=== PATIENT | female | born 1940 | race Caucasian/White ===

== ENCOUNTER 2018-03-08 19:49 | Inpatient (IN) | payer MEDICARE, OTHER ==
[~2018-03-08] VITALS: Ht 152.4 cm; Wt 45.5 kg
[~2018-03-08 19:49] MED LIST: ACET325T21 PO; ATOR40TA59 PO; CARV3.122 PO; CEPH500C PO; CHOL10003 PO; DILT120C80 PO; DIVA250T6 PO; DOCU100C28 PO; HALO5TAB PO; HYDR25SU3 RC; HYOS0.1264 PO; IPRA3AMP IH; LISI10TA2 PO; LORA0.5T PO; LORA0.5T TP; MAGN2400 PO; MAGN64TA6 PO; METH29OI TP; METH5TAB2 PO; MIRT15TA3 PO; MULT1TAB57 PO; NAPR250T6 PO; NEOM1PAC TP; OLAN2.5T11 PO; OMEP20TA8 PO; PHEN100C4 PO; POLY255P PO; PRAM0.5T5 PO; QUET25TA5 PO; SENN-79 PO; SERT50TA8 PO; TIOT18CA IH; TRAZ50TA15 PO
[2018-03-08] MEDS ORDERED: GUAI12003 PO (21:43)
[2018-03-08] MEDS ORDERED: MIRT30TA3 PO (21:43)
[2018-03-08] MEDS ORDERED: FURO-68 PO (21:43)
[2018-03-08] MEDS ORDERED: NICO1PAT27 TD (21:43)
[2018-03-08] MEDS ORDERED: FERR325T14 PO (21:43)
[2018-03-08] MEDS ORDERED: PHEN100C PO (21:43)
[2018-03-08] MEDS ORDERED: ROPI1TAB PO (21:43)
[2018-03-08] MEDS ORDERED: LATA2.5D2 EACHEYE (21:45)
[2018-03-08] MEDS ORDERED: PANT40TA5 PO (21:45)
[2018-03-09] MEDS ORDERED: METHYL SALICYLATE/MENTHOL TOPICAL OINTMENT 29GM TUBE. TP PRN
[2018-03-09] MEDS ORDERED: MAGNESIUM HYDROXIDE 2,400 MG/30 ML ORAL.SUSP. PO PRN
[2018-03-09] MEDS ORDERED: ACETAMINOPHEN 325 MG TABLET PO PRN
[2018-03-09 00:08] VITALS: BP 147/72
[2018-03-09] MEDS ORDERED: traZODone 50 MG TABLET. PO PRN (00:15)
[2018-03-09] MEDS ORDERED: TOLT2CAP PO (00:19)
[2018-03-09] MEDS ORDERED: ALPRAZolam 0.25 MG TABLET PO PRN ×2 (00:30)
[2018-03-09] MEDS ORDERED: ALPR0.254 PO ×2 (00:54)
[2018-03-09 06:00] VITALS: BP 159/75
[2018-03-09] MEDS ORDERED: ALBUTEROL SULFATE 2.5 MG/3 ML NEBU. ONE (06:08)
[2018-03-09] MEDS: ALBUTEROL SULFATE 2.5 MG/3 ML NEBU. NEB SCH ×4 (06:10→20:30)
[2018-03-09 08:06] LABS: BASO % 1 % (0-3); EOS # 0.4 x10^3/uL (0.0-0.7); EOS % 6 % (0-3); HEMATOCRIT 33.6 % (36.0-47.0); HEMOGLOBIN 11.9 g/dL (12.0-15.5); LYMPH # 1.5 x10^3/uL (1.0-4.8); LYMPH % 23 % (24-48); MEAN CORPUSCULAR HEMOGLOBIN 33 pg (25-35); MEAN CORPUSCULAR HGB CONC 35 g/dL (31-37); MEAN CORPUSCULAR VOLUME 93 fL (79-100); MONO # 0.7 x10^3/uL (0.0-1.1); MONO % 10 % (0-9); NEUT % 61 % (31-73); PLATELET COUNT 361 x10^3/uL (140-400); RED CELL DISTRIBUTION WIDTH 13.1 % (11.5-14.5); WHITE BLOOD COUNT 6.7 x10^3/uL (4.0-11.0)
[2018-03-09 08:27] LABS: PHENY 1.1 mcg/mL (10.0-20.0)
[2018-03-09 08:32] LABS: ALBUMIN 3.4 g/dL (3.4-5.0); ALBUMIN/GLOBULIN RATIO 1.1 (1.0-1.7); CALCIUM 9.3 mg/dL (8.5-10.1); CREATININE 0.7 mg/dL (0.6-1.0); GFR 81.4; POTASSIUM 3.7 mmol/L (3.5-5.1); TOTAL BILIRUBIN 0.5 mg/dL (0.2-1.0); TOTAL PROTEIN 6.6 g/dL (6.4-8.2)
[2018-03-09] MEDS ORDERED: NON FORMULARY ITEM (Tiotropium Bromide (Spiriva) 1 PUFF) IH SCH (09:00)
[2018-03-09 10:24] LABS: THYROID STIM HORMONE (TSH) 0.87 uIU/mL (0.358-3.740)
[2018-03-09] MEDS: CARVEDILOL 3.125 MG TABLET PO SCH ×2 (10:24→16:28)
[2018-03-09] MEDS: SERTRALINE 50 MG TABLET. PO SCH (10:24)
[2018-03-09] MEDS: FUROSEMIDE 40 MG TABLET PO SCH (10:24)
[2018-03-09] MEDS: SENNOSIDES 8.6 MG TABLET PO SCH ×2 (10:24→21:13)
[2018-03-09] MEDS: FERROUS SULFATE 325 MG TABLET. PO SCH ×2 (10:25→16:28)
[2018-03-09] MEDS: LISINOPRIL 10 MG TABLET PO SCH (10:25)
[2018-03-09] MEDS: PANTOPRAZOLE 40 MG TABLET. PO SCH (10:25)
[2018-03-09] MEDS: METHADONE 5 MG TABLET. PO SCH ×3 (10:25→21:16)
[2018-03-09] MEDS: rOPINIRole 1 MG TABLET. PO SCH ×2 (10:25→21:13)
[2018-03-09] MEDS: PHENYTOIN SODIUM EXTENDED 100 MG CAPSULE PO SCH ×2 (10:26→21:13)
[2018-03-09] MEDS: NICOTINE 7MG PATCH. TD SCH (10:26)
--- NOTE | 2018-03-09 10:34 | EKG ---
[address] [address] Test Date: 2018-03-09 Test Time: 10:30:26 Pat Name: RASHEEDA [place]SON Department: Room: [address] [place] [address] Gender: F Cyber Security Analyst: : 1940 Requested By: JESIKA HAYES Order Number: [id number] Reading MD: Thomas Zhao MD Measurements Intervals [place] Rate: 94 P: -28 KS: 110 QRS: -15 QRSD: 132 T: 152 QT: 362 QTc: 453 Interpretive Statements SINUS RHYTHM LBBB Electronically Signed On 04-06-2018 22:37:01 CDT by Thomas Zhao MD
[2018-03-09] MEDS: BUDESONIDE 0.5 MG/2 ML NEBU NEB SCH ×2 (10:55→20:30)
[2018-03-09 13:11] LABS: T3 TOTAL 92 ng/dL (71-180); THYROXINE 5.9 ug/dL (4.5-12.0)
[2018-03-09 15:11] LABS: HEMOGLOBIN A1C 4.9 % (4.8-5.6)
[2018-03-09 15:39] VITALS: BP 119/50
--- NOTE | 2018-03-09 20:03 | PDOC ---
Exam Note: Brian Note: Please also refer to the separate dictated note~for this date of service dictated separately.~Patient seen individually. Discussed the patient with Nursing staff reviewed the chart.~Reviewed interim history and current functioning. Reviewed vital signs,~Labs/ Radiology~and current medications noted below. Continue current treatment with the changes noted in the dictated addendum note Assessment: Vital Signs: Vital Signs Date Time Temp Pulse Resp B/P (MAP) Pulse Ox O2 Delivery O2 Flow Rate FiO2 03/09/18 17:42 98 03/09/18 16:28 82 119/50 03/09/18 15:49 Room Air 03/09/18 15:39 99.3 18 I&O Intake and Output 03/09/18 07:00 Intake Total 240 ml Balance 240 ml Intake Oral 240 ml Labs: Laboratory Tests Test 03/09/18 07:35 White Blood Count 6.7 x10^3/uL (4.0-11.0) Red Blood Count 3.60 x10^6/uL (3.50-5.40) Hemoglobin 11.9 g/dL (12.0-15.5) L Hematocrit 33.6 % (36.0-47.0) L Mean Corpuscular Volume 93 fL (79-100) Mean Corpuscular Hemoglobin 33 pg (25-35) Mean Corpuscular Hemoglobin Concent 35 g/dL (31-37) Red Cell Distribution Width 13.1 % (11.5-14.5) Platelet Count 361 x10^3/uL (140-400) Neutrophils (%) (Auto) 61 % (31-73) Lymphocytes (%) (Auto) 23 % (24-48) L Monocytes (%) (Auto) 10 % (0-9) H Eosinophils (%) (Auto) 6 % (0-3) H Basophils (%) (Auto) 1 % (0-3) Neutrophils # (Auto) 4.0 x10^3uL (1.8-7.7) Lymphocytes # (Auto) 1.5 x10^3/uL (1.0-4.8) Monocytes # (Auto) 0.7 x10^3/uL (0.0-1.1) Eosinophils # (Auto) 0.4 x10^3/uL (0.0-0.7) Basophils # (Auto) 0.0 x10^3/uL (0.0-0.2) Sodium Level 136 mmol/L (136-145) Potassium Level 3.7 mmol/L (3.5-5.1) Chloride Level 99 mmol/L (98-107) Carbon Dioxide Level 27 mmol/L (21-32) Anion Gap 10 (6-14) Blood Urea Nitrogen 18 mg/dL (7-20) Creatinine 0.7 mg/dL (0.6-1.0) Estimated GFR (Cockcroft-Gault) 81.4 BUN/Creatinine Ratio 26 (6-20) H Glucose Level 102 mg/dL (70-99) H Hemoglobin A1c 4.9 % (4.8-5.6) Calcium Level 9.3 mg/dL (8.5-10.1) Iron Level 123 ug/dL (50-170) Total Iron Binding Capacity 237 ug/dL (250-450) L Iron Saturation 52 % (15-34) H Total Bilirubin 0.5 mg/dL (0.2-1.0) Aspartate Amino Transferase (AST) 17 U/L (15-37) Alanine Aminotransferase (ALT) 24 U/L (14-59) Alkaline Phosphatase 110 U/L (46-116) Total Protein 6.6 g/dL (6.4-8.2) Albumin 3.4 g/dL (3.4-5.0) Albumin/Globulin Ratio 1.1 (1.0-1.7) Triglycerides Level 78 mg/dL (0-150) Cholesterol Level 247 mg/dL (0-200) H LDL Cholesterol, Calculated 171 mg/dL (0-100) H VLDL Cholesterol, Calculated 15 mg/dL (0-40) Non-HDL Cholesterol Calculated 186 mg/dL (0-129) H HDL Cholesterol 61 mg/dL (40-60) H Cholesterol/HDL Ratio 4.0 Thyroid Stimulating Hormone (TSH) 0.870 uIU/mL (0.358-3.740) Thyroxine (T4) 5.9 ug/dL (4.5-12.0) Total Triiodothyronine (TT3) 92 ng/dL (71-180) Phenytoin (Dilantin) Level 1.1 mcg/mL (10.0-20.0) L Phenytoin Last Dose Date 03/08/18 Phenytoin Last Dose Time 0800 Rapid Plasma Reagin Pending Current Medications: Meds: Current Medications Acetaminophen (Tylenol) 650 mg PRN Q6HRS PRN PO PAIN / TEMP; Start 03/09/18 at 00:00 Multi-Ingredient Ointment (Analgesic [place]) 1 cayla PRN QID PRN TP MUSCLE PAIN; Start 03/09/18 at 00:00 Al Hydroxide/Mg Hydroxide (Mylanta Plus Xs) 15 ml PRN AFTMEALHC PRN PO DYSPEPSIA; Start 03/09/18 at 00:00 Magnesium Hydroxide (Milk Of Magnesia) 2,400 mg PRN QHS PRN PO CONSTIPATION; Start 03/09/18 at 00:00 Ferrous Sulfate (Feosol) 325 mg BIDAFTMEAL PO Last administered on 03/09/18at 16 :28; Start 03/09/18 at 09:00 Albuterol/ Ipratropium (Duoneb) 3 ml PRN Q4HRS PRN IH WHILE AWAKE F/SOA; Start 03/09/18 at 00:15 Lisinopril (Prinivil) 10 mg DAILY PO Last administered on 03/09/18at 10:25; Start 03/09/18 at 09:00 Methadone HCl (Dolophine) 10 mg TID PO Last administered on 03/09/18 16:28; Start 03/09/18 at 09:00 Mirtazapine (Remeron) 30 mg QHS PO ; Start 03/09/18 at 21:00 Sertraline HCl (Zoloft) 150 mg DAILY PO Last administered on 03/09/18at 10:24; Start 03/09/18 at 09:00 Carvedilol (Coreg) 3.125 mg BIDWMEALS PO Last administered on 03/09/18 16:28; Start 03/09/18 at 08:00 Furosemide (Lasix) 40 mg DAILY PO Last administered on 03/09/18 10:24; Start 03/09/18 at 09:00 Guaifenesin (Mucinex Er) 1,200 mg Q12HR PO Last administered on 03/09/18at 10:24 ; Start 03/09/18 at 09:00 Latanoprost (Xalatan) 1 drop QHS OU ; Start 03/09/18 at 21:00 Nicotine (Nicoderm Cq 7mg) 1 patch DAILY TD Last administered on 03/09/18 10: 26; Start 03/09/18 at 09:00 Pantoprazole Sodium (Protonix) 40 mg DAILYAC PO Last administered on 03/09/18at 10:25; Start 03/09/18 at 07:30 Phenytoin Sodium (Dilantin) 200 mg BID PO Last administered on 03/09/18 10:26 ; Start 03/09/18 at 09:00 Ropinirole HCl (Requip) 1 mg BID PO Last administered on 03/09/18at 10:25; Start 03/09/18 at 09:00 Sennosides (Senna) 8.6 mg BID PO Last administered on 03/09/18at 10:24; Start at 09:00 Non-Formulary Medication (Tiotropium [place] (Spiriva)) 1 puff DAILY IH ; Start 03/09/18 at 09:00; Status UNV Oxybutynin Chloride (Ditropan) 5 mg BID PO ; Start 03/09/18 at 21:00 Trazodone HCl (Desyrel) 50 mg PRN QHS PRN PO INSOMNIA; Start 03/09/18 at 00:15 ; Stop 03/09/18 at 19:54; Status DC Alprazolam (Xanax) 0.25 mg PRN Q12HR PRN PO ANXIETY / AGITATION; Start at 00:30; Stop 03/09/18 at 19:54; Status DC Alprazolam (Xanax) 0.25 mg PRN Q6HRS PRN PO ANXIETY / AGITATION; Start at 00:30; Stop 03/09/18 at 19:54; Status DC Albuterol Sulfate (Ventolin) 2.5 mg RTQID NEB Last administered on 03/09/18at 15 :49; Start 03/09/18 at 08:00 Budesonide (Pulmicort) 0.5 mg RTBID NEB Last administered on 03/09/18at 10:55; Start 03/09/18 at 08:00 Albuterol Sulfate (Ventolin) 2.5 mg STK-MED ONCE .ROUTE ; Start 03/09/18 at 06: 08; Stop 03/09/18 at 06:09; Status DC Alprazolam (Xanax) 0.25 mg PRN Q4HRS PRN PO ANXIETY / AGITATION; Start at 20:00; Status UNV Trazodone HCl (Desyrel) 100 mg PRN QHS PRN PO INSOMNIA; Start 03/09/18 at 20:00 ; Status UNV Active Scripts Active Reported Alprazolam 0.25 Mg Tablet 0.25 Mg PO PRN Q12HR PRN Alprazolam 0.25 Mg Tablet 0.25 Mg PO PRN Q6HRS PRN Detrol La (Tolterodine Tartrate) 2 Mg Cap.er.24h 2 Mg PO QHS Xalatan (Latanoprost) 2.5 Ml Drops 1 Drop EACHEYE QHS Pantoprazole Sodium 40 Mg Tablet.dr 40 Mg PO DAILY Requip (Ropinirole Hcl) 1 Mg Tablet 1 Mg PO BID NICODERM CQ 7mg (Nicotine) 1 Each Patch.td24 1 Patch TD DAILY Mucinex (Guaifenesin) 1,200 Mg Tbmp.12hr 1,200 Mg PO Q12HR Lasix (Furosemide) 40 Mg Tablet 40 Mg PO DAILY Ferrous Sulfate 325 Mg Tablet 325 Mg PO BID Mirtazapine 30 Mg Tablet 30 Mg PO QHS Trazodone Hcl 50 Mg Tablet 50 Mg PO PRN QHS PRN Sertraline Hcl 50 Mg Tablet 150 Mg PO DAILY Spiriva (Tiotropium [place]) 18 Mcg Cap.w.dev 1 Puff IH DAILY Senna (Sennosides) 8.6 Mg Tablet 8.6 Mg PO BID Phenytoin Sodium Extended 100 Mg Capsule 200 Mg PO BID Methadone Hcl 5 Mg Tablet 10 Mg PO TID Lisinopril 10 Mg Tablet 10 Mg PO DAILY Carvedilol 3.125 Mg Tablet 1 Tab PO BIDWMEALS Duoneb 0.5-3(2.5) Mg/3 Ml (Albuterol/Ipratropium) 3 Ml Ampul.neb 3 Ml IH Q4HRS W /A PRN I have reviewed the current psychotropics carefully including drug interactions. Risk benefit ratio favors no change other than as noted in my dictated progress note. Diagnosis: Problems: (1) Parkinson disease (2) Major depressive disorder (3) Impulse control disorder (4) Alzheimer's dementia (5) Vascular dementia with delusions JESIKA HAYES MD March 09, 2018 20:03
--- NOTE | 2018-03-09 20:46 | PDOC ---
Exam Note: Brian Note: Please also refer to the separate dictated note~for this date of service dictated separately.~Patient seen individually. Discussed the patient with Nursing staff reviewed the chart.~Reviewed interim history and current functioning. Reviewed vital signs,~Labs/ Radiology~and current medications noted below. Continue current treatment with the changes noted in the dictated addendum note Assessment: Vital Signs: Vital Signs Date Time Temp Pulse Resp B/P (MAP) Pulse Ox O2 Delivery O2 Flow Rate FiO2 03/09/18 20:35 Room Air 03/09/18 20:30 96 03/09/18 16:28 82 119/50 03/09/18 15:39 99.3 18 I&O Intake and Output 03/09/18 07:00 Intake Total 240 ml Balance 240 ml Intake Oral 240 ml Labs: Laboratory Tests Test 03/09/18 07:35 White Blood Count 6.7 x10^3/uL (4.0-11.0) Red Blood Count 3.60 x10^6/uL (3.50-5.40) Hemoglobin 11.9 g/dL (12.0-15.5) L Hematocrit 33.6 % (36.0-47.0) L Mean Corpuscular Volume 93 fL (79-100) Mean Corpuscular Hemoglobin 33 pg (25-35) Mean Corpuscular Hemoglobin Concent 35 g/dL (31-37) Red Cell Distribution Width 13.1 % (11.5-14.5) Platelet Count 361 x10^3/uL (140-400) Neutrophils (%) (Auto) 61 % (31-73) Lymphocytes (%) (Auto) 23 % (24-48) L Monocytes (%) (Auto) 10 % (0-9) H Eosinophils (%) (Auto) 6 % (0-3) H Basophils (%) (Auto) 1 % (0-3) Neutrophils # (Auto) 4.0 x10^3uL (1.8-7.7) Lymphocytes # (Auto) 1.5 x10^3/uL (1.0-4.8) Monocytes # (Auto) 0.7 x10^3/uL (0.0-1.1) Eosinophils # (Auto) 0.4 x10^3/uL (0.0-0.7) Basophils # (Auto) 0.0 x10^3/uL (0.0-0.2) Sodium Level 136 mmol/L (136-145) Potassium Level 3.7 mmol/L (3.5-5.1) Chloride Level 99 mmol/L (98-107) Carbon Dioxide Level 27 mmol/L (21-32) Anion Gap 10 (6-14) Blood Urea Nitrogen 18 mg/dL (7-20) Creatinine 0.7 mg/dL (0.6-1.0) Estimated GFR (Cockcroft-Gault) 81.4 BUN/Creatinine Ratio 26 (6-20) H Glucose Level 102 mg/dL (70-99) H Hemoglobin A1c 4.9 % (4.8-5.6) Calcium Level 9.3 mg/dL (8.5-10.1) Iron Level 123 ug/dL (50-170) Total Iron Binding Capacity 237 ug/dL (250-450) L Iron Saturation 52 % (15-34) H Total Bilirubin 0.5 mg/dL (0.2-1.0) Aspartate Amino Transferase (AST) 17 U/L (15-37) Alanine Aminotransferase (ALT) 24 U/L (14-59) Alkaline Phosphatase 110 U/L (46-116) Total Protein 6.6 g/dL (6.4-8.2) Albumin 3.4 g/dL (3.4-5.0) Albumin/Globulin Ratio 1.1 (1.0-1.7) Triglycerides Level 78 mg/dL (0-150) Cholesterol Level 247 mg/dL (0-200) H LDL Cholesterol, Calculated 171 mg/dL (0-100) H VLDL Cholesterol, Calculated 15 mg/dL (0-40) Non-HDL Cholesterol Calculated 186 mg/dL (0-129) H HDL Cholesterol 61 mg/dL (40-60) H Cholesterol/HDL Ratio 4.0 Thyroid Stimulating Hormone (TSH) 0.870 uIU/mL (0.358-3.740) Thyroxine (T4) 5.9 ug/dL (4.5-12.0) Total Triiodothyronine (TT3) 92 ng/dL (71-180) Phenytoin (Dilantin) Level 1.1 mcg/mL (10.0-20.0) L Phenytoin Last Dose Date 03/08/18 Phenytoin Last Dose Time 0800 Rapid Plasma Reagin Pending Current Medications: Meds: Current Medications Acetaminophen (Tylenol) 650 mg PRN Q6HRS PRN PO PAIN / TEMP; Start 03/09/18 at 00:00 Multi-Ingredient Ointment (Analgesic [place]) 1 cayla PRN QID PRN TP MUSCLE PAIN; Start 03/09/18 at 00:00 Al Hydroxide/Mg Hydroxide (Mylanta Plus Xs) 15 ml PRN AFTMEALHC PRN PO DYSPEPSIA; Start 03/09/18 at 00:00 Magnesium Hydroxide (Milk Of Magnesia) 2,400 mg PRN QHS PRN PO CONSTIPATION; Start 03/09/18 at 00:00 Ferrous Sulfate (Feosol) 325 mg BIDAFTMEAL PO Last administered on 03/09/18at 16 :28; Start 03/09/18 at 09:00 Albuterol/ Ipratropium (Duoneb) 3 ml PRN Q4HRS PRN IH WHILE AWAKE F/SOA; Start 03/09/18 at 00:15 Lisinopril (Prinivil) 10 mg DAILY PO Last administered on 03/09/18at 10:25; Start 03/09/18 at 09:00 Methadone HCl (Dolophine) 10 mg TID PO Last administered on 03/09/18 16:28; Start 03/09/18 at 09:00 Mirtazapine (Remeron) 30 mg QHS PO ; Start 03/09/18 at 21:00 Sertraline HCl (Zoloft) 150 mg DAILY PO Last administered on 03/09/18at 10:24; Start 03/09/18 at 09:00 Carvedilol (Coreg) 3.125 mg BIDWMEALS PO Last administered on 03/09/18 16:28; Start 03/09/18 at 08:00 Furosemide (Lasix) 40 mg DAILY PO Last administered on 03/09/18 10:24; Start 03/09/18 at 09:00 Guaifenesin (Mucinex Er) 1,200 mg Q12HR PO Last administered on 03/09/18at 10:24 ; Start 03/09/18 at 09:00 Latanoprost (Xalatan) 1 drop QHS OU ; Start 03/09/18 at 21:00 Nicotine (Nicoderm Cq 7mg) 1 patch DAILY TD Last administered on 03/09/18 10: 26; Start 03/09/18 at 09:00 Pantoprazole Sodium (Protonix) 40 mg DAILYAC PO Last administered on 03/09/18 10:25; Start 03/09/18 at 07:30 Phenytoin Sodium (Dilantin) 200 mg BID PO Last administered on 03/09/18 10:26 ; Start 03/09/18 at 09:00 Ropinirole HCl (Requip) 1 mg BID PO Last administered on 03/09/18 10:25; Start 03/09/18 at 09:00 Sennosides (Senna) 8.6 mg BID PO Last administered on 03/09/18 10:24; Start at 09:00 Non-Formulary Medication (Tiotropium [place] (Spiriva)) 1 puff DAILY IH ; Start 03/09/18 at 09:00; Status UNV Oxybutynin Chloride (Ditropan) 5 mg BID PO ; Start 03/09/18 at 21:00 Trazodone HCl (Desyrel) 50 mg PRN QHS PRN PO INSOMNIA; Start 03/09/18 at 00:15 ; Stop 03/09/18 at 19:54; Status DC Alprazolam (Xanax) 0.25 mg PRN Q12HR PRN PO ANXIETY / AGITATION; Start at 00:30; Stop 03/09/18 at 19:54; Status DC Alprazolam (Xanax) 0.25 mg PRN Q6HRS PRN PO ANXIETY / AGITATION; Start at 00:30; Stop 03/09/18 at 19:54; Status DC Albuterol Sulfate (Ventolin) 2.5 mg RTQID NEB Last administered on 03/09/18at 20 :30; Start 03/09/18 at 08:00 Budesonide (Pulmicort) 0.5 mg RTBID NEB Last administered on 03/09/18at 20:30; Start 03/09/18 at 08:00 Albuterol Sulfate (Ventolin) 2.5 mg STK-MED ONCE .ROUTE ; Start 03/09/18 at 06: 08; Stop 03/09/18 at 06:09; Status DC Alprazolam (Xanax) 0.25 mg PRN Q4HRS PRN PO ANXIETY / AGITATION; Start at 20:00 Trazodone HCl (Desyrel) 100 mg PRN QHS PRN PO INSOMNIA; Start 03/09/18 at 20:00 Active Scripts Active Reported Alprazolam 0.25 Mg Tablet 0.25 Mg PO PRN Q12HR PRN Alprazolam 0.25 Mg Tablet 0.25 Mg PO PRN Q6HRS PRN Detrol La (Tolterodine Tartrate) 2 Mg Cap.er.24h 2 Mg PO QHS Xalatan (Latanoprost) 2.5 Ml Drops 1 Drop EACHEYE QHS Pantoprazole Sodium 40 Mg Tablet.dr 40 Mg PO DAILY Requip (Ropinirole Hcl) 1 Mg Tablet 1 Mg PO BID NICODERM CQ 7mg (Nicotine) 1 Each Patch.td24 1 Patch TD DAILY Mucinex (Guaifenesin) 1,200 Mg Tbmp.12hr 1,200 Mg PO Q12HR Lasix (Furosemide) 40 Mg Tablet 40 Mg PO DAILY Ferrous Sulfate 325 Mg Tablet 325 Mg PO BID Mirtazapine 30 Mg Tablet 30 Mg PO QHS Trazodone Hcl 50 Mg Tablet 50 Mg PO PRN QHS PRN Sertraline Hcl 50 Mg Tablet 150 Mg PO DAILY Spiriva (Tiotropium [place]) 18 Mcg Cap.w.dev 1 Puff IH DAILY Senna (Sennosides) 8.6 Mg Tablet 8.6 Mg PO BID Phenytoin Sodium Extended 100 Mg Capsule 200 Mg PO BID Methadone Hcl 5 Mg Tablet 10 Mg PO TID Lisinopril 10 Mg Tablet 10 Mg PO DAILY Carvedilol 3.125 Mg Tablet 1 Tab PO BIDWMEALS Duoneb 0.5-3(2.5) Mg/3 Ml (Albuterol/Ipratropium) 3 Ml Ampul.neb 3 Ml IH Q4HRS W /A PRN I have reviewed the current psychotropics carefully including drug interactions. Risk benefit ratio favors no change other than as noted in my dictated progress note. Diagnosis: Problems: (1) Vascular dementia with delusions (2) Alzheimer's dementia (3) Impulse control disorder (4) Major depressive disorder (5) Parkinson disease JESIKA HAYES MD March 09, 2018 20:46
[2018-03-09] MEDS: OXYBUTYNIN CHLORIDE 5 MG TABLET PO SCH (21:15)
[2018-03-09] MEDS: LATANOPROST 0.005% OPHTH SOLUTION 2.5ML BOTTLE. OU SCH (21:15)
[2018-03-09] MEDS: MIRTAZAPINE 30 MG TABLET PO SCH (21:16)
[2018-03-09] MEDS: ALPRAZolam 0.25 MG TABLET PO PRN (21:27)
--- NOTE | 2018-03-09 22:06 | HP ---
ADMIT DATE: 03/09/2018 IDENTIFYING DATA: The patient is a 77-year-old female who returns back to us from [facility], referred by Dr. Tevin Nunn, her primary care physician on account of worsening anxiety, feeling she could not breathe, and making a suicide gesture. She reportedly attempted to cut her wrist with the envelope garage door opener installer. She has been increasingly confused, forgetful. She was last here with us about 3 years ago and since then, she has been at [facility], doing reasonably well until her relapse recently. CHIEF COMPLAINT: "I have been here 3 weeks. No, I do not know where I came from. It is too hot in here. I need the cooling turned down, but my roommate, she would not agree to it. 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 I am not entirely clear about her alcohol intake history and we will have social service staff inquire into it further, in which case, it might be related to some of her memory deficits as well. Additionally, she has been increasingly anxious, having sleep and appetite changes, being overwhelmed with the anxiety and consequently feeling somewhat hopeless, helpless, and worthless. She made the above suicide gesture, but denies any active suicidal ideation at this time. She does have a history of mood swings, but no clear past history of bipolar disorder and we will reassess and gather further background history to clarify this as well. PAST PSYCHIATRIC HISTORY: As above. MEDICAL HISTORY: Positive for COPD, iron deficiency, hypertension, and she is additionally on methadone for chronic pain, history of possible seizure disorder for which she is on Dilantin and Parkinson's disease for which she is on Requip, chronic constipation. DRUG ALLERGIES: Negative. CURRENT PSYCHOTROPICS: Remeron 30 mg at bedtime, Zoloft 100 mg a day, trazodone 50 mg at bedtime p.r.n. FAMILY HISTORY: Noncontributory. SOCIAL HISTORY: The patient denies any past alcohol usage, but as noted above, we will clarify this further during this hospitalization. She states she has 4 children, 2 of whom live in the area and the other 2 in the [place] area reportedly. No physical, sexual or elder abuse history is noted. Not known to be a perpetrator. MENTAL STATUS EXAMINATION: The patient was seen individually evening of 03/09/2018, in her room. She is oriented to herself and said she has been here for several weeks. She is anxious, constantly moving, quite apprehensive, fixated on feeling too hot, wanting the AC turned down. Speech coherent, rapid at times. Abstraction fair, computation impaired, language function intact. Attention span short. No active suicidal ideation. Reaction to hospitalization, the patient accepting of it. ASSETS: Supportive living at the above assisted. IMPRESSION: Major neurocognitive disorder, possibly Alzheimer, vascular with depression, delusion; anxiety disorder, unspecified; impulse control disorder, unspecified; major depressive disorder. Rule out bipolar 1 disorder, mixed episode. Rest as noted above. PLAN: Admit to Ger[facility]iatry Unit at [facility]. I will see the patient daily individually from a psychiatric standpoint, medical followup with Dr. Kelly/Dr. Salguero. Continue the patient on her current psychotropics. We will increase trazodone to 200 mg at bedtime as needed, may repeat x 1, for insomnia since she slept just 3 hours the previous evening. We will make further adjustments as post-baseline assessment. MAN Gabino HAYES MD DR: BROOKE/fabio JOB#: [id number] / [id number]
[2018-03-10] MEDS: ALPRAZolam 0.25 MG TABLET PO PRN ×3 (03:47→18:13)
[2018-03-10] MEDS: ALBUTEROL SULFATE 2.5 MG/3 ML NEBU. NEB SCH ×4 (05:56→21:48)
[2018-03-10 06:07] VITALS: BP 117/63
[2018-03-10] MEDS: BUDESONIDE 0.5 MG/2 ML NEBU NEB SCH ×2 (08:00→21:48)
[2018-03-10] MEDS: PHENYTOIN SODIUM EXTENDED 100 MG CAPSULE PO SCH ×2 (08:01→20:19)
[2018-03-10] MEDS: METHADONE 5 MG TABLET. PO SCH ×3 (08:01→20:22)
[2018-03-10] MEDS: FERROUS SULFATE 325 MG TABLET. PO SCH ×2 (08:01→16:51)
[2018-03-10] MEDS: PANTOPRAZOLE 40 MG TABLET. PO SCH (08:01)
[2018-03-10] MEDS: OXYBUTYNIN CHLORIDE 5 MG TABLET PO SCH ×2 (08:01→20:19)
[2018-03-10] MEDS: SENNOSIDES 8.6 MG TABLET PO SCH ×2 (08:01→20:20)
[2018-03-10] MEDS: FUROSEMIDE 40 MG TABLET PO SCH (08:01)
[2018-03-10] MEDS: rOPINIRole 1 MG TABLET. PO SCH ×2 (08:02→20:20)
[2018-03-10] MEDS: NICOTINE 7MG PATCH. TD SCH (08:02)
[2018-03-10] MEDS: SERTRALINE 50 MG TABLET. PO SCH (08:02)
[2018-03-10] MEDS: CARVEDILOL 3.125 MG TABLET PO SCH ×2 (08:03→16:52)
[2018-03-10] MEDS: LISINOPRIL 10 MG TABLET PO SCH (08:03)
--- NOTE | 2018-03-10 09:02 | CONS ---
DATE OF CONSULTATION: 03/09/2018 REASON FOR CONSULTATION: Medical management. HISTORY OF PRESENT ILLNESS: The patient is a 77-year-old female patient who is a resident at [facility] and who was evaluated at the Emergency Room of [facility]. She presented with a suicidal ideation and anxiety. Apparently, the patient attempted to self-injury by incising her wrist, complaining that she is sick and tired of being short of breath and she apparently cut her left wrist with the finger nail file and arrived there with superficial laceration noted in her left wrist. The patient did not receive her morning medication and when she arrived there, reported feeling anxious and short of breath. Denies any chest pain. She was basically extensively investigated there and was transferred [facility] for inpatient psychiatric stabilization. PAST MEDICAL HISTORY: Significant for anxiety, chronic obstructive pulmonary disease, depression, hypercholesterolemia, hypertension, insomnia, seizure disorder, and dementia. PAST SURGICAL HISTORY: Significant for tonsillectomy. FAMILY HISTORY: Unremarkable. SOCIAL HISTORY: She is a resident at [facility]. She apparently had been a smoker since she the age of 16. She does not drink alcohol or use any recreational drugs. ALLERGIES: She has no known drug allergies. MEDICATIONS: She is currently on following medications: She is on ipratropium bromide, albuterol sulfate, DuoNeb 0.5-2.5 mg in 3 mL by nebulizer every 4 hours, Spiriva HandiHaler 1 inhalation once a day, nicotine transdermal patch 7 mg topically daily, ferrous sulfate 325 mg twice a day, carvedilol 3.125 mg twice a day with meals, lisinopril 10 mg once a day, methadone 10 mg 3 times a day, phenytoin sodium extended release 200 mg twice a day, mirtazapine 30 mg at bedtime, sertraline 150 mg daily and trazodone 50 mg at bedtime, alprazolam 0.25 mg every 6 hours and alprazolam 0.25 mg q.12 hours. She is on Requip 1 mg twice a day, furosemide 40 mg daily and she is on Mucinex 1200 mg twice a day, latanoprost 1 drop to both eyes at bedtime, senna 1 tablet twice a day, Protonix 40 mg once a day, Detrol-LA 2 mg at bedtime. REVIEW OF SYSTEMS: As per history of present illness. PHYSICAL EXAMINATION GENERAL: When I examined her, she was sitting on the edge of the bed, comfortably in no apparent distress, pale, cachectic, but no jaundice or cyanosis. No lymphadenopathy, no thyromegaly. No jugular venous distension. No lower limb edema. VITAL SIGNS: Her heart rate was 82, blood pressure 119/50, temperature was 99.3, respiratory rate was 18 and oxygen saturation was 97% on room air. HEENT: Showed normocephalic, atraumatic. NECK: Supple. HEART: Showed normal first and second sounds. No gallop, rub or murmur. CHEST: Shows central trachea, equal bilateral chest expansion, air entry, vesicular sounds. I could not really appreciate any crepitation or rhonchi. ABDOMEN: Scaphoid, soft, nontender. NEUROLOGIC: She is awake, alert, responding appropriately. Cranial nerves intact. EXTREMITIES: She moves extremities without difficulty. She ambulates without assistance or assistive devices, although she has somewhat wide-based gait. LABORATORY DATA: Her lab work this morning showed a white cell count of 6700, hemoglobin 12, hematocrit 34, MCV 93, and platelet count 361,000 with normal manual differential. Her chemistry showed a serum sodium 136, potassium 3.7, chloride 99, bicarbonate 27, anion gap of 10, BUN 18, creatinine 0.7, estimated GFR was 81 mL per minute. Her glucose was 102, calcium was 9.3. Her hemoglobin A1c was 4.9%. Her serum iron was 123. TIBC was 237, percent saturation was 52. His total bilirubin, AST, ALT, alkaline phosphatase were normal. Total protein was 6.6, albumin was 3.4. His triglycerides were 78. Total cholesterol was 247, LDL cholesterol was 171, VLDL was 15, HDL cholesterol was 61 and the ratio was 4. Her TSH was 0.870, total T4 was 5.9 and total T3 was 92. Her phenytoin level was extremely low and is only 1.1 and her RPR was pending. ASSESSMENT AND PLAN: In summary, this is a 77-year-old female patient who basically attempted suicide by incising her wrist with using her finger nail file sustaining superficial laceration in the left wrist, complaining that she is unable to continue with the complaint of shortness of breath. She obviously known to have COPD and has been a lifelong smoker; however, surprisingly both clinically and by measurement of her oxygen saturation, her oxygen saturation was 99% on room air. The chest expansion, air entry is equal and almost normal in both lung jonas. There is no evidence of any wheezing or crepitation. No dull percussion noted. No evidence of any pneumothorax or pleural effusion. Her lab works are fairly within acceptable range. From the medical point of view, the patient is really stable, I would obviously continue with all her current medication. I think most of her symptoms are anxiety driven and she is already on multiple antianxiety medication. Her phenytoin trough level is a very low; however, I do not know whether that reflects the fact that she is not taking her medication. I would make sure that she receives her phenytoin regularly and to check it perhaps in 3-4 days. Thank you, Dr. Miramontes, for allowing me to participate in the care of this patient. CHARITY CONTRERAS MD DR: ISHMAEL/fabio JOB#: [id number] / [id number]
[2018-03-10 16:17] VITALS: BP 128/69
[2018-03-10] MEDS: LATANOPROST 0.005% OPHTH SOLUTION 2.5ML BOTTLE. OU SCH (20:18)
[2018-03-10] MEDS: MIRTAZAPINE 30 MG TABLET PO SCH (20:19)
--- NOTE | 2018-03-10 20:43 | PDOC ---
Exam Note: Brian Note: Please also refer to the separate dictated note~for this date of service dictated separately.~Patient seen individually. Discussed the patient with Nursing staff reviewed the chart.~Reviewed interim history and current functioning. Reviewed vital signs,~Labs/ Radiology~and current medications noted below. Continue current treatment with the changes noted in the dictated addendum note Assessment: Vital Signs: Vital Signs Date Time Temp Pulse Resp B/P (MAP) Pulse Ox O2 Delivery O2 Flow Rate FiO2 03/10/18 20:22 96 Room Air 03/10/18 16:52 90 128/69 03/10/18 16:17 97.8 20 I&O Intake and Output 03/10/18 07:00 Intake Total 1320 ml Balance 1320 ml Intake Oral 1320 ml # Bowel Movements 1 Current Medications: Meds: Current Medications Acetaminophen (Tylenol) 650 mg PRN Q6HRS PRN PO PAIN / TEMP; Start 03/09/18 at 00:00 Multi-Ingredient Ointment (Analgesic [place]) 1 cayla PRN QID PRN TP MUSCLE PAIN; Start 03/09/18 at 00:00 Al Hydroxide/Mg Hydroxide (Mylanta Plus Xs) 15 ml PRN AFTMEALHC PRN PO DYSPEPSIA; Start 03/09/18 at 00:00 Magnesium Hydroxide (Milk Of Magnesia) 2,400 mg PRN QHS PRN PO CONSTIPATION; Start 03/09/18 at 00:00 Ferrous Sulfate (Feosol) 325 mg BIDAFTMEAL PO Last administered on 03/10/18at 16 :51; Start 03/09/18 at 09:00 Albuterol/ Ipratropium (Duoneb) 3 ml PRN Q4HRS PRN IH WHILE AWAKE F/SOA; Start 03/09/18 at 00:15 Lisinopril (Prinivil) 10 mg DAILY PO Last administered on 03/10/18at 08:03; Start 03/09/18 at 09:00 Methadone HCl (Dolophine) 10 mg TID PO Last administered on 03/10/18at 20:22; Start 03/09/18 at 09:00 Mirtazapine (Remeron) 30 mg QHS PO Last administered on 03/10/18at 20:19; Start 03/09/18 at 21:00 Sertraline HCl (Zoloft) 150 mg DAILY PO Last administered on 03/10/18 08:02; Start 03/09/18 at 09:00 Carvedilol (Coreg) 3.125 mg BIDWMEALS PO Last administered on 03/10/18 16:52; Start 03/09/18 at 08:00 Furosemide (Lasix) 40 mg DAILY PO Last administered on 03/10/18 08:01; Start 03/09/18 at 09:00 Guaifenesin (Mucinex Er) 1,200 mg Q12HR PO Last administered on 03/10/18 20:20 ; Start 03/09/18 at 09:00 Latanoprost (Xalatan) 1 drop QHS OU Last administered on 03/10/18 20:18; Start 03/09/18 at 21:00 Nicotine (Nicoderm Cq 7mg) 1 patch DAILY TD Last administered on 03/10/18 08: 02; Start 03/09/18 at 09:00 Pantoprazole Sodium (Protonix) 40 mg DAILYAC PO Last administered on 03/10/18at 08:01; Start 03/09/18 at 07:30 Phenytoin Sodium (Dilantin) 200 mg BID PO Last administered on 03/10/18 20:19 ; Start 03/09/18 at 09:00 Ropinirole HCl (Requip) 1 mg BID PO Last administered on 03/10/18 20:20; Start 03/09/18 at 09:00 Sennosides (Senna) 8.6 mg BID PO Last administered on 03/10/18 20:20; Start at 09:00 Non-Formulary Medication (Tiotropium [place] (Spiriva)) 1 puff DAILY IH ; Start 03/09/18 at 09:00; Status UNV Oxybutynin Chloride (Ditropan) 5 mg BID PO Last administered on 03/10/18at 20:19 ; Start 03/09/18 at 21:00 Trazodone HCl (Desyrel) 50 mg PRN QHS PRN PO INSOMNIA; Start 03/09/18 at 00:15 ; Stop 03/09/18 at 19:54; Status DC Alprazolam (Xanax) 0.25 mg PRN Q12HR PRN PO ANXIETY / AGITATION; Start at 00:30; Stop 03/09/18 at 19:54; Status DC Alprazolam (Xanax) 0.25 mg PRN Q6HRS PRN PO ANXIETY / AGITATION; Start at 00:30; Stop 03/09/18 at 19:54; Status DC Albuterol Sulfate (Ventolin) 2.5 mg RTQID NEB Last administered on 03/10/18at 05 :56; Start 03/09/18 at 08:00 Budesonide (Pulmicort) 0.5 mg RTBID NEB Last administered on 03/09/18at 20:30; Start 03/09/18 at 08:00 Albuterol Sulfate (Ventolin) 2.5 mg STK-MED ONCE .ROUTE ; Start 03/09/18 at 06: 08; Stop 03/09/18 at 06:09; Status DC Alprazolam (Xanax) 0.25 mg PRN Q4HRS PRN PO ANXIETY / AGITATION Last administered on 03/10/18at 18:13; Start 03/09/18 at 20:00 Trazodone HCl (Desyrel) 100 mg PRN QHS PRN PO INSOMNIA; Start 03/09/18 at 20:00 Active Scripts Active Reported Alprazolam 0.25 Mg Tablet 0.25 Mg PO PRN Q12HR PRN Alprazolam 0.25 Mg Tablet 0.25 Mg PO PRN Q6HRS PRN Detrol La (Tolterodine Tartrate) 2 Mg Cap.er.24h 2 Mg PO QHS Xalatan (Latanoprost) 2.5 Ml Drops 1 Drop EACHEYE QHS Pantoprazole Sodium 40 Mg Tablet.dr 40 Mg PO DAILY Requip (Ropinirole Hcl) 1 Mg Tablet 1 Mg PO BID NICODERM CQ 7mg (Nicotine) 1 Each Patch.td24 1 Patch TD DAILY Mucinex (Guaifenesin) 1,200 Mg Tbmp.12hr 1,200 Mg PO Q12HR Lasix (Furosemide) 40 Mg Tablet 40 Mg PO DAILY Ferrous Sulfate 325 Mg Tablet 325 Mg PO BID Mirtazapine 30 Mg Tablet 30 Mg PO QHS Trazodone Hcl 50 Mg Tablet 50 Mg PO PRN QHS PRN Sertraline Hcl 50 Mg Tablet 150 Mg PO DAILY Spiriva (Tiotropium [place]) 18 Mcg Cap.w.dev 1 Puff IH DAILY Senna (Sennosides) 8.6 Mg Tablet 8.6 Mg PO BID Phenytoin Sodium Extended 100 Mg Capsule 200 Mg PO BID Methadone Hcl 5 Mg Tablet 10 Mg PO TID Lisinopril 10 Mg Tablet 10 Mg PO DAILY Carvedilol 3.125 Mg Tablet 1 Tab PO BIDWMEALS Duoneb 0.5-3(2.5) Mg/3 Ml (Albuterol/Ipratropium) 3 Ml Ampul.neb 3 Ml IH Q4HRS W /A PRN I have reviewed the current psychotropics carefully including drug interactions. Risk benefit ratio favors no change other than as noted in my dictated progress note. Diagnosis: Problems: (1) Vascular dementia with delusions (2) Alzheimer's dementia (3) Impulse control disorder (4) Major depressive disorder (5) Parkinson disease JESIKA HAYES MD March 10, 2018 20:43
[2018-03-11] MEDS: traZODone 50 MG TABLET. PO PRN (00:45)
[2018-03-11] MEDS: ALPRAZolam 0.25 MG TABLET PO PRN ×4 (00:45→17:11)
--- NOTE | 2018-03-11 02:35 | PN ---
DATE: 03/10/2018 SUBJECTIVE: The patient was seen today, met with the staff, chart reviewed. The patient continues to have problems with severe anxiety, periods of agitation, and also having almost panic attacks. The patient complains of shortness of breath. Apparently, she does have some breathing difficulties. The patient walks with a walker. Staff denies of any falls recently. OBSERVATION: VITAL SIGNS: Temperature 99.0, blood pressure 117/63, pulse 66, respirations 16, O2 sat 94%. Slept about 6-1/2 hours last night. The patient's appetite is fair. MEDICATIONS: Reviewed. Currently on mirtazapine 30 mg at night, trazodone 100 mg at night p.r.n., Xanax 0.25 mg q.4 hours p.r.n., Requip 1 mg b.i.d., Dilantin 200 mg b.i.d., nicotine patch, Lasix 40 mg daily, Zoloft 150 mg daily, methadone 10 mg t.i.d., lisinopril 10 mg daily, ferrous sulfate 325 mg daily. She is also on Ventolin inhaler. She is also on carvedilol 3.125 mg twice a day, Protonix 40 mg daily. She is also on albuterol inhaler. LABORATORY DATA: The patient's lab reviewed. Her hemoglobin level was 11.9. The patient's TIBC was 237, iron saturation 52, cholesterol 247, LDL 171. ASSESSMENT: Major neurocognitive disorder, most likely Alzheimer and vascular with depression and major depression, single episode, moderate, also rule out bipolar disorder, mixed. PLAN: Continue with the current treatment. Continue to monitor her medications closely. TERESITA HULL MD DR: JUAQUIN/fabio JOB#: [id number] / [id number]
[2018-03-11] MEDS: ALBUTEROL SULFATE 2.5 MG/3 ML NEBU. NEB SCH ×4 (06:22→22:06)
[2018-03-11 06:27] VITALS: BP 102/47
[2018-03-11 08:01] VITALS: BP 115/55
[2018-03-11] MEDS: FERROUS SULFATE 325 MG TABLET. PO SCH ×2 (08:03→17:04)
[2018-03-11] MEDS: CARVEDILOL 3.125 MG TABLET PO SCH ×2 (08:03→17:00)
[2018-03-11] MEDS: LISINOPRIL 10 MG TABLET PO SCH (08:03)
[2018-03-11] MEDS: PHENYTOIN SODIUM EXTENDED 100 MG CAPSULE PO SCH ×2 (08:03→19:40)
[2018-03-11] MEDS: SERTRALINE 50 MG TABLET. PO SCH (08:03)
[2018-03-11] MEDS: FUROSEMIDE 40 MG TABLET PO SCH (08:04)
[2018-03-11] MEDS: OXYBUTYNIN CHLORIDE 5 MG TABLET PO SCH ×2 (08:04→19:40)
[2018-03-11] MEDS: rOPINIRole 1 MG TABLET. PO SCH ×2 (08:04→19:41)
[2018-03-11] MEDS: NICOTINE 7MG PATCH. TD SCH (08:04)
[2018-03-11] MEDS: SENNOSIDES 8.6 MG TABLET PO SCH ×2 (08:04→19:41)
[2018-03-11] MEDS: PANTOPRAZOLE 40 MG TABLET. PO SCH (08:04)
[2018-03-11] MEDS: METHADONE 5 MG TABLET. PO SCH ×3 (08:05→19:42)
[2018-03-11] MEDS: BUDESONIDE 0.5 MG/2 ML NEBU NEB SCH ×2 (10:30→22:06)
[2018-03-11 16:41] VITALS: BP 102/52
[2018-03-11] MEDS: LATANOPROST 0.005% OPHTH SOLUTION 2.5ML BOTTLE. OU SCH (19:39)
[2018-03-11] MEDS: MIRTAZAPINE 30 MG TABLET PO SCH (19:41)
[2018-03-12] MEDS: ALPRAZolam 0.25 MG TABLET PO PRN ×3 (04:24→23:42)
[2018-03-12] MEDS: ALBUTEROL SULFATE 2.5 MG/3 ML NEBU. NEB SCH ×4 (05:51→23:29)
[2018-03-12 06:32] VITALS: BP 115/49
[2018-03-12] MEDS: NICOTINE 7MG PATCH. TD SCH (07:53)
[2018-03-12] MEDS: SERTRALINE 50 MG TABLET. PO SCH (07:54)
[2018-03-12] MEDS: rOPINIRole 1 MG TABLET. PO SCH ×2 (07:54→19:19)
[2018-03-12] MEDS: CARVEDILOL 3.125 MG TABLET PO SCH ×2 (07:54→17:26)
[2018-03-12] MEDS: PHENYTOIN SODIUM EXTENDED 100 MG CAPSULE PO SCH ×2 (07:54→19:20)
[2018-03-12] MEDS: FERROUS SULFATE 325 MG TABLET. PO SCH ×2 (07:54→17:25)
[2018-03-12] MEDS: PANTOPRAZOLE 40 MG TABLET. PO SCH (07:55)
[2018-03-12] MEDS: OXYBUTYNIN CHLORIDE 5 MG TABLET PO SCH ×2 (07:55→19:20)
[2018-03-12] MEDS: LISINOPRIL 10 MG TABLET PO SCH (07:55)
[2018-03-12] MEDS: SENNOSIDES 8.6 MG TABLET PO SCH ×2 (07:55→19:19)
[2018-03-12] MEDS: FUROSEMIDE 40 MG TABLET PO SCH (07:55)
[2018-03-12] MEDS: METHADONE 5 MG TABLET. PO SCH ×3 (07:58→19:21)
[2018-03-12] MEDS: QUEtiapine 25 MG TABLET. PO SCH ×2 (07:58→13:43)
[2018-03-12] MEDS: BUDESONIDE 0.5 MG/2 ML NEBU NEB SCH ×2 (10:41→23:29)
[2018-03-12 16:28] VITALS: BP 132/78
[2018-03-12] MEDS ORDERED: QUEtiapine 25 MG TABLET. PO ONE (19:00)
[2018-03-12] MEDS: MIRTAZAPINE 30 MG TABLET PO SCH (19:20)
--- NOTE | 2018-03-12 19:54 | PDOC ---
Exam Note: Brian Note: Late entry for date of service March 11, 2018. Please also refer to the separate dictated note~for this date of service dictated separately.~Patient seen individually. Discussed the patient with Nursing staff reviewed the chart.~ Reviewed interim history and current functioning. Reviewed vital signs,~Labs/ Radiology~and current medications noted below. Continue current treatment with the changes noted in the dictated addendum note Assessment: Vital Signs: VS - Last 72 Hours, by Label Date Time Temp Pulse Resp B/P (MAP) Pulse Ox O2 Delivery O2 Flow Rate FiO2 03/12/18 19:21 95 Room Air 03/12/18 17:26 73 132/78 03/12/18 16:28 98.0 73 16 132/78 (96) 95 03/12/18 15:55 95 Room Air 03/12/18 14:45 99 03/12/18 13:44 99 03/12/18 10:43 99 Room Air 03/12/18 10:42 99 Room Air 03/12/18 07:58 18 94 Room Air 03/12/18 07:55 67 115/49 03/12/18 07:54 67 115/49 03/12/18 06:32 97.2 67 22 115/49 (71) 94 03/12/18 05:30 97 Room Air 03/11/18 22:00 95 Room Air 03/11/18 21:55 95 Room Air 03/11/18 19:42 97 Room Air 03/11/18 17:04 97 03/11/18 17:00 67 102/52 03/11/18 16:41 98.2 67 18 102/52 (69) 97 Room Air 03/11/18 16:05 98 Room Air 03/11/18 10:30 96 Room Air 03/11/18 10:30 96 Room Air 03/11/18 08:05 99 03/11/18 08:03 74 115/55 03/11/18 08:03 74 115/55 03/11/18 08:01 74 115/55 (75) 99 03/11/18 06:27 97.1 71 24 102/47 (65) 94 03/11/18 06:24 95 Room Air 03/10/18 21:48 96 Room Air 03/10/18 21:22 18 Room Air 03/10/18 20:22 96 Room Air 03/10/18 16:52 90 128/69 03/10/18 16:17 97.8 90 20 128/69 (88) 96 03/10/18 13:50 94 03/10/18 08:03 66 117/63 03/10/18 08:03 66 117/63 03/10/18 08:01 94 03/10/18 06:07 99.0 66 16 117/63 (81) 94 Room Air 03/10/18 05:55 95 Room Air 03/09/18 21:16 18 Room Air 03/09/18 20:35 Room Air 03/09/18 20:30 96 Room Air Vital Signs Date Time Temp Pulse Resp B/P (MAP) Pulse Ox O2 Delivery O2 Flow Rate FiO2 03/12/18 19:21 95 Room Air 03/12/18 17:26 73 132/78 03/12/18 16:28 98.0 16 I&O Intake and Output 03/12/18 07:00 Intake Total 240 ml Balance 240 ml Intake Oral 240 ml # Bowel Movements 1 Current Medications: Meds: Current Medications Acetaminophen (Tylenol) 650 mg PRN Q6HRS PRN PO PAIN / TEMP; Start 03/09/18 at 00:00 Multi-Ingredient Ointment (Analgesic [place]) 1 cayla PRN QID PRN TP MUSCLE PAIN; Start 03/09/18 at 00:00 Al Hydroxide/Mg Hydroxide (Mylanta Plus Xs) 15 ml PRN AFTMEALHC PRN PO DYSPEPSIA; Start 03/09/18 at 00:00 Magnesium Hydroxide (Milk Of Magnesia) 2,400 mg PRN QHS PRN PO CONSTIPATION; Start 03/09/18 at 00:00 Ferrous Sulfate (Feosol) 325 mg BIDAFTMEAL PO Last administered on 03/12/18at 17 :25; Start 03/09/18 at 09:00 Albuterol/ Ipratropium (Duoneb) 3 ml PRN Q4HRS PRN IH WHILE AWAKE F/SOA; Start 03/09/18 at 00:15 Lisinopril (Prinivil) 10 mg DAILY PO Last administered on 03/12/18at 07:55; Start 03/09/18 at 09:00 Methadone HCl (Dolophine) 10 mg TID PO Last administered on 03/12/18at 19:21; Start 03/09/18 at 09:00 Mirtazapine (Remeron) 30 mg QHS PO Last administered on 03/12/18 19:20; Start 03/09/18 at 21:00 Sertraline HCl (Zoloft) 150 mg DAILY PO Last administered on 03/12/18 07:54; Start 03/09/18 at 09:00 Carvedilol (Coreg) 3.125 mg BIDWMEALS PO Last administered on 03/12/18 17:26; Start 03/09/18 at 08:00 Furosemide (Lasix) 40 mg DAILY PO Last administered on 03/12/18 07:55; Start 03/09/18 at 09:00 Guaifenesin (Mucinex Er) 1,200 mg Q12HR PO Last administered on 03/12/18 19:20 ; Start 03/09/18 at 09:00 Latanoprost (Xalatan) 1 drop QHS OU Last administered on 03/11/18 19:39; Start 03/09/18 at 21:00 Nicotine (Nicoderm Cq 7mg) 1 patch DAILY TD Last administered on 03/12/18 07: 53; Start 03/09/18 at 09:00 Pantoprazole Sodium (Protonix) 40 mg DAILYAC PO Last administered on 03/12/18 07:55; Start 03/09/18 at 07:30 Phenytoin Sodium (Dilantin) 200 mg BID PO Last administered on 03/12/18 19:20 ; Start 03/09/18 at 09:00 Ropinirole HCl (Requip) 1 mg BID PO Last administered on 03/12/18 19:19; Start 03/09/18 at 09:00 Sennosides (Senna) 8.6 mg BID PO Last administered on 03/12/18 19:19; Start at 09:00 Non-Formulary Medication (Tiotropium [place] (Spiriva)) 1 puff DAILY IH ; Start 03/09/18 at 09:00; Status UNV Oxybutynin Chloride (Ditropan) 5 mg BID PO Last administered on 03/12/18 19:20 ; Start 03/09/18 at 21:00 Trazodone HCl (Desyrel) 50 mg PRN QHS PRN PO INSOMNIA; Start 03/09/18 at 00:15 ; Stop 03/09/18 at 19:54; Status DC Alprazolam (Xanax) 0.25 mg PRN Q12HR PRN PO ANXIETY / AGITATION; Start at 00:30; Stop 03/09/18 at 19:54; Status DC Alprazolam (Xanax) 0.25 mg PRN Q6HRS PRN PO ANXIETY / AGITATION; Start at 00:30; Stop 03/09/18 at 19:54; Status DC Albuterol Sulfate (Ventolin) 2.5 mg RTQID NEB Last administered on 03/12/18at 15 :55; Start 03/09/18 at 08:00 Budesonide (Pulmicort) 0.5 mg RTBID NEB Last administered on 03/12/18at 10:41; Start 03/09/18 at 08:00 Albuterol Sulfate (Ventolin) 2.5 mg STK-MED ONCE .ROUTE ; Start 03/09/18 at 06: 08; Stop 03/09/18 at 06:09; Status DC Alprazolam (Xanax) 0.25 mg PRN Q4HRS PRN PO ANXIETY / AGITATION Last administered on 03/12/18at 12:33; Start 03/09/18 at 20:00 Trazodone HCl (Desyrel) 100 mg PRN QHS PRN PO INSOMNIA Last administered on at 00:45; Start 03/09/18 at 20:00 Quetiapine Fumarate (SEROquel) 12.5 mg BID@0900,1300 PO Last administered on at 13:43; Start 03/12/18 at 09:00; Stop 03/12/18 at 18:38; Status DC Quetiapine Fumarate (SEROquel) 25 mg TID@0900,1300,1700 PO ; Start 03/13/18 at 09:00 Quetiapine Fumarate (SEROquel) 12.5 mg 1X ONCE PO Last administered on at 19:19; Start 03/12/18 at 19:00; Stop 03/12/18 at 19:01; Status DC Active Scripts Active Reported Alprazolam 0.25 Mg Tablet 0.25 Mg PO PRN Q12HR PRN Alprazolam 0.25 Mg Tablet 0.25 Mg PO PRN Q6HRS PRN Detrol La (Tolterodine Tartrate) 2 Mg Cap.er.24h 2 Mg PO QHS Xalatan (Latanoprost) 2.5 Ml Drops 1 Drop EACHEYE QHS Pantoprazole Sodium 40 Mg Tablet.dr 40 Mg PO DAILY Requip (Ropinirole Hcl) 1 Mg Tablet 1 Mg PO BID NICODERM CQ 7mg (Nicotine) 1 Each Patch.td24 1 Patch TD DAILY Mucinex (Guaifenesin) 1,200 Mg Tbmp.12hr 1,200 Mg PO Q12HR Lasix (Furosemide) 40 Mg Tablet 40 Mg PO DAILY Ferrous Sulfate 325 Mg Tablet 325 Mg PO BID Mirtazapine 30 Mg Tablet 30 Mg PO QHS Trazodone Hcl 50 Mg Tablet 50 Mg PO PRN QHS PRN Sertraline Hcl 50 Mg Tablet 150 Mg PO DAILY Spiriva (Tiotropium [place]) 18 Mcg Cap.w.dev 1 Puff IH DAILY Senna (Sennosides) 8.6 Mg Tablet 8.6 Mg PO BID Phenytoin Sodium Extended 100 Mg Capsule 200 Mg PO BID Methadone Hcl 5 Mg Tablet 10 Mg PO TID Lisinopril 10 Mg Tablet 10 Mg PO DAILY Carvedilol 3.125 Mg Tablet 1 Tab PO BIDWMEALS Duoneb 0.5-3(2.5) Mg/3 Ml (Albuterol/Ipratropium) 3 Ml Ampul.neb 3 Ml IH Q4HRS W /A PRN I have reviewed the current psychotropics carefully including drug interactions. Risk benefit ratio favors no change other than as noted in my dictated progress note. Diagnosis: Problems: (1) Vascular dementia with delusions (2) Alzheimer's dementia (3) Impulse control disorder (4) Major depressive disorder (5) Parkinson disease JESIKA HAYES MD March 12, 2018 19:54
--- NOTE | 2018-03-12 20:30 | PDOC ---
Exam Note: Brian Note: Please also refer to the separate dictated note~for this date of service dictated separately.~Patient seen individually. Discussed the patient with Nursing staff reviewed the chart.~Reviewed interim history and current functioning. Reviewed vital signs,~Labs/ Radiology~and current medications noted below. Continue current treatment with the changes noted in the dictated addendum note Assessment: Vital Signs: Vital Signs Date Time Temp Pulse Resp B/P (MAP) Pulse Ox O2 Delivery O2 Flow Rate FiO2 03/12/18 19:21 95 Room Air 03/12/18 17:26 73 132/78 03/12/18 16:28 98.0 16 I&O Intake and Output 03/12/18 07:00 Intake Total 240 ml Balance 240 ml Intake Oral 240 ml # Bowel Movements 1 Current Medications: Meds: Current Medications Acetaminophen (Tylenol) 650 mg PRN Q6HRS PRN PO PAIN / TEMP; Start 03/09/18 at 00:00 Multi-Ingredient Ointment (Analgesic [place]) 1 cayla PRN QID PRN TP MUSCLE PAIN; Start 03/09/18 at 00:00 Al Hydroxide/Mg Hydroxide (Mylanta Plus Xs) 15 ml PRN AFTMEALHC PRN PO DYSPEPSIA; Start 03/09/18 at 00:00 Magnesium Hydroxide (Milk Of Magnesia) 2,400 mg PRN QHS PRN PO CONSTIPATION; Start 03/09/18 at 00:00 Ferrous Sulfate (Feosol) 325 mg BIDAFTMEAL PO Last administered on 03/12/18at 17 :25; Start 03/09/18 at 09:00 Albuterol/ Ipratropium (Duoneb) 3 ml PRN Q4HRS PRN IH WHILE AWAKE F/SOA; Start 03/09/18 at 00:15 Lisinopril (Prinivil) 10 mg DAILY PO Last administered on 03/12/18at 07:55; Start 03/09/18 at 09:00 Methadone HCl (Dolophine) 10 mg TID PO Last administered on 03/12/18at 19:21; Start 03/09/18 at 09:00 Mirtazapine (Remeron) 30 mg QHS PO Last administered on 03/12/18at 19:20; Start 03/09/18 at 21:00 Sertraline HCl (Zoloft) 150 mg DAILY PO Last administered on 03/12/18 07:54; Start 03/09/18 at 09:00 Carvedilol (Coreg) 3.125 mg BIDWMEALS PO Last administered on 03/12/18 17:26; Start 03/09/18 at 08:00 Furosemide (Lasix) 40 mg DAILY PO Last administered on 03/12/18 07:55; Start 03/09/18 at 09:00 Guaifenesin (Mucinex Er) 1,200 mg Q12HR PO Last administered on 03/12/18 19:20 ; Start 03/09/18 at 09:00 Latanoprost (Xalatan) 1 drop QHS OU Last administered on 03/11/18 19:39; Start 03/09/18 at 21:00 Nicotine (Nicoderm Cq 7mg) 1 patch DAILY TD Last administered on 03/12/18 07: 53; Start 03/09/18 at 09:00 Pantoprazole Sodium (Protonix) 40 mg DAILYAC PO Last administered on 03/12/18 07:55; Start 03/09/18 at 07:30 Phenytoin Sodium (Dilantin) 200 mg BID PO Last administered on 03/12/18 19:20 ; Start 03/09/18 at 09:00 Ropinirole HCl (Requip) 1 mg BID PO Last administered on 03/12/18 19:19; Start 03/09/18 at 09:00 Sennosides (Senna) 8.6 mg BID PO Last administered on 03/12/18 19:19; Start at 09:00 Non-Formulary Medication (Tiotropium [place] (Spiriva)) 1 puff DAILY IH ; Start 03/09/18 at 09:00; Status UNV Oxybutynin Chloride (Ditropan) 5 mg BID PO Last administered on 03/12/18 19:20 ; Start 03/09/18 at 21:00 Trazodone HCl (Desyrel) 50 mg PRN QHS PRN PO INSOMNIA; Start 03/09/18 at 00:15 ; Stop 03/09/18 at 19:54; Status DC Alprazolam (Xanax) 0.25 mg PRN Q12HR PRN PO ANXIETY / AGITATION; Start at 00:30; Stop 03/09/18 at 19:54; Status DC Alprazolam (Xanax) 0.25 mg PRN Q6HRS PRN PO ANXIETY / AGITATION; Start at 00:30; Stop 03/09/18 at 19:54; Status DC Albuterol Sulfate (Ventolin) 2.5 mg RTQID NEB Last administered on 03/12/18at 15 :55; Start 03/09/18 at 08:00 Budesonide (Pulmicort) 0.5 mg RTBID NEB Last administered on 03/12/18at 10:41; Start 03/09/18 at 08:00 Albuterol Sulfate (Ventolin) 2.5 mg STK-MED ONCE .ROUTE ; Start 03/09/18 at 06: 08; Stop 03/09/18 at 06:09; Status DC Alprazolam (Xanax) 0.25 mg PRN Q4HRS PRN PO ANXIETY / AGITATION Last administered on 03/12/18at 12:33; Start 03/09/18 at 20:00 Trazodone HCl (Desyrel) 100 mg PRN QHS PRN PO INSOMNIA Last administered on at 00:45; Start 03/09/18 at 20:00 Quetiapine Fumarate (SEROquel) 12.5 mg BID@0900,1300 PO Last administered on at 13:43; Start 03/12/18 at 09:00; Stop 03/12/18 at 18:38; Status DC Quetiapine Fumarate (SEROquel) 25 mg TID@0900,1300,1700 PO ; Start 03/13/18 at 09:00 Quetiapine Fumarate (SEROquel) 12.5 mg 1X ONCE PO Last administered on at 19:19; Start 03/12/18 at 19:00; Stop 03/12/18 at 19:01; Status DC Active Scripts Active Reported Alprazolam 0.25 Mg Tablet 0.25 Mg PO PRN Q12HR PRN Alprazolam 0.25 Mg Tablet 0.25 Mg PO PRN Q6HRS PRN Detrol La (Tolterodine Tartrate) 2 Mg Cap.er.24h 2 Mg PO QHS Xalatan (Latanoprost) 2.5 Ml Drops 1 Drop EACHEYE QHS Pantoprazole Sodium 40 Mg Tablet.dr 40 Mg PO DAILY Requip (Ropinirole Hcl) 1 Mg Tablet 1 Mg PO BID NICODERM CQ 7mg (Nicotine) 1 Each Patch.td24 1 Patch TD DAILY Mucinex (Guaifenesin) 1,200 Mg Tbmp.12hr 1,200 Mg PO Q12HR Lasix (Furosemide) 40 Mg Tablet 40 Mg PO DAILY Ferrous Sulfate 325 Mg Tablet 325 Mg PO BID Mirtazapine 30 Mg Tablet 30 Mg PO QHS Trazodone Hcl 50 Mg Tablet 50 Mg PO PRN QHS PRN Sertraline Hcl 50 Mg Tablet 150 Mg PO DAILY Spiriva (Tiotropium [place]) 18 Mcg Cap.w.dev 1 Puff IH DAILY Senna (Sennosides) 8.6 Mg Tablet 8.6 Mg PO BID Phenytoin Sodium Extended 100 Mg Capsule 200 Mg PO BID Methadone Hcl 5 Mg Tablet 10 Mg PO TID Lisinopril 10 Mg Tablet 10 Mg PO DAILY Carvedilol 3.125 Mg Tablet 1 Tab PO BIDWMEALS Duoneb 0.5-3(2.5) Mg/3 Ml (Albuterol/Ipratropium) 3 Ml Ampul.neb 3 Ml IH Q4HRS W /A PRN I have reviewed the current psychotropics carefully including drug interactions. Risk benefit ratio favors no change other than as noted in my dictated progress note. Diagnosis: Problems: (1) Vascular dementia with delusions (2) Alzheimer's dementia (3) Impulse control disorder (4) Major depressive disorder (5) Parkinson disease JESIKA HAYES MD March 12, 2018 20:30
[2018-03-12] MEDS: LATANOPROST 0.005% OPHTH SOLUTION 2.5ML BOTTLE. OU SCH (21:00)
--- NOTE | 2018-03-13 00:14 | PN ---
DATE: 03/11/2018 This is a late entry 03/11/2018 covers elements not covered in my initial note 03/11/2018. I met with the patient in the evening. The patient slept 9-1/4 hours previous evening. She remains extremely anxious, restless, constantly moving, forgetful. She is complaining about not being able to get enough air. O2 sats are unremarkable. Has received 3 PRNs, often withdrawn to her room with anxiety. REVIEW OF SYSTEMS: She has vague somatic symptoms. No CV, , pulmonary, eye system symptoms on review other than as above. MENTAL STATUS EXAM: Oriented to herself, situation at times. Speech coherent, rapid at times. Abstraction fair, computation impaired, quite anxious. Mood and affect remains labile. No suicidal or homicidal ideation. LABORATORY DATA: Reviewed. IMPRESSION: Major neurocognitive disorder, Alzheimer, vascular with depression, delusions; anxiety disorder, unspecified; panic disorder. Rest unchanged. PLAN: Start Seroquel 12.5 mg 9 a.m., 1:00 p.m. Continue rest of the psychotropics mentioned in my initial note. MAN Gabino HAYES MD DR: BROOKE/fabio JOB#: [id number] / [id number]
[2018-03-13] MEDS: ALPRAZolam 0.25 MG TABLET PO PRN ×3 (04:35→22:22)
[2018-03-13 05:51] VITALS: BP 132/83
[2018-03-13] MEDS: ALBUTEROL SULFATE 2.5 MG/3 ML NEBU. NEB SCH ×4 (05:56→22:14)
[2018-03-13 07:38] LABS: PHENY 13.1 mcg/mL (10.0-20.0)
[2018-03-13] MEDS: PHENYTOIN SODIUM EXTENDED 100 MG CAPSULE PO SCH ×2 (07:53→19:51)
[2018-03-13] MEDS: NICOTINE 7MG PATCH. TD SCH (07:54)
[2018-03-13] MEDS: SENNOSIDES 8.6 MG TABLET PO SCH ×2 (07:54→19:51)
[2018-03-13] MEDS: PANTOPRAZOLE 40 MG TABLET. PO SCH (07:54)
[2018-03-13] MEDS: rOPINIRole 1 MG TABLET. PO SCH ×2 (07:54→19:52)
[2018-03-13] MEDS: LISINOPRIL 10 MG TABLET PO SCH (07:56)
[2018-03-13] MEDS: OXYBUTYNIN CHLORIDE 5 MG TABLET PO SCH ×2 (07:56→19:52)
[2018-03-13] MEDS: FERROUS SULFATE 325 MG TABLET. PO SCH ×2 (07:57→17:04)
[2018-03-13] MEDS: SERTRALINE 50 MG TABLET. PO SCH (07:57)
[2018-03-13] MEDS: FUROSEMIDE 40 MG TABLET PO SCH (07:57)
[2018-03-13] MEDS: CARVEDILOL 3.125 MG TABLET PO SCH ×2 (08:13→17:06)
[2018-03-13] MEDS: BUDESONIDE 0.5 MG/2 ML NEBU NEB SCH ×2 (09:50→22:14)
[2018-03-13] MEDS: QUEtiapine 25 MG TABLET. PO SCH ×3 (09:55→17:05)
[2018-03-13] MEDS: METHADONE 5 MG TABLET. PO SCH ×3 (09:56→19:55)
[2018-03-13 16:05] VITALS: BP 135/56
[2018-03-13] MEDS: MIRTAZAPINE 30 MG TABLET PO SCH (19:52)
[2018-03-13] MEDS: LATANOPROST 0.005% OPHTH SOLUTION 2.5ML BOTTLE. OU SCH (19:54)
--- NOTE | 2018-03-13 20:47 | PDOC ---
Exam Note: Brian Note: Please also refer to the separate dictated note~for this date of service dictated separately.~Patient seen individually. Discussed the patient with Nursing staff reviewed the chart.~Reviewed interim history and current functioning. Reviewed vital signs,~Labs/ Radiology~and current medications noted below. Continue current treatment with the changes noted in the dictated addendum note Assessment: Vital Signs: Vital Signs Date Time Temp Pulse Resp B/P (MAP) Pulse Ox O2 Delivery O2 Flow Rate FiO2 03/13/18 19:55 18 99 Room Air 03/13/18 17:06 71 135/56 03/13/18 16:05 97.0 I&O Intake and Output 03/13/18 07:00 Intake Total 1200 ml Balance 1200 ml Intake Oral 1200 ml Labs: Laboratory Tests Test 03/13/18 07:03 Phenytoin (Dilantin) Level 13.1 mcg/mL (10.0-20.0) Phenytoin Last Dose Date 03/12/18 Phenytoin Last Dose Time 2100 Current Medications: Meds: Current Medications Acetaminophen (Tylenol) 650 mg PRN Q6HRS PRN PO PAIN / TEMP; Start 03/09/18 at 00:00 Multi-Ingredient Ointment (Analgesic [place]) 1 cayla PRN QID PRN TP MUSCLE PAIN; Start 03/09/18 at 00:00 Al Hydroxide/Mg Hydroxide (Mylanta Plus Xs) 15 ml PRN AFTMEALHC PRN PO DYSPEPSIA; Start 03/09/18 at 00:00 Magnesium Hydroxide (Milk Of Magnesia) 2,400 mg PRN QHS PRN PO CONSTIPATION; Start 03/09/18 at 00:00 Ferrous Sulfate (Feosol) 325 mg BIDAFTMEAL PO Last administered on 03/13/18at 17 :04; Start 03/09/18 at 09:00 Albuterol/ Ipratropium (Duoneb) 3 ml PRN Q4HRS PRN IH WHILE AWAKE F/SOA; Start 03/09/18 at 00:15 Lisinopril (Prinivil) 10 mg DAILY PO Last administered on 03/13/18at 07:56; Start 03/09/18 at 09:00 Methadone HCl (Dolophine) 10 mg TID PO Last administered on 03/13/18at 19:55; Start 03/09/18 at 09:00 Mirtazapine (Remeron) 30 mg QHS PO Last administered on 03/13/18 19:52; Start 03/09/18 at 21:00 Sertraline HCl (Zoloft) 150 mg DAILY PO Last administered on 03/13/18 07:57; Start 03/09/18 at 09:00; Stop 03/13/18 at 12:14; Status DC Carvedilol (Coreg) 3.125 mg BIDWMEALS PO Last administered on 03/13/18 17:06; Start 03/09/18 at 08:00 Furosemide (Lasix) 40 mg DAILY PO Last administered on 03/13/18 07:57; Start 03/09/18 at 09:00 Guaifenesin (Mucinex Er) 1,200 mg Q12HR PO Last administered on 03/13/18 19:51 ; Start 03/09/18 at 09:00 Latanoprost (Xalatan) 1 drop QHS OU Last administered on 03/13/18 19:54; Start 03/09/18 at 21:00 Nicotine (Nicoderm Cq 7mg) 1 patch DAILY TD Last administered on 03/13/18 07: 54; Start 03/09/18 at 09:00 Pantoprazole Sodium (Protonix) 40 mg DAILYAC PO Last administered on 03/13/18 07:54; Start 03/09/18 at 07:30 Phenytoin Sodium (Dilantin) 200 mg BID PO Last administered on 03/13/18 19:51 ; Start 03/09/18 at 09:00 Ropinirole HCl (Requip) 1 mg BID PO Last administered on 03/13/18 19:52; Start 03/09/18 at 09:00 Sennosides (Senna) 8.6 mg BID PO Last administered on 03/13/18 19:51; Start at 09:00 Non-Formulary Medication (Tiotropium [place] (Spiriva)) 1 puff DAILY IH ; Start 03/09/18 at 09:00; Status UNV Oxybutynin Chloride (Ditropan) 5 mg BID PO Last administered on 03/13/18 19:52 ; Start 03/09/18 at 21:00 Trazodone HCl (Desyrel) 50 mg PRN QHS PRN PO INSOMNIA; Start 03/09/18 at 00:15 ; Stop 03/09/18 at 19:54; Status DC Alprazolam (Xanax) 0.25 mg PRN Q12HR PRN PO ANXIETY / AGITATION; Start at 00:30; Stop 03/09/18 at 19:54; Status DC Alprazolam (Xanax) 0.25 mg PRN Q6HRS PRN PO ANXIETY / AGITATION; Start at 00:30; Stop 03/09/18 at 19:54; Status DC Albuterol Sulfate (Ventolin) 2.5 mg RTQID NEB Last administered on 03/13/18at 09 :51; Start 03/09/18 at 08:00 Budesonide (Pulmicort) 0.5 mg RTBID NEB Last administered on 03/13/18at 09:50; Start 03/09/18 at 08:00 Albuterol Sulfate (Ventolin) 2.5 mg STK-MED ONCE .ROUTE ; Start 03/09/18 at 06: 08; Stop 03/09/18 at 06:09; Status DC Alprazolam (Xanax) 0.25 mg PRN Q4HRS PRN PO ANXIETY / AGITATION Last administered on 03/13/18at 16:05; Start 03/09/18 at 20:00 Trazodone HCl (Desyrel) 100 mg PRN QHS PRN PO INSOMNIA Last administered on at 00:45; Start 03/09/18 at 20:00 Quetiapine Fumarate (SEROquel) 12.5 mg BID@0900,1300 PO Last administered on at 13:43; Start 03/12/18 at 09:00; Stop 03/12/18 at 18:38; Status DC Quetiapine Fumarate (SEROquel) 25 mg TID@0900,1300,1700 PO Last administered on 03/13/18at 17:05; Start 03/13/18 at 09:00 Quetiapine Fumarate (SEROquel) 12.5 mg 1X ONCE PO Last administered on at 19:19; Start 03/12/18 at 19:00; Stop 03/12/18 at 19:01; Status DC Sertraline HCl (Zoloft) 75 mg DAILY PO ; Start 03/14/18 at 09:00 Active Scripts Active Reported Alprazolam 0.25 Mg Tablet 0.25 Mg PO PRN Q12HR PRN Alprazolam 0.25 Mg Tablet 0.25 Mg PO PRN Q6HRS PRN Detrol La (Tolterodine Tartrate) 2 Mg Cap.er.24h 2 Mg PO QHS Xalatan (Latanoprost) 2.5 Ml Drops 1 Drop EACHEYE QHS Pantoprazole Sodium 40 Mg Tablet.dr 40 Mg PO DAILY Requip (Ropinirole Hcl) 1 Mg Tablet 1 Mg PO BID NICODERM CQ 7mg (Nicotine) 1 Each Patch.td24 1 Patch TD DAILY Mucinex (Guaifenesin) 1,200 Mg Tbmp.12hr 1,200 Mg PO Q12HR Lasix (Furosemide) 40 Mg Tablet 40 Mg PO DAILY Ferrous Sulfate 325 Mg Tablet 325 Mg PO BID Mirtazapine 30 Mg Tablet 30 Mg PO QHS Trazodone Hcl 50 Mg Tablet 50 Mg PO PRN QHS PRN Sertraline Hcl 50 Mg Tablet 150 Mg PO DAILY Spiriva (Tiotropium [place]) 18 Mcg Cap.w.dev 1 Puff IH DAILY Senna (Sennosides) 8.6 Mg Tablet 8.6 Mg PO BID Phenytoin Sodium Extended 100 Mg Capsule 200 Mg PO BID Methadone Hcl 5 Mg Tablet 10 Mg PO TID Lisinopril 10 Mg Tablet 10 Mg PO DAILY Carvedilol 3.125 Mg Tablet 1 Tab PO BIDWMEALS Duoneb 0.5-3(2.5) Mg/3 Ml (Albuterol/Ipratropium) 3 Ml Ampul.neb 3 Ml IH Q4HRS W /A PRN I have reviewed the current psychotropics carefully including drug interactions. Risk benefit ratio favors no change other than as noted in my dictated progress note. Diagnosis: Problems: (1) Vascular dementia with delusions (2) Alzheimer's dementia (3) Impulse control disorder (4) Major depressive disorder (5) Parkinson disease JESIKA HAYES MD March 13, 2018 20:47
[2018-03-13] MEDS: traZODone 50 MG TABLET. PO PRN (22:22)
[2018-03-14] MEDS: ALPRAZolam 0.25 MG TABLET PO PRN ×5 (02:48→21:12)
[2018-03-14] MEDS: ALBUTEROL SULFATE 2.5 MG/3 ML NEBU. NEB SCH ×4 (04:10→20:08)
[2018-03-14 05:15] VITALS: BP 118/56
[2018-03-14] MEDS: FERROUS SULFATE 325 MG TABLET. PO SCH ×2 (07:37→18:00)
[2018-03-14] MEDS: FUROSEMIDE 40 MG TABLET PO SCH (07:37)
[2018-03-14] MEDS: OXYBUTYNIN CHLORIDE 5 MG TABLET PO SCH ×2 (07:37→20:15)
[2018-03-14] MEDS: LISINOPRIL 10 MG TABLET PO SCH (07:37)
[2018-03-14] MEDS: CARVEDILOL 3.125 MG TABLET PO SCH ×2 (07:37→17:35)
[2018-03-14] MEDS: PANTOPRAZOLE 40 MG TABLET. PO SCH (07:37)
[2018-03-14] MEDS: QUEtiapine 25 MG TABLET. PO SCH ×3 (07:37→17:36)
[2018-03-14] MEDS: SENNOSIDES 8.6 MG TABLET PO SCH ×2 (07:38→20:15)
[2018-03-14] MEDS: rOPINIRole 1 MG TABLET. PO SCH ×2 (07:38→20:15)
[2018-03-14] MEDS: PHENYTOIN SODIUM EXTENDED 100 MG CAPSULE PO SCH ×2 (07:38→20:15)
[2018-03-14] MEDS: NICOTINE 7MG PATCH. TD SCH (07:38)
[2018-03-14] MEDS: METHADONE 5 MG TABLET. PO SCH ×3 (07:41→20:15)
[2018-03-14] MEDS: SERTRALINE 50 MG TABLET. PO SCH (07:41)
[2018-03-14] MEDS: BUDESONIDE 0.5 MG/2 ML NEBU NEB SCH ×2 (10:24→20:08)
[2018-03-14 16:19] VITALS: BP 123/64
--- NOTE | 2018-03-14 19:52 | PDOC ---
Exam Note: Brian Note: Please also refer to the separate dictated note~for this date of service dictated separately.~Patient seen individually. Discussed the patient with Nursing staff reviewed the chart.~Reviewed interim history and current functioning. Reviewed vital signs,~Labs/ Radiology~and current medications noted below. Continue current treatment with the changes noted in the dictated addendum note Assessment: Vital Signs: Vital Signs Date Time Temp Pulse Resp B/P (MAP) Pulse Ox O2 Delivery O2 Flow Rate FiO2 03/14/18 17:35 79 123/64 03/14/18 16:19 98.7 18 96 Room Air I&O Intake and Output 03/14/18 07:00 Intake Total 1280 ml Balance 1280 ml Intake Oral 1280 ml Current Medications: Meds: Current Medications Acetaminophen (Tylenol) 650 mg PRN Q6HRS PRN PO PAIN / TEMP; Start 03/09/18 at 00:00 Multi-Ingredient Ointment (Analgesic [place]) 1 cayla PRN QID PRN TP MUSCLE PAIN; Start 03/09/18 at 00:00 Al Hydroxide/Mg Hydroxide (Mylanta Plus Xs) 15 ml PRN AFTMEALHC PRN PO DYSPEPSIA; Start 03/09/18 at 00:00 Magnesium Hydroxide (Milk Of Magnesia) 2,400 mg PRN QHS PRN PO CONSTIPATION; Start 03/09/18 at 00:00 Ferrous Sulfate (Feosol) 325 mg BIDAFTMEAL PO Last administered on 03/14/18at 07 :37; Start 03/09/18 at 09:00 Albuterol/ Ipratropium (Duoneb) 3 ml PRN Q4HRS PRN IH WHILE AWAKE F/SOA; Start 03/09/18 at 00:15 Lisinopril (Prinivil) 10 mg DAILY PO Last administered on 03/14/18at 07:37; Start 03/09/18 at 09:00 Methadone HCl (Dolophine) 10 mg TID PO Last administered on 03/14/18at 14:13; Start 03/09/18 at 09:00 Mirtazapine (Remeron) 30 mg QHS PO Last administered on 03/13/18 19:52; Start 03/09/18 at 21:00 Sertraline HCl (Zoloft) 150 mg DAILY PO Last administered on 03/13/18 07:57; Start 03/09/18 at 09:00; Stop 03/13/18 at 12:14; Status DC Carvedilol (Coreg) 3.125 mg BIDWMEALS PO Last administered on 03/14/18 17:35; Start 03/09/18 at 08:00 Furosemide (Lasix) 40 mg DAILY PO Last administered on 03/14/18 07:37; Start 03/09/18 at 09:00 Guaifenesin (Mucinex Er) 1,200 mg Q12HR PO Last administered on 03/14/18 07:41 ; Start 03/09/18 at 09:00 Latanoprost (Xalatan) 1 drop QHS OU Last administered on 03/13/18 19:54; Start 03/09/18 at 21:00 Nicotine (Nicoderm Cq 7mg) 1 patch DAILY TD Last administered on 03/14/18 07: 38; Start 03/09/18 at 09:00 Pantoprazole Sodium (Protonix) 40 mg DAILYAC PO Last administered on 03/14/18 07:37; Start 03/09/18 at 07:30 Phenytoin Sodium (Dilantin) 200 mg BID PO Last administered on 03/14/18 07:38 ; Start 03/09/18 at 09:00 Ropinirole HCl (Requip) 1 mg BID PO Last administered on 03/14/18 07:38; Start 03/09/18 at 09:00 Sennosides (Senna) 8.6 mg BID PO Last administered on 03/14/18 07:38; Start at 09:00 Non-Formulary Medication (Tiotropium [place] (Spiriva)) 1 puff DAILY IH ; Start 03/09/18 at 09:00; Status UNV Oxybutynin Chloride (Ditropan) 5 mg BID PO Last administered on 03/14/18 07:37 ; Start 03/09/18 at 21:00 Trazodone HCl (Desyrel) 50 mg PRN QHS PRN PO INSOMNIA; Start 03/09/18 at 00:15 ; Stop 03/09/18 at 19:54; Status DC Alprazolam (Xanax) 0.25 mg PRN Q12HR PRN PO ANXIETY / AGITATION; Start at 00:30; Stop 03/09/18 at 19:54; Status DC Alprazolam (Xanax) 0.25 mg PRN Q6HRS PRN PO ANXIETY / AGITATION; Start at 00:30; Stop 03/09/18 at 19:54; Status DC Albuterol Sulfate (Ventolin) 2.5 mg RTQID NEB Last administered on 03/14/18at 16 :14; Start 03/09/18 at 08:00 Budesonide (Pulmicort) 0.5 mg RTBID NEB Last administered on 03/14/18at 10:24; Start 03/09/18 at 08:00 Albuterol Sulfate (Ventolin) 2.5 mg STK-MED ONCE .ROUTE ; Start 03/09/18 at 06: 08; Stop 03/09/18 at 06:09; Status DC Alprazolam (Xanax) 0.25 mg PRN Q4HRS PRN PO ANXIETY / AGITATION Last administered on 03/14/18at 17:35; Start 03/09/18 at 20:00 Trazodone HCl (Desyrel) 100 mg PRN QHS PRN PO INSOMNIA Last administered on at 22:22; Start 03/09/18 at 20:00 Quetiapine Fumarate (SEROquel) 12.5 mg BID@0900,1300 PO Last administered on at 13:43; Start 03/12/18 at 09:00; Stop 03/12/18 at 18:38; Status DC Quetiapine Fumarate (SEROquel) 25 mg TID@0900,1300,1700 PO Last administered on 03/14/18at 17:36; Start 03/13/18 at 09:00 Quetiapine Fumarate (SEROquel) 12.5 mg 1X ONCE PO Last administered on at 19:19; Start 03/12/18 at 19:00; Stop 03/12/18 at 19:01; Status DC Sertraline HCl (Zoloft) 75 mg DAILY PO Last administered on 03/14/18at 07:41; Start 03/14/18 at 09:00 Active Scripts Active Reported Alprazolam 0.25 Mg Tablet 0.25 Mg PO PRN Q12HR PRN Alprazolam 0.25 Mg Tablet 0.25 Mg PO PRN Q6HRS PRN Detrol La (Tolterodine Tartrate) 2 Mg Cap.er.24h 2 Mg PO QHS Xalatan (Latanoprost) 2.5 Ml Drops 1 Drop EACHEYE QHS Pantoprazole Sodium 40 Mg Tablet.dr 40 Mg PO DAILY Requip (Ropinirole Hcl) 1 Mg Tablet 1 Mg PO BID NICODERM CQ 7mg (Nicotine) 1 Each Patch.td24 1 Patch TD DAILY Mucinex (Guaifenesin) 1,200 Mg Tbmp.12hr 1,200 Mg PO Q12HR Lasix (Furosemide) 40 Mg Tablet 40 Mg PO DAILY Ferrous Sulfate 325 Mg Tablet 325 Mg PO BID Mirtazapine 30 Mg Tablet 30 Mg PO QHS Trazodone Hcl 50 Mg Tablet 50 Mg PO PRN QHS PRN Sertraline Hcl 50 Mg Tablet 150 Mg PO DAILY Spiriva (Tiotropium [place]) 18 Mcg Cap.w.dev 1 Puff IH DAILY Senna (Sennosides) 8.6 Mg Tablet 8.6 Mg PO BID Phenytoin Sodium Extended 100 Mg Capsule 200 Mg PO BID Methadone Hcl 5 Mg Tablet 10 Mg PO TID Lisinopril 10 Mg Tablet 10 Mg PO DAILY Carvedilol 3.125 Mg Tablet 1 Tab PO BIDWMEALS Duoneb 0.5-3(2.5) Mg/3 Ml (Albuterol/Ipratropium) 3 Ml Ampul.neb 3 Ml IH Q4HRS W /A PRN I have reviewed the current psychotropics carefully including drug interactions. Risk benefit ratio favors no change other than as noted in my dictated progress note. Diagnosis: Problems: (1) Vascular dementia with delusions (2) Alzheimer's dementia (3) Impulse control disorder (4) Major depressive disorder (5) Parkinson disease JESIKA HAYES MD March 14, 2018 19:52
[2018-03-14] MEDS: LATANOPROST 0.005% OPHTH SOLUTION 2.5ML BOTTLE. OU SCH (20:14)
[2018-03-14] MEDS: MIRTAZAPINE 30 MG TABLET PO SCH (20:15)
[2018-03-14] MEDS: traZODone 50 MG TABLET. PO PRN (20:15)
--- NOTE | 2018-03-14 21:46 | PN ---
DATE: 03/12/2018 PSYCHIATRIC PROGRESS NOTE This late entry 03/12/2018 covers elements not covered in my initial note of 03/12/2018. SUBJECTIVE: Met with the patient in the evening. The patient slept 6-3/4 hours. She was quite anxious in the morning, pacing, breathing deeply, repeatedly wanting Xanax and oxygen. She has been given headphones, which seems to help the anxiety somewhat. REVIEW OF SYSTEMS: Positive for the breathing problems, anxiety. No CV, , GI system symptoms on review. MENTAL STATUS EXAM: Oriented to herself and situation. Insight, judgment, recent memory is impaired. Language function is intact. Attention span is short. Mood and affect remains labile. LABORATORY DATA: Reviewed. IMPRESSION: Unchanged from initial note. PLAN: Increase Seroquel to 25 mg 3 times a day, hold if sedated. Continue rest unchanged from initial note. MAN Gabino HAYES MD DR: BROOKE/fabio JOB#: [id number] / [id number]
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
[2018-03-15] MEDS: ALPRAZolam 0.25 MG TABLET PO PRN ×4 (01:51→21:32)
[2018-03-15] MEDS: ALBUTEROL SULFATE 2.5 MG/3 ML NEBU. NEB SCH ×4 (05:26→22:12)
[2018-03-15] MEDS: BUDESONIDE 0.5 MG/2 ML NEBU NEB SCH ×2 (08:00→22:12)
[2018-03-15] MEDS: NICOTINE 7MG PATCH. TD SCH (08:10)
[2018-03-15] MEDS: LISINOPRIL 10 MG TABLET PO SCH (08:10)
[2018-03-15] MEDS: OXYBUTYNIN CHLORIDE 5 MG TABLET PO SCH ×2 (08:10→21:31)
[2018-03-15] MEDS: FERROUS SULFATE 325 MG TABLET. PO SCH ×2 (08:11→17:07)
[2018-03-15] MEDS: rOPINIRole 1 MG TABLET. PO SCH ×2 (08:11→21:32)
[2018-03-15] MEDS: CARVEDILOL 3.125 MG TABLET PO SCH ×2 (08:12→17:08)
[2018-03-15] MEDS: PHENYTOIN SODIUM EXTENDED 100 MG CAPSULE PO SCH ×2 (08:12→21:32)
[2018-03-15] MEDS: FUROSEMIDE 40 MG TABLET PO SCH (08:13)
[2018-03-15] MEDS: QUEtiapine 25 MG TABLET. PO SCH ×3 (08:13→17:07)
[2018-03-15] MEDS: SENNOSIDES 8.6 MG TABLET PO SCH ×2 (08:13→21:31)
[2018-03-15] MEDS: PANTOPRAZOLE 40 MG TABLET. PO SCH (08:13)
[2018-03-15] MEDS: SERTRALINE 50 MG TABLET. PO SCH (08:14)
[2018-03-15] MEDS: METHADONE 5 MG TABLET. PO SCH ×3 (08:16→21:32)
[2018-03-15 11:15] VITALS: BP 120/70
[2018-03-15 16:27] VITALS: BP 117/70
[2018-03-15] MEDS: traZODone 50 MG TABLET. PO PRN (21:31)
[2018-03-15] MEDS: MIRTAZAPINE 30 MG TABLET PO SCH (21:32)
[2018-03-15] MEDS: LATANOPROST 0.005% OPHTH SOLUTION 2.5ML BOTTLE. OU SCH (21:33)
[2018-03-15] MEDS ORDERED: DIVALPROEX 125 MG CAP.SPRINK PO SCH (22:00)
--- NOTE | 2018-03-15 23:23 | PDOC ---
Exam Note: Brian Note: Please also refer to the separate dictated note~for this date of service dictated separately.~Patient seen individually. Discussed the patient with Nursing staff reviewed the chart.~Reviewed interim history and current functioning. Reviewed vital signs,~Labs/ Radiology~and current medications noted below. Continue current treatment with the changes noted in the dictated addendum note Assessment: Vital Signs: Vital Signs Date Time Temp Pulse Resp B/P (MAP) Pulse Ox O2 Delivery O2 Flow Rate FiO2 03/15/18 22:32 18 97 Room Air 03/15/18 17:08 61 117/70 03/15/18 16:27 98.7 I&O Intake and Output 03/15/18 07:00 Intake Total 1560 ml Balance 1560 ml Intake Oral 1560 ml Current Medications: Meds: Current Medications Acetaminophen (Tylenol) 650 mg PRN Q6HRS PRN PO PAIN / TEMP; Start 03/09/18 at 00:00 Multi-Ingredient Ointment (Analgesic [place]) 1 cayla PRN QID PRN TP MUSCLE PAIN; Start 03/09/18 at 00:00 Al Hydroxide/Mg Hydroxide (Mylanta Plus Xs) 15 ml PRN AFTMEALHC PRN PO DYSPEPSIA; Start 03/09/18 at 00:00 Magnesium Hydroxide (Milk Of Magnesia) 2,400 mg PRN QHS PRN PO CONSTIPATION; Start 03/09/18 at 00:00 Ferrous Sulfate (Feosol) 325 mg BIDAFTMEAL PO Last administered on 03/15/18at 17 :07; Start 03/09/18 at 09:00 Albuterol/ Ipratropium (Duoneb) 3 ml PRN Q4HRS PRN IH WHILE AWAKE F/SOA; Start 03/09/18 at 00:15 Lisinopril (Prinivil) 10 mg DAILY PO Last administered on 03/15/18at 08:10; Start 03/09/18 at 09:00 Methadone HCl (Dolophine) 10 mg TID PO Last administered on 03/15/18at 21:32; Start 03/09/18 at 09:00 Mirtazapine (Remeron) 30 mg QHS PO Last administered on 03/15/18at 21:32; Start 03/09/18 at 21:00 Sertraline HCl (Zoloft) 150 mg DAILY PO Last administered on 03/13/18 07:57; Start 03/09/18 at 09:00; Stop 03/13/18 at 12:14; Status DC Carvedilol (Coreg) 3.125 mg BIDWMEALS PO Last administered on 03/15/18 17:08; Start 03/09/18 at 08:00 Furosemide (Lasix) 40 mg DAILY PO Last administered on 03/15/18 08:13; Start 03/09/18 at 09:00 Guaifenesin (Mucinex Er) 1,200 mg Q12HR PO Last administered on 03/15/18 21:31 ; Start 03/09/18 at 09:00 Latanoprost (Xalatan) 1 drop QHS OU Last administered on 03/15/18 21:33; Start 03/09/18 at 21:00 Nicotine (Nicoderm Cq 7mg) 1 patch DAILY TD Last administered on 03/15/18 08: 10; Start 03/09/18 at 09:00 Pantoprazole Sodium (Protonix) 40 mg DAILYAC PO Last administered on 03/15/18 08:13; Start 03/09/18 at 07:30 Phenytoin Sodium (Dilantin) 200 mg BID PO Last administered on 03/15/18 21:32 ; Start 03/09/18 at 09:00 Ropinirole HCl (Requip) 1 mg BID PO Last administered on 03/15/18 21:32; Start 03/09/18 at 09:00 Sennosides (Senna) 8.6 mg BID PO Last administered on 03/15/18 21:31; Start at 09:00 Non-Formulary Medication (Tiotropium [place] (Spiriva)) 1 puff DAILY IH ; Start 03/09/18 at 09:00; Status UNV Oxybutynin Chloride (Ditropan) 5 mg BID PO Last administered on 03/15/18 21:31 ; Start 03/09/18 at 21:00 Trazodone HCl (Desyrel) 50 mg PRN QHS PRN PO INSOMNIA; Start 03/09/18 at 00:15 ; Stop 03/09/18 at 19:54; Status DC Alprazolam (Xanax) 0.25 mg PRN Q12HR PRN PO ANXIETY / AGITATION; Start at 00:30; Stop 03/09/18 at 19:54; Status DC Alprazolam (Xanax) 0.25 mg PRN Q6HRS PRN PO ANXIETY / AGITATION; Start at 00:30; Stop 03/09/18 at 19:54; Status DC Albuterol Sulfate (Ventolin) 2.5 mg RTQID NEB Last administered on 03/15/18at 22 :12; Start 03/09/18 at 08:00 Budesonide (Pulmicort) 0.5 mg RTBID NEB Last administered on 03/15/18at 22:12; Start 03/09/18 at 08:00 Albuterol Sulfate (Ventolin) 2.5 mg STK-MED ONCE .ROUTE ; Start 03/09/18 at 06: 08; Stop 03/09/18 at 06:09; Status DC Alprazolam (Xanax) 0.25 mg PRN Q4HRS PRN PO ANXIETY / AGITATION Last administered on 03/15/18at 21:32; Start 03/09/18 at 20:00 Trazodone HCl (Desyrel) 100 mg PRN QHS PRN PO INSOMNIA Last administered on at 21:31; Start 03/09/18 at 20:00 Quetiapine Fumarate (SEROquel) 12.5 mg BID@0900,1300 PO Last administered on at 13:43; Start 03/12/18 at 09:00; Stop 03/12/18 at 18:38; Status DC Quetiapine Fumarate (SEROquel) 25 mg TID@0900,1300,1700 PO Last administered on 03/15/18at 17:07; Start 03/13/18 at 09:00 Quetiapine Fumarate (SEROquel) 12.5 mg 1X ONCE PO Last administered on at 19:19; Start 03/12/18 at 19:00; Stop 03/12/18 at 19:01; Status DC Sertraline HCl (Zoloft) 75 mg DAILY PO Last administered on 03/15/18at 08:14; Start 03/14/18 at 09:00 Divalproex Sodium (Depakote Sprinkles) 125 mg [id number] PO ; Start 03/15/18 at 22: 00; Stop 03/15/18 at 22:30; Status DC Divalproex Sodium (Depakote Sprinkles) 125 mg TIDAFTMEAL PO ; Start 03/16/18 at 09:00 Active Scripts Active Reported Alprazolam 0.25 Mg Tablet 0.25 Mg PO PRN Q12HR PRN Alprazolam 0.25 Mg Tablet 0.25 Mg PO PRN Q6HRS PRN Detrol La (Tolterodine Tartrate) 2 Mg Cap.er.24h 2 Mg PO QHS Xalatan (Latanoprost) 2.5 Ml Drops 1 Drop EACHEYE QHS Pantoprazole Sodium 40 Mg Tablet.dr 40 Mg PO DAILY Requip (Ropinirole Hcl) 1 Mg Tablet 1 Mg PO BID NICODERM CQ 7mg (Nicotine) 1 Each Patch.td24 1 Patch TD DAILY Mucinex (Guaifenesin) 1,200 Mg Tbmp.12hr 1,200 Mg PO Q12HR Lasix (Furosemide) 40 Mg Tablet 40 Mg PO DAILY Ferrous Sulfate 325 Mg Tablet 325 Mg PO BID Mirtazapine 30 Mg Tablet 30 Mg PO QHS Trazodone Hcl 50 Mg Tablet 50 Mg PO PRN QHS PRN Sertraline Hcl 50 Mg Tablet 150 Mg PO DAILY Spiriva (Tiotropium [place]) 18 Mcg Cap.w.dev 1 Puff IH DAILY Senna (Sennosides) 8.6 Mg Tablet 8.6 Mg PO BID Phenytoin Sodium Extended 100 Mg Capsule 200 Mg PO BID Methadone Hcl 5 Mg Tablet 10 Mg PO TID Lisinopril 10 Mg Tablet 10 Mg PO DAILY Carvedilol 3.125 Mg Tablet 1 Tab PO BIDWMEALS Duoneb 0.5-3(2.5) Mg/3 Ml (Albuterol/Ipratropium) 3 Ml Ampul.neb 3 Ml IH Q4HRS W /A PRN I have reviewed the current psychotropics carefully including drug interactions. Risk benefit ratio favors no change other than as noted in my dictated progress note. Diagnosis: Problems: (1) Vascular dementia with delusions (2) Alzheimer's dementia (3) Impulse control disorder (4) Major depressive disorder (5) Parkinson disease JESIKA HAYES MD March 15, 2018 23:23
[2018-03-16] MEDS: ALPRAZolam 0.25 MG TABLET PO PRN ×4 (02:51→21:28)
[2018-03-16] MEDS: ALBUTEROL SULFATE 2.5 MG/3 ML NEBU. NEB SCH ×4 (05:36→20:47)
[2018-03-16 06:20] VITALS: BP 127/59
[2018-03-16] MEDS: BUDESONIDE 0.5 MG/2 ML NEBU NEB SCH ×2 (08:00→20:47)
[2018-03-16] MEDS: NICOTINE 7MG PATCH. TD SCH (08:35)
[2018-03-16] MEDS: SERTRALINE 50 MG TABLET. PO SCH (08:35)
[2018-03-16] MEDS: PHENYTOIN SODIUM EXTENDED 100 MG CAPSULE PO SCH ×2 (08:36→19:40)
[2018-03-16] MEDS: PANTOPRAZOLE 40 MG TABLET. PO SCH (08:36)
[2018-03-16] MEDS: rOPINIRole 1 MG TABLET. PO SCH ×2 (08:36→19:41)
[2018-03-16] MEDS: FUROSEMIDE 40 MG TABLET PO SCH (08:37)
[2018-03-16] MEDS: OXYBUTYNIN CHLORIDE 5 MG TABLET PO SCH ×2 (08:37→19:41)
[2018-03-16] MEDS: CARVEDILOL 3.125 MG TABLET PO SCH ×2 (08:37→16:51)
[2018-03-16] MEDS: SENNOSIDES 8.6 MG TABLET PO SCH ×2 (08:38→19:41)
[2018-03-16] MEDS: QUEtiapine 25 MG TABLET. PO SCH ×3 (08:38→16:51)
[2018-03-16] MEDS: LISINOPRIL 10 MG TABLET PO SCH (08:38)
[2018-03-16] MEDS: DIVALPROEX 125 MG CAP.SPRINK PO SCH ×3 (08:42→16:50)
[2018-03-16] MEDS: FERROUS SULFATE 325 MG TABLET. PO SCH ×2 (13:03→16:51)
[2018-03-16] MEDS: METHADONE 5 MG TABLET. PO SCH ×3 (13:03→19:41)
[2018-03-16] MEDS: IPRATRPIUM/ALBUTEROL 0.5/2.5MG 3 ML NEBU. IH PRN (15:28)
[2018-03-16 16:47] VITALS: BP 134/68
[2018-03-16] MEDS: traZODone 50 MG TABLET. PO PRN (19:40)
[2018-03-16] MEDS: MIRTAZAPINE 30 MG TABLET PO SCH (19:41)
[2018-03-16] MEDS: LATANOPROST 0.005% OPHTH SOLUTION 2.5ML BOTTLE. OU SCH (19:44)
--- NOTE | 2018-03-16 20:57 | PDOC ---
Exam Note: Brian Note: Please also refer to the separate dictated note~for this date of service dictated separately.~Patient seen individually. Discussed the patient with Nursing staff reviewed the chart.~Reviewed interim history and current functioning. Reviewed vital signs,~Labs/ Radiology~and current medications noted below. Continue current treatment with the changes noted in the dictated addendum note Assessment: Vital Signs: Vital Signs Date Time Temp Pulse Resp B/P (MAP) Pulse Ox O2 Delivery O2 Flow Rate FiO2 03/16/18 20:50 Room Air 03/16/18 20:45 96 03/16/18 19:41 20 03/16/18 16:51 82 134/68 03/16/18 16:47 98.0 I&O Intake and Output 03/16/18 07:00 Intake Total 1620 ml Balance 1620 ml Intake Oral 1620 ml Current Medications: Meds: Current Medications Acetaminophen (Tylenol) 650 mg PRN Q6HRS PRN PO PAIN / TEMP; Start 03/09/18 at 00:00 Multi-Ingredient Ointment (Analgesic [place]) 1 cayla PRN QID PRN TP MUSCLE PAIN; Start 03/09/18 at 00:00 Al Hydroxide/Mg Hydroxide (Mylanta Plus Xs) 15 ml PRN AFTMEALHC PRN PO DYSPEPSIA; Start 03/09/18 at 00:00 Magnesium Hydroxide (Milk Of Magnesia) 2,400 mg PRN QHS PRN PO CONSTIPATION; Start 03/09/18 at 00:00 Ferrous Sulfate (Feosol) 325 mg BIDAFTMEAL PO Last administered on 03/16/18at 16 :51; Start 03/09/18 at 09:00 Albuterol/ Ipratropium (Duoneb) 3 ml PRN Q4HRS PRN IH WHILE AWAKE F/SOA Last administered on 03/16/18at 15:28; Start 03/09/18 at 00:15 Lisinopril (Prinivil) 10 mg DAILY PO Last administered on 03/16/18at 08:38; Start 03/09/18 at 09:00 Methadone HCl (Dolophine) 10 mg TID PO Last administered on 03/16/18 19:41; Start 03/09/18 at 09:00 Mirtazapine (Remeron) 30 mg QHS PO Last administered on 03/16/18 19:41; Start 03/09/18 at 21:00 Sertraline HCl (Zoloft) 150 mg DAILY PO Last administered on 03/13/18 07:57; Start 03/09/18 at 09:00; Stop 03/13/18 at 12:14; Status DC Carvedilol (Coreg) 3.125 mg BIDWMEALS PO Last administered on 03/16/18 16:51; Start 03/09/18 at 08:00 Furosemide (Lasix) 40 mg DAILY PO Last administered on 03/16/18 08:37; Start 03/09/18 at 09:00 Guaifenesin (Mucinex Er) 1,200 mg Q12HR PO Last administered on 03/16/18 19:41 ; Start 03/09/18 at 09:00 Latanoprost (Xalatan) 1 drop QHS OU Last administered on 03/16/18 19:44; Start 03/09/18 at 21:00 Nicotine (Nicoderm Cq 7mg) 1 patch DAILY TD Last administered on 03/16/18 08: 35; Start 03/09/18 at 09:00 Pantoprazole Sodium (Protonix) 40 mg DAILYAC PO Last administered on 03/16/18 08:36; Start 03/09/18 at 07:30 Phenytoin Sodium (Dilantin) 200 mg BID PO Last administered on 03/16/18 19:40 ; Start 03/09/18 at 09:00 Ropinirole HCl (Requip) 1 mg BID PO Last administered on 03/16/18 19:41; Start 03/09/18 at 09:00 Sennosides (Senna) 8.6 mg BID PO Last administered on 03/16/18 19:41; Start at 09:00 Non-Formulary Medication (Tiotropium [place] (Spiriva)) 1 puff DAILY IH ; Start 03/09/18 at 09:00; Status UNV Oxybutynin Chloride (Ditropan) 5 mg BID PO Last administered on 03/16/18 19:41 ; Start 03/09/18 at 21:00 Trazodone HCl (Desyrel) 50 mg PRN QHS PRN PO INSOMNIA; Start 03/09/18 at 00:15 ; Stop 03/09/18 at 19:54; Status DC Alprazolam (Xanax) 0.25 mg PRN Q12HR PRN PO ANXIETY / AGITATION; Start at 00:30; Stop 03/09/18 at 19:54; Status DC Alprazolam (Xanax) 0.25 mg PRN Q6HRS PRN PO ANXIETY / AGITATION; Start at 00:30; Stop 03/09/18 at 19:54; Status DC Albuterol Sulfate (Ventolin) 2.5 mg RTQID NEB Last administered on 03/16/18at 20 :47; Start 03/09/18 at 08:00 Budesonide (Pulmicort) 0.5 mg RTBID NEB Last administered on 03/16/18at 20:47; Start 03/09/18 at 08:00 Albuterol Sulfate (Ventolin) 2.5 mg STK-MED ONCE .ROUTE ; Start 03/09/18 at 06: 08; Stop 03/09/18 at 06:09; Status DC Alprazolam (Xanax) 0.25 mg PRN Q4HRS PRN PO ANXIETY / AGITATION Last administered on 03/16/18at 16:54; Start 03/09/18 at 20:00 Trazodone HCl (Desyrel) 100 mg PRN QHS PRN PO INSOMNIA Last administered on at 19:40; Start 03/09/18 at 20:00 Quetiapine Fumarate (SEROquel) 12.5 mg BID@0900,1300 PO Last administered on at 13:43; Start 03/12/18 at 09:00; Stop 03/12/18 at 18:38; Status DC Quetiapine Fumarate (SEROquel) 25 mg TID@0900,1300,1700 PO Last administered on 03/16/18at 16:51; Start 03/13/18 at 09:00 Quetiapine Fumarate (SEROquel) 12.5 mg 1X ONCE PO Last administered on 19:19; Start 03/12/18 at 19:00; Stop 03/12/18 at 19:01; Status DC Sertraline HCl (Zoloft) 75 mg DAILY PO Last administered on 5/27/18at 08:35; Start 03/14/18 at 09:00 Divalproex Sodium (Depakote Sprinkles) 125 mg [id number] PO ; Start 03/15/18 at 22: 00; Stop 03/15/18 at 22:30; Status DC Divalproex Sodium (Depakote Sprinkles) 125 mg TIDAFTMEAL PO Last administered on 03/16/18at 16:50; Start 03/16/18 at 09:00 Active Scripts Active Reported Alprazolam 0.25 Mg Tablet 0.25 Mg PO PRN Q12HR PRN Alprazolam 0.25 Mg Tablet 0.25 Mg PO PRN Q6HRS PRN Detrol La (Tolterodine Tartrate) 2 Mg Cap.er.24h 2 Mg PO QHS Xalatan (Latanoprost) 2.5 Ml Drops 1 Drop EACHEYE QHS Pantoprazole Sodium 40 Mg Tablet.dr 40 Mg PO DAILY Requip (Ropinirole Hcl) 1 Mg Tablet 1 Mg PO BID NICODERM CQ 7mg (Nicotine) 1 Each Patch.td24 1 Patch TD DAILY Mucinex (Guaifenesin) 1,200 Mg Tbmp.12hr 1,200 Mg PO Q12HR Lasix (Furosemide) 40 Mg Tablet 40 Mg PO DAILY Ferrous Sulfate 325 Mg Tablet 325 Mg PO BID Mirtazapine 30 Mg Tablet 30 Mg PO QHS Trazodone Hcl 50 Mg Tablet 50 Mg PO PRN QHS PRN Sertraline Hcl 50 Mg Tablet 150 Mg PO DAILY Spiriva (Tiotropium [place]) 18 Mcg Cap.w.dev 1 Puff IH DAILY Senna (Sennosides) 8.6 Mg Tablet 8.6 Mg PO BID Phenytoin Sodium Extended 100 Mg Capsule 200 Mg PO BID Methadone Hcl 5 Mg Tablet 10 Mg PO TID Lisinopril 10 Mg Tablet 10 Mg PO DAILY Carvedilol 3.125 Mg Tablet 1 Tab PO BIDWMEALS Duoneb 0.5-3(2.5) Mg/3 Ml (Albuterol/Ipratropium) 3 Ml Ampul.neb 3 Ml IH Q4HRS W /A PRN I have reviewed the current psychotropics carefully including drug interactions. Risk benefit ratio favors no change other than as noted in my dictated progress note. Diagnosis: Problems: (1) Vascular dementia with delusions (2) Alzheimer's dementia (3) Impulse control disorder (4) Major depressive disorder (5) Parkinson disease JESIKA HAYES MD March 16, 2018 20:57
[2018-03-17] MEDS: ALPRAZolam 0.25 MG TABLET PO PRN ×3 (02:51→19:45)
[2018-03-17] MEDS: ALBUTEROL SULFATE 2.5 MG/3 ML NEBU. NEB SCH ×4 (05:27→20:23)
[2018-03-17 06:32] VITALS: BP 118/65
[2018-03-17 08:47] VITALS: BP 132/65
[2018-03-17] MEDS: OXYBUTYNIN CHLORIDE 5 MG TABLET PO SCH ×2 (08:48→19:43)
[2018-03-17] MEDS: FERROUS SULFATE 325 MG TABLET. PO SCH ×2 (08:48→18:01)
[2018-03-17] MEDS: rOPINIRole 1 MG TABLET. PO SCH ×2 (08:48→19:42)
[2018-03-17] MEDS: LISINOPRIL 10 MG TABLET PO SCH (08:48)
[2018-03-17] MEDS: FUROSEMIDE 40 MG TABLET PO SCH (08:48)
[2018-03-17] MEDS: NICOTINE 7MG PATCH. TD SCH (08:48)
[2018-03-17] MEDS: QUEtiapine 25 MG TABLET. PO SCH ×3 (08:48→18:01)
[2018-03-17] MEDS: SERTRALINE 50 MG TABLET. PO SCH (08:49)
[2018-03-17] MEDS: SENNOSIDES 8.6 MG TABLET PO SCH ×2 (08:49→19:41)
[2018-03-17] MEDS: DIVALPROEX 125 MG CAP.SPRINK PO SCH ×3 (08:49→18:01)
[2018-03-17] MEDS: PANTOPRAZOLE 40 MG TABLET. PO SCH (08:49)
[2018-03-17] MEDS: CARVEDILOL 3.125 MG TABLET PO SCH ×2 (08:50→18:01)
[2018-03-17] MEDS: PHENYTOIN SODIUM EXTENDED 100 MG CAPSULE PO SCH ×2 (08:50→19:42)
[2018-03-17] MEDS: METHADONE 5 MG TABLET. PO SCH ×3 (08:51→19:42)
[2018-03-17] MEDS: BUDESONIDE 0.5 MG/2 ML NEBU NEB SCH ×2 (11:12→20:23)
[2018-03-17 15:43] VITALS: BP 110/65
[2018-03-17] MEDS: MIRTAZAPINE 30 MG TABLET PO SCH (19:43)
--- NOTE | 2018-03-17 20:39 | PDOC ---
Exam Note: Brian Note: Please also refer to the separate dictated note~for this date of service dictated separately.~Patient seen individually. Discussed the patient with Nursing staff reviewed the chart.~Reviewed interim history and current functioning. Reviewed vital signs,~Labs/ Radiology~and current medications noted below. Continue current treatment with the changes noted in the dictated addendum note Assessment: Vital Signs: Vital Signs Date Time Temp Pulse Resp B/P (MAP) Pulse Ox O2 Delivery O2 Flow Rate FiO2 03/17/18 20:28 96 Room Air 03/17/18 19:42 20 03/17/18 18:01 88 110/65 03/17/18 15:43 98.6 I&O Intake and Output 03/17/18 07:00 Intake Total 960 ml Balance 960 ml Intake Oral 960 ml # Voids 1 Current Medications: Meds: Current Medications Acetaminophen (Tylenol) 650 mg PRN Q6HRS PRN PO PAIN / TEMP; Start 03/09/18 at 00:00 Multi-Ingredient Ointment (Analgesic [place]) 1 cayla PRN QID PRN TP MUSCLE PAIN; Start 03/09/18 at 00:00 Al Hydroxide/Mg Hydroxide (Mylanta Plus Xs) 15 ml PRN AFTMEALHC PRN PO DYSPEPSIA; Start 03/09/18 at 00:00 Magnesium Hydroxide (Milk Of Magnesia) 2,400 mg PRN QHS PRN PO CONSTIPATION; Start 03/09/18 at 00:00 Ferrous Sulfate (Feosol) 325 mg BIDAFTMEAL PO Last administered on 03/17/18at 18 :01; Start 03/09/18 at 09:00 Albuterol/ Ipratropium (Duoneb) 3 ml PRN Q4HRS PRN IH WHILE AWAKE F/SOA Last administered on 03/16/18at 15:28; Start 03/09/18 at 00:15 Lisinopril (Prinivil) 10 mg DAILY PO Last administered on 03/17/18at 08:48; Start 03/09/18 at 09:00 Methadone HCl (Dolophine) 10 mg TID PO Last administered on 03/17/18 19:42; Start 03/09/18 at 09:00 Mirtazapine (Remeron) 30 mg QHS PO Last administered on 03/17/18 19:43; Start 03/09/18 at 21:00 Sertraline HCl (Zoloft) 150 mg DAILY PO Last administered on 03/13/18 07:57; Start 03/09/18 at 09:00; Stop 03/13/18 at 12:14; Status DC Carvedilol (Coreg) 3.125 mg BIDWMEALS PO Last administered on 03/17/18 18:01; Start 03/09/18 at 08:00 Furosemide (Lasix) 40 mg DAILY PO Last administered on 03/17/18 08:48; Start 03/09/18 at 09:00 Guaifenesin (Mucinex Er) 1,200 mg Q12HR PO Last administered on 03/17/18 19:43 ; Start 03/09/18 at 09:00 Latanoprost (Xalatan) 1 drop QHS OU Last administered on 03/16/18 19:44; Start 03/09/18 at 21:00 Nicotine (Nicoderm Cq 7mg) 1 patch DAILY TD Last administered on 03/17/18 08: 48; Start 03/09/18 at 09:00 Pantoprazole Sodium (Protonix) 40 mg DAILYAC PO Last administered on 03/17/18 08:49; Start 03/09/18 at 07:30 Phenytoin Sodium (Dilantin) 200 mg BID PO Last administered on 03/17/18 19:42 ; Start 03/09/18 at 09:00 Ropinirole HCl (Requip) 1 mg BID PO Last administered on 03/17/18 19:42; Start 03/09/18 at 09:00 Sennosides (Senna) 8.6 mg BID PO Last administered on 03/17/18 19:41; Start at 09:00 Non-Formulary Medication (Tiotropium [place] (Spiriva)) 1 puff DAILY IH ; Start 03/09/18 at 09:00; Status UNV Oxybutynin Chloride (Ditropan) 5 mg BID PO Last administered on 03/17/18 19:43 ; Start 03/09/18 at 21:00 Trazodone HCl (Desyrel) 50 mg PRN QHS PRN PO INSOMNIA; Start 03/09/18 at 00:15 ; Stop 03/09/18 at 19:54; Status DC Alprazolam (Xanax) 0.25 mg PRN Q12HR PRN PO ANXIETY / AGITATION; Start at 00:30; Stop 03/09/18 at 19:54; Status DC Alprazolam (Xanax) 0.25 mg PRN Q6HRS PRN PO ANXIETY / AGITATION; Start at 00:30; Stop 03/09/18 at 19:54; Status DC Albuterol Sulfate (Ventolin) 2.5 mg RTQID NEB Last administered on 03/17/18 20 :23; Start 03/09/18 at 08:00 Budesonide (Pulmicort) 0.5 mg RTBID NEB Last administered on 03/17/18 20:23; Start 03/09/18 at 08:00 Albuterol Sulfate (Ventolin) 2.5 mg STK-MED ONCE .ROUTE ; Start 03/09/18 at 06: 08; Stop 03/09/18 at 06:09; Status DC Alprazolam (Xanax) 0.25 mg PRN Q4HRS PRN PO ANXIETY / AGITATION Last administered on 03/17/18 19:45; Start 03/09/18 at 20:00 Trazodone HCl (Desyrel) 100 mg PRN QHS PRN PO INSOMNIA Last administered on at 19:40; Start 03/09/18 at 20:00 Quetiapine Fumarate (SEROquel) 12.5 mg BID@0900,1300 PO Last administered on at 13:43; Start 03/12/18 at 09:00; Stop 03/12/18 at 18:38; Status DC Quetiapine Fumarate (SEROquel) 25 mg TID@0900,1300,1700 PO Last administered on 03/17/18 18:01; Start 03/13/18 at 09:00 Quetiapine Fumarate (SEROquel) 12.5 mg 1X ONCE PO Last administered on 19:19; Start 03/12/18 at 19:00; Stop 03/12/18 at 19:01; Status DC Sertraline HCl (Zoloft) 75 mg DAILY PO Last administered on 03/17/18at 08:49; Start 03/14/18 at 09:00 Divalproex Sodium (Depakote Sprinkles) 125 mg [id number] PO ; Start 03/15/18 at 22: 00; Stop 03/15/18 at 22:30; Status DC Divalproex Sodium (Depakote Sprinkles) 125 mg TIDAFTMEAL PO Last administered on 03/17/18at 18:01; Start 03/16/18 at 09:00 Active Scripts Active Reported Alprazolam 0.25 Mg Tablet 0.25 Mg PO PRN Q12HR PRN Alprazolam 0.25 Mg Tablet 0.25 Mg PO PRN Q6HRS PRN Detrol La (Tolterodine Tartrate) 2 Mg Cap.er.24h 2 Mg PO QHS Xalatan (Latanoprost) 2.5 Ml Drops 1 Drop EACHEYE QHS Pantoprazole Sodium 40 Mg Tablet.dr 40 Mg PO DAILY Requip (Ropinirole Hcl) 1 Mg Tablet 1 Mg PO BID NICODERM CQ 7mg (Nicotine) 1 Each Patch.td24 1 Patch TD DAILY Mucinex (Guaifenesin) 1,200 Mg Tbmp.12hr 1,200 Mg PO Q12HR Lasix (Furosemide) 40 Mg Tablet 40 Mg PO DAILY Ferrous Sulfate 325 Mg Tablet 325 Mg PO BID Mirtazapine 30 Mg Tablet 30 Mg PO QHS Trazodone Hcl 50 Mg Tablet 50 Mg PO PRN QHS PRN Sertraline Hcl 50 Mg Tablet 150 Mg PO DAILY Spiriva (Tiotropium [place]) 18 Mcg Cap.w.dev 1 Puff IH DAILY Senna (Sennosides) 8.6 Mg Tablet 8.6 Mg PO BID Phenytoin Sodium Extended 100 Mg Capsule 200 Mg PO BID Methadone Hcl 5 Mg Tablet 10 Mg PO TID Lisinopril 10 Mg Tablet 10 Mg PO DAILY Carvedilol 3.125 Mg Tablet 1 Tab PO BIDWMEALS Duoneb 0.5-3(2.5) Mg/3 Ml (Albuterol/Ipratropium) 3 Ml Ampul.neb 3 Ml IH Q4HRS W /A PRN I have reviewed the current psychotropics carefully including drug interactions. Risk benefit ratio favors no change other than as noted in my dictated progress note. Diagnosis: Problems: (1) Vascular dementia with delusions (2) Alzheimer's dementia (3) Impulse control disorder (4) Major depressive disorder (5) Parkinson disease JESIKA HAYES MD March 17, 2018 20:39
[2018-03-17] MEDS: LATANOPROST 0.005% OPHTH SOLUTION 2.5ML BOTTLE. OU SCH (21:00)
--- NOTE | 2018-03-17 22:09 | PN ---
DATE: 03/14/2018 PSYCHIATRIC PROGRESS NOTE This is a late entry 03/14/2018, covers elements not covered in my initial note 03/14/2018. SUBJECTIVE: I met with the patient in the evening. The patient remains highly anxious, irritable, withdrawn, spends much time in her room, compliant with medications. REVIEW OF SYSTEMS: Positive for anxiety, restlessness, constantly moving. Complains of shortness of breath, consequent to anxiety. No CV, , GI, eye system symptoms on review. MENTAL STATUS EXAM: The patient is oriented to herself and situation. Speech coherent, rapid at times. Abstraction fair, computation impaired, language function intact, attention span short. Mood and affect extremely anxious, labile. LABORATORY DATA: Reviewed. No suicidal ideation. IMPRESSION: Unchanged from initial note. PLAN: Continue current psychotropics, Zoloft has been reduced and Seroquel was adjusted upward. We will consider Depakote as a mood stabilizer. JESIKA HAYES MD DR: BROOKE/fabio JOB#: [id number] / [id number]
--- NOTE | 2018-03-17 22:12 | PN ---
DATE: 03/15/2018 PSYCHIATRIC PROGRESS NOTE This is a late entry 03/15/2018, covers elements not covered in my initial note. SUBJECTIVE: The patient slept 5-3/4 hours, remains extremely anxious, restless, constantly moving, hyperverbal, complains of shortness of breath. REVIEW OF SYSTEMS: Ambulation impaired with walker. No CV, , GI system symptoms on review. Reliability poor. MENTAL STATUS EXAM: Oriented to herself and situation. Speech coherent, rapid at times. Abstraction fair, computation impaired, language function intact, attention span short. Mood and affect remains labile. Short term memory deficits. LABORATORY DATA: Reviewed. IMPRESSION: Unchanged from initial note and probable bipolar 1 disorder, mixed with psychotic features. PLAN: Start Depakote Sprinkles 125 mg 3 times a day for the bipolar disorder. Continue rest unchanged including the lowered Zoloft together with Seroquel, Remeron, trazodone for insomnia, Xanax p.r.n. Start Depakote Sprinkles 125 mg 3 times a day. Check CBC, CMP, valproic acid level, ammonia level in 3 days. MAN Gabino HAYES MD DR: BROOKE/fabio JOB#: [id number] / [id number]
[2018-03-18] MEDS: ALPRAZolam 0.25 MG TABLET PO PRN (03:52)
[2018-03-18] MEDS: BUDESONIDE 0.5 MG/2 ML NEBU NEB SCH ×3 (04:19→21:47)
[2018-03-18] MEDS: ALBUTEROL SULFATE 2.5 MG/3 ML NEBU. NEB SCH ×4 (04:19→21:47)
[2018-03-18 06:12] VITALS: BP 136/70
[2018-03-18] MEDS: rOPINIRole 1 MG TABLET. PO SCH ×2 (08:09→19:48)
[2018-03-18] MEDS: DIVALPROEX 125 MG CAP.SPRINK PO SCH ×3 (08:09→16:29)
[2018-03-18] MEDS: FERROUS SULFATE 325 MG TABLET. PO SCH ×2 (08:09→16:29)
[2018-03-18] MEDS: LISINOPRIL 10 MG TABLET PO SCH (08:09)
[2018-03-18] MEDS: NICOTINE 7MG PATCH. TD SCH (08:09)
[2018-03-18] MEDS: QUEtiapine 25 MG TABLET. PO SCH ×3 (08:10→16:29)
[2018-03-18] MEDS: PANTOPRAZOLE 40 MG TABLET. PO SCH (08:10)
[2018-03-18] MEDS: PHENYTOIN SODIUM EXTENDED 100 MG CAPSULE PO SCH ×2 (08:10→19:48)
[2018-03-18] MEDS: FUROSEMIDE 40 MG TABLET PO SCH (08:10)
[2018-03-18] MEDS: OXYBUTYNIN CHLORIDE 5 MG TABLET PO SCH ×2 (08:10→19:48)
[2018-03-18] MEDS: SENNOSIDES 8.6 MG TABLET PO SCH ×2 (08:10→19:48)
[2018-03-18] MEDS: CARVEDILOL 3.125 MG TABLET PO SCH ×2 (08:10→16:30)
[2018-03-18] MEDS: SERTRALINE 50 MG TABLET. PO SCH (08:11)
[2018-03-18] MEDS: METHADONE 5 MG TABLET. PO SCH ×3 (08:13→19:53)
[2018-03-18 16:15] VITALS: BP 127/82
[2018-03-18] MEDS: MIRTAZAPINE 30 MG TABLET PO SCH (19:48)
[2018-03-18] MEDS: LATANOPROST 0.005% OPHTH SOLUTION 2.5ML BOTTLE. OU SCH (19:50)
--- NOTE | 2018-03-18 20:43 | PDOC ---
Exam Note: Brian Note: Please also refer to the separate dictated note~for this date of service dictated separately.~Patient seen individually. Discussed the patient with Nursing staff reviewed the chart.~Reviewed interim history and current functioning. Reviewed vital signs,~Labs/ Radiology~and current medications noted below. Continue current treatment with the changes noted in the dictated addendum note Assessment: Vital Signs: Vital Signs Date Time Temp Pulse Resp B/P (MAP) Pulse Ox O2 Delivery O2 Flow Rate FiO2 03/18/18 19:53 18 Room Air 03/18/18 16:30 73 127/82 03/18/18 16:15 98.0 98 I&O Intake and Output 03/18/18 07:00 Intake Total 840 ml Balance 840 ml Intake Oral 840 ml Current Medications: Meds: Current Medications Acetaminophen (Tylenol) 650 mg PRN Q6HRS PRN PO PAIN / TEMP; Start 03/09/18 at 00:00 Multi-Ingredient Ointment (Analgesic [place]) 1 cayla PRN QID PRN TP MUSCLE PAIN; Start 03/09/18 at 00:00 Al Hydroxide/Mg Hydroxide (Mylanta Plus Xs) 15 ml PRN AFTMEALHC PRN PO DYSPEPSIA; Start 03/09/18 at 00:00 Magnesium Hydroxide (Milk Of Magnesia) 2,400 mg PRN QHS PRN PO CONSTIPATION; Start 03/09/18 at 00:00 Ferrous Sulfate (Feosol) 325 mg BIDAFTMEAL PO Last administered on 03/18/18at 16 :29; Start 03/09/18 at 09:00 Albuterol/ Ipratropium (Duoneb) 3 ml PRN Q4HRS PRN IH WHILE AWAKE F/SOA Last administered on 03/16/18at 15:28; Start 03/09/18 at 00:15 Lisinopril (Prinivil) 10 mg DAILY PO Last administered on 03/18/18at 08:09; Start 03/09/18 at 09:00 Methadone HCl (Dolophine) 10 mg TID PO Last administered on 03/18/18at 19:53; Start 03/09/18 at 09:00 Mirtazapine (Remeron) 30 mg QHS PO Last administered on 03/18/18at 19:48; Start 03/09/18 at 21:00 Sertraline HCl (Zoloft) 150 mg DAILY PO Last administered on 03/13/18 07:57; Start 03/09/18 at 09:00; Stop 03/13/18 at 12:14; Status DC Carvedilol (Coreg) 3.125 mg BIDWMEALS PO Last administered on 03/18/18 16:30; Start 03/09/18 at 08:00 Furosemide (Lasix) 40 mg DAILY PO Last administered on 03/18/18 08:10; Start 03/09/18 at 09:00 Guaifenesin (Mucinex Er) 1,200 mg Q12HR PO Last administered on 03/18/18 19:49 ; Start 03/09/18 at 09:00 Latanoprost (Xalatan) 1 drop QHS OU Last administered on 03/18/18 19:50; Start 03/09/18 at 21:00 Nicotine (Nicoderm Cq 7mg) 1 patch DAILY TD Last administered on 03/18/18 08: 09; Start 03/09/18 at 09:00 Pantoprazole Sodium (Protonix) 40 mg DAILYAC PO Last administered on 03/18/18 08:10; Start 03/09/18 at 07:30 Phenytoin Sodium (Dilantin) 200 mg BID PO Last administered on 03/18/18 19:48 ; Start 03/09/18 at 09:00 Ropinirole HCl (Requip) 1 mg BID PO Last administered on 03/18/18 19:48; Start 03/09/18 at 09:00 Sennosides (Senna) 8.6 mg BID PO Last administered on 03/18/18 19:48; Start at 09:00 Non-Formulary Medication (Tiotropium [place] (Spiriva)) 1 puff DAILY IH ; Start 03/09/18 at 09:00; Status UNV Oxybutynin Chloride (Ditropan) 5 mg BID PO Last administered on 03/18/18 19:48 ; Start 03/09/18 at 21:00 Trazodone HCl (Desyrel) 50 mg PRN QHS PRN PO INSOMNIA; Start 03/09/18 at 00:15 ; Stop 03/09/18 at 19:54; Status DC Alprazolam (Xanax) 0.25 mg PRN Q12HR PRN PO ANXIETY / AGITATION; Start at 00:30; Stop 03/09/18 at 19:54; Status DC Alprazolam (Xanax) 0.25 mg PRN Q6HRS PRN PO ANXIETY / AGITATION; Start at 00:30; Stop 03/09/18 at 19:54; Status DC Albuterol Sulfate (Ventolin) 2.5 mg RTQID NEB Last administered on 03/18/18at 15 :34; Start 03/09/18 at 08:00 Budesonide (Pulmicort) 0.5 mg RTBID NEB Last administered on 03/18/18at 10:28; Start 03/09/18 at 08:00 Albuterol Sulfate (Ventolin) 2.5 mg STK-MED ONCE .ROUTE ; Start 03/09/18 at 06: 08; Stop 03/09/18 at 06:09; Status DC Alprazolam (Xanax) 0.25 mg PRN Q4HRS PRN PO ANXIETY / AGITATION Last administered on 03/18/18at 03:52; Start 03/09/18 at 20:00 Trazodone HCl (Desyrel) 100 mg PRN QHS PRN PO INSOMNIA Last administered on at 19:40; Start 03/09/18 at 20:00 Quetiapine Fumarate (SEROquel) 12.5 mg BID@0900,1300 PO Last administered on at 13:43; Start 03/12/18 at 09:00; Stop 03/12/18 at 18:38; Status DC Quetiapine Fumarate (SEROquel) 25 mg TID@0900,1300,1700 PO Last administered on 03/18/18at 16:29; Start 03/13/18 at 09:00; Stop 03/18/18 at 18:21; Status DC Quetiapine Fumarate (SEROquel) 12.5 mg 1X ONCE PO Last administered on at 19:19; Start 03/12/18 at 19:00; Stop 03/12/18 at 19:01; Status DC Sertraline HCl (Zoloft) 75 mg DAILY PO Last administered on 03/18/18at 08:11; Start 03/14/18 at 09:00 Divalproex Sodium (Depakote Sprinkles) 125 mg [id number] PO ; Start 03/15/18 at 22: 00; Stop 03/15/18 at 22:30; Status DC Divalproex Sodium (Depakote Sprinkles) 125 mg TIDAFTMEAL PO Last administered on 03/18/18at 16:29; Start 03/16/18 at 09:00 Quetiapine Fumarate (SEROquel) 37.5 mg TID@0900,1300,1700 PO ; Start 03/19/18 at 09:00 Active Scripts Active Reported Alprazolam 0.25 Mg Tablet 0.25 Mg PO PRN Q12HR PRN Alprazolam 0.25 Mg Tablet 0.25 Mg PO PRN Q6HRS PRN Detrol La (Tolterodine Tartrate) 2 Mg Cap.er.24h 2 Mg PO QHS Xalatan (Latanoprost) 2.5 Ml Drops 1 Drop EACHEYE QHS Pantoprazole Sodium 40 Mg Tablet.dr 40 Mg PO DAILY Requip (Ropinirole Hcl) 1 Mg Tablet 1 Mg PO BID NICODERM CQ 7mg (Nicotine) 1 Each Patch.td24 1 Patch TD DAILY Mucinex (Guaifenesin) 1,200 Mg Tbmp.12hr 1,200 Mg PO Q12HR Lasix (Furosemide) 40 Mg Tablet 40 Mg PO DAILY Ferrous Sulfate 325 Mg Tablet 325 Mg PO BID Mirtazapine 30 Mg Tablet 30 Mg PO QHS Trazodone Hcl 50 Mg Tablet 50 Mg PO PRN QHS PRN Sertraline Hcl 50 Mg Tablet 150 Mg PO DAILY Spiriva (Tiotropium [place]) 18 Mcg Cap.w.dev 1 Puff IH DAILY Senna (Sennosides) 8.6 Mg Tablet 8.6 Mg PO BID Phenytoin Sodium Extended 100 Mg Capsule 200 Mg PO BID Methadone Hcl 5 Mg Tablet 10 Mg PO TID Lisinopril 10 Mg Tablet 10 Mg PO DAILY Carvedilol 3.125 Mg Tablet 1 Tab PO BIDWMEALS Duoneb 0.5-3(2.5) Mg/3 Ml (Albuterol/Ipratropium) 3 Ml Ampul.neb 3 Ml IH Q4HRS W /A PRN I have reviewed the current psychotropics carefully including drug interactions. Risk benefit ratio favors no change other than as noted in my dictated progress note. Diagnosis: Problems: (1) Vascular dementia with delusions (2) Alzheimer's dementia (3) Impulse control disorder (4) Major depressive disorder (5) Parkinson disease JESIKA HAYES MD March 18, 2018 20:43
[2018-03-19] MEDS: ALPRAZolam 0.25 MG TABLET PO PRN ×4 (00:30→14:10)
[2018-03-19 05:58] VITALS: BP 132/60
[2018-03-19] MEDS: ALBUTEROL SULFATE 2.5 MG/3 ML NEBU. NEB SCH ×4 (06:16→21:34)
[2018-03-19] MEDS: NICOTINE 7MG PATCH. TD SCH (07:37)
[2018-03-19] MEDS: PHENYTOIN SODIUM EXTENDED 100 MG CAPSULE PO SCH ×2 (07:37→20:44)
[2018-03-19] MEDS: SENNOSIDES 8.6 MG TABLET PO SCH ×2 (07:38→20:44)
[2018-03-19] MEDS: SERTRALINE 50 MG TABLET. PO SCH (07:38)
[2018-03-19] MEDS: CARVEDILOL 3.125 MG TABLET PO SCH ×2 (07:38→16:45)
[2018-03-19] MEDS: rOPINIRole 1 MG TABLET. PO SCH ×2 (07:38→20:44)
[2018-03-19] MEDS: OXYBUTYNIN CHLORIDE 5 MG TABLET PO SCH ×2 (07:38→20:44)
[2018-03-19] MEDS: DIVALPROEX 125 MG CAP.SPRINK PO SCH ×3 (07:38→16:45)
[2018-03-19] MEDS: LISINOPRIL 10 MG TABLET PO SCH (07:38)
[2018-03-19] MEDS: FERROUS SULFATE 325 MG TABLET. PO SCH ×2 (07:39→16:45)
[2018-03-19] MEDS: PANTOPRAZOLE 40 MG TABLET. PO SCH (07:39)
[2018-03-19] MEDS: FUROSEMIDE 40 MG TABLET PO SCH (07:39)
[2018-03-19] MEDS: METHADONE 5 MG TABLET. PO SCH ×3 (07:41→20:45)
[2018-03-19] MEDS: QUEtiapine 25 MG TABLET. PO SCH ×3 (07:41→16:45)
[2018-03-19 07:56] LABS: HEMATOCRIT 32.3 % (36.0-47.0); HEMOGLOBIN 11.4 g/dL (12.0-15.5); RED BLOOD COUNT 3.39 x10^6/uL (3.50-5.40); RED CELL DISTRIBUTION WIDTH 13.9 % (11.5-14.5); WHITE BLOOD COUNT 6.1 x10^3/uL (4.0-11.0)
[2018-03-19 08:06] LABS: ALBUMIN 3.3 g/dL (3.4-5.0); ALBUMIN/GLOBULIN RATIO 0.9 (1.0-1.7); ALK PHOS 101 U/L (46-116); ALT (SGPT) 22 U/L (14-59); ANION GAP 7 (6-14); AST (SGOT) 15 U/L (15-37); BLOOD UREA NITROGEN 27 mg/dL (7-20); BUN/CREATININE RATIO 34 (6-20); CARBON DIOXIDE 33 mmol/L (21-32); CHLORIDE 97 mmol/L (98-107); CREATININE 0.8 mg/dL (0.6-1.0); GFR 69.7; GLUCOSE 106 mg/dL (70-99); POTASSIUM 4.2 mmol/L (3.5-5.1); SODIUM 137 mmol/L (136-145); TOTAL BILIRUBIN 0.3 mg/dL (0.2-1.0); TOTAL PROTEIN 6.9 g/dL (6.4-8.2)
[2018-03-19 08:31] LABS: VAL ACID 13 mcg/mL (50-100)
[2018-03-19] MEDS: BUDESONIDE 0.5 MG/2 ML NEBU NEB SCH ×2 (09:48→21:34)
--- NOTE | 2018-03-19 11:14 | PN ---
DATE: 03/16/2018 PSYCHIATRIC PROGRESS NOTE This is a late entry , covers elements not covered in my initial note 03/16/2018. SUBJECTIVE: I met with the patient in the evening. The patient has had a better day per nursing report. She has been less anxious, coming out of the day room, still remains tremulous at times, anxious, but the mood lability slightly improved. She has vague somatic symptoms including deep breathing and symptoms of panic attacks. REVIEW OF SYSTEMS: No CV, , pulmonary, eye system symptoms on review. MENTAL STATUS EXAM: Oriented to herself and situation. Speech coherent, rapid at times. Abstraction fair, computation impaired, language function intact, attention span short. Mood and affect, lability and anxiety improved. LABORATORY DATA: Reviewed. IMPRESSION: Unchanged from initial note. PLAN: Continue current psychotropics including the Depakote. Follow CBC, CMP, valproic acid level, adjust Depakote to reach therapeutic level. JESIKA HAYES MD DR: BROOKE/fabio JOB#: [id number] / [id number]
--- NOTE | 2018-03-19 11:15 | PN ---
DATE: 03/17/2018 PSYCHIATRIC PROGRESS NOTE This is a late entry 03/17/2018, covers elements not covered in my initial note 03/17/2018. SUBJECTIVE: I met with the patient in the evening. The patient has been more anxious today as compared to 03/16/2018. Complains of shortness of breath, quite hyperverbal, anxious, labile. She slept 6-1/2 hours previous evening. She has vague somatic symptoms as above including pulmonary, shortness of breath, restlessness. REVIEW OF SYSTEMS: No CV, , GI system symptoms on review. MENTAL STATUS EXAM: Oriented to herself and situation. Speech is coherent, rapid at times. Abstraction fair, computation impaired, language function intact, attention span short. Mood and affect remain somewhat anxious, labile. LABORATORY DATA: Reviewed. IMPRESSION: Unchanged from initial note. PLAN: Follow labs on the Depakote. Adjust to reach therapeutic level. Continue rest unchanged. JESIKA HAYES MD DR: BROOKE/fabio JOB#: [id number] / [id number]
[2018-03-19 16:11] VITALS: BP 117/71
[2018-03-19] MEDS: MIRTAZAPINE 30 MG TABLET PO SCH (20:44)
--- NOTE | 2018-03-19 20:57 | PDOC ---
Exam Note: Brian Note: Please also refer to the separate dictated note~for this date of service dictated separately.~Patient seen individually. Discussed the patient with Nursing staff reviewed the chart.~Reviewed interim history and current functioning. Reviewed vital signs,~Labs/ Radiology~and current medications noted below. Continue current treatment with the changes noted in the dictated addendum note Assessment: Vital Signs: Vital Signs Date Time Temp Pulse Resp B/P (MAP) Pulse Ox O2 Delivery O2 Flow Rate FiO2 03/19/18 20:55 96 Room Air 03/19/18 20:45 18 03/19/18 16:45 76 117/71 03/19/18 16:11 97.5 I&O Intake and Output 03/19/18 07:00 Intake Total 1440 ml Balance 1440 ml Intake Oral 1440 ml Labs: Laboratory Tests Test 03/19/18 07:25 White Blood Count 6.1 x10^3/uL (4.0-11.0) Red Blood Count 3.39 x10^6/uL (3.50-5.40) L Hemoglobin 11.4 g/dL (12.0-15.5) L Hematocrit 32.3 % (36.0-47.0) L Mean Corpuscular Volume 95 fL (79-100) Mean Corpuscular Hemoglobin 34 pg (25-35) Mean Corpuscular Hemoglobin Concent 35 g/dL (31-37) Red Cell Distribution Width 13.9 % (11.5-14.5) Platelet Count 412 x10^3/uL (140-400) H Sodium Level 137 mmol/L (136-145) Potassium Level 4.2 mmol/L (3.5-5.1) Chloride Level 97 mmol/L (98-107) L Carbon Dioxide Level 33 mmol/L (21-32) H Anion Gap 7 (6-14) Blood Urea Nitrogen 27 mg/dL (7-20) H Creatinine 0.8 mg/dL (0.6-1.0) Estimated GFR (Cockcroft-Gault) 69.7 BUN/Creatinine Ratio 34 (6-20) H Glucose Level 106 mg/dL (70-99) H Calcium Level 9.0 mg/dL (8.5-10.1) Total Bilirubin 0.3 mg/dL (0.2-1.0) Aspartate Amino Transferase (AST) 15 U/L (15-37) Alanine Aminotransferase (ALT) 22 U/L (14-59) Alkaline Phosphatase 101 U/L (46-116) Ammonia < 10 mcmol/L (11-34) L Total Protein 6.9 g/dL (6.4-8.2) Albumin 3.3 g/dL (3.4-5.0) L Albumin/Globulin Ratio 0.9 (1.0-1.7) L Valproic Acid Level 13 mcg/mL (50-100) L Valproic Acid Last Dose Date 03/18/2018 Valproic Acid Last Dose Time 1700 Current Medications: Meds: Current Medications Acetaminophen (Tylenol) 650 mg PRN Q6HRS PRN PO PAIN / TEMP; Start 03/09/18 at 00:00 Multi-Ingredient Ointment (Analgesic [place]) 1 cayla PRN QID PRN TP MUSCLE PAIN; Start 03/09/18 at 00:00 Al Hydroxide/Mg Hydroxide (Mylanta Plus Xs) 15 ml PRN AFTMEALHC PRN PO DYSPEPSIA; Start 03/09/18 at 00:00 Magnesium Hydroxide (Milk Of Magnesia) 2,400 mg PRN QHS PRN PO CONSTIPATION; Start 03/09/18 at 00:00 Ferrous Sulfate (Feosol) 325 mg BIDAFTMEAL PO Last administered on 03/19/18 16 :45; Start 03/09/18 at 09:00 Albuterol/ Ipratropium (Duoneb) 3 ml PRN Q4HRS PRN IH WHILE AWAKE F/SOA Last administered on 03/16/18 15:28; Start 03/09/18 at 00:15 Lisinopril (Prinivil) 10 mg DAILY PO Last administered on 03/19/18 07:38; Start 03/09/18 at 09:00 Methadone HCl (Dolophine) 10 mg TID PO Last administered on 03/19/18 20:45; Start 03/09/18 at 09:00 Mirtazapine (Remeron) 30 mg QHS PO Last administered on 03/19/18 20:44; Start 03/09/18 at 21:00 Sertraline HCl (Zoloft) 150 mg DAILY PO Last administered on 03/13/18at 07:57; Start 03/09/18 at 09:00; Stop 03/13/18 at 12:14; Status DC Carvedilol (Coreg) 3.125 mg BIDWMEALS PO Last administered on 03/19/18 16:45; Start 03/09/18 at 08:00 Furosemide (Lasix) 40 mg DAILY PO Last administered on 03/19/18 07:39; Start 03/09/18 at 09:00 Guaifenesin (Mucinex Er) 1,200 mg Q12HR PO Last administered on 03/19/18 20:44 ; Start 03/09/18 at 09:00 Latanoprost (Xalatan) 1 drop QHS OU Last administered on 03/18/18 19:50; Start 03/09/18 at 21:00 Nicotine (Nicoderm Cq 7mg) 1 patch DAILY TD Last administered on 03/19/18 07: 37; Start 03/09/18 at 09:00 Pantoprazole Sodium (Protonix) 40 mg DAILYAC PO Last administered on 03/19/18 07:39; Start 03/09/18 at 07:30 Phenytoin Sodium (Dilantin) 200 mg BID PO Last administered on 03/19/18 20:44 ; Start 03/09/18 at 09:00 Ropinirole HCl (Requip) 1 mg BID PO Last administered on 03/19/18 20:44; Start 03/09/18 at 09:00 Sennosides (Senna) 8.6 mg BID PO Last administered on 03/19/18 20:44; Start at 09:00 Non-Formulary Medication (Tiotropium [place] (Spiriva)) 1 puff DAILY IH ; Start 03/09/18 at 09:00; Status UNV Oxybutynin Chloride (Ditropan) 5 mg BID PO Last administered on 03/19/18 20:44 ; Start 03/09/18 at 21:00 Trazodone HCl (Desyrel) 50 mg PRN QHS PRN PO INSOMNIA; Start 03/09/18 at 00:15 ; Stop 03/09/18 at 19:54; Status DC Alprazolam (Xanax) 0.25 mg PRN Q12HR PRN PO ANXIETY / AGITATION; Start at 00:30; Stop 03/09/18 at 19:54; Status DC Alprazolam (Xanax) 0.25 mg PRN Q6HRS PRN PO ANXIETY / AGITATION; Start at 00:30; Stop 03/09/18 at 19:54; Status DC Albuterol Sulfate (Ventolin) 2.5 mg RTQID NEB Last administered on 03/19/18at 15 :31; Start 03/09/18 at 08:00 Budesonide (Pulmicort) 0.5 mg RTBID NEB Last administered on 03/19/18at 09:48; Start 03/09/18 at 08:00 Albuterol Sulfate (Ventolin) 2.5 mg STK-MED ONCE .ROUTE ; Start 03/09/18 at 06: 08; Stop 03/09/18 at 06:09; Status DC Alprazolam (Xanax) 0.25 mg PRN Q4HRS PRN PO ANXIETY / AGITATION Last administered on 03/19/18at 14:10; Start 03/09/18 at 20:00 Trazodone HCl (Desyrel) 100 mg PRN QHS PRN PO INSOMNIA Last administered on at 19:40; Start 03/09/18 at 20:00 Quetiapine Fumarate (SEROquel) 12.5 mg BID@0900,1300 PO Last administered on at 13:43; Start 03/12/18 at 09:00; Stop 03/12/18 at 18:38; Status DC Quetiapine Fumarate (SEROquel) 25 mg TID@0900,1300,1700 PO Last administered on 03/18/18at 16:29; Start 03/13/18 at 09:00; Stop 03/18/18 at 18:21; Status DC Quetiapine Fumarate (SEROquel) 12.5 mg 1X ONCE PO Last administered on at 19:19; Start 03/12/18 at 19:00; Stop 03/12/18 at 19:01; Status DC Sertraline HCl (Zoloft) 75 mg DAILY PO Last administered on 03/19/18at 07:38; Start 03/14/18 at 09:00 Divalproex Sodium (Depakote Sprinkles) 125 mg [id number] PO ; Start 03/15/18 at 22: 00; Stop 03/15/18 at 22:30; Status DC Divalproex Sodium (Depakote Sprinkles) 125 mg TIDAFTMEAL PO Last administered on 03/19/18at 16:45; Start 03/16/18 at 09:00; Stop 03/19/18 at 18:50; Status DC Quetiapine Fumarate (SEROquel) 37.5 mg TID@0900,1300,1700 PO Last administered on 03/19/18at 16:45; Start 03/19/18 at 09:00 Divalproex Sodium (Depakote Sprinkles) 250 mg TIDAFTMEAL PO ; Start 03/20/18 at 09:00 Active Scripts Active Reported Alprazolam 0.25 Mg Tablet 0.25 Mg PO PRN Q12HR PRN Alprazolam 0.25 Mg Tablet 0.25 Mg PO PRN Q6HRS PRN Detrol La (Tolterodine Tartrate) 2 Mg Cap.er.24h 2 Mg PO QHS Xalatan (Latanoprost) 2.5 Ml Drops 1 Drop EACHEYE QHS Pantoprazole Sodium 40 Mg Tablet.dr 40 Mg PO DAILY Requip (Ropinirole Hcl) 1 Mg Tablet 1 Mg PO BID NICODERM CQ 7mg (Nicotine) 1 Each Patch.td24 1 Patch TD DAILY Mucinex (Guaifenesin) 1,200 Mg Tbmp.12hr 1,200 Mg PO Q12HR Lasix (Furosemide) 40 Mg Tablet 40 Mg PO DAILY Ferrous Sulfate 325 Mg Tablet 325 Mg PO BID Mirtazapine 30 Mg Tablet 30 Mg PO QHS Trazodone Hcl 50 Mg Tablet 50 Mg PO PRN QHS PRN Sertraline Hcl 50 Mg Tablet 150 Mg PO DAILY Spiriva (Tiotropium [place]) 18 Mcg Cap.w.dev 1 Puff IH DAILY Senna (Sennosides) 8.6 Mg Tablet 8.6 Mg PO BID Phenytoin Sodium Extended 100 Mg Capsule 200 Mg PO BID Methadone Hcl 5 Mg Tablet 10 Mg PO TID Lisinopril 10 Mg Tablet 10 Mg PO DAILY Carvedilol 3.125 Mg Tablet 1 Tab PO BIDWMEALS Duoneb 0.5-3(2.5) Mg/3 Ml (Albuterol/Ipratropium) 3 Ml Ampul.neb 3 Ml IH Q4HRS W /A PRN I have reviewed the current psychotropics carefully including drug interactions. Risk benefit ratio favors no change other than as noted in my dictated progress note. Diagnosis: Problems: (1) Vascular dementia with delusions (2) Alzheimer's dementia (3) Impulse control disorder (4) Major depressive disorder (5) Parkinson disease JESIKA HAYES MD March 19, 2018 20:57
--- NOTE | 2018-03-20 03:05 | PN ---
DATE: 03/18/2018 This is a late entry, 03/18/2018, covers the elements not covered in my initial note, 03/18/2018. SUBJECTIVE: I met with the patient in the evening. The patient slept 8-1/2 hours the previous evening, remains extremely anxious, restless, hyperverbal with marked varying somatic complaints. She did better for a day after we initiated Depakote, then seemed to reverse course somewhat. She has vague somatic symptoms. REVIEW OF SYSTEMS: No CV, , pulmonary, eye system symptoms on review. She does complain of difficulty with breathing with her anxiety. MENTAL STATUS EXAM: Oriented to herself and situation. Speech coherent, rapid at times. Abstraction fair, computation impaired, language function intact, attention span short. Mood and affect remains labile. LABORATORY DATA: Reviewed. IMPRESSION: Probable bipolar 1 disorder, mixed with psychotic features; anxiety disorder, unspecified; major neurocognitive disorder, early Alzheimer, secondary to alcohol with depression and anxiety. PLAN: Increase Seroquel from 25 mg 3 times a day to 37.5 mg 3 times a day. Check a valproic acid level. Continue Depakote. Rest of the psychotropics unchanged. MAN Gabino HAYES MD DR: BROOKE/fabio JOB#: [id number] / [id number]
[2018-03-20] MEDS: ALPRAZolam 0.25 MG TABLET PO PRN ×4 (03:56→17:25)
[2018-03-20 06:14] VITALS: BP 140/68
[2018-03-20] MEDS: ALBUTEROL SULFATE 2.5 MG/3 ML NEBU. NEB SCH ×4 (06:16→21:52)
[2018-03-20] MEDS: LATANOPROST 0.005% OPHTH SOLUTION 2.5ML BOTTLE. OU SCH ×2 (07:06→19:57)
[2018-03-20] MEDS: PANTOPRAZOLE 40 MG TABLET. PO SCH (08:02)
[2018-03-20] MEDS: OXYBUTYNIN CHLORIDE 5 MG TABLET PO SCH ×2 (08:03→19:56)
[2018-03-20] MEDS: CARVEDILOL 3.125 MG TABLET PO SCH ×2 (08:03→17:21)
[2018-03-20] MEDS: SERTRALINE 50 MG TABLET. PO SCH (08:04)
[2018-03-20] MEDS: NICOTINE 7MG PATCH. TD SCH (08:05)
[2018-03-20] MEDS: DIVALPROEX 125 MG CAP.SPRINK PO SCH ×3 (08:06→17:21)
[2018-03-20] MEDS: QUEtiapine 25 MG TABLET. PO SCH ×3 (08:06→17:22)
[2018-03-20] MEDS: PHENYTOIN SODIUM EXTENDED 100 MG CAPSULE PO SCH ×2 (08:06→19:56)
[2018-03-20] MEDS: FERROUS SULFATE 325 MG TABLET. PO SCH ×2 (08:07→17:22)
[2018-03-20] MEDS: SENNOSIDES 8.6 MG TABLET PO SCH ×2 (08:07→19:55)
[2018-03-20] MEDS: LISINOPRIL 10 MG TABLET PO SCH (08:07)
[2018-03-20] MEDS: rOPINIRole 1 MG TABLET. PO SCH ×2 (08:07→19:56)
[2018-03-20] MEDS: FUROSEMIDE 40 MG TABLET PO SCH (08:07)
[2018-03-20] MEDS: METHADONE 5 MG TABLET. PO SCH ×3 (08:07→19:58)
[2018-03-20 16:08] VITALS: BP 164/64
[2018-03-20] MEDS: MIRTAZAPINE 30 MG TABLET PO SCH (19:56)
--- NOTE | 2018-03-20 20:37 | PDOC ---
Exam Note: Brian Note: Please also refer to the separate dictated note~for this date of service dictated separately.~Patient seen individually. Discussed the patient with Nursing staff reviewed the chart.~Reviewed interim history and current functioning. Reviewed vital signs,~Labs/ Radiology~and current medications noted below. Continue current treatment with the changes noted in the dictated addendum note Assessment: Vital Signs: Vital Signs Date Time Temp Pulse Resp B/P (MAP) Pulse Ox O2 Delivery O2 Flow Rate FiO2 03/20/18 19:58 18 Room Air 03/20/18 17:21 75 164/64 03/20/18 16:23 96 03/20/18 16:08 97.9 I&O Intake and Output 03/20/18 07:00 Intake Total 960 ml Balance 960 ml Intake Oral 960 ml Current Medications: Meds: Current Medications Acetaminophen (Tylenol) 650 mg PRN Q6HRS PRN PO PAIN / TEMP; Start 03/09/18 at 00:00 Multi-Ingredient Ointment (Analgesic [place]) 1 cayla PRN QID PRN TP MUSCLE PAIN; Start 03/09/18 at 00:00 Al Hydroxide/Mg Hydroxide (Mylanta Plus Xs) 15 ml PRN AFTMEALHC PRN PO DYSPEPSIA; Start 03/09/18 at 00:00 Magnesium Hydroxide (Milk Of Magnesia) 2,400 mg PRN QHS PRN PO CONSTIPATION; Start 03/09/18 at 00:00 Ferrous Sulfate (Feosol) 325 mg BIDAFTMEAL PO Last administered on 03/20/18at 17 :22; Start 03/09/18 at 09:00 Albuterol/ Ipratropium (Duoneb) 3 ml PRN Q4HRS PRN IH WHILE AWAKE F/SOA Last administered on 03/16/18at 15:28; Start 03/09/18 at 00:15 Lisinopril (Prinivil) 10 mg DAILY PO Last administered on 03/20/18at 08:07; Start 03/09/18 at 09:00 Methadone HCl (Dolophine) 10 mg TID PO Last administered on 03/20/18at 19:58; Start 03/09/18 at 09:00 Mirtazapine (Remeron) 30 mg QHS PO Last administered on 03/20/18at 19:56; Start 03/09/18 at 21:00 Sertraline HCl (Zoloft) 150 mg DAILY PO Last administered on 03/13/18 07:57; Start 03/09/18 at 09:00; Stop 03/13/18 at 12:14; Status DC Carvedilol (Coreg) 3.125 mg BIDWMEALS PO Last administered on 03/20/18 17:21; Start 03/09/18 at 08:00 Furosemide (Lasix) 40 mg DAILY PO Last administered on 03/20/18 08:07; Start 03/09/18 at 09:00 Guaifenesin (Mucinex Er) 1,200 mg Q12HR PO Last administered on 03/20/18 19:56 ; Start 03/09/18 at 09:00 Latanoprost (Xalatan) 1 drop QHS OU Last administered on 03/20/18 19:57; Start 03/09/18 at 21:00 Nicotine (Nicoderm Cq 7mg) 1 patch DAILY TD Last administered on 03/20/18 08: 05; Start 03/09/18 at 09:00 Pantoprazole Sodium (Protonix) 40 mg DAILYAC PO Last administered on 03/20/18 08:02; Start 03/09/18 at 07:30 Phenytoin Sodium (Dilantin) 200 mg BID PO Last administered on 03/20/18 19:56 ; Start 03/09/18 at 09:00 Ropinirole HCl (Requip) 1 mg BID PO Last administered on 03/20/18 19:56; Start 03/09/18 at 09:00 Sennosides (Senna) 8.6 mg BID PO Last administered on 03/20/18 19:55; Start at 09:00 Non-Formulary Medication (Tiotropium [place] (Spiriva)) 1 puff DAILY IH ; Start 03/09/18 at 09:00; Status UNV Oxybutynin Chloride (Ditropan) 5 mg BID PO Last administered on 03/20/18 19:56 ; Start 03/09/18 at 21:00 Trazodone HCl (Desyrel) 50 mg PRN QHS PRN PO INSOMNIA; Start 03/09/18 at 00:15 ; Stop 03/09/18 at 19:54; Status DC Alprazolam (Xanax) 0.25 mg PRN Q12HR PRN PO ANXIETY / AGITATION; Start at 00:30; Stop 03/09/18 at 19:54; Status DC Alprazolam (Xanax) 0.25 mg PRN Q6HRS PRN PO ANXIETY / AGITATION; Start at 00:30; Stop 03/09/18 at 19:54; Status DC Albuterol Sulfate (Ventolin) 2.5 mg RTQID NEB Last administered on 03/20/18at 16 :23; Start 03/09/18 at 08:00 Budesonide (Pulmicort) 0.5 mg RTBID NEB Last administered on 03/19/18at 21:34; Start 03/09/18 at 08:00 Albuterol Sulfate (Ventolin) 2.5 mg STK-MED ONCE .ROUTE ; Start 03/09/18 at 06: 08; Stop 03/09/18 at 06:09; Status DC Alprazolam (Xanax) 0.25 mg PRN Q4HRS PRN PO ANXIETY / AGITATION Last administered on 03/20/18at 17:25; Start 03/09/18 at 20:00 Trazodone HCl (Desyrel) 100 mg PRN QHS PRN PO INSOMNIA Last administered on at 19:40; Start 03/09/18 at 20:00 Quetiapine Fumarate (SEROquel) 12.5 mg BID@0900,1300 PO Last administered on at 13:43; Start 03/12/18 at 09:00; Stop 03/12/18 at 18:38; Status DC Quetiapine Fumarate (SEROquel) 25 mg TID@0900,1300,1700 PO Last administered on 03/18/18at 16:29; Start 03/13/18 at 09:00; Stop 03/18/18 at 18:21; Status DC Quetiapine Fumarate (SEROquel) 12.5 mg 1X ONCE PO Last administered on at 19:19; Start 03/12/18 at 19:00; Stop 03/12/18 at 19:01; Status DC Sertraline HCl (Zoloft) 75 mg DAILY PO Last administered on 03/20/18at 08:04; Start 03/14/18 at 09:00 Divalproex Sodium (Depakote Sprinkles) 125 mg [id number] PO ; Start 03/15/18 at 22: 00; Stop 03/15/18 at 22:30; Status DC Divalproex Sodium (Depakote Sprinkles) 125 mg TIDAFTMEAL PO Last administered on 03/19/18at 16:45; Start 03/16/18 at 09:00; Stop 03/19/18 at 18:50; Status DC Quetiapine Fumarate (SEROquel) 37.5 mg TID@0900,1300,1700 PO Last administered on 03/20/18at 17:22; Start 03/19/18 at 09:00 Divalproex Sodium (Depakote Sprinkles) 250 mg TIDAFTMEAL PO Last administered on 03/20/18at 17:21; Start 03/20/18 at 09:00 Active Scripts Active Reported Alprazolam 0.25 Mg Tablet 0.25 Mg PO PRN Q12HR PRN Alprazolam 0.25 Mg Tablet 0.25 Mg PO PRN Q6HRS PRN Detrol La (Tolterodine Tartrate) 2 Mg Cap.er.24h 2 Mg PO QHS Xalatan (Latanoprost) 2.5 Ml Drops 1 Drop EACHEYE QHS Pantoprazole Sodium 40 Mg Tablet.dr 40 Mg PO DAILY Requip (Ropinirole Hcl) 1 Mg Tablet 1 Mg PO BID NICODERM CQ 7mg (Nicotine) 1 Each Patch.td24 1 Patch TD DAILY Mucinex (Guaifenesin) 1,200 Mg Tbmp.12hr 1,200 Mg PO Q12HR Lasix (Furosemide) 40 Mg Tablet 40 Mg PO DAILY Ferrous Sulfate 325 Mg Tablet 325 Mg PO BID Mirtazapine 30 Mg Tablet 30 Mg PO QHS Trazodone Hcl 50 Mg Tablet 50 Mg PO PRN QHS PRN Sertraline Hcl 50 Mg Tablet 150 Mg PO DAILY Spiriva (Tiotropium Everest) 18 Mcg Cap.w.dev 1 Puff IH DAILY Senna (Sennosides) 8.6 Mg Tablet 8.6 Mg PO BID Phenytoin Sodium Extended 100 Mg Capsule 200 Mg PO BID Methadone Hcl 5 Mg Tablet 10 Mg PO TID Lisinopril 10 Mg Tablet 10 Mg PO DAILY Carvedilol 3.125 Mg Tablet 1 Tab PO BIDWMEALS Duoneb 0.5-3(2.5) Mg/3 Ml (Albuterol/Ipratropium) 3 Ml Ampul.neb 3 Ml IH Q4HRS W /A PRN I have reviewed the current psychotropics carefully including drug interactions. Risk benefit ratio favors no change other than as noted in my dictated progress note. Diagnosis: Problems: (1) Vascular dementia with delusions (2) Alzheimer's dementia (3) Impulse control disorder (4) Major depressive disorder (5) Parkinson disease JESIKA HAYES MD March 20, 2018 20:37
[2018-03-20] MEDS: BUDESONIDE 0.5 MG/2 ML NEBU NEB SCH (21:52)
[2018-03-21] MEDS: ALPRAZolam 0.25 MG TABLET PO PRN ×2 (02:52→23:46)
[2018-03-21] MEDS: ALBUTEROL SULFATE 2.5 MG/3 ML NEBU. NEB SCH ×4 (05:52→19:56)
[2018-03-21 06:03] VITALS: BP 132/59
[2018-03-21] MEDS: PHENYTOIN SODIUM EXTENDED 100 MG CAPSULE PO SCH ×2 (08:36→19:43)
[2018-03-21] MEDS: SERTRALINE 50 MG TABLET. PO SCH (08:37)
[2018-03-21] MEDS: DIVALPROEX 125 MG CAP.SPRINK PO SCH ×3 (08:37→16:58)
[2018-03-21] MEDS: SENNOSIDES 8.6 MG TABLET PO SCH ×2 (08:38→19:44)
[2018-03-21] MEDS: OXYBUTYNIN CHLORIDE 5 MG TABLET PO SCH ×2 (08:38→19:43)
[2018-03-21] MEDS: FERROUS SULFATE 325 MG TABLET. PO SCH ×2 (08:38→16:58)
[2018-03-21] MEDS: rOPINIRole 1 MG TABLET. PO SCH ×2 (08:38→19:43)
[2018-03-21] MEDS: FUROSEMIDE 40 MG TABLET PO SCH (08:38)
[2018-03-21] MEDS: LISINOPRIL 10 MG TABLET PO SCH (08:38)
[2018-03-21] MEDS: CARVEDILOL 3.125 MG TABLET PO SCH ×2 (08:39→16:58)
[2018-03-21] MEDS: QUEtiapine 25 MG TABLET. PO SCH ×3 (08:39→16:58)
[2018-03-21] MEDS: PANTOPRAZOLE 40 MG TABLET. PO SCH (08:39)
[2018-03-21] MEDS: NICOTINE 7MG PATCH. TD SCH (08:39)
[2018-03-21] MEDS: METHADONE 5 MG TABLET. PO SCH ×3 (08:45→19:45)
[2018-03-21] MEDS: BUDESONIDE 0.5 MG/2 ML NEBU NEB SCH ×2 (10:53→19:56)
[2018-03-21 16:03] VITALS: BP 142/66
[2018-03-21] MEDS: MIRTAZAPINE 30 MG TABLET PO SCH (19:43)
[2018-03-21] MEDS: LATANOPROST 0.005% OPHTH SOLUTION 2.5ML BOTTLE. OU SCH (19:45)
--- NOTE | 2018-03-21 20:39 | PDOC ---
Exam Note: Brian Note: Please also refer to the separate dictated note~for this date of service dictated separately.~Patient seen individually. Discussed the patient with Nursing staff reviewed the chart.~Reviewed interim history and current functioning. Reviewed vital signs,~Labs/ Radiology~and current medications noted below. Continue current treatment with the changes noted in the dictated addendum note Assessment: Vital Signs: Vital Signs Date Time Temp Pulse Resp B/P (MAP) Pulse Ox O2 Delivery O2 Flow Rate FiO2 03/21/18 19:59 Room Air 03/21/18 19:55 98 03/21/18 19:45 20 03/21/18 16:58 69 142/66 03/21/18 16:03 97.7 I&O Intake and Output 03/21/18 07:00 Intake Total 840 ml Balance 840 ml Intake Oral 840 ml Current Medications: Meds: Current Medications Acetaminophen (Tylenol) 650 mg PRN Q6HRS PRN PO PAIN / TEMP; Start 03/09/18 at 00:00 Multi-Ingredient Ointment (Analgesic [place]) 1 cayla PRN QID PRN TP MUSCLE PAIN; Start 03/09/18 at 00:00 Al Hydroxide/Mg Hydroxide (Mylanta Plus Xs) 15 ml PRN AFTMEALHC PRN PO DYSPEPSIA; Start 03/09/18 at 00:00 Magnesium Hydroxide (Milk Of Magnesia) 2,400 mg PRN QHS PRN PO CONSTIPATION; Start 03/09/18 at 00:00 Ferrous Sulfate (Feosol) 325 mg BIDAFTMEAL PO Last administered on 03/21/18at 16: 58; Start 03/09/18 at 09:00 Albuterol/ Ipratropium (Duoneb) 3 ml PRN Q4HRS PRN IH WHILE AWAKE F/SOA Last administered on 03/16/18at 15:28; Start 03/09/18 at 00:15 Lisinopril (Prinivil) 10 mg DAILY PO Last administered on 03/21/18at 08:38; Start 03/09/18 at 09:00 Methadone HCl (Dolophine) 10 mg TID PO Last administered on 03/21/18 19:45; Start 03/09/18 at 09:00 Mirtazapine (Remeron) 30 mg QHS PO Last administered on 03/21/18 19:43; Start 03/09/18 at 21:00 Sertraline HCl (Zoloft) 150 mg DAILY PO Last administered on 03/13/18 07:57; Start 03/09/18 at 09:00; Stop 03/13/18 at 12:14; Status DC Carvedilol (Coreg) 3.125 mg BIDWMEALS PO Last administered on 03/21/18 16:58; Start 03/09/18 at 08:00 Furosemide (Lasix) 40 mg DAILY PO Last administered on 03/21/18 08:38; Start at 09:00 Guaifenesin (Mucinex Er) 1,200 mg Q12HR PO Last administered on 03/21/18 19:45 ; Start 03/09/18 at 09:00 Latanoprost (Xalatan) 1 drop QHS OU Last administered on 03/21/18 19:45; Start 03/09/18 at 21:00 Nicotine (Nicoderm Cq 7mg) 1 patch DAILY TD Last administered on 03/21/18 08:39 ; Start 03/09/18 at 09:00 Pantoprazole Sodium (Protonix) 40 mg DAILYAC PO Last administered on 03/21/18 08:39; Start 03/09/18 at 07:30 Phenytoin Sodium (Dilantin) 200 mg BID PO Last administered on 03/21/18 19:43; Start 03/09/18 at 09:00 Ropinirole HCl (Requip) 1 mg BID PO Last administered on 03/21/18 19:43; Start 03/09/18 at 09:00 Sennosides (Senna) 8.6 mg BID PO Last administered on 03/21/18 19:44; Start at 09:00 Non-Formulary Medication (Tiotropium [place] (Spiriva)) 1 puff DAILY IH ; Start 03/09/18 at 09:00; Status UNV Oxybutynin Chloride (Ditropan) 5 mg BID PO Last administered on 03/21/18 19:43 ; Start 03/09/18 at 21:00 Trazodone HCl (Desyrel) 50 mg PRN QHS PRN PO INSOMNIA; Start 03/09/18 at 00:15 ; Stop 03/09/18 at 19:54; Status DC Alprazolam (Xanax) 0.25 mg PRN Q12HR PRN PO ANXIETY / AGITATION; Start at 00:30; Stop 03/09/18 at 19:54; Status DC Alprazolam (Xanax) 0.25 mg PRN Q6HRS PRN PO ANXIETY / AGITATION; Start at 00:30; Stop 03/09/18 at 19:54; Status DC Albuterol Sulfate (Ventolin) 2.5 mg RTQID NEB Last administered on 03/21/18at 19: 56; Start 03/09/18 at 08:00 Budesonide (Pulmicort) 0.5 mg RTBID NEB Last administered on 03/21/18at 19:56; Start 03/09/18 at 08:00 Albuterol Sulfate (Ventolin) 2.5 mg STK-MED ONCE .ROUTE ; Start 03/09/18 at 06: 08; Stop 03/09/18 at 06:09; Status DC Alprazolam (Xanax) 0.25 mg PRN Q4HRS PRN PO ANXIETY / AGITATION Last administered on 03/21/18at 02:52; Start 03/09/18 at 20:00 Trazodone HCl (Desyrel) 100 mg PRN QHS PRN PO INSOMNIA Last administered on at 19:40; Start 03/09/18 at 20:00 Quetiapine Fumarate (SEROquel) 12.5 mg BID@0900,1300 PO Last administered on at 13:43; Start 03/12/18 at 09:00; Stop 03/12/18 at 18:38; Status DC Quetiapine Fumarate (SEROquel) 25 mg TID@0900,1300,1700 PO Last administered on 03/18/18at 16:29; Start 03/13/18 at 09:00; Stop 03/18/18 at 18:21; Status DC Quetiapine Fumarate (SEROquel) 12.5 mg 1X ONCE PO Last administered on at 19:19; Start 03/12/18 at 19:00; Stop 03/12/18 at 19:01; Status DC Sertraline HCl (Zoloft) 75 mg DAILY PO Last administered on 03/21/18at 08:37; Start 03/14/18 at 09:00 Divalproex Sodium (Depakote Sprinkles) 125 mg [id number] PO ; Start 03/15/18 at 22: 00; Stop 03/15/18 at 22:30; Status DC Divalproex Sodium (Depakote Sprinkles) 125 mg TIDAFTMEAL PO Last administered on 03/19/18at 16:45; Start 03/16/18 at 09:00; Stop 03/19/18 at 18:50; Status DC Quetiapine Fumarate (SEROquel) 37.5 mg TID@0900,1300,1700 PO Last administered on 03/21/18at 16:58; Start 03/19/18 at 09:00; Stop 03/21/18 at 19:24; Status DC Divalproex Sodium (Depakote Sprinkles) 250 mg TIDAFTMEAL PO Last administered on 03/21/18at 16:58; Start 03/20/18 at 09:00 Quetiapine Fumarate (SEROquel) 50 mg TID@0900,1300,1700 PO ; Start 03/22/18 at 09 :00 Active Scripts Active Reported Alprazolam 0.25 Mg Tablet 0.25 Mg PO PRN Q12HR PRN Alprazolam 0.25 Mg Tablet 0.25 Mg PO PRN Q6HRS PRN Detrol La (Tolterodine Tartrate) 2 Mg Cap.er.24h 2 Mg PO QHS Xalatan (Latanoprost) 2.5 Ml Drops 1 Drop EACHEYE QHS Pantoprazole Sodium 40 Mg Tablet.dr 40 Mg PO DAILY Requip (Ropinirole Hcl) 1 Mg Tablet 1 Mg PO BID NICODERM CQ 7mg (Nicotine) 1 Each Patch.td24 1 Patch TD DAILY Mucinex (Guaifenesin) 1,200 Mg Tbmp.12hr 1,200 Mg PO Q12HR Lasix (Furosemide) 40 Mg Tablet 40 Mg PO DAILY Ferrous Sulfate 325 Mg Tablet 325 Mg PO BID Mirtazapine 30 Mg Tablet 30 Mg PO QHS Trazodone Hcl 50 Mg Tablet 50 Mg PO PRN QHS PRN Sertraline Hcl 50 Mg Tablet 150 Mg PO DAILY Spiriva (Tiotropium [place]) 18 Mcg Cap.w.dev 1 Puff IH DAILY Senna (Sennosides) 8.6 Mg Tablet 8.6 Mg PO BID Phenytoin Sodium Extended 100 Mg Capsule 200 Mg PO BID Methadone Hcl 5 Mg Tablet 10 Mg PO TID Lisinopril 10 Mg Tablet 10 Mg PO DAILY Carvedilol 3.125 Mg Tablet 1 Tab PO BIDWMEALS Duoneb 0.5-3(2.5) Mg/3 Ml (Albuterol/Ipratropium) 3 Ml Ampul.neb 3 Ml IH Q4HRS W /A PRN I have reviewed the current psychotropics carefully including drug interactions. Risk benefit ratio favors no change other than as noted in my dictated progress note. Diagnosis: Problems: (1) Vascular dementia with delusions (2) Alzheimer's dementia (3) Impulse control disorder (4) Major depressive disorder (5) Parkinson disease JESIKA HAYES MD Mar 21, 2018 20:39
--- NOTE | 2018-03-22 01:09 | PN ---
DATE: 03/20/2018 PSYCHIATRIC PROGRESS NOTE This late entry 03/20/2018 covers elements not covered in my initial note of 03/20/2018. SUBJECTIVE: The patient was staffed at a treatment team meeting with the entire team in the morning and I met with her in her room at length in the evening. The patient slept 6-1/2 hours. Reviewed her history at length information from family about her alcohol abuse. She has headphones on her, playing music, was reading a book, slightly less anxious, but subjectively still complains of marked anxiety, not being able to breathe. Not attending groups. REVIEW OF SYSTEMS: No CV, , GI system symptoms on review. Pulmonary symptoms as noted. MENTAL STATUS EXAM: Oriented to herself, situation. Speech is coherent, rapid at times. Abstraction fair, computation is impaired, language function intact, attention span short. Mood and affect remains anxious, labile. LABORATORY DATA: Reviewed. IMPRESSION: Bipolar 1 disorder, mixed; major depressive disorder with psychotic features; anxiety disorder, unspecified; cognitive disorder, unspecified. PLAN: Depakote was increased and we will maintain rest of the psychotropics, follow labs level, ammonia level, adjust to reach therapeutic level. MAN Gabino HAYES MD DR: BROOKE/fabio JOB#: [id number] / [id number]
--- NOTE | 2018-03-22 01:11 | PN ---
DATE: 03/19/2018 This late entry of 03/19/2018 covers the elements not covered in my initial note 03/19/2018. SUBJECTIVE: I met with the patient in the evening. The patient has spent much time in her room, still complains of marked anxiety, difficulty breathing, frequently asking for medications continued mood lability. She has vague somatic symptoms. No CV, , GI system symptoms on review. Anxious, restless, constantly on edge as I sat with her in her room and she sat on the edge of her bed, constantly moving, touching her chest and saying she cannot breathe. Oxygen sats are unremarkable. This is part of her anxiety. MENTAL STATUS EXAM: Oriented to herself and situation. Speech coherent, rapid at times. Abstraction fair, computation impaired, language function intact, attention span short. Mood and affect remains anxious, labile. LABORATORY DATA: Valproic acid level is 13 on Depakote sprinkles 125 mg 3 times a day. IMPRESSION: Bipolar 1 disorder, mixed; major depressive disorder with psychotic features; anxiety disorder, unspecified; cognitive disorder, unspecified. PLAN: Increase Depakote sprinkles to 250 mg 3 times a day. Check CBC, CMP, valproic acid, ammonia level in 3 days. Continue rest unchanged including Remeron, Zoloft, trazodone, Seroquel. MAN Gabino HAYES MD DR: BROOKE/fabio JOB#: [id number] / [id number]
[2018-03-22] MEDS: ALPRAZolam 0.25 MG TABLET PO PRN ×3 (03:47→23:42)
[2018-03-22] MEDS: ALBUTEROL SULFATE 2.5 MG/3 ML NEBU. NEB SCH ×4 (05:51→20:29)
[2018-03-22 06:14] VITALS: BP 111/54
[2018-03-22 07:32] LABS: BASO # 0.1 x10^3/uL (0.0-0.2); BASO % 1 % (0-3); EOS # 0.5 x10^3/uL (0.0-0.7); EOS % 7 % (0-3); HEMATOCRIT 35.2 % (36.0-47.0); HEMOGLOBIN 12.3 g/dL (12.0-15.5); LYMPH # 1.2 x10^3/uL (1.0-4.8); LYMPH % 17 % (24-48); MEAN CORPUSCULAR HEMOGLOBIN 34 pg (25-35); MEAN CORPUSCULAR HGB CONC 35 g/dL (31-37); MEAN CORPUSCULAR VOLUME 97 fL (79-100); MONO # 0.8 x10^3/uL (0.0-1.1); MONO % 11 % (0-9); NEUT # 4.5 x10^3uL (1.8-7.7); NEUT % 64 % (31-73); PLATELET COUNT 423 x10^3/uL (140-400); RED BLOOD COUNT 3.64 x10^6/uL (3.50-5.40); RED CELL DISTRIBUTION WIDTH 14.3 % (11.5-14.5); WHITE BLOOD COUNT 7.2 x10^3/uL (4.0-11.0)
[2018-03-22 07:49] LABS: ALBUMIN 3.4 g/dL (3.4-5.0); ALBUMIN/GLOBULIN RATIO 0.9 (1.0-1.7); ALK PHOS 105 U/L (46-116); ALT (SGPT) 22 U/L (14-59); ANION GAP 6 (6-14); AST (SGOT) 14 U/L (15-37); BLOOD UREA NITROGEN 29 mg/dL (7-20); BUN/CREATININE RATIO 36 (6-20); CALCIUM 9.2 mg/dL (8.5-10.1); CARBON DIOXIDE 34 mmol/L (21-32); CHLORIDE 99 mmol/L (98-107); CREATININE 0.8 mg/dL (0.6-1.0); GFR 69.7; GLUCOSE 96 mg/dL (70-99); POTASSIUM 3.9 mmol/L (3.5-5.1); SODIUM 139 mmol/L (136-145); TOTAL BILIRUBIN 0.4 mg/dL (0.2-1.0); TOTAL PROTEIN 7.1 g/dL (6.4-8.2)
[2018-03-22 07:57] LABS: VAL ACID 24 mcg/mL (50-100)
[2018-03-22] MEDS: CARVEDILOL 3.125 MG TABLET PO SCH ×2 (08:00→17:00)
[2018-03-22] MEDS: LISINOPRIL 10 MG TABLET PO SCH (09:00)
[2018-03-22] MEDS: PANTOPRAZOLE 40 MG TABLET. PO SCH (09:08)
[2018-03-22] MEDS: DIVALPROEX 125 MG CAP.SPRINK PO SCH ×3 (09:08→17:26)
[2018-03-22] MEDS: FUROSEMIDE 40 MG TABLET PO SCH (09:09)
[2018-03-22] MEDS: PHENYTOIN SODIUM EXTENDED 100 MG CAPSULE PO SCH ×2 (09:09→19:46)
[2018-03-22] MEDS: OXYBUTYNIN CHLORIDE 5 MG TABLET PO SCH ×2 (09:09→19:46)
[2018-03-22] MEDS: FERROUS SULFATE 325 MG TABLET. PO SCH ×2 (09:09→17:26)
[2018-03-22] MEDS: rOPINIRole 1 MG TABLET. PO SCH ×2 (09:09→19:47)
[2018-03-22] MEDS: SENNOSIDES 8.6 MG TABLET PO SCH ×2 (09:09→19:47)
[2018-03-22] MEDS: NICOTINE 7MG PATCH. TD SCH (09:10)
[2018-03-22] MEDS: SERTRALINE 50 MG TABLET. PO SCH (09:10)
[2018-03-22] MEDS: METHADONE 5 MG TABLET. PO SCH ×3 (09:11→19:47)
[2018-03-22] MEDS: QUEtiapine 50 MG TABLET. PO SCH ×3 (09:11→17:26)
[2018-03-22] MEDS: BUDESONIDE 0.5 MG/2 ML NEBU NEB SCH ×2 (10:32→20:29)
[2018-03-22 16:34] VITALS: BP 109/64
[2018-03-22] MEDS: LATANOPROST 0.005% OPHTH SOLUTION 2.5ML BOTTLE. OU SCH (19:46)
[2018-03-22] MEDS: MIRTAZAPINE 30 MG TABLET PO SCH (19:47)
--- NOTE | 2018-03-22 22:04 | PDOC ---
Exam Note: Brian Note: Please also refer to the separate dictated note~for this date of service dictated separately.~Patient seen individually. Discussed the patient with Nursing staff reviewed the chart.~Reviewed interim history and current functioning. Reviewed vital signs,~Labs/ Radiology~and current medications noted below. Continue current treatment with the changes noted in the dictated addendum note Assessment: Vital Signs: Vital Signs Date Time Temp Pulse Resp B/P (MAP) Pulse Ox O2 Delivery O2 Flow Rate FiO2 03/22/18 20:47 98 Room Air 03/22/18 16:34 98.6 68 18 109/64 (79) I&O Intake and Output 03/22/18 07:00 Intake Total 960 ml Balance 960 ml Intake Oral 960 ml Labs: Laboratory Tests Test 03/22/18 07:00 White Blood Count 7.2 x10^3/uL (4.0-11.0) Red Blood Count 3.64 x10^6/uL (3.50-5.40) Hemoglobin 12.3 g/dL (12.0-15.5) Hematocrit 35.2 % (36.0-47.0) L Mean Corpuscular Volume 97 fL (79-100) Mean Corpuscular Hemoglobin 34 pg (25-35) Mean Corpuscular Hemoglobin Concent 35 g/dL (31-37) Red Cell Distribution Width 14.3 % (11.5-14.5) Platelet Count 423 x10^3/uL (140-400) H Neutrophils (%) (Auto) 64 % (31-73) Lymphocytes (%) (Auto) 17 % (24-48) L Monocytes (%) (Auto) 11 % (0-9) H Eosinophils (%) (Auto) 7 % (0-3) H Basophils (%) (Auto) 1 % (0-3) Neutrophils # (Auto) 4.5 x10^3uL (1.8-7.7) Lymphocytes # (Auto) 1.2 x10^3/uL (1.0-4.8) Monocytes # (Auto) 0.8 x10^3/uL (0.0-1.1) Eosinophils # (Auto) 0.5 x10^3/uL (0.0-0.7) Basophils # (Auto) 0.1 x10^3/uL (0.0-0.2) Sodium Level 139 mmol/L (136-145) Potassium Level 3.9 mmol/L (3.5-5.1) Chloride Level 99 mmol/L (98-107) Carbon Dioxide Level 34 mmol/L (21-32) H Anion Gap 6 (6-14) Blood Urea Nitrogen 29 mg/dL (7-20) H Creatinine 0.8 mg/dL (0.6-1.0) Estimated GFR (Cockcroft-Gault) 69.7 BUN/Creatinine Ratio 36 (6-20) H Glucose Level 96 mg/dL (70-99) Calcium Level 9.2 mg/dL (8.5-10.1) Total Bilirubin 0.4 mg/dL (0.2-1.0) Aspartate Amino Transferase (AST) 14 U/L (15-37) L Alanine Aminotransferase (ALT) 22 U/L (14-59) Alkaline Phosphatase 105 U/L (46-116) Ammonia < 10 mcmol/L (11-34) L Total Protein 7.1 g/dL (6.4-8.2) Albumin 3.4 g/dL (3.4-5.0) Albumin/Globulin Ratio 0.9 (1.0-1.7) L Valproic Acid Level 24 mcg/mL (50-100) L Valproic Acid Last Dose Date 03/21/18 Valproic Acid Last Dose Time 1800 Current Medications: Meds: Current Medications Acetaminophen (Tylenol) 650 mg PRN Q6HRS PRN PO PAIN / TEMP; Start 03/09/18 at 00:00 Multi-Ingredient Ointment (Analgesic [place]) 1 cayla PRN QID PRN TP MUSCLE PAIN; Start 03/09/18 at 00:00 Al Hydroxide/Mg Hydroxide (Mylanta Plus Xs) 15 ml PRN AFTMEALHC PRN PO DYSPEPSIA; Start 03/09/18 at 00:00 Magnesium Hydroxide (Milk Of Magnesia) 2,400 mg PRN QHS PRN PO CONSTIPATION; Start 03/09/18 at 00:00 Ferrous Sulfate (Feosol) 325 mg BIDAFTMEAL PO Last administered on 03/22/18at 17: 26; Start 03/09/18 at 09:00 Albuterol/ Ipratropium (Duoneb) 3 ml PRN Q4HRS PRN IH WHILE AWAKE F/SOA Last administered on 03/16/18 15:28; Start 03/09/18 at 00:15 Lisinopril (Prinivil) 10 mg DAILY PO Last administered on 03/21/18 08:38; Start 03/09/18 at 09:00 Methadone HCl (Dolophine) 10 mg TID PO Last administered on 03/22/18 19:47; Start 03/09/18 at 09:00 Mirtazapine (Remeron) 30 mg QHS PO Last administered on 03/22/18 19:47; Start 03/09/18 at 21:00 Sertraline HCl (Zoloft) 150 mg DAILY PO Last administered on 03/13/18 07:57; Start 03/09/18 at 09:00; Stop 03/13/18 at 12:14; Status DC Carvedilol (Coreg) 3.125 mg BIDWMEALS PO Last administered on 03/21/18 16:58; Start 03/09/18 at 08:00 Furosemide (Lasix) 40 mg DAILY PO Last administered on 03/22/18 09:09; Start at 09:00 Guaifenesin (Mucinex Er) 1,200 mg Q12HR PO Last administered on 03/22/18 19:47 ; Start 03/09/18 at 09:00 Latanoprost (Xalatan) 1 drop QHS OU Last administered on 03/22/18 19:46; Start 03/09/18 at 21:00 Nicotine (Nicoderm Cq 7mg) 1 patch DAILY TD Last administered on 03/22/18 09:10 ; Start 03/09/18 at 09:00 Pantoprazole Sodium (Protonix) 40 mg DAILYAC PO Last administered on 03/22/18 09:08; Start 03/09/18 at 07:30 Phenytoin Sodium (Dilantin) 200 mg BID PO Last administered on 03/22/18 19:46; Start 03/09/18 at 09:00 Ropinirole HCl (Requip) 1 mg BID PO Last administered on 03/22/18 19:47; Start 03/09/18 at 09:00 Sennosides (Senna) 8.6 mg BID PO Last administered on 6/2/18at 19:47; Start at 09:00 Non-Formulary Medication (Tiotropium [place] (Spiriva)) 1 puff DAILY IH ; Start 03/09/18 at 09:00; Status UNV Oxybutynin Chloride (Ditropan) 5 mg BID PO Last administered on 03/22/18at 19:46 ; Start 03/09/18 at 21:00 Trazodone HCl (Desyrel) 50 mg PRN QHS PRN PO INSOMNIA; Start 03/09/18 at 00:15 ; Stop 03/09/18 at 19:54; Status DC Alprazolam (Xanax) 0.25 mg PRN Q12HR PRN PO ANXIETY / AGITATION; Start at 00:30; Stop 03/09/18 at 19:54; Status DC Alprazolam (Xanax) 0.25 mg PRN Q6HRS PRN PO ANXIETY / AGITATION; Start at 00:30; Stop 03/09/18 at 19:54; Status DC Albuterol Sulfate (Ventolin) 2.5 mg RTQID NEB Last administered on 03/22/18 20: 29; Start 03/09/18 at 08:00 Budesonide (Pulmicort) 0.5 mg RTBID NEB Last administered on 03/22/18 20:29; Start 03/09/18 at 08:00 Albuterol Sulfate (Ventolin) 2.5 mg STK-MED ONCE .ROUTE ; Start 03/09/18 at 06: 08; Stop 03/09/18 at 06:09; Status DC Alprazolam (Xanax) 0.25 mg PRN Q4HRS PRN PO ANXIETY / AGITATION Last administered on 03/22/18at 18:33; Start 03/09/18 at 20:00 Trazodone HCl (Desyrel) 100 mg PRN QHS PRN PO INSOMNIA Last administered on at 19:40; Start 03/09/18 at 20:00 Quetiapine Fumarate (SEROquel) 12.5 mg BID@0900,1300 PO Last administered on at 13:43; Start 03/12/18 at 09:00; Stop 03/12/18 at 18:38; Status DC Quetiapine Fumarate (SEROquel) 25 mg TID@0900,1300,1700 PO Last administered on 03/18/18at 16:29; Start 03/13/18 at 09:00; Stop 03/18/18 at 18:21; Status DC Quetiapine Fumarate (SEROquel) 12.5 mg 1X ONCE PO Last administered on at 19:19; Start 03/12/18 at 19:00; Stop 03/12/18 at 19:01; Status DC Sertraline HCl (Zoloft) 75 mg DAILY PO Last administered on 03/22/18at 09:10; Start 03/14/18 at 09:00 Divalproex Sodium (Depakote Sprinkles) 125 mg [id number] PO ; Start 03/15/18 at 22: 00; Stop 03/15/18 at 22:30; Status DC Divalproex Sodium (Depakote Sprinkles) 125 mg TIDAFTMEAL PO Last administered on 03/19/18at 16:45; Start 03/16/18 at 09:00; Stop 03/19/18 at 18:50; Status DC Quetiapine Fumarate (SEROquel) 37.5 mg TID@0900,1300,1700 PO Last administered on 03/21/18at 16:58; Start 03/19/18 at 09:00; Stop 03/21/18 at 19:24; Status DC Divalproex Sodium (Depakote Sprinkles) 250 mg TIDAFTMEAL PO Last administered on 03/22/18at 17:26; Start 03/20/18 at 09:00; Stop 03/22/18 at 18:06; Status DC Quetiapine Fumarate (SEROquel) 50 mg TID@0900,1300,1700 PO Last administered on 03/22/18at 17:26; Start 03/22/18 at 09:00 Divalproex Sodium (Depakote Sprinkles) 375 mg TIDAFTMEAL PO ; Start 03/23/18 at 09:00 Active Scripts Active Reported Alprazolam 0.25 Mg Tablet 0.25 Mg PO PRN Q12HR PRN Alprazolam 0.25 Mg Tablet 0.25 Mg PO PRN Q6HRS PRN Detrol La (Tolterodine Tartrate) 2 Mg Cap.er.24h 2 Mg PO QHS Xalatan (Latanoprost) 2.5 Ml Drops 1 Drop EACHEYE QHS Pantoprazole Sodium 40 Mg Tablet.dr 40 Mg PO DAILY Requip (Ropinirole Hcl) 1 Mg Tablet 1 Mg PO BID NICODERM CQ 7mg (Nicotine) 1 Each Patch.td24 1 Patch TD DAILY Mucinex (Guaifenesin) 1,200 Mg Tbmp.12hr 1,200 Mg PO Q12HR Lasix (Furosemide) 40 Mg Tablet 40 Mg PO DAILY Ferrous Sulfate 325 Mg Tablet 325 Mg PO BID Mirtazapine 30 Mg Tablet 30 Mg PO QHS Trazodone Hcl 50 Mg Tablet 50 Mg PO PRN QHS PRN Sertraline Hcl 50 Mg Tablet 150 Mg PO DAILY Spiriva (Tiotropium [place]) 18 Mcg Cap.w.dev 1 Puff IH DAILY Senna (Sennosides) 8.6 Mg Tablet 8.6 Mg PO BID Phenytoin Sodium Extended 100 Mg Capsule 200 Mg PO BID Methadone Hcl 5 Mg Tablet 10 Mg PO TID Lisinopril 10 Mg Tablet 10 Mg PO DAILY Carvedilol 3.125 Mg Tablet 1 Tab PO BIDWMEALS Duoneb 0.5-3(2.5) Mg/3 Ml (Albuterol/Ipratropium) 3 Ml Ampul.neb 3 Ml IH Q4HRS W /A PRN I have reviewed the current psychotropics carefully including drug interactions. Risk benefit ratio favors no change other than as noted in my dictated progress note. Diagnosis: Problems: (1) Vascular dementia with delusions (2) Alzheimer's dementia (3) Impulse control disorder (4) Major depressive disorder (5) Parkinson disease JESIKA HAYES MD Mar 22, 2018 22:04
[2018-03-22] MEDS: traZODone 50 MG TABLET. PO PRN (23:42)
[2018-03-23 05:48] VITALS: BP 126/60
[2018-03-23] MEDS: ALBUTEROL SULFATE 2.5 MG/3 ML NEBU. NEB SCH ×4 (06:07→21:18)
[2018-03-23] MEDS: PANTOPRAZOLE 40 MG TABLET. PO SCH (08:08)
[2018-03-23] MEDS: CARVEDILOL 3.125 MG TABLET PO SCH ×3 (08:10→19:39)
[2018-03-23] MEDS: DIVALPROEX 125 MG CAP.SPRINK PO SCH ×3 (08:12→18:07)
[2018-03-23] MEDS: PHENYTOIN SODIUM EXTENDED 100 MG CAPSULE PO SCH ×2 (08:13→19:39)
[2018-03-23] MEDS: OXYBUTYNIN CHLORIDE 5 MG TABLET PO SCH ×2 (08:13→19:38)
[2018-03-23] MEDS: FUROSEMIDE 40 MG TABLET PO SCH (08:17)
[2018-03-23] MEDS: FERROUS SULFATE 325 MG TABLET. PO SCH ×2 (08:17→18:08)
[2018-03-23] MEDS: METHADONE 5 MG TABLET. PO SCH ×3 (08:17→19:38)
[2018-03-23] MEDS: rOPINIRole 1 MG TABLET. PO SCH ×2 (08:18→19:39)
[2018-03-23] MEDS: SENNOSIDES 8.6 MG TABLET PO SCH ×2 (08:18→19:38)
[2018-03-23] MEDS: QUEtiapine 50 MG TABLET. PO SCH ×3 (08:18→17:43)
[2018-03-23] MEDS: SERTRALINE 50 MG TABLET. PO SCH (08:19)
[2018-03-23] MEDS: NICOTINE 7MG PATCH. TD SCH (08:19)
[2018-03-23] MEDS: LISINOPRIL 10 MG TABLET PO SCH (09:00)
[2018-03-23] MEDS: BUDESONIDE 0.5 MG/2 ML NEBU NEB SCH ×2 (10:31→21:18)
[2018-03-23 16:28] VITALS: BP 151/91
[2018-03-23] MEDS: MIRTAZAPINE 30 MG TABLET PO SCH (19:38)
[2018-03-23] MEDS: traZODone 50 MG TABLET. PO PRN (19:39)
[2018-03-23] MEDS: LATANOPROST 0.005% OPHTH SOLUTION 2.5ML BOTTLE. OU SCH (19:41)
--- NOTE | 2018-03-23 19:55 | PDOC ---
Exam Note: Brian Note: Please also refer to the separate dictated note~for this date of service dictated separately.~Patient seen individually. Discussed the patient with Nursing staff reviewed the chart.~Reviewed interim history and current functioning. Reviewed vital signs,~Labs/ Radiology~and current medications noted below. Continue current treatment with the changes noted in the dictated addendum note Assessment: Vital Signs: Vital Signs Date Time Temp Pulse Resp B/P (MAP) Pulse Ox O2 Delivery O2 Flow Rate FiO2 03/23/18 19:38 94 03/23/18 17:43 79 151/91 03/23/18 16:28 99.6 20 03/23/18 16:20 Room Air I&O Intake and Output 03/23/18 07:00 Intake Total 600 ml Balance 600 ml Intake Oral 600 ml Current Medications: Meds: Current Medications Acetaminophen (Tylenol) 650 mg PRN Q6HRS PRN PO PAIN / TEMP; Start 03/09/18 at 00:00 Multi-Ingredient Ointment (Analgesic [place]) 1 cayla PRN QID PRN TP MUSCLE PAIN; Start 03/09/18 at 00:00 Al Hydroxide/Mg Hydroxide (Mylanta Plus Xs) 15 ml PRN AFTMEALHC PRN PO DYSPEPSIA; Start 03/09/18 at 00:00 Magnesium Hydroxide (Milk Of Magnesia) 2,400 mg PRN QHS PRN PO CONSTIPATION; Start 03/09/18 at 00:00 Ferrous Sulfate (Feosol) 325 mg BIDAFTMEAL PO Last administered on 03/23/18at 18: 08; Start 03/09/18 at 09:00 Albuterol/ Ipratropium (Duoneb) 3 ml PRN Q4HRS PRN IH WHILE AWAKE F/SOA Last administered on 03/16/18at 15:28; Start 03/09/18 at 00:15 Lisinopril (Prinivil) 10 mg DAILY PO Last administered on 03/21/18 08:38; Start 03/09/18 at 09:00 Methadone HCl (Dolophine) 10 mg TID PO Last administered on 03/23/18 19:38; Start 03/09/18 at 09:00 Mirtazapine (Remeron) 30 mg QHS PO Last administered on 03/23/18 19:38; Start 03/09/18 at 21:00 Sertraline HCl (Zoloft) 150 mg DAILY PO Last administered on 03/13/18 07:57; Start 03/09/18 at 09:00; Stop 03/13/18 at 12:14; Status DC Carvedilol (Coreg) 3.125 mg BIDWMEALS PO Last administered on 03/23/18 17:43; Start 03/09/18 at 08:00 Furosemide (Lasix) 40 mg DAILY PO Last administered on 03/23/18 08:17; Start at 09:00 Guaifenesin (Mucinex Er) 1,200 mg Q12HR PO Last administered on 03/23/18 19:39 ; Start 03/09/18 at 09:00 Latanoprost (Xalatan) 1 drop QHS OU Last administered on 03/23/18 19:41; Start 03/09/18 at 21:00 Nicotine (Nicoderm Cq 7mg) 1 patch DAILY TD Last administered on 03/23/18 08:19 ; Start 03/09/18 at 09:00 Pantoprazole Sodium (Protonix) 40 mg DAILYAC PO Last administered on 03/23/18 08:08; Start 03/09/18 at 07:30 Phenytoin Sodium (Dilantin) 200 mg BID PO Last administered on 03/23/18 19:39; Start 03/09/18 at 09:00 Ropinirole HCl (Requip) 1 mg BID PO Last administered on 03/23/18 19:39; Start 03/09/18 at 09:00 Sennosides (Senna) 8.6 mg BID PO Last administered on 03/23/18 19:38; Start at 09:00 Non-Formulary Medication (Tiotropium [place] (Spiriva)) 1 puff DAILY IH ; Start 03/09/18 at 09:00; Status UNV Oxybutynin Chloride (Ditropan) 5 mg BID PO Last administered on 03/23/18 19:38 ; Start 03/09/18 at 21:00 Trazodone HCl (Desyrel) 50 mg PRN QHS PRN PO INSOMNIA; Start 03/09/18 at 00:15 ; Stop 03/09/18 at 19:54; Status DC Alprazolam (Xanax) 0.25 mg PRN Q12HR PRN PO ANXIETY / AGITATION; Start at 00:30; Stop 03/09/18 at 19:54; Status DC Alprazolam (Xanax) 0.25 mg PRN Q6HRS PRN PO ANXIETY / AGITATION; Start at 00:30; Stop 03/09/18 at 19:54; Status DC Albuterol Sulfate (Ventolin) 2.5 mg RTQID NEB Last administered on 03/23/18at 16: 19; Start 03/09/18 at 08:00 Budesonide (Pulmicort) 0.5 mg RTBID NEB Last administered on 03/23/18at 10:31; Start 03/09/18 at 08:00 Albuterol Sulfate (Ventolin) 2.5 mg STK-MED ONCE .ROUTE ; Start 03/09/18 at 06: 08; Stop 03/09/18 at 06:09; Status DC Alprazolam (Xanax) 0.25 mg PRN Q4HRS PRN PO ANXIETY / AGITATION Last administered on 03/22/18at 23:42; Start 03/09/18 at 20:00 Trazodone HCl (Desyrel) 100 mg PRN QHS PRN PO INSOMNIA Last administered on 03/23 19:39; Start 03/09/18 at 20:00 Quetiapine Fumarate (SEROquel) 12.5 mg BID@0900,1300 PO Last administered on at 13:43; Start 03/12/18 at 09:00; Stop 03/12/18 at 18:38; Status DC Quetiapine Fumarate (SEROquel) 25 mg TID@0900,1300,1700 PO Last administered on 03/18/18at 16:29; Start 03/13/18 at 09:00; Stop 03/18/18 at 18:21; Status DC Quetiapine Fumarate (SEROquel) 12.5 mg 1X ONCE PO Last administered on at 19:19; Start 03/12/18 at 19:00; Stop 03/12/18 at 19:01; Status DC Sertraline HCl (Zoloft) 75 mg DAILY PO Last administered on 6/3/18at 08:19; Start 03/14/18 at 09:00 Divalproex Sodium (Depakote Sprinkles) 125 mg [id number] PO ; Start 03/15/18 at 22: 00; Stop 03/15/18 at 22:30; Status DC Divalproex Sodium (Depakote Sprinkles) 125 mg TIDAFTMEAL PO Last administered on 03/19/18at 16:45; Start 03/16/18 at 09:00; Stop 03/19/18 at 18:50; Status DC Quetiapine Fumarate (SEROquel) 37.5 mg TID@0900,1300,1700 PO Last administered on 03/21/18at 16:58; Start 03/19/18 at 09:00; Stop 03/21/18 at 19:24; Status DC Divalproex Sodium (Depakote Sprinkles) 250 mg TIDAFTMEAL PO Last administered on 03/22/18at 17:26; Start 03/20/18 at 09:00; Stop 03/22/18 at 18:06; Status DC Quetiapine Fumarate (SEROquel) 50 mg TID@0900,1300,1700 PO Last administered on 03/23/18at 17:43; Start 03/22/18 at 09:00 Divalproex Sodium (Depakote Sprinkles) 375 mg TIDAFTMEAL PO Last administered on 03/23/18at 18:07; Start 03/23/18 at 09:00 Active Scripts Active Reported Alprazolam 0.25 Mg Tablet 0.25 Mg PO PRN Q12HR PRN Alprazolam 0.25 Mg Tablet 0.25 Mg PO PRN Q6HRS PRN Detrol La (Tolterodine Tartrate) 2 Mg Cap.er.24h 2 Mg PO QHS Xalatan (Latanoprost) 2.5 Ml Drops 1 Drop EACHEYE QHS Pantoprazole Sodium 40 Mg Tablet.dr 40 Mg PO DAILY Requip (Ropinirole Hcl) 1 Mg Tablet 1 Mg PO BID NICODERM CQ 7mg (Nicotine) 1 Each Patch.td24 1 Patch TD DAILY Mucinex (Guaifenesin) 1,200 Mg Tbmp.12hr 1,200 Mg PO Q12HR Lasix (Furosemide) 40 Mg Tablet 40 Mg PO DAILY Ferrous Sulfate 325 Mg Tablet 325 Mg PO BID Mirtazapine 30 Mg Tablet 30 Mg PO QHS Trazodone Hcl 50 Mg Tablet 50 Mg PO PRN QHS PRN Sertraline Hcl 50 Mg Tablet 150 Mg PO DAILY Spiriva (Tiotropium [place]) 18 Mcg Cap.w.dev 1 Puff IH DAILY Senna (Sennosides) 8.6 Mg Tablet 8.6 Mg PO BID Phenytoin Sodium Extended 100 Mg Capsule 200 Mg PO BID Methadone Hcl 5 Mg Tablet 10 Mg PO TID Lisinopril 10 Mg Tablet 10 Mg PO DAILY Carvedilol 3.125 Mg Tablet 1 Tab PO BIDWMEALS Duoneb 0.5-3(2.5) Mg/3 Ml (Albuterol/Ipratropium) 3 Ml Ampul.neb 3 Ml IH Q4HRS W /A PRN I have reviewed the current psychotropics carefully including drug interactions. Risk benefit ratio favors no change other than as noted in my dictated progress note. Diagnosis: Problems: (1) Vascular dementia with delusions (2) Alzheimer's dementia (3) Impulse control disorder (4) Major depressive disorder (5) Parkinson disease JESIKA HAYES MD Mar 23, 2018 19:55
[2018-03-24] MEDS: ALBUTEROL SULFATE 2.5 MG/3 ML NEBU. NEB SCH ×4 (05:43→20:17)
[2018-03-24 05:54] VITALS: BP 142/61
[2018-03-24] MEDS: NICOTINE 7MG PATCH. TD SCH (08:02)
[2018-03-24] MEDS: PHENYTOIN SODIUM EXTENDED 100 MG CAPSULE PO SCH ×2 (08:03→20:21)
[2018-03-24] MEDS: DIVALPROEX 125 MG CAP.SPRINK PO SCH ×3 (08:03→18:07)
[2018-03-24] MEDS: QUEtiapine 50 MG TABLET. PO SCH ×3 (08:03→18:07)
[2018-03-24] MEDS: OXYBUTYNIN CHLORIDE 5 MG TABLET PO SCH ×2 (08:04→20:21)
[2018-03-24] MEDS: SERTRALINE 50 MG TABLET. PO SCH (08:05)
[2018-03-24] MEDS: LISINOPRIL 10 MG TABLET PO SCH (08:05)
[2018-03-24] MEDS: rOPINIRole 1 MG TABLET. PO SCH ×2 (08:06→20:21)
[2018-03-24] MEDS: CARVEDILOL 3.125 MG TABLET PO SCH ×2 (08:06→18:08)
[2018-03-24] MEDS: FERROUS SULFATE 325 MG TABLET. PO SCH ×2 (08:07→18:07)
[2018-03-24] MEDS: FUROSEMIDE 40 MG TABLET PO SCH (08:07)
[2018-03-24] MEDS: PANTOPRAZOLE 40 MG TABLET. PO SCH (08:07)
[2018-03-24] MEDS: SENNOSIDES 8.6 MG TABLET PO SCH ×2 (08:07→20:21)
[2018-03-24] MEDS: METHADONE 5 MG TABLET. PO SCH ×3 (08:23→20:26)
[2018-03-24] MEDS: BUDESONIDE 0.5 MG/2 ML NEBU NEB SCH ×2 (10:53→20:17)
[2018-03-24 16:37] VITALS: BP 101/46
[2018-03-24] MEDS: MIRTAZAPINE 30 MG TABLET PO SCH (20:26)
[2018-03-24] MEDS: LATANOPROST 0.005% OPHTH SOLUTION 2.5ML BOTTLE. OU SCH (20:27)
--- NOTE | 2018-03-24 20:49 | PDOC ---
Exam Note: Brian Note: Please also refer to the separate dictated note~for this date of service dictated separately.~Patient seen individually. Discussed the patient with Nursing staff reviewed the chart.~Reviewed interim history and current functioning. Reviewed vital signs,~Labs/ Radiology~and current medications noted below. Continue current treatment with the changes noted in the dictated addendum note Assessment: Vital Signs: Vital Signs Date Time Temp Pulse Resp B/P (MAP) Pulse Ox O2 Delivery O2 Flow Rate FiO2 03/24/18 20:26 18 Room Air 03/24/18 20:23 97 03/24/18 18:08 66 101/46 03/24/18 16:37 97.6 I&O Intake and Output 03/24/18 07:00 Intake Total 960 ml Balance 960 ml Intake Oral 960 ml Current Medications: Meds: Current Medications Acetaminophen (Tylenol) 650 mg PRN Q6HRS PRN PO PAIN / TEMP; Start 03/09/18 at 00:00 Multi-Ingredient Ointment (Analgesic [place]) 1 cayla PRN QID PRN TP MUSCLE PAIN; Start 03/09/18 at 00:00 Al Hydroxide/Mg Hydroxide (Mylanta Plus Xs) 15 ml PRN AFTMEALHC PRN PO DYSPEPSIA; Start 03/09/18 at 00:00 Magnesium Hydroxide (Milk Of Magnesia) 2,400 mg PRN QHS PRN PO CONSTIPATION; Start 03/09/18 at 00:00 Ferrous Sulfate (Feosol) 325 mg BIDAFTMEAL PO Last administered on 03/24/18at 18: 07; Start 03/09/18 at 09:00 Albuterol/ Ipratropium (Duoneb) 3 ml PRN Q4HRS PRN IH WHILE AWAKE F/SOA Last administered on 03/16/18at 15:28; Start 03/09/18 at 00:15 Lisinopril (Prinivil) 10 mg DAILY PO Last administered on 03/24/18at 08:05; Start 03/09/18 at 09:00 Methadone HCl (Dolophine) 10 mg TID PO Last administered on 03/24/18 20:26; Start 03/09/18 at 09:00 Mirtazapine (Remeron) 30 mg QHS PO Last administered on 03/24/18 20:26; Start 03/09/18 at 21:00 Sertraline HCl (Zoloft) 150 mg DAILY PO Last administered on 03/13/18 07:57; Start 03/09/18 at 09:00; Stop 03/13/18 at 12:14; Status DC Carvedilol (Coreg) 3.125 mg BIDWMEALS PO Last administered on 03/24/18 18:08; Start 03/09/18 at 08:00 Furosemide (Lasix) 40 mg DAILY PO Last administered on 03/24/18 08:07; Start at 09:00 Guaifenesin (Mucinex Er) 1,200 mg Q12HR PO Last administered on 03/24/18 20:26 ; Start 03/09/18 at 09:00 Latanoprost (Xalatan) 1 drop QHS OU Last administered on 03/24/18 20:27; Start 03/09/18 at 21:00 Nicotine (Nicoderm Cq 7mg) 1 patch DAILY TD Last administered on 03/24/18 08:02 ; Start 03/09/18 at 09:00 Pantoprazole Sodium (Protonix) 40 mg DAILYAC PO Last administered on 03/24/18 08:07; Start 03/09/18 at 07:30 Phenytoin Sodium (Dilantin) 200 mg BID PO Last administered on 03/24/18 20:21; Start 03/09/18 at 09:00 Ropinirole HCl (Requip) 1 mg BID PO Last administered on 03/24/18 20:21; Start 03/09/18 at 09:00 Sennosides (Senna) 8.6 mg BID PO Last administered on 03/24/18 20:21; Start at 09:00 Non-Formulary Medication (Tiotropium [place] (Spiriva)) 1 puff DAILY IH ; Start 03/09/18 at 09:00; Status UNV Oxybutynin Chloride (Ditropan) 5 mg BID PO Last administered on 03/24/18 20:21 ; Start 03/09/18 at 21:00 Trazodone HCl (Desyrel) 50 mg PRN QHS PRN PO INSOMNIA; Start 03/09/18 at 00:15 ; Stop 03/09/18 at 19:54; Status DC Alprazolam (Xanax) 0.25 mg PRN Q12HR PRN PO ANXIETY / AGITATION; Start at 00:30; Stop 03/09/18 at 19:54; Status DC Alprazolam (Xanax) 0.25 mg PRN Q6HRS PRN PO ANXIETY / AGITATION; Start at 00:30; Stop 03/09/18 at 19:54; Status DC Albuterol Sulfate (Ventolin) 2.5 mg RTQID NEB Last administered on 03/24/18at 20: 17; Start 03/09/18 at 08:00 Budesonide (Pulmicort) 0.5 mg RTBID NEB Last administered on 03/24/18at 20:17; Start 03/09/18 at 08:00 Albuterol Sulfate (Ventolin) 2.5 mg STK-MED ONCE .ROUTE ; Start 03/09/18 at 06: 08; Stop 03/09/18 at 06:09; Status DC Alprazolam (Xanax) 0.25 mg PRN Q4HRS PRN PO ANXIETY / AGITATION Last administered on 03/22/18at 23:42; Start 03/09/18 at 20:00 Trazodone HCl (Desyrel) 100 mg PRN QHS PRN PO INSOMNIA Last administered on 03/23at 19:39; Start 03/09/18 at 20:00 Quetiapine Fumarate (SEROquel) 12.5 mg BID@0900,1300 PO Last administered on at 13:43; Start 03/12/18 at 09:00; Stop 03/12/18 at 18:38; Status DC Quetiapine Fumarate (SEROquel) 25 mg TID@0900,1300,1700 PO Last administered on 03/18/18at 16:29; Start 03/13/18 at 09:00; Stop 03/18/18 at 18:21; Status DC Quetiapine Fumarate (SEROquel) 12.5 mg 1X ONCE PO Last administered on at 19:19; Start 03/12/18 at 19:00; Stop 03/12/18 at 19:01; Status DC Sertraline HCl (Zoloft) 75 mg DAILY PO Last administered on 03/24/18at 08:05; Start 03/14/18 at 09:00 Divalproex Sodium (Depakote Sprinkles) 125 mg [id number] PO ; Start 03/15/18 at 22: 00; Stop 03/15/18 at 22:30; Status DC Divalproex Sodium (Depakote Sprinkles) 125 mg TIDAFTMEAL PO Last administered on 03/19/18at 16:45; Start 03/16/18 at 09:00; Stop 03/19/18 at 18:50; Status DC Quetiapine Fumarate (SEROquel) 37.5 mg TID@0900,1300,1700 PO Last administered on 03/21/18at 16:58; Start 03/19/18 at 09:00; Stop 03/21/18 at 19:24; Status DC Divalproex Sodium (Depakote Sprinkles) 250 mg TIDAFTMEAL PO Last administered on 03/22/18at 17:26; Start 03/20/18 at 09:00; Stop 03/22/18 at 18:06; Status DC Quetiapine Fumarate (SEROquel) 50 mg TID@0900,1300,1700 PO Last administered on 03/24/18at 18:07; Start 03/22/18 at 09:00 Divalproex Sodium (Depakote Sprinkles) 375 mg TIDAFTMEAL PO Last administered on 03/24/18at 18:07; Start 03/23/18 at 09:00 Active Scripts Active Reported Alprazolam 0.25 Mg Tablet 0.25 Mg PO PRN Q12HR PRN Alprazolam 0.25 Mg Tablet 0.25 Mg PO PRN Q6HRS PRN Detrol La (Tolterodine Tartrate) 2 Mg Cap.er.24h 2 Mg PO QHS Xalatan (Latanoprost) 2.5 Ml Drops 1 Drop EACHEYE QHS Pantoprazole Sodium 40 Mg Tablet.dr 40 Mg PO DAILY Requip (Ropinirole Hcl) 1 Mg Tablet 1 Mg PO BID NICODERM CQ 7mg (Nicotine) 1 Each Patch.td24 1 Patch TD DAILY Mucinex (Guaifenesin) 1,200 Mg Tbmp.12hr 1,200 Mg PO Q12HR Lasix (Furosemide) 40 Mg Tablet 40 Mg PO DAILY Ferrous Sulfate 325 Mg Tablet 325 Mg PO BID Mirtazapine 30 Mg Tablet 30 Mg PO QHS Trazodone Hcl 50 Mg Tablet 50 Mg PO PRN QHS PRN Sertraline Hcl 50 Mg Tablet 150 Mg PO DAILY Spiriva (Tiotropium [place]) 18 Mcg Cap.w.dev 1 Puff IH DAILY Senna (Sennosides) 8.6 Mg Tablet 8.6 Mg PO BID Phenytoin Sodium Extended 100 Mg Capsule 200 Mg PO BID Methadone Hcl 5 Mg Tablet 10 Mg PO TID Lisinopril 10 Mg Tablet 10 Mg PO DAILY Carvedilol 3.125 Mg Tablet 1 Tab PO BIDWMEALS Duoneb 0.5-3(2.5) Mg/3 Ml (Albuterol/Ipratropium) 3 Ml Ampul.neb 3 Ml IH Q4HRS W /A PRN I have reviewed the current psychotropics carefully including drug interactions. Risk benefit ratio favors no change other than as noted in my dictated progress note. Diagnosis: Problems: (1) Vascular dementia with delusions (2) Alzheimer's dementia (3) Impulse control disorder (4) Major depressive disorder (5) Parkinson disease JESIKA HAYES MD Mar 24, 2018 20:49
--- NOTE | 2018-03-24 21:26 | PN ---
DATE: 03/21/2018 This is a late entry for 03/08/2018 and covers elements not covered in my initial note of 03/08/2018. I met with the patient in the evening. Overall, the patient remains quite anxious, up at the nursing station a few minutes before her psychotropics administered. She refused dinner, said she was too nervous. REVIEW OF SYSTEMS: No CV, , pulmonary, eye, ENT system symptoms on review. I met with her in her room. MENTAL STATUS EXAM: Oriented to herself and situation. Speech coherent, less pressured. Abstraction fair, computation impaired, language function intact, attention span short. Mood and affect remain somewhat anxious. LABORATORY DATA: Reviewed. IMPRESSION: Unchanged from initial note. PLAN: Seroquel will be increased from 37.5 mg 3 times a day to 50 mg 3 times a day. Rest unchanged from initial note. MAN Gabino HAYES MD DR: BROOKE/fabio JOB#: [id number] / [id number]
--- NOTE | 2018-03-24 21:28 | PN ---
DATE: 03/22/2018 PSYCHIATRIC PROGRESS NOTE This is a late entry of 03/22/2018, covers elements not covered in my initial note of 03/22/2018. SUBJECTIVE: I met with the patient in the evening. The patient received Xanax x2 the previous evening, up at the nursing staff window repeatedly, anxious. She continues to have mood lability. REVIEW OF SYSTEMS: Positive for vague somatic symptoms including difficulty breathing, vague chest pain. No CV, , GI, eye, ENT system symptoms on review. MENTAL STATUS EXAM: Oriented to herself and situation. Speech coherent, rapid at times. Abstraction fair, computation impaired, language function intact, attention span short. Mood and affect remain somewhat anxious, labile. LABORATORY DATA: Reviewed. Valproic acid level is 24, increase Depakote from 250 mg 3 times a day to 375 mg 3 times a day. Check CBC, CMP, valproic acid level in 3 days. Rest unchanged from initial note. MAN Gabino HAYES MD DR: BROOKE/fabio JOB#: [id number] / [id number]
[2018-03-25] MEDS: ALPRAZolam 0.25 MG TABLET PO PRN ×2 (01:28→06:27)
[2018-03-25] MEDS: ALBUTEROL SULFATE 2.5 MG/3 ML NEBU. NEB SCH ×4 (04:16→21:14)
[2018-03-25 06:08] VITALS: BP 133/62
[2018-03-25] MEDS: NICOTINE 7MG PATCH. TD SCH (07:55)
[2018-03-25] MEDS: QUEtiapine 50 MG TABLET. PO SCH ×3 (07:56→17:42)
[2018-03-25] MEDS: LISINOPRIL 10 MG TABLET PO SCH (07:56)
[2018-03-25] MEDS: SERTRALINE 50 MG TABLET. PO SCH (07:57)
[2018-03-25] MEDS: rOPINIRole 1 MG TABLET. PO SCH ×2 (07:57→21:19)
[2018-03-25] MEDS: OXYBUTYNIN CHLORIDE 5 MG TABLET PO SCH ×2 (07:58→21:19)
[2018-03-25] MEDS: SENNOSIDES 8.6 MG TABLET PO SCH ×2 (07:58→21:19)
[2018-03-25] MEDS: PANTOPRAZOLE 40 MG TABLET. PO SCH (07:58)
[2018-03-25] MEDS: FERROUS SULFATE 325 MG TABLET. PO SCH ×2 (07:58→17:41)
[2018-03-25] MEDS: CARVEDILOL 3.125 MG TABLET PO SCH ×2 (07:59→17:00)
[2018-03-25] MEDS: DIVALPROEX 125 MG CAP.SPRINK PO SCH ×3 (07:59→17:42)
[2018-03-25] MEDS: PHENYTOIN SODIUM EXTENDED 100 MG CAPSULE PO SCH ×2 (07:59→21:20)
[2018-03-25] MEDS: FUROSEMIDE 40 MG TABLET PO SCH (07:59)
[2018-03-25] MEDS: METHADONE 5 MG TABLET. PO SCH ×3 (08:01→21:30)
--- NOTE | 2018-03-25 09:44 | PN ---
DATE: 03/23/2018 This late entry 03/23/2018 covers elements not covered in my initial note 03/23/2018. I met with the patient in the afternoon. The patient received Xanax x1 previous evening. She is quite medication seeking frequently after the nursing station, wanting her p.r.n. Xanax. REVIEW OF SYSTEMS: No CV, , pulmonary, eye, ENT system symptoms on review. Does admit to shortness of breath consequent to anxiety. MENTAL STATUS EXAM: Oriented to herself and situation. Speech is coherent, rapid at times. Abstraction fair, computation impaired, language function intact, attention span short. Mood and affect remain somewhat labile. LABORATORY DATA: Reviewed. IMPRESSION: Unchanged from initial note. PLAN: Continue psychotropics from initial note. We are adjusting the Depakote to reach therapeutic level. JESIKA HAYES MD DR: BROOKE/fabio JOB#: [id number] / [id number]
[2018-03-25] MEDS: BUDESONIDE 0.5 MG/2 ML NEBU NEB SCH ×2 (09:52→21:14)
[2018-03-25 16:55] VITALS: BP 110/64
--- NOTE | 2018-03-25 20:52 | PDOC ---
Exam Note: Brian Note: Please also refer to the separate dictated note~for this date of service dictated separately.~Patient seen individually. Discussed the patient with Nursing staff reviewed the chart.~Reviewed interim history and current functioning. Reviewed vital signs,~Labs/ Radiology~and current medications noted below. Continue current treatment with the changes noted in the dictated addendum note Assessment: Vital Signs: Vital Signs Date Time Temp Pulse Resp B/P (MAP) Pulse Ox O2 Delivery O2 Flow Rate FiO2 03/25/18 17:00 69 110/64 03/25/18 16:55 97.0 16 100 03/25/18 15:43 Room Air I&O Intake and Output 03/25/18 07:00 Intake Total 420 ml Balance 420 ml Intake Oral 420 ml Current Medications: Meds: Current Medications Acetaminophen (Tylenol) 650 mg PRN Q6HRS PRN PO PAIN / TEMP; Start 03/09/18 at 00:00 Multi-Ingredient Ointment (Analgesic [place]) 1 cayla PRN QID PRN TP MUSCLE PAIN; Start 03/09/18 at 00:00 Al Hydroxide/Mg Hydroxide (Mylanta Plus Xs) 15 ml PRN AFTMEALHC PRN PO DYSPEPSIA; Start 03/09/18 at 00:00 Magnesium Hydroxide (Milk Of Magnesia) 2,400 mg PRN QHS PRN PO CONSTIPATION; Start 03/09/18 at 00:00 Ferrous Sulfate (Feosol) 325 mg BIDAFTMEAL PO Last administered on 03/25/18at 17: 41; Start 03/09/18 at 09:00 Albuterol/ Ipratropium (Duoneb) 3 ml PRN Q4HRS PRN IH WHILE AWAKE F/SOA Last administered on 03/16/18at 15:28; Start 03/09/18 at 00:15 Lisinopril (Prinivil) 10 mg DAILY PO Last administered on 03/25/18at 07:56; Start 03/09/18 at 09:00 Methadone HCl (Dolophine) 10 mg TID PO Last administered on 03/25/18at 12:44; Start 03/09/18 at 09:00 Mirtazapine (Remeron) 30 mg QHS PO Last administered on 03/24/18at 20:26; Start 03/09/18 at 21:00 Sertraline HCl (Zoloft) 150 mg DAILY PO Last administered on 03/13/18 07:57; Start 03/09/18 at 09:00; Stop 03/13/18 at 12:14; Status DC Carvedilol (Coreg) 3.125 mg BIDWMEALS PO Last administered on 03/25/18 07:59; Start 03/09/18 at 08:00 Furosemide (Lasix) 40 mg DAILY PO Last administered on 03/25/18 07:59; Start at 09:00 Guaifenesin (Mucinex Er) 1,200 mg Q12HR PO Last administered on 03/25/18 07:57 ; Start 03/09/18 at 09:00 Latanoprost (Xalatan) 1 drop QHS OU Last administered on 03/24/18 20:27; Start 03/09/18 at 21:00 Nicotine (Nicoderm Cq 7mg) 1 patch DAILY TD Last administered on 03/25/18 07:55 ; Start 03/09/18 at 09:00 Pantoprazole Sodium (Protonix) 40 mg DAILYAC PO Last administered on 03/25/18 07:58; Start 03/09/18 at 07:30 Phenytoin Sodium (Dilantin) 200 mg BID PO Last administered on 03/25/18 07:59; Start 03/09/18 at 09:00 Ropinirole HCl (Requip) 1 mg BID PO Last administered on 03/25/18 07:57; Start 03/09/18 at 09:00 Sennosides (Senna) 8.6 mg BID PO Last administered on 03/25/18 07:58; Start at 09:00 Non-Formulary Medication (Tiotropium [place] (Spiriva)) 1 puff DAILY IH ; Start 03/09/18 at 09:00; Status UNV Oxybutynin Chloride (Ditropan) 5 mg BID PO Last administered on 03/25/18 07:58 ; Start 03/09/18 at 21:00 Trazodone HCl (Desyrel) 50 mg PRN QHS PRN PO INSOMNIA; Start 03/09/18 at 00:15 ; Stop 03/09/18 at 19:54; Status DC Alprazolam (Xanax) 0.25 mg PRN Q12HR PRN PO ANXIETY / AGITATION; Start at 00:30; Stop 03/09/18 at 19:54; Status DC Alprazolam (Xanax) 0.25 mg PRN Q6HRS PRN PO ANXIETY / AGITATION; Start at 00:30; Stop 03/09/18 at 19:54; Status DC Albuterol Sulfate (Ventolin) 2.5 mg RTQID NEB Last administered on 03/25/18at 15: 42; Start 03/09/18 at 08:00 Budesonide (Pulmicort) 0.5 mg RTBID NEB Last administered on 03/25/18 09:52; Start 03/09/18 at 08:00 Albuterol Sulfate (Ventolin) 2.5 mg STK-MED ONCE .ROUTE ; Start 03/09/18 at 06: 08; Stop 03/09/18 at 06:09; Status DC Alprazolam (Xanax) 0.25 mg PRN Q4HRS PRN PO ANXIETY / AGITATION Last administered on 03/25/18at 06:27; Start 03/09/18 at 20:00 Trazodone HCl (Desyrel) 100 mg PRN QHS PRN PO INSOMNIA Last administered on 03/23at 19:39; Start 03/09/18 at 20:00 Quetiapine Fumarate (SEROquel) 12.5 mg BID@0900,1300 PO Last administered on at 13:43; Start 03/12/18 at 09:00; Stop 03/12/18 at 18:38; Status DC Quetiapine Fumarate (SEROquel) 25 mg TID@0900,1300,1700 PO Last administered on 03/18/18at 16:29; Start 03/13/18 at 09:00; Stop 03/18/18 at 18:21; Status DC Quetiapine Fumarate (SEROquel) 12.5 mg 1X ONCE PO Last administered on at 19:19; Start 03/12/18 at 19:00; Stop 03/12/18 at 19:01; Status DC Sertraline HCl (Zoloft) 75 mg DAILY PO Last administered on 03/25/18at 07:57; Start 03/14/18 at 09:00 Divalproex Sodium (Depakote Sprinkles) 125 mg [id number] PO ; Start 03/15/18 at 22: 00; Stop 03/15/18 at 22:30; Status DC Divalproex Sodium (Depakote Sprinkles) 125 mg TIDAFTMEAL PO Last administered on 03/19/18at 16:45; Start 03/16/18 at 09:00; Stop 03/19/18 at 18:50; Status DC Quetiapine Fumarate (SEROquel) 37.5 mg TID@0900,1300,1700 PO Last administered on 03/21/18at 16:58; Start 03/19/18 at 09:00; Stop 03/21/18 at 19:24; Status DC Divalproex Sodium (Depakote Sprinkles) 250 mg TIDAFTMEAL PO Last administered on 03/22/18at 17:26; Start 03/20/18 at 09:00; Stop 03/22/18 at 18:06; Status DC Quetiapine Fumarate (SEROquel) 50 mg TID@0900,1300,1700 PO Last administered on 03/25/18at 17:42; Start 03/22/18 at 09:00 Divalproex Sodium (Depakote Sprinkles) 375 mg TIDAFTMEAL PO Last administered on 03/25/18at 17:42; Start 03/23/18 at 09:00 Active Scripts Active Reported Alprazolam 0.25 Mg Tablet 0.25 Mg PO PRN Q12HR PRN Alprazolam 0.25 Mg Tablet 0.25 Mg PO PRN Q6HRS PRN Detrol La (Tolterodine Tartrate) 2 Mg Cap.er.24h 2 Mg PO QHS Xalatan (Latanoprost) 2.5 Ml Drops 1 Drop EACHEYE QHS Pantoprazole Sodium 40 Mg Tablet.dr 40 Mg PO DAILY Requip (Ropinirole Hcl) 1 Mg Tablet 1 Mg PO BID NICODERM CQ 7mg (Nicotine) 1 Each Patch.td24 1 Patch TD DAILY Mucinex (Guaifenesin) 1,200 Mg Tbmp.12hr 1,200 Mg PO Q12HR Lasix (Furosemide) 40 Mg Tablet 40 Mg PO DAILY Ferrous Sulfate 325 Mg Tablet 325 Mg PO BID Mirtazapine 30 Mg Tablet 30 Mg PO QHS Trazodone Hcl 50 Mg Tablet 50 Mg PO PRN QHS PRN Sertraline Hcl 50 Mg Tablet 150 Mg PO DAILY Spiriva (Tiotropium [place]) 18 Mcg Cap.w.dev 1 Puff IH DAILY Senna (Sennosides) 8.6 Mg Tablet 8.6 Mg PO BID Phenytoin Sodium Extended 100 Mg Capsule 200 Mg PO BID Methadone Hcl 5 Mg Tablet 10 Mg PO TID Lisinopril 10 Mg Tablet 10 Mg PO DAILY Carvedilol 3.125 Mg Tablet 1 Tab PO BIDWMEALS Duoneb 0.5-3(2.5) Mg/3 Ml (Albuterol/Ipratropium) 3 Ml Ampul.neb 3 Ml IH Q4HRS W /A PRN I have reviewed the current psychotropics carefully including drug interactions. Risk benefit ratio favors no change other than as noted in my dictated progress note. Diagnosis: Problems: (1) Vascular dementia with delusions (2) Alzheimer's dementia (3) Impulse control disorder (4) Major depressive disorder (5) Parkinson disease JESIKA HAYES MD Mar 25, 2018 20:52
--- NOTE | 2018-03-25 21:09 | PN ---
DATE: 03/24/2018 This late entry 03/24/2018 covers elements not covered in my initial note 03/24/2018. SUBJECTIVE: I met with the patient in the evening. The patient has been somewhat withdrawn, spends much time in her room, complains of increased anxiety, back at the nursing station, asking for her PRNs even before they are due. She ate no breakfast. In some respect, she is doing a little better per nursing report, but in the morning complained of not being able to breathe due to anxiety. REVIEW OF SYSTEMS: Ambulation impaired. Complains of shortness of breath. No CV, , GI system symptoms on review. MENTAL STATUS EXAM: Oriented to herself and situation. Speech coherent, rapid at times. Abstraction fair. Computation, able to do one step in serial 7s. Language function intact. No suicidal or homicidal ideation. Mood is anxious. Affect is mood congruent, somewhat obsessive. LABORATORY DATA: Reviewed. IMPRESSION: Unchanged from initial note. PLAN: Continue current psychotropics. Seroquel was increased. Depakote is being adjusted. May change Zoloft to Luvox. MAN Gabino HAYES MD DR: BROOKE/fabio JOB#: [id number] / [id number]
[2018-03-25] MEDS: MIRTAZAPINE 30 MG TABLET PO SCH (21:18)
[2018-03-25] MEDS: LATANOPROST 0.005% OPHTH SOLUTION 2.5ML BOTTLE. OU SCH (21:31)
[2018-03-26] MEDS: traZODone 50 MG TABLET. PO PRN ×2 (01:47→19:23)
[2018-03-26] MEDS: ALBUTEROL SULFATE 2.5 MG/3 ML NEBU. NEB SCH ×4 (05:10→19:50)
[2018-03-26 06:29] VITALS: BP 112/35
[2018-03-26 07:43] LABS: BASO % 1 % (0-3); EOS # 0.2 x10^3/uL (0.0-0.7); EOS % 3 % (0-3); HEMOGLOBIN 12.2 g/dL (12.0-15.5); LYMPH # 1.3 x10^3/uL (1.0-4.8); LYMPH % 18 % (24-48); MEAN CORPUSCULAR HEMOGLOBIN 34 pg (25-35); MEAN CORPUSCULAR HGB CONC 35 g/dL (31-37); MEAN CORPUSCULAR VOLUME 97 fL (79-100); MONO # 0.9 x10^3/uL (0.0-1.1); MONO % 12 % (0-9); NEUT % 67 % (31-73); PLATELET COUNT 391 x10^3/uL (140-400); RED BLOOD COUNT 3.61 x10^6/uL (3.50-5.40); RED CELL DISTRIBUTION WIDTH 14.6 % (11.5-14.5); WHITE BLOOD COUNT 7.5 x10^3/uL (4.0-11.0)
[2018-03-26 08:02] LABS: ALBUMIN 3.3 g/dL (3.4-5.0); ALK PHOS 97 U/L (46-116); ALT (SGPT) 17 U/L (14-59); ANION GAP 5 (6-14); AST (SGOT) 14 U/L (15-37); BLOOD UREA NITROGEN 38 mg/dL (7-20); BUN/CREATININE RATIO 42 (6-20); CALCIUM 8.9 mg/dL (8.5-10.1); CARBON DIOXIDE 34 mmol/L (21-32); CHLORIDE 100 mmol/L (98-107); CREATININE 0.9 mg/dL (0.6-1.0); GFR 60.9; GLUCOSE 95 mg/dL (70-99); POTASSIUM 3.5 mmol/L (3.5-5.1); SODIUM 139 mmol/L (136-145); TOTAL BILIRUBIN 0.4 mg/dL (0.2-1.0); TOTAL PROTEIN 6.6 g/dL (6.4-8.2); VAL ACID 35 mcg/mL (50-100)
[2018-03-26] MEDS: PHENYTOIN SODIUM EXTENDED 100 MG CAPSULE PO SCH ×2 (09:16→19:23)
[2018-03-26] MEDS: DIVALPROEX 125 MG CAP.SPRINK PO SCH ×3 (09:17→17:18)
[2018-03-26] MEDS: FERROUS SULFATE 325 MG TABLET. PO SCH ×2 (09:17→17:18)
[2018-03-26] MEDS: SERTRALINE 50 MG TABLET. PO SCH (09:17)
[2018-03-26] MEDS: FUROSEMIDE 40 MG TABLET PO SCH (09:18)
[2018-03-26] MEDS: rOPINIRole 1 MG TABLET. PO SCH ×2 (09:18→19:23)
[2018-03-26] MEDS: OXYBUTYNIN CHLORIDE 5 MG TABLET PO SCH ×2 (09:18→19:22)
[2018-03-26] MEDS: LISINOPRIL 10 MG TABLET PO SCH (09:18)
[2018-03-26] MEDS: SENNOSIDES 8.6 MG TABLET PO SCH ×2 (09:18→19:23)
[2018-03-26] MEDS: PANTOPRAZOLE 40 MG TABLET. PO SCH (09:18)
[2018-03-26] MEDS: CARVEDILOL 3.125 MG TABLET PO SCH ×2 (09:18→17:16)
[2018-03-26] MEDS: QUEtiapine 50 MG TABLET. PO SCH ×3 (09:18→17:17)
[2018-03-26] MEDS: NICOTINE 7MG PATCH. TD SCH (09:19)
[2018-03-26] MEDS: METHADONE 5 MG TABLET. PO SCH ×3 (09:20→19:26)
[2018-03-26] MEDS: ALPRAZolam 0.25 MG TABLET PO PRN ×2 (09:20→16:22)
[2018-03-26] MEDS: BUDESONIDE 0.5 MG/2 ML NEBU NEB SCH ×2 (10:06→19:50)
--- NOTE | 2018-03-26 11:18 | PN ---
DATE: 03/25/2018 This late entry 03/25/2018 covers elements not covered in my initial note 03/25/2018. I met with the patient in the evening in her room at some length. The patient slept 7 hours. She is medication seeking frequently after the nursing station wanting something for anxiety. Refused to eat and only ate after nursing staff's perseverance. REVIEW OF SYSTEMS: Weak somatic symptoms, difficulty breathing, consequent to anxiety. Impaired ambulation with walker. No CV, , GI, eye, ENT system symptoms on review. MENTAL STATUS EXAM: Oriented to herself and situation. Speech coherent, rapid at times. Abstraction fair, computation impaired, language function intact, attention span short. Mood and affect remains anxious, labile. LABORATORY DATA: Reviewed. IMPRESSION: Bipolar 1 disorder, mixed with psychotic features; anxiety disorder, unspecified; cognitive disorder, unspecified. Rest unchanged. PLAN: Depakote has been adjusted. Repeat labs due on 03/26/2018. Adjust Depakote thereafter. Continue rest unchanged per initial note. MAN Gabino HAYES MD DR: BROOKE/fabio JOB#: [id number] / [id number]
[2018-03-26 16:15] VITALS: BP 90/53
[2018-03-26] MEDS: MAG HYDROX/AL HYDROX/SIMETH 30 ML ORAL.SUSP PO PRN (19:22)
[2018-03-26] MEDS: MIRTAZAPINE 30 MG TABLET PO SCH (19:23)
[2018-03-26] MEDS: LATANOPROST 0.005% OPHTH SOLUTION 2.5ML BOTTLE. OU SCH (19:26)
--- NOTE | 2018-03-26 20:47 | PDOC ---
Exam Note: Brian Note: Please also refer to the separate dictated note~for this date of service dictated separately.~Patient seen individually. Discussed the patient with Nursing staff reviewed the chart.~Reviewed interim history and current functioning. Reviewed vital signs,~Labs/ Radiology~and current medications noted below. Continue current treatment with the changes noted in the dictated addendum note Assessment: Vital Signs: Vital Signs Date Time Temp Pulse Resp B/P (MAP) Pulse Ox O2 Delivery O2 Flow Rate FiO2 03/26/18 19:50 98 Room Air 03/26/18 19:26 18 03/26/18 17:16 67 90/53 03/26/18 16:15 98.3 I&O Intake and Output 03/26/18 07:00 Intake Total 1080 ml Balance 1080 ml Intake Oral 1080 ml # Bowel Movements 1 Labs: Laboratory Tests Test 03/26/18 07:05 White Blood Count 7.5 x10^3/uL (4.0-11.0) Red Blood Count 3.61 x10^6/uL (3.50-5.40) Hemoglobin 12.2 g/dL (12.0-15.5) Hematocrit 35.0 % (36.0-47.0) L Mean Corpuscular Volume 97 fL (79-100) Mean Corpuscular Hemoglobin 34 pg (25-35) Mean Corpuscular Hemoglobin Concent 35 g/dL (31-37) Red Cell Distribution Width 14.6 % (11.5-14.5) H Platelet Count 391 x10^3/uL (140-400) Neutrophils (%) (Auto) 67 % (31-73) Lymphocytes (%) (Auto) 18 % (24-48) L Monocytes (%) (Auto) 12 % (0-9) H Eosinophils (%) (Auto) 3 % (0-3) Basophils (%) (Auto) 1 % (0-3) Neutrophils # (Auto) 5.0 x10^3uL (1.8-7.7) Lymphocytes # (Auto) 1.3 x10^3/uL (1.0-4.8) Monocytes # (Auto) 0.9 x10^3/uL (0.0-1.1) Eosinophils # (Auto) 0.2 x10^3/uL (0.0-0.7) Basophils # (Auto) 0.0 x10^3/uL (0.0-0.2) Sodium Level 139 mmol/L (136-145) Potassium Level 3.5 mmol/L (3.5-5.1) Chloride Level 100 mmol/L (98-107) Carbon Dioxide Level 34 mmol/L (21-32) H Anion Gap 5 (6-14) L Blood Urea Nitrogen 38 mg/dL (7-20) H Creatinine 0.9 mg/dL (0.6-1.0) Estimated GFR (Cockcroft-Gault) 60.9 BUN/Creatinine Ratio 42 (6-20) H Glucose Level 95 mg/dL (70-99) Calcium Level 8.9 mg/dL (8.5-10.1) Total Bilirubin 0.4 mg/dL (0.2-1.0) Aspartate Amino Transferase (AST) 14 U/L (15-37) L Alanine Aminotransferase (ALT) 17 U/L (14-59) Alkaline Phosphatase 97 U/L (46-116) Total Protein 6.6 g/dL (6.4-8.2) Albumin 3.3 g/dL (3.4-5.0) L Albumin/Globulin Ratio 1.0 (1.0-1.7) Valproic Acid Level 35 mcg/mL (50-100) L Valproic Acid Last Dose Date 03/25/2018 Valproic Acid Last Dose Time 1700 Current Medications: Meds: Current Medications Acetaminophen (Tylenol) 650 mg PRN Q6HRS PRN PO PAIN / TEMP; Start 03/09/18 at 00:00 Multi-Ingredient Ointment (Analgesic [place]) 1 cayla PRN QID PRN TP MUSCLE PAIN; Start 03/09/18 at 00:00 Al Hydroxide/Mg Hydroxide (Mylanta Plus Xs) 15 ml PRN AFTMEALHC PRN PO DYSPEPSIA Last administered on 03/26/18at 19:22; Start 03/09/18 at 00:00 Magnesium Hydroxide (Milk Of Magnesia) 2,400 mg PRN QHS PRN PO CONSTIPATION; Start 03/09/18 at 00:00 Ferrous Sulfate (Feosol) 325 mg BIDAFTMEAL PO Last administered on 03/26/18at 17: 18; Start 03/09/18 at 09:00 Albuterol/ Ipratropium (Duoneb) 3 ml PRN Q4HRS PRN IH WHILE AWAKE F/SOA Last administered on 03/16/18 15:28; Start 03/09/18 at 00:15 Lisinopril (Prinivil) 10 mg DAILY PO Last administered on 03/26/18 09:18; Start 03/09/18 at 09:00 Methadone HCl (Dolophine) 10 mg TID PO Last administered on 03/26/18 19:26; Start 03/09/18 at 09:00 Mirtazapine (Remeron) 30 mg QHS PO Last administered on 03/26/18 19:23; Start 03/09/18 at 21:00 Sertraline HCl (Zoloft) 150 mg DAILY PO Last administered on 03/13/18 07:57; Start 03/09/18 at 09:00; Stop 03/13/18 at 12:14; Status DC Carvedilol (Coreg) 3.125 mg BIDWMEALS PO Last administered on 03/26/18 09:18; Start 03/09/18 at 08:00 Furosemide (Lasix) 40 mg DAILY PO Last administered on 03/26/18 09:18; Start at 09:00 Guaifenesin (Mucinex Er) 1,200 mg Q12HR PO Last administered on 03/26/18 19:23 ; Start 03/09/18 at 09:00 Latanoprost (Xalatan) 1 drop QHS OU Last administered on 03/26/18 19:26; Start 03/09/18 at 21:00 Nicotine (Nicoderm Cq 7mg) 1 patch DAILY TD Last administered on 03/26/18 09:19 ; Start 03/09/18 at 09:00 Pantoprazole Sodium (Protonix) 40 mg DAILYAC PO Last administered on 03/26/18 09:18; Start 03/09/18 at 07:30 Phenytoin Sodium (Dilantin) 200 mg BID PO Last administered on 03/26/18 19:23; Start 03/09/18 at 09:00 Ropinirole HCl (Requip) 1 mg BID PO Last administered on 03/26/18 19:23; Start 03/09/18 at 09:00 Sennosides (Senna) 8.6 mg BID PO Last administered on 03/26/18 19:23; Start at 09:00 Non-Formulary Medication (Tiotropium [place] (Spiriva)) 1 puff DAILY IH ; Start 03/09/18 at 09:00; Status UNV Oxybutynin Chloride (Ditropan) 5 mg BID PO Last administered on 03/26/18 19:22 ; Start 03/09/18 at 21:00 Trazodone HCl (Desyrel) 50 mg PRN QHS PRN PO INSOMNIA; Start 03/09/18 at 00:15 ; Stop 03/09/18 at 19:54; Status DC Alprazolam (Xanax) 0.25 mg PRN Q12HR PRN PO ANXIETY / AGITATION; Start at 00:30; Stop 03/09/18 at 19:54; Status DC Alprazolam (Xanax) 0.25 mg PRN Q6HRS PRN PO ANXIETY / AGITATION; Start at 00:30; Stop 03/09/18 at 19:54; Status DC Albuterol Sulfate (Ventolin) 2.5 mg RTQID NEB Last administered on 03/26/18 19: 50; Start 03/09/18 at 08:00 Budesonide (Pulmicort) 0.5 mg RTBID NEB Last administered on 03/26/18 19:50; Start 03/09/18 at 08:00 Albuterol Sulfate (Ventolin) 2.5 mg STK-MED ONCE .ROUTE ; Start 03/09/18 at 06: 08; Stop 03/09/18 at 06:09; Status DC Alprazolam (Xanax) 0.25 mg PRN Q4HRS PRN PO ANXIETY / AGITATION Last administered on 03/26/18at 16:22; Start 03/09/18 at 20:00 Trazodone HCl (Desyrel) 100 mg PRN QHS PRN PO INSOMNIA Last administered on 03/26 19:23; Start 03/09/18 at 20:00 Quetiapine Fumarate (SEROquel) 12.5 mg BID@0900,1300 PO Last administered on at 13:43; Start 03/12/18 at 09:00; Stop 03/12/18 at 18:38; Status DC Quetiapine Fumarate (SEROquel) 25 mg TID@0900,1300,1700 PO Last administered on 03/18/18at 16:29; Start 03/13/18 at 09:00; Stop 03/18/18 at 18:21; Status DC Quetiapine Fumarate (SEROquel) 12.5 mg 1X ONCE PO Last administered on at 19:19; Start 03/12/18 at 19:00; Stop 03/12/18 at 19:01; Status DC Sertraline HCl (Zoloft) 75 mg DAILY PO Last administered on 03/26/18at 09:17; Start 03/14/18 at 09:00 Divalproex Sodium (Depakote Sprinkles) 125 mg [id number] PO ; Start 03/15/18 at 22: 00; Stop 03/15/18 at 22:30; Status DC Divalproex Sodium (Depakote Sprinkles) 125 mg TIDAFTMEAL PO Last administered on 03/19/18at 16:45; Start 03/16/18 at 09:00; Stop 03/19/18 at 18:50; Status DC Quetiapine Fumarate (SEROquel) 37.5 mg TID@0900,1300,1700 PO Last administered on 03/21/18at 16:58; Start 03/19/18 at 09:00; Stop 03/21/18 at 19:24; Status DC Divalproex Sodium (Depakote Sprinkles) 250 mg TIDAFTMEAL PO Last administered on 03/22/18at 17:26; Start 03/20/18 at 09:00; Stop 03/22/18 at 18:06; Status DC Quetiapine Fumarate (SEROquel) 50 mg TID@0900,1300,1700 PO Last administered on 03/26/18at 14:49; Start 03/22/18 at 09:00 Divalproex Sodium (Depakote Sprinkles) 375 mg TIDAFTMEAL PO Last administered on 03/26/18 17:18; Start 03/23/18 at 09:00; Stop 03/26/18 at 18:32; Status DC Divalproex Sodium (Depakote Sprinkles) 500 mg TIDAFTMEAL PO ; Start 03/27/18 at 09:00 Active Scripts Active Reported Alprazolam 0.25 Mg Tablet 0.25 Mg PO PRN Q12HR PRN Alprazolam 0.25 Mg Tablet 0.25 Mg PO PRN Q6HRS PRN Detrol La (Tolterodine Tartrate) 2 Mg Cap.er.24h 2 Mg PO QHS Xalatan (Latanoprost) 2.5 Ml Drops 1 Drop EACHEYE QHS Pantoprazole Sodium 40 Mg Tablet.dr 40 Mg PO DAILY Requip (Ropinirole Hcl) 1 Mg Tablet 1 Mg PO BID NICODERM CQ 7mg (Nicotine) 1 Each Patch.td24 1 Patch TD DAILY Mucinex (Guaifenesin) 1,200 Mg Tbmp.12hr 1,200 Mg PO Q12HR Lasix (Furosemide) 40 Mg Tablet 40 Mg PO DAILY Ferrous Sulfate 325 Mg Tablet 325 Mg PO BID Mirtazapine 30 Mg Tablet 30 Mg PO QHS Trazodone Hcl 50 Mg Tablet 50 Mg PO PRN QHS PRN Sertraline Hcl 50 Mg Tablet 150 Mg PO DAILY Spiriva (Tiotropium [place]) 18 Mcg Cap.w.dev 1 Puff IH DAILY Senna (Sennosides) 8.6 Mg Tablet 8.6 Mg PO BID Phenytoin Sodium Extended 100 Mg Capsule 200 Mg PO BID Methadone Hcl 5 Mg Tablet 10 Mg PO TID Lisinopril 10 Mg Tablet 10 Mg PO DAILY Carvedilol 3.125 Mg Tablet 1 Tab PO BIDWMEALS Duoneb 0.5-3(2.5) Mg/3 Ml (Albuterol/Ipratropium) 3 Ml Ampul.neb 3 Ml IH Q4HRS W /A PRN I have reviewed the current psychotropics carefully including drug interactions. Risk benefit ratio favors no change other than as noted in my dictated progress note. Diagnosis: Problems: (1) Vascular dementia with delusions (2) Alzheimer's dementia (3) Impulse control disorder (4) Major depressive disorder (5) Parkinson disease JESIKA HAYES MD Mar 26, 2018 20:47
[2018-03-27] MEDS: traZODone 50 MG TABLET. PO PRN ×2 (00:50→19:16)
[2018-03-27] MEDS: ALPRAZolam 0.25 MG TABLET PO PRN (03:44)
[2018-03-27] MEDS: ALBUTEROL SULFATE 2.5 MG/3 ML NEBU. NEB SCH ×4 (06:10→19:48)
[2018-03-27 06:28] VITALS: BP 100/55
[2018-03-27] MEDS: NICOTINE 7MG PATCH. TD SCH (07:53)
[2018-03-27] MEDS: rOPINIRole 1 MG TABLET. PO SCH ×2 (07:53→19:16)
[2018-03-27] MEDS: PANTOPRAZOLE 40 MG TABLET. PO SCH (07:54)
[2018-03-27] MEDS: FERROUS SULFATE 325 MG TABLET. PO SCH ×2 (07:54→15:51)
[2018-03-27] MEDS: OXYBUTYNIN CHLORIDE 5 MG TABLET PO SCH ×2 (07:54→19:16)
[2018-03-27] MEDS: SERTRALINE 50 MG TABLET. PO SCH (07:55)
[2018-03-27] MEDS: CARVEDILOL 3.125 MG TABLET PO SCH ×3 (07:55→08:05)
[2018-03-27] MEDS: SENNOSIDES 8.6 MG TABLET PO SCH ×2 (07:56→19:16)
[2018-03-27] MEDS: PHENYTOIN SODIUM EXTENDED 100 MG CAPSULE PO SCH ×2 (07:56→19:15)
[2018-03-27] MEDS: DIVALPROEX 125 MG CAP.SPRINK PO SCH ×3 (07:59→15:51)
[2018-03-27] MEDS: METHADONE 5 MG TABLET. PO SCH ×3 (07:59→19:16)
[2018-03-27] MEDS: QUEtiapine 50 MG TABLET. PO SCH ×3 (08:00→15:51)
--- NOTE | 2018-03-27 10:09 | PN ---
DATE: 03/10/2018 CANCELLED DICTATION TERESITA HULL MD DR: JUAQUIN/fabio JOB#: [id number] / [id number]
[2018-03-27] MEDS: FUROSEMIDE 40 MG TABLET PO SCH (10:52)
[2018-03-27] MEDS: LISINOPRIL 10 MG TABLET PO SCH (10:52)
[2018-03-27] MEDS: BUDESONIDE 0.5 MG/2 ML NEBU NEB SCH ×2 (11:00→19:48)
[2018-03-27] MEDS: MAG HYDROX/AL HYDROX/SIMETH 30 ML ORAL.SUSP PO PRN (16:03)
[2018-03-27 16:20] VITALS: BP 120/58
[2018-03-27] MEDS: MIRTAZAPINE 30 MG TABLET PO SCH (19:16)
[2018-03-27] MEDS: LATANOPROST 0.005% OPHTH SOLUTION 2.5ML BOTTLE. OU SCH (19:24)
--- NOTE | 2018-03-27 22:25 | PDOC ---
Exam Note: Brian Note: Please also refer to the separate dictated note~for this date of service dictated separately.~Patient seen individually. Discussed the patient with Nursing staff reviewed the chart.~Reviewed interim history and current functioning. Reviewed vital signs,~Labs/ Radiology~and current medications noted below. Continue current treatment with the changes noted in the dictated addendum note Assessment: Vital Signs: Vital Signs Date Time Temp Pulse Resp B/P (MAP) Pulse Ox O2 Delivery O2 Flow Rate FiO2 03/27/18 20:16 18 Room Air 03/27/18 19:51 97 03/27/18 16:20 98.8 77 120/58 (78) I&O Intake and Output 03/27/18 07:00 Intake Total 1020 ml Balance 1020 ml Intake Oral 1020 ml # Voids 1 Current Medications: Meds: Current Medications Acetaminophen (Tylenol) 650 mg PRN Q6HRS PRN PO PAIN / TEMP; Start 03/09/18 at 00:00 Multi-Ingredient Ointment (Analgesic [place]) 1 cayla PRN QID PRN TP MUSCLE PAIN; Start 03/09/18 at 00:00 Al Hydroxide/Mg Hydroxide (Mylanta Plus Xs) 15 ml PRN AFTMEALHC PRN PO DYSPEPSIA Last administered on 03/27/18 16:03; Start 03/09/18 at 00:00 Magnesium Hydroxide (Milk Of Magnesia) 2,400 mg PRN QHS PRN PO CONSTIPATION; Start 03/09/18 at 00:00 Ferrous Sulfate (Feosol) 325 mg BIDAFTMEAL PO Last administered on 03/27/18 15: 51; Start 03/09/18 at 09:00 Albuterol/ Ipratropium (Duoneb) 3 ml PRN Q4HRS PRN IH WHILE AWAKE F/SOA Last administered on 03/16/18 15:28; Start 03/09/18 at 00:15 Lisinopril (Prinivil) 10 mg DAILY PO Last administered on 03/27/18 10:52; Start 03/09/18 at 09:00 Methadone HCl (Dolophine) 10 mg TID PO Last administered on 03/27/18 19:16; Start 03/09/18 at 09:00 Mirtazapine (Remeron) 30 mg QHS PO Last administered on 03/27/18 19:16; Start 03/09/18 at 21:00 Sertraline HCl (Zoloft) 150 mg DAILY PO Last administered on 03/13/18 07:57; Start 03/09/18 at 09:00; Stop 03/13/18 at 12:14; Status DC Carvedilol (Coreg) 3.125 mg BIDWMEALS PO Last administered on 03/27/18 07:55; Start 03/09/18 at 08:00 Furosemide (Lasix) 40 mg DAILY PO Last administered on 03/27/18 10:52; Start at 09:00 Guaifenesin (Mucinex Er) 1,200 mg Q12HR PO Last administered on 03/27/18 19:17 ; Start 03/09/18 at 09:00 Latanoprost (Xalatan) 1 drop QHS OU Last administered on 03/27/18 19:24; Start 03/09/18 at 21:00 Nicotine (Nicoderm Cq 7mg) 1 patch DAILY TD Last administered on 03/27/18 07:53 ; Start 03/09/18 at 09:00 Pantoprazole Sodium (Protonix) 40 mg DAILYAC PO Last administered on 03/27/18 07:54; Start 03/09/18 at 07:30 Phenytoin Sodium (Dilantin) 200 mg BID PO Last administered on 03/27/18 19:15; Start 03/09/18 at 09:00 Ropinirole HCl (Requip) 1 mg BID PO Last administered on 03/27/18 19:16; Start 03/09/18 at 09:00 Sennosides (Senna) 8.6 mg BID PO Last administered on 03/27/18 19:16; Start at 09:00 Non-Formulary Medication (Tiotropium [place] (Spiriva)) 1 puff DAILY IH ; Start 03/09/18 at 09:00; Status UNV Oxybutynin Chloride (Ditropan) 5 mg BID PO Last administered on 03/27/18 19:16 ; Start 03/09/18 at 21:00 Trazodone HCl (Desyrel) 50 mg PRN QHS PRN PO INSOMNIA; Start 03/09/18 at 00:15 ; Stop 03/09/18 at 19:54; Status DC Alprazolam (Xanax) 0.25 mg PRN Q12HR PRN PO ANXIETY / AGITATION; Start at 00:30; Stop 03/09/18 at 19:54; Status DC Alprazolam (Xanax) 0.25 mg PRN Q6HRS PRN PO ANXIETY / AGITATION; Start at 00:30; Stop 03/09/18 at 19:54; Status DC Albuterol Sulfate (Ventolin) 2.5 mg RTQID NEB Last administered on 03/27/18 19: 48; Start 03/09/18 at 08:00 Budesonide (Pulmicort) 0.5 mg RTBID NEB Last administered on 03/27/18 19:48; Start 03/09/18 at 08:00 Albuterol Sulfate (Ventolin) 2.5 mg STK-MED ONCE .ROUTE ; Start 03/09/18 at 06: 08; Stop 03/09/18 at 06:09; Status DC Alprazolam (Xanax) 0.25 mg PRN Q4HRS PRN PO ANXIETY / AGITATION Last administered on 03/27/18at 03:44; Start 03/09/18 at 20:00 Trazodone HCl (Desyrel) 100 mg PRN QHS PRN PO INSOMNIA Last administered on 03/27 19:16; Start 03/09/18 at 20:00 Quetiapine Fumarate (SEROquel) 12.5 mg BID@0900,1300 PO Last administered on at 13:43; Start 03/12/18 at 09:00; Stop 03/12/18 at 18:38; Status DC Quetiapine Fumarate (SEROquel) 25 mg TID@0900,1300,1700 PO Last administered on 03/18/18at 16:29; Start 03/13/18 at 09:00; Stop 03/18/18 at 18:21; Status DC Quetiapine Fumarate (SEROquel) 12.5 mg 1X ONCE PO Last administered on at 19:19; Start 03/12/18 at 19:00; Stop 03/12/18 at 19:01; Status DC Sertraline HCl (Zoloft) 75 mg DAILY PO Last administered on 03/27/18at 07:55; Start 03/14/18 at 09:00; Stop 03/27/18 at 10:51; Status DC Divalproex Sodium (Depakote Sprinkles) 125 mg [id number] PO ; Start 03/15/18 at 22: 00; Stop 03/15/18 at 22:30; Status DC Divalproex Sodium (Depakote Sprinkles) 125 mg TIDAFTMEAL PO Last administered on 03/19/18at 16:45; Start 03/16/18 at 09:00; Stop 03/19/18 at 18:50; Status DC Quetiapine Fumarate (SEROquel) 37.5 mg TID@0900,1300,1700 PO Last administered on 03/21/18at 16:58; Start 03/19/18 at 09:00; Stop 03/21/18 at 19:24; Status DC Divalproex Sodium (Depakote Sprinkles) 250 mg TIDAFTMEAL PO Last administered on 03/22/18at 17:26; Start 03/20/18 at 09:00; Stop 03/22/18 at 18:06; Status DC Quetiapine Fumarate (SEROquel) 50 mg TID@0900,1300,1700 PO Last administered on 03/27/18at 15:51; Start 03/22/18 at 09:00 Divalproex Sodium (Depakote Sprinkles) 375 mg TIDAFTMEAL PO Last administered on 03/26/18at 17:18; Start 03/23/18 at 09:00; Stop 03/26/18 at 18:32; Status DC Divalproex Sodium (Depakote Sprinkles) 500 mg TIDAFTMEAL PO Last administered on 03/27/18at 15:51; Start 03/27/18 at 09:00 Fluvoxamine Maleate (Luvox) 25 mg DAILY PO ; Start 03/28/18 at 09:00; Stop at 12:00 Fluvoxamine Maleate (Luvox) 50 mg DAILY PO ; Start 03/31/18 at 09:00 Active Scripts Active Reported Alprazolam 0.25 Mg Tablet 0.25 Mg PO PRN Q12HR PRN Alprazolam 0.25 Mg Tablet 0.25 Mg PO PRN Q6HRS PRN Detrol La (Tolterodine Tartrate) 2 Mg Cap.er.24h 2 Mg PO QHS Xalatan (Latanoprost) 2.5 Ml Drops 1 Drop EACHEYE QHS Pantoprazole Sodium 40 Mg Tablet.dr 40 Mg PO DAILY Requip (Ropinirole Hcl) 1 Mg Tablet 1 Mg PO BID NICODERM CQ 7mg (Nicotine) 1 Each Patch.td24 1 Patch TD DAILY Mucinex (Guaifenesin) 1,200 Mg Tbmp.12hr 1,200 Mg PO Q12HR Lasix (Furosemide) 40 Mg Tablet 40 Mg PO DAILY Ferrous Sulfate 325 Mg Tablet 325 Mg PO BID Mirtazapine 30 Mg Tablet 30 Mg PO QHS Trazodone Hcl 50 Mg Tablet 50 Mg PO PRN QHS PRN Sertraline Hcl 50 Mg Tablet 150 Mg PO DAILY Spiriva (Tiotropium [place]) 18 Mcg Cap.w.dev 1 Puff IH DAILY Senna (Sennosides) 8.6 Mg Tablet 8.6 Mg PO BID Phenytoin Sodium Extended 100 Mg Capsule 200 Mg PO BID Methadone Hcl 5 Mg Tablet 10 Mg PO TID Lisinopril 10 Mg Tablet 10 Mg PO DAILY Carvedilol 3.125 Mg Tablet 1 Tab PO BIDWMEALS Duoneb 0.5-3(2.5) Mg/3 Ml (Albuterol/Ipratropium) 3 Ml Ampul.neb 3 Ml IH Q4HRS W /A PRN I have reviewed the current psychotropics carefully including drug interactions. Risk benefit ratio favors no change other than as noted in my dictated progress note. Diagnosis: Problems: (1) Vascular dementia with delusions (2) Alzheimer's dementia (3) Impulse control disorder (4) Major depressive disorder (5) Parkinson disease JESIKA HAYES MD Mar 27, 2018 22:25
[2018-03-28] MEDS: traZODone 50 MG TABLET. PO PRN ×2 (01:06→20:24)
[2018-03-28] MEDS: MAG HYDROX/AL HYDROX/SIMETH 30 ML ORAL.SUSP PO PRN (03:54)
[2018-03-28 05:46] VITALS: BP 107/52
[2018-03-28] MEDS: ALBUTEROL SULFATE 2.5 MG/3 ML NEBU. NEB SCH ×4 (06:21→19:42)
[2018-03-28] MEDS: BUDESONIDE 0.5 MG/2 ML NEBU NEB SCH ×2 (08:00→19:42)
[2018-03-28] MEDS: DIVALPROEX 125 MG CAP.SPRINK PO SCH ×3 (08:01→18:00)
[2018-03-28] MEDS: SENNOSIDES 8.6 MG TABLET PO SCH ×2 (08:01→20:22)
[2018-03-28] MEDS: QUEtiapine 50 MG TABLET. PO SCH ×3 (08:02→18:23)
[2018-03-28] MEDS: FERROUS SULFATE 325 MG TABLET. PO SCH ×2 (08:02→18:23)
[2018-03-28] MEDS: FUROSEMIDE 40 MG TABLET PO SCH (08:02)
[2018-03-28] MEDS: PHENYTOIN SODIUM EXTENDED 100 MG CAPSULE PO SCH ×2 (08:03→20:22)
[2018-03-28] MEDS: METHADONE 5 MG TABLET. PO SCH ×3 (08:03→20:25)
[2018-03-28] MEDS: rOPINIRole 1 MG TABLET. PO SCH ×2 (08:04→20:22)
[2018-03-28] MEDS: ALPRAZolam 0.25 MG TABLET PO PRN (08:04)
[2018-03-28] MEDS: NICOTINE 7MG PATCH. TD SCH (08:04)
[2018-03-28] MEDS: PANTOPRAZOLE 40 MG TABLET. PO SCH (08:04)
[2018-03-28] MEDS: LISINOPRIL 10 MG TABLET PO SCH (08:05)
[2018-03-28] MEDS: OXYBUTYNIN CHLORIDE 5 MG TABLET PO SCH ×2 (08:08→20:22)
--- NOTE | 2018-03-28 13:09 | PN ---
DATE: 03/26/2018 This late entry for 03/26/2018 and covers elements not covered in my initial note of 03/26/2018. SUBJECTIVE: I met with the patient at length in her room. She slept 7-3/4 hours. All day, she has been asking for Xanax right at that time her PRNs are due, even though she might not need it, but she obsesses about this. She has vague somatic symptoms, anxiety, difficulty breathing, spends much time in her room. Ambulates with a walker. No CV, GI, system symptoms on review. MENTAL STATUS EXAM: Oriented to herself and situation. Speech coherent, rapid at times. Abstraction fair, computation impaired, language function intact, attention span short. Mood and affect remains labile. LABORATORY DATA: Reviewed. IMPRESSION: Bipolar 1 disorder, mixed with psychotic features; major neurocognitive disorder, early Alzheimer, vascular with delusion, depression, OCD, anxiety disorder, unspecified; impulse control disorder, unspecified. PLAN: Valproic acid level is 30. Valproic acid level is 35 on Depakote Sprinkles 375 mg t.i.d. We will increase it to 500 mg t.i.d. Check CBC, CMP, valproic acid level in 3 days. Rest of the psychotropics unchanged from initial note. MAN Gabino HAYES MD DR: BROOKE/fabio JOB#: [id number] / [id number]
[2018-03-28 15:54] VITALS: BP 117/68
[2018-03-28] MEDS: CARVEDILOL 3.125 MG TABLET PO SCH (17:00)
--- NOTE | 2018-03-28 20:18 | PN ---
DATE: 03/27/2018 PSYCHIATRIC PROGRESS NOTE This is a late entry 03/27/2018 covers elements not covered in my initial note 03/27/2018. SUBJECTIVE: I met with the patient in the evening, staffed at a treatment team meeting with the entire team in the morning. Reportedly, per nursing staff, the patient was trying to throw up at night, trying to emphasize how anxious she is to the nursing staff. She remains somewhat obsessive, anxious, complains of panic attacks with pulmonary deep breathing and symptoms reflective of her anxiety. REVIEW OF SYSTEMS: No CV, GI, system symptoms on review. MENTAL STATUS EXAM: Oriented to herself and situation. Speech coherent, rapid at times, anxious, restless. Abstraction fair, computation impaired, language function intact, attention span short. Mood and affect remain somewhat labile, obsessive. LABORATORY DATA: Reviewed. 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 PLAN: Change Zoloft to Luvox 25 mg a day for 3 days, then 50 mg a day thereafter. Adjust the Depakote and repeat labs that due on 03/29/2018, and we have increased the Depakote in the interim. Rest unchanged. MAN Gabino HAYES MD DR: BROOKE/fabio JOB#: [id number] / [id number]
[2018-03-28] MEDS: MIRTAZAPINE 30 MG TABLET PO SCH (20:23)
[2018-03-28] MEDS: LATANOPROST 0.005% OPHTH SOLUTION 2.5ML BOTTLE. OU SCH (20:25)
--- NOTE | 2018-03-28 23:12 | PDOC ---
Exam Note: Brian Note: Please also refer to the separate dictated note~for this date of service dictated separately.~Patient seen individually. Discussed the patient with Nursing staff reviewed the chart.~Reviewed interim history and current functioning. Reviewed vital signs,~Labs/ Radiology~and current medications noted below. Continue current treatment with the changes noted in the dictated addendum note Assessment: Vital Signs: Vital Signs Date Time Temp Pulse Resp B/P (MAP) Pulse Ox O2 Delivery O2 Flow Rate FiO2 03/28/18 20:25 96 03/28/18 19:40 Room Air 03/28/18 17:00 75 117/68 03/28/18 15:54 98.4 20 I&O Intake and Output 03/28/18 07:00 Intake Total 540 ml Balance 540 ml Intake Oral 540 ml # Voids 1 Current Medications: Meds: Current Medications Acetaminophen (Tylenol) 650 mg PRN Q6HRS PRN PO PAIN / TEMP; Start 03/09/18 at 00:00 Multi-Ingredient Ointment (Analgesic [place]) 1 cayla PRN QID PRN TP MUSCLE PAIN; Start 03/09/18 at 00:00 Al Hydroxide/Mg Hydroxide (Mylanta Plus Xs) 15 ml PRN AFTMEALHC PRN PO DYSPEPSIA Last administered on 03/28/18at 03:54; Start 03/09/18 at 00:00 Magnesium Hydroxide (Milk Of Magnesia) 2,400 mg PRN QHS PRN PO CONSTIPATION; Start 03/09/18 at 00:00 Ferrous Sulfate (Feosol) 325 mg BIDAFTMEAL PO Last administered on 03/28/18at 18: 23; Start 03/09/18 at 09:00 Albuterol/ Ipratropium (Duoneb) 3 ml PRN Q4HRS PRN IH WHILE AWAKE F/SOA Last administered on 03/16/18at 15:28; Start 03/09/18 at 00:15 Lisinopril (Prinivil) 10 mg DAILY PO Last administered on 03/27/18at 10:52; Start 03/09/18 at 09:00 Methadone HCl (Dolophine) 10 mg TID PO Last administered on 03/28/18at 20:25; Start 03/09/18 at 09:00 Mirtazapine (Remeron) 30 mg QHS PO Last administered on 03/28/18 20:23; Start 03/09/18 at 21:00 Sertraline HCl (Zoloft) 150 mg DAILY PO Last administered on 03/13/18 07:57; Start 03/09/18 at 09:00; Stop 03/13/18 at 12:14; Status DC Carvedilol (Coreg) 3.125 mg BIDWMEALS PO Last administered on 03/28/18 17:00; Start 03/09/18 at 08:00 Furosemide (Lasix) 40 mg DAILY PO Last administered on 03/28/18 08:02; Start at 09:00 Guaifenesin (Mucinex Er) 1,200 mg Q12HR PO Last administered on 03/28/18 20:23 ; Start 03/09/18 at 09:00 Latanoprost (Xalatan) 1 drop QHS OU Last administered on 03/28/18 20:25; Start 03/09/18 at 21:00 Nicotine (Nicoderm Cq 7mg) 1 patch DAILY TD Last administered on 03/28/18 08:04 ; Start 03/09/18 at 09:00 Pantoprazole Sodium (Protonix) 40 mg DAILYAC PO Last administered on 03/28/18 08:04; Start 03/09/18 at 07:30 Phenytoin Sodium (Dilantin) 200 mg BID PO Last administered on 03/28/18 20:22; Start 03/09/18 at 09:00 Ropinirole HCl (Requip) 1 mg BID PO Last administered on 03/28/18 20:22; Start 03/09/18 at 09:00 Sennosides (Senna) 8.6 mg BID PO Last administered on 03/28/18 20:22; Start at 09:00 Non-Formulary Medication (Tiotropium [place] (Spiriva)) 1 puff DAILY IH ; Start 03/09/18 at 09:00; Status UNV Oxybutynin Chloride (Ditropan) 5 mg BID PO Last administered on 03/28/18 20:22 ; Start 03/09/18 at 21:00 Trazodone HCl (Desyrel) 50 mg PRN QHS PRN PO INSOMNIA; Start 03/09/18 at 00:15 ; Stop 03/09/18 at 19:54; Status DC Alprazolam (Xanax) 0.25 mg PRN Q12HR PRN PO ANXIETY / AGITATION; Start at 00:30; Stop 03/09/18 at 19:54; Status DC Alprazolam (Xanax) 0.25 mg PRN Q6HRS PRN PO ANXIETY / AGITATION; Start at 00:30; Stop 03/09/18 at 19:54; Status DC Albuterol Sulfate (Ventolin) 2.5 mg RTQID NEB Last administered on 03/28/18at 19: 42; Start 03/09/18 at 08:00 Budesonide (Pulmicort) 0.5 mg RTBID NEB Last administered on 03/28/18at 19:42; Start 03/09/18 at 08:00 Albuterol Sulfate (Ventolin) 2.5 mg STK-MED ONCE .ROUTE ; Start 03/09/18 at 06: 08; Stop 03/09/18 at 06:09; Status DC Alprazolam (Xanax) 0.25 mg PRN Q4HRS PRN PO ANXIETY / AGITATION Last administered on 03/28/18at 08:04; Start 03/09/18 at 20:00 Trazodone HCl (Desyrel) 100 mg PRN QHS PRN PO INSOMNIA Last administered on 03/28at 20:24; Start 03/09/18 at 20:00 Quetiapine Fumarate (SEROquel) 12.5 mg BID@0900,1300 PO Last administered on at 13:43; Start 03/12/18 at 09:00; Stop 03/12/18 at 18:38; Status DC Quetiapine Fumarate (SEROquel) 25 mg TID@0900,1300,1700 PO Last administered on 03/18/18at 16:29; Start 03/13/18 at 09:00; Stop 03/18/18 at 18:21; Status DC Quetiapine Fumarate (SEROquel) 12.5 mg 1X ONCE PO Last administered on at 19:19; Start 03/12/18 at 19:00; Stop 03/12/18 at 19:01; Status DC Sertraline HCl (Zoloft) 75 mg DAILY PO Last administered on 03/27/18at 07:55; Start 03/14/18 at 09:00; Stop 03/27/18 at 10:51; Status DC Divalproex Sodium (Depakote Sprinkles) 125 mg [id number] PO ; Start 03/15/18 at 22: 00; Stop 03/15/18 at 22:30; Status DC Divalproex Sodium (Depakote Sprinkles) 125 mg TIDAFTMEAL PO Last administered on 03/19/18at 16:45; Start 03/16/18 at 09:00; Stop 03/19/18 at 18:50; Status DC Quetiapine Fumarate (SEROquel) 37.5 mg TID@0900,1300,1700 PO Last administered on 03/21/18at 16:58; Start 03/19/18 at 09:00; Stop 03/21/18 at 19:24; Status DC Divalproex Sodium (Depakote Sprinkles) 250 mg TIDAFTMEAL PO Last administered on 03/22/18at 17:26; Start 03/20/18 at 09:00; Stop 03/22/18 at 18:06; Status DC Quetiapine Fumarate (SEROquel) 50 mg TID@0900,1300,1700 PO Last administered on 03/28/18at 18:23; Start 03/22/18 at 09:00 Divalproex Sodium (Depakote Sprinkles) 375 mg TIDAFTMEAL PO Last administered on 03/26/18at 17:18; Start 03/23/18 at 09:00; Stop 03/26/18 at 18:32; Status DC Divalproex Sodium (Depakote Sprinkles) 500 mg TIDAFTMEAL PO Last administered on 03/28/18at 18:00; Start 03/27/18 at 09:00 Fluvoxamine Maleate (Luvox) 25 mg DAILY PO Last administered on 03/28/18at 08:08 ; Start 03/28/18 at 09:00; Stop 03/30/18 at 12:00 Fluvoxamine Maleate (Luvox) 50 mg DAILY PO ; Start 03/31/18 at 09:00 Active Scripts Active Reported Alprazolam 0.25 Mg Tablet 0.25 Mg PO PRN Q12HR PRN Alprazolam 0.25 Mg Tablet 0.25 Mg PO PRN Q6HRS PRN Detrol La (Tolterodine Tartrate) 2 Mg Cap.er.24h 2 Mg PO QHS Xalatan (Latanoprost) 2.5 Ml Drops 1 Drop EACHEYE QHS Pantoprazole Sodium 40 Mg Tablet.dr 40 Mg PO DAILY Requip (Ropinirole Hcl) 1 Mg Tablet 1 Mg PO BID NICODERM CQ 7mg (Nicotine) 1 Each Patch.td24 1 Patch TD DAILY Mucinex (Guaifenesin) 1,200 Mg Tbmp.12hr 1,200 Mg PO Q12HR Lasix (Furosemide) 40 Mg Tablet 40 Mg PO DAILY Ferrous Sulfate 325 Mg Tablet 325 Mg PO BID Mirtazapine 30 Mg Tablet 30 Mg PO QHS Trazodone Hcl 50 Mg Tablet 50 Mg PO PRN QHS PRN Sertraline Hcl 50 Mg Tablet 150 Mg PO DAILY Spiriva (Tiotropium [place]) 18 Mcg Cap.w.dev 1 Puff IH DAILY Senna (Sennosides) 8.6 Mg Tablet 8.6 Mg PO BID Phenytoin Sodium Extended 100 Mg Capsule 200 Mg PO BID Methadone Hcl 5 Mg Tablet 10 Mg PO TID Lisinopril 10 Mg Tablet 10 Mg PO DAILY Carvedilol 3.125 Mg Tablet 1 Tab PO BIDWMEALS Duoneb 0.5-3(2.5) Mg/3 Ml (Albuterol/Ipratropium) 3 Ml Ampul.neb 3 Ml IH Q4HRS W /A PRN I have reviewed the current psychotropics carefully including drug interactions. Risk benefit ratio favors no change other than as noted in my dictated progress note. Diagnosis: Problems: (1) Vascular dementia with delusions (2) Alzheimer's dementia (3) Impulse control disorder (4) Major depressive disorder (5) Parkinson disease JESIKA HAYES MD Mar 28, 2018 23:12
[2018-03-29 05:40] VITALS: BP 124/67
[2018-03-29] MEDS: ALBUTEROL SULFATE 2.5 MG/3 ML NEBU. NEB SCH ×4 (06:11→20:21)
[2018-03-29] MEDS: ALPRAZolam 0.25 MG TABLET PO PRN ×2 (06:23→13:56)
[2018-03-29 08:29] LABS: BASO % 1 % (0-3); EOS # 0.1 x10^3/uL (0.0-0.7); EOS % 1 % (0-3); HEMATOCRIT 38.5 % (36.0-47.0); LYMPH # 1.3 x10^3/uL (1.0-4.8); LYMPH % 17 % (24-48); MEAN CORPUSCULAR HEMOGLOBIN 33 pg (25-35); MEAN CORPUSCULAR HGB CONC 34 g/dL (31-37); MEAN CORPUSCULAR VOLUME 98 fL (79-100); MONO % 13 % (0-9); NEUT # 5.1 x10^3uL (1.8-7.7); NEUT % 68 % (31-73); PLATELET COUNT 384 x10^3/uL (140-400); RED BLOOD COUNT 3.92 x10^6/uL (3.50-5.40); RED CELL DISTRIBUTION WIDTH 14.2 % (11.5-14.5); WHITE BLOOD COUNT 7.6 x10^3/uL (4.0-11.0)
[2018-03-29] MEDS: QUEtiapine 50 MG TABLET. PO SCH ×3 (08:30→17:27)
[2018-03-29] MEDS: SENNOSIDES 8.6 MG TABLET PO SCH ×2 (08:30→21:47)
[2018-03-29] MEDS: FUROSEMIDE 40 MG TABLET PO SCH (08:30)
[2018-03-29] MEDS: rOPINIRole 1 MG TABLET. PO SCH ×2 (08:30→21:47)
[2018-03-29] MEDS: CARVEDILOL 3.125 MG TABLET PO SCH ×2 (08:30→17:00)
[2018-03-29] MEDS: NICOTINE 7MG PATCH. TD SCH (08:30)
[2018-03-29] MEDS: PHENYTOIN SODIUM EXTENDED 100 MG CAPSULE PO SCH ×2 (08:30→21:47)
[2018-03-29] MEDS: FERROUS SULFATE 325 MG TABLET. PO SCH ×2 (08:31→17:29)
[2018-03-29] MEDS: OXYBUTYNIN CHLORIDE 5 MG TABLET PO SCH ×2 (08:31→21:46)
[2018-03-29] MEDS: DIVALPROEX 125 MG CAP.SPRINK PO SCH ×3 (08:31→17:27)
[2018-03-29] MEDS: LISINOPRIL 10 MG TABLET PO SCH (08:31)
[2018-03-29] MEDS: PANTOPRAZOLE 40 MG TABLET. PO SCH (08:31)
[2018-03-29] MEDS: METHADONE 5 MG TABLET. PO SCH ×3 (08:33→21:46)
[2018-03-29 08:38] LABS: ALBUMIN 3.2 g/dL (3.4-5.0); ALBUMIN/GLOBULIN RATIO 0.8 (1.0-1.7); ALK PHOS 100 U/L (46-116); ALT (SGPT) 17 U/L (14-59); ANION GAP 8 (6-14); AST (SGOT) 12 U/L (15-37); BLOOD UREA NITROGEN 33 mg/dL (7-20); BUN/CREATININE RATIO 37 (6-20); CALCIUM 9.2 mg/dL (8.5-10.1); CARBON DIOXIDE 35 mmol/L (21-32); CHLORIDE 99 mmol/L (98-107); CREATININE 0.9 mg/dL (0.6-1.0); GFR 60.9; GLUCOSE 93 mg/dL (70-99); POTASSIUM 4.1 mmol/L (3.5-5.1); SODIUM 142 mmol/L (136-145); TOTAL BILIRUBIN 0.3 mg/dL (0.2-1.0)
[2018-03-29 08:41] LABS: VAL ACID 42 mcg/mL (50-100)
[2018-03-29] MEDS: BUDESONIDE 0.5 MG/2 ML NEBU NEB SCH ×2 (11:27→20:21)
--- NOTE | 2018-03-29 12:51 | PN ---
DATE: 03/28/2018 This late entry, 03/28/2018, covers elements not covered in my initial note of 03/28/2018. SUBJECTIVE: I met with the patient in the evening in her room at length on 2 separate occasions. The patient slept 8-3/4 hours previous evening, remains somewhat anxious, back to the nursing station frequently to get her p.r.n. for anxiety. She complains of difficulty breathing and chest hurting, which is a constant symptom she has had consequent to her anxiety since medically everything is unable to explain this. She spends much time in her room. REVIEW OF SYSTEMS: No eye, ENT system symptoms on review. Ambulation impaired with walker. MENTAL STATUS EXAM: Oriented to herself and situation. Speech coherent, rapid at times. Abstraction fair, computation impaired, language function intact. Mood and affect remain somewhat labile. LABORATORY DATA: Reviewed. IMPRESSION: Unchanged from my initial note. PLAN: Continue current psychotropics. Adjust the Luvox gradually and Depakote is being adjusted to reach a therapeutic level. JESIKA HAYES MD DR: BROOKE/fabio JOB#: [id number] / [id number]
[2018-03-29 16:16] VITALS: BP 93/53
[2018-03-29] MEDS: LATANOPROST 0.005% OPHTH SOLUTION 2.5ML BOTTLE. OU SCH (21:00)
[2018-03-29] MEDS: MIRTAZAPINE 30 MG TABLET PO SCH (21:46)
[2018-03-29] MEDS: traZODone 50 MG TABLET. PO PRN (21:47)
[2018-03-30] MEDS: ALPRAZolam 0.25 MG TABLET PO PRN ×3 (03:36→20:09)
[2018-03-30 05:37] VITALS: BP 105/56
[2018-03-30] MEDS: ALBUTEROL SULFATE 2.5 MG/3 ML NEBU. NEB SCH ×4 (06:29→20:14)
[2018-03-30] MEDS: CARVEDILOL 3.125 MG TABLET PO SCH ×2 (08:00→17:50)
[2018-03-30] MEDS: FUROSEMIDE 40 MG TABLET PO SCH (08:03)
[2018-03-30] MEDS: OXYBUTYNIN CHLORIDE 5 MG TABLET PO SCH ×2 (08:03→20:06)
[2018-03-30] MEDS: QUEtiapine 50 MG TABLET. PO SCH ×3 (08:03→17:50)
[2018-03-30] MEDS: SENNOSIDES 8.6 MG TABLET PO SCH ×2 (08:04→20:06)
[2018-03-30] MEDS: FERROUS SULFATE 325 MG TABLET. PO SCH ×2 (08:04→17:51)
[2018-03-30] MEDS: PANTOPRAZOLE 40 MG TABLET. PO SCH (08:04)
[2018-03-30] MEDS: rOPINIRole 1 MG TABLET. PO SCH ×2 (08:04→20:06)
[2018-03-30] MEDS: PHENYTOIN SODIUM EXTENDED 100 MG CAPSULE PO SCH ×2 (08:06→20:06)
[2018-03-30] MEDS: LISINOPRIL 10 MG TABLET PO SCH (08:08)
[2018-03-30] MEDS: NICOTINE 7MG PATCH. TD SCH (08:08)
[2018-03-30] MEDS: METHADONE 5 MG TABLET. PO SCH ×3 (08:13→20:09)
[2018-03-30] MEDS: DIVALPROEX 125 MG CAP.SPRINK PO SCH ×3 (08:13→17:51)
[2018-03-30] MEDS: BUDESONIDE 0.5 MG/2 ML NEBU NEB SCH ×2 (10:39→20:14)
[2018-03-30 16:30] VITALS: BP 116/70
[2018-03-30] MEDS: MIRTAZAPINE 30 MG TABLET PO SCH (20:06)
[2018-03-30] MEDS: DIVALPROEX ER 250 MG TAB.ER.24H. PO SCH (20:14)
[2018-03-30] MEDS: DIVALPROEX ER 500 MG TAB.ER.24H PO SCH (20:15)
--- NOTE | 2018-03-30 20:17 | PDOC ---
Exam Note: Brian Note: Late entry for date of service March 29, 2018. Please also refer to the separate dictated note~for this date of service dictated separately.~Patient seen individually. Discussed the patient with Nursing staff reviewed the chart.~ Reviewed interim history and current functioning. Reviewed vital signs,~Labs/ Radiology~and current medications noted below. Continue current treatment with the changes noted in the dictated addendum note Assessment: Vital Signs: VS - Last 72 Hours, by Label Date Time Temp Pulse Resp B/P (MAP) Pulse Ox O2 Delivery O2 Flow Rate FiO2 03/30/18 17:50 76 116/70 03/30/18 16:45 98 Room Air 03/30/18 16:30 98.2 76 20 116/70 (85) 97 03/30/18 10:40 100 Room Air 03/30/18 08:08 66 105/56 03/30/18 08:00 66 105/56 03/30/18 05:37 97.9 66 22 105/56 (72) 91 BiPAP/CPAP 03/29/18 23:05 Room Air 03/29/18 21:46 20 Room Air 03/29/18 20:20 96 Room Air 03/29/18 17:28 97 Room Air 03/29/18 17:00 69 93/53 03/29/18 16:16 98.1 69 19 93/53 (66) 92 03/29/18 11:27 99 Room Air 03/29/18 11:27 99 Room Air 03/29/18 08:31 80 124/67 03/29/18 08:30 80 124/67 03/29/18 06:10 95 Room Air 03/29/18 05:40 98.2 80 20 124/67 (86) 96 03/28/18 21:25 96 03/28/18 20:25 96 03/28/18 19:40 96 Room Air 03/28/18 17:00 75 117/68 03/28/18 15:54 98.4 75 20 117/68 (84) 94 03/28/18 15:18 95 Room Air 03/28/18 08:05 68 107/52 03/28/18 06:20 96 Room Air 03/28/18 05:46 97.3 68 19 107/52 (70) 93 Vital Signs Date Time Temp Pulse Resp B/P (MAP) Pulse Ox O2 Delivery O2 Flow Rate FiO2 03/30/18 17:50 76 116/70 03/30/18 16:45 98 Room Air 03/30/18 16:30 98.2 20 I&O Intake and Output 03/30/18 07:00 Intake Total 600 ml Balance 600 ml Intake Oral 600 ml Current Medications: Meds: Current Medications Acetaminophen (Tylenol) 650 mg PRN Q6HRS PRN PO PAIN / TEMP; Start 03/09/18 at 00:00 Multi-Ingredient Ointment (Analgesic [place]) 1 cayla PRN QID PRN TP MUSCLE PAIN; Start 03/09/18 at 00:00 Al Hydroxide/Mg Hydroxide (Mylanta Plus Xs) 15 ml PRN AFTMEALHC PRN PO DYSPEPSIA Last administered on 03/28/18at 03:54; Start 03/09/18 at 00:00 Magnesium Hydroxide (Milk Of Magnesia) 2,400 mg PRN QHS PRN PO CONSTIPATION; Start 03/09/18 at 00:00 Ferrous Sulfate (Feosol) 325 mg BIDAFTMEAL PO Last administered on 03/30/18at 17 :51; Start 03/09/18 at 09:00 Albuterol/ Ipratropium (Duoneb) 3 ml PRN Q4HRS PRN IH WHILE AWAKE F/SOA Last administered on 03/16/18at 15:28; Start 03/09/18 at 00:15 Lisinopril (Prinivil) 10 mg DAILY PO Last administered on 03/29/18at 08:31; Start 03/09/18 at 09:00 Methadone HCl (Dolophine) 10 mg TID PO Last administered on 03/30/18at 20:09; Start 03/09/18 at 09:00 Mirtazapine (Remeron) 30 mg QHS PO Last administered on 03/30/18 20:06; Start 03/09/18 at 21:00 Sertraline HCl (Zoloft) 150 mg DAILY PO Last administered on 03/13/18at 07:57; Start 03/09/18 at 09:00; Stop 03/13/18 at 12:14; Status DC Carvedilol (Coreg) 3.125 mg BIDWMEALS PO Last administered on 03/30/18at 17:50; Start 03/09/18 at 08:00 Furosemide (Lasix) 40 mg DAILY PO Last administered on 03/30/18at 08:03; Start 03/09/18 at 09:00 Guaifenesin (Mucinex Er) 1,200 mg Q12HR PO Last administered on 03/30/18at 20:09 ; Start 03/09/18 at 09:00 Latanoprost (Xalatan) 1 drop QHS OU Last administered on 03/28/18at 20:25; Start 03/09/18 at 21:00 Nicotine (Nicoderm Cq 7mg) 1 patch DAILY TD Last administered on 03/30/18 08: 08; Start 03/09/18 at 09:00 Pantoprazole Sodium (Protonix) 40 mg DAILYAC PO Last administered on 03/30/18 08:04; Start 03/09/18 at 07:30 Phenytoin Sodium (Dilantin) 200 mg BID PO Last administered on 03/30/18 20:06 ; Start 03/09/18 at 09:00 Ropinirole HCl (Requip) 1 mg BID PO Last administered on 03/30/18 20:06; Start 03/09/18 at 09:00 Sennosides (Senna) 8.6 mg BID PO Last administered on 03/30/18 20:06; Start at 09:00 Non-Formulary Medication (Tiotropium [place] (Spiriva)) 1 puff DAILY IH ; Start 03/09/18 at 09:00; Status UNV Oxybutynin Chloride (Ditropan) 5 mg BID PO Last administered on 03/30/18at 20:06 ; Start 03/09/18 at 21:00 Trazodone HCl (Desyrel) 50 mg PRN QHS PRN PO INSOMNIA; Start 03/09/18 at 00:15 ; Stop 03/09/18 at 19:54; Status DC Alprazolam (Xanax) 0.25 mg PRN Q12HR PRN PO ANXIETY / AGITATION; Start at 00:30; Stop 03/09/18 at 19:54; Status DC Alprazolam (Xanax) 0.25 mg PRN Q6HRS PRN PO ANXIETY / AGITATION; Start at 00:30; Stop 03/09/18 at 19:54; Status DC Albuterol Sulfate (Ventolin) 2.5 mg RTQID NEB Last administered on 03/30/18at 20 :14; Start 03/09/18 at 08:00 Budesonide (Pulmicort) 0.5 mg RTBID NEB Last administered on 03/30/18at 20:14; Start 03/09/18 at 08:00 Albuterol Sulfate (Ventolin) 2.5 mg STK-MED ONCE .ROUTE ; Start 03/09/18 at 06: 08; Stop 03/09/18 at 06:09; Status DC Alprazolam (Xanax) 0.25 mg PRN Q4HRS PRN PO ANXIETY / AGITATION Last administered on 03/30/18at 20:09; Start 03/09/18 at 20:00 Trazodone HCl (Desyrel) 100 mg PRN QHS PRN PO INSOMNIA Last administered on 03/29at 21:47; Start 03/09/18 at 20:00 Quetiapine Fumarate (SEROquel) 12.5 mg BID@0900,1300 PO Last administered on at 13:43; Start 03/12/18 at 09:00; Stop 03/12/18 at 18:38; Status DC Quetiapine Fumarate (SEROquel) 25 mg TID@0900,1300,1700 PO Last administered on 03/18/18at 16:29; Start 03/13/18 at 09:00; Stop 03/18/18 at 18:21; Status DC Quetiapine Fumarate (SEROquel) 12.5 mg 1X ONCE PO Last administered on at 19:19; Start 03/12/18 at 19:00; Stop 03/12/18 at 19:01; Status DC Sertraline HCl (Zoloft) 75 mg DAILY PO Last administered on 03/27/18at 07:55; Start 03/14/18 at 09:00; Stop 03/27/18 at 10:51; Status DC Divalproex Sodium (Depakote Sprinkles) 125 mg [id number] PO ; Start 03/15/18 at 22: 00; Stop 03/15/18 at 22:30; Status DC Divalproex Sodium (Depakote Sprinkles) 125 mg TIDAFTMEAL PO Last administered on 03/19/18at 16:45; Start 03/16/18 at 09:00; Stop 03/19/18 at 18:50; Status DC Quetiapine Fumarate (SEROquel) 37.5 mg TID@0900,1300,1700 PO Last administered on 03/21/18at 16:58; Start 03/19/18 at 09:00; Stop 03/21/18 at 19:24; Status DC Divalproex Sodium (Depakote Sprinkles) 250 mg TIDAFTMEAL PO Last administered on 03/22/18at 17:26; Start 03/20/18 at 09:00; Stop 03/22/18 at 18:06; Status DC Quetiapine Fumarate (SEROquel) 50 mg TID@0900,1300,1700 PO Last administered on 03/30/18at 17:50; Start 03/22/18 at 09:00 Divalproex Sodium (Depakote Sprinkles) 375 mg TIDAFTMEAL PO Last administered on 03/26/18at 17:18; Start 03/23/18 at 09:00; Stop 03/26/18 at 18:32; Status DC Divalproex Sodium (Depakote Sprinkles) 500 mg TIDAFTMEAL PO Last administered on 03/30/18at 17:51; Start 03/27/18 at 09:00; Stop 03/30/18 at 20:05; Status DC Fluvoxamine Maleate (Luvox) 25 mg DAILY PO Last administered on 03/30/18at 08:13 ; Start 03/28/18 at 09:00; Stop 03/30/18 at 12:00; Status DC Fluvoxamine Maleate (Luvox) 50 mg DAILY PO ; Start 03/31/18 at 09:00 Divalproex Sodium (Depakote Er) 1,500 mg QHS PO ; Start 03/30/18 at 21:00 Divalproex Sodium (Depakote Er) 250 mg QHS PO ; Start 03/30/18 at 21:00 Active Scripts Active Reported Alprazolam 0.25 Mg Tablet 0.25 Mg PO PRN Q12HR PRN Alprazolam 0.25 Mg Tablet 0.25 Mg PO PRN Q6HRS PRN Detrol La (Tolterodine Tartrate) 2 Mg Cap.er.24h 2 Mg PO QHS Xalatan (Latanoprost) 2.5 Ml Drops 1 Drop EACHEYE QHS Pantoprazole Sodium 40 Mg Tablet.dr 40 Mg PO DAILY Requip (Ropinirole Hcl) 1 Mg Tablet 1 Mg PO BID NICODERM CQ 7mg (Nicotine) 1 Each Patch.td24 1 Patch TD DAILY Mucinex (Guaifenesin) 1,200 Mg Tbmp.12hr 1,200 Mg PO Q12HR Lasix (Furosemide) 40 Mg Tablet 40 Mg PO DAILY Ferrous Sulfate 325 Mg Tablet 325 Mg PO BID Mirtazapine 30 Mg Tablet 30 Mg PO QHS Trazodone Hcl 50 Mg Tablet 50 Mg PO PRN QHS PRN Sertraline Hcl 50 Mg Tablet 150 Mg PO DAILY Spiriva (Tiotropium [place]) 18 Mcg Cap.w.dev 1 Puff IH DAILY Senna (Sennosides) 8.6 Mg Tablet 8.6 Mg PO BID Phenytoin Sodium Extended 100 Mg Capsule 200 Mg PO BID Methadone Hcl 5 Mg Tablet 10 Mg PO TID Lisinopril 10 Mg Tablet 10 Mg PO DAILY Carvedilol 3.125 Mg Tablet 1 Tab PO BIDWMEALS Duoneb 0.5-3(2.5) Mg/3 Ml (Albuterol/Ipratropium) 3 Ml Ampul.neb 3 Ml IH Q4HRS W /A PRN I have reviewed the current psychotropics carefully including drug interactions. Risk benefit ratio favors no change other than as noted in my dictated progress note. Diagnosis: Problems: (1) Vascular dementia with delusions (2) Alzheimer's dementia (3) Impulse control disorder (4) Major depressive disorder (5) Parkinson disease JESIKA HAYES MD Mar 30, 2018 20:17
--- NOTE | 2018-03-30 20:18 | PDOC ---
Exam Note: Brian Note: Please also refer to the separate dictated note~for this date of service dictated separately.~Patient seen individually. Discussed the patient with Nursing staff reviewed the chart.~Reviewed interim history and current functioning. Reviewed vital signs,~Labs/ Radiology~and current medications noted below. Continue current treatment with the changes noted in the dictated addendum note Assessment: Vital Signs: Vital Signs Date Time Temp Pulse Resp B/P (MAP) Pulse Ox O2 Delivery O2 Flow Rate FiO2 03/30/18 17:50 76 116/70 03/30/18 16:45 98 Room Air 03/30/18 16:30 98.2 20 I&O Intake and Output 03/30/18 07:00 Intake Total 600 ml Balance 600 ml Intake Oral 600 ml Current Medications: Meds: Current Medications Acetaminophen (Tylenol) 650 mg PRN Q6HRS PRN PO PAIN / TEMP; Start 03/09/18 at 00:00 Multi-Ingredient Ointment (Analgesic [place]) 1 cayla PRN QID PRN TP MUSCLE PAIN; Start 03/09/18 at 00:00 Al Hydroxide/Mg Hydroxide (Mylanta Plus Xs) 15 ml PRN AFTMEALHC PRN PO DYSPEPSIA Last administered on 03/28/18at 03:54; Start 03/09/18 at 00:00 Magnesium Hydroxide (Milk Of Magnesia) 2,400 mg PRN QHS PRN PO CONSTIPATION; Start 03/09/18 at 00:00 Ferrous Sulfate (Feosol) 325 mg BIDAFTMEAL PO Last administered on 03/30/18at 17 :51; Start 03/09/18 at 09:00 Albuterol/ Ipratropium (Duoneb) 3 ml PRN Q4HRS PRN IH WHILE AWAKE F/SOA Last administered on 03/16/18at 15:28; Start 03/09/18 at 00:15 Lisinopril (Prinivil) 10 mg DAILY PO Last administered on 03/29/18at 08:31; Start 03/09/18 at 09:00 Methadone HCl (Dolophine) 10 mg TID PO Last administered on 03/30/18at 20:09; Start 03/09/18 at 09:00 Mirtazapine (Remeron) 30 mg QHS PO Last administered on 03/30/18at 20:06; Start 03/09/18 at 21:00 Sertraline HCl (Zoloft) 150 mg DAILY PO Last administered on 03/13/18 07:57; Start 03/09/18 at 09:00; Stop 03/13/18 at 12:14; Status DC Carvedilol (Coreg) 3.125 mg BIDWMEALS PO Last administered on 03/30/18 17:50; Start 03/09/18 at 08:00 Furosemide (Lasix) 40 mg DAILY PO Last administered on 03/30/18 08:03; Start 03/09/18 at 09:00 Guaifenesin (Mucinex Er) 1,200 mg Q12HR PO Last administered on 03/30/18 20:09 ; Start 03/09/18 at 09:00 Latanoprost (Xalatan) 1 drop QHS OU Last administered on 03/28/18 20:25; Start 03/09/18 at 21:00 Nicotine (Nicoderm Cq 7mg) 1 patch DAILY TD Last administered on 03/30/18 08: 08; Start 03/09/18 at 09:00 Pantoprazole Sodium (Protonix) 40 mg DAILYAC PO Last administered on 03/30/18 08:04; Start 03/09/18 at 07:30 Phenytoin Sodium (Dilantin) 200 mg BID PO Last administered on 03/30/18 20:06 ; Start 03/09/18 at 09:00 Ropinirole HCl (Requip) 1 mg BID PO Last administered on 03/30/18 20:06; Start 03/09/18 at 09:00 Sennosides (Senna) 8.6 mg BID PO Last administered on 03/30/18 20:06; Start at 09:00 Non-Formulary Medication (Tiotropium [place] (Spiriva)) 1 puff DAILY IH ; Start 03/09/18 at 09:00; Status UNV Oxybutynin Chloride (Ditropan) 5 mg BID PO Last administered on 03/30/18at 20:06 ; Start 03/09/18 at 21:00 Trazodone HCl (Desyrel) 50 mg PRN QHS PRN PO INSOMNIA; Start 03/09/18 at 00:15 ; Stop 03/09/18 at 19:54; Status DC Alprazolam (Xanax) 0.25 mg PRN Q12HR PRN PO ANXIETY / AGITATION; Start at 00:30; Stop 03/09/18 at 19:54; Status DC Alprazolam (Xanax) 0.25 mg PRN Q6HRS PRN PO ANXIETY / AGITATION; Start at 00:30; Stop 03/09/18 at 19:54; Status DC Albuterol Sulfate (Ventolin) 2.5 mg RTQID NEB Last administered on 03/30/18at 20 :14; Start 03/09/18 at 08:00 Budesonide (Pulmicort) 0.5 mg RTBID NEB Last administered on 03/30/18at 20:14; Start 03/09/18 at 08:00 Albuterol Sulfate (Ventolin) 2.5 mg STK-MED ONCE .ROUTE ; Start 03/09/18 at 06: 08; Stop 03/09/18 at 06:09; Status DC Alprazolam (Xanax) 0.25 mg PRN Q4HRS PRN PO ANXIETY / AGITATION Last administered on 03/30/18at 20:09; Start 03/09/18 at 20:00 Trazodone HCl (Desyrel) 100 mg PRN QHS PRN PO INSOMNIA Last administered on 03/29at 21:47; Start 03/09/18 at 20:00 Quetiapine Fumarate (SEROquel) 12.5 mg BID@0900,1300 PO Last administered on at 13:43; Start 03/12/18 at 09:00; Stop 03/12/18 at 18:38; Status DC Quetiapine Fumarate (SEROquel) 25 mg TID@0900,1300,1700 PO Last administered on 03/18/18at 16:29; Start 03/13/18 at 09:00; Stop 03/18/18 at 18:21; Status DC Quetiapine Fumarate (SEROquel) 12.5 mg 1X ONCE PO Last administered on at 19:19; Start 03/12/18 at 19:00; Stop 03/12/18 at 19:01; Status DC Sertraline HCl (Zoloft) 75 mg DAILY PO Last administered on 03/27/18at 07:55; Start 03/14/18 at 09:00; Stop 03/27/18 at 10:51; Status DC Divalproex Sodium (Depakote Sprinkles) 125 mg [id number] PO ; Start 03/15/18 at 22: 00; Stop 03/15/18 at 22:30; Status DC Divalproex Sodium (Depakote Sprinkles) 125 mg TIDAFTMEAL PO Last administered on 03/19/18at 16:45; Start 03/16/18 at 09:00; Stop 03/19/18 at 18:50; Status DC Quetiapine Fumarate (SEROquel) 37.5 mg TID@0900,1300,1700 PO Last administered on 03/21/18at 16:58; Start 03/19/18 at 09:00; Stop 03/21/18 at 19:24; Status DC Divalproex Sodium (Depakote Sprinkles) 250 mg TIDAFTMEAL PO Last administered on 03/22/18at 17:26; Start 03/20/18 at 09:00; Stop 03/22/18 at 18:06; Status DC Quetiapine Fumarate (SEROquel) 50 mg TID@0900,1300,1700 PO Last administered on 03/30/18at 17:50; Start 03/22/18 at 09:00 Divalproex Sodium (Depakote Sprinkles) 375 mg TIDAFTMEAL PO Last administered on 03/26/18at 17:18; Start 03/23/18 at 09:00; Stop 03/26/18 at 18:32; Status DC Divalproex Sodium (Depakote Sprinkles) 500 mg TIDAFTMEAL PO Last administered on 03/30/18at 17:51; Start 03/27/18 at 09:00; Stop 03/30/18 at 20:05; Status DC Fluvoxamine Maleate (Luvox) 25 mg DAILY PO Last administered on 03/30/18at 08:13 ; Start 03/28/18 at 09:00; Stop 03/30/18 at 12:00; Status DC Fluvoxamine Maleate (Luvox) 50 mg DAILY PO ; Start 6/11/18 at 09:00 Divalproex Sodium (Depakote Er) 1,500 mg QHS PO ; Start 03/30/18 at 21:00 Divalproex Sodium (Depakote Er) 250 mg QHS PO ; Start 03/30/18 at 21:00 Active Scripts Active Reported Alprazolam 0.25 Mg Tablet 0.25 Mg PO PRN Q12HR PRN Alprazolam 0.25 Mg Tablet 0.25 Mg PO PRN Q6HRS PRN Detrol La (Tolterodine Tartrate) 2 Mg Cap.er.24h 2 Mg PO QHS Xalatan (Latanoprost) 2.5 Ml Drops 1 Drop EACHEYE QHS Pantoprazole Sodium 40 Mg Tablet.dr 40 Mg PO DAILY Requip (Ropinirole Hcl) 1 Mg Tablet 1 Mg PO BID NICODERM CQ 7mg (Nicotine) 1 Each Patch.td24 1 Patch TD DAILY Mucinex (Guaifenesin) 1,200 Mg Tbmp.12hr 1,200 Mg PO Q12HR Lasix (Furosemide) 40 Mg Tablet 40 Mg PO DAILY Ferrous Sulfate 325 Mg Tablet 325 Mg PO BID Mirtazapine 30 Mg Tablet 30 Mg PO QHS Trazodone Hcl 50 Mg Tablet 50 Mg PO PRN QHS PRN Sertraline Hcl 50 Mg Tablet 150 Mg PO DAILY Spiriva (Tiotropium Quinter) 18 Mcg Cap.w.dev 1 Puff IH DAILY Senna (Sennosides) 8.6 Mg Tablet 8.6 Mg PO BID Phenytoin Sodium Extended 100 Mg Capsule 200 Mg PO BID Methadone Hcl 5 Mg Tablet 10 Mg PO TID Lisinopril 10 Mg Tablet 10 Mg PO DAILY Carvedilol 3.125 Mg Tablet 1 Tab PO BIDWMEALS Duoneb 0.5-3(2.5) Mg/3 Ml (Albuterol/Ipratropium) 3 Ml Ampul.neb 3 Ml IH Q4HRS W /A PRN I have reviewed the current psychotropics carefully including drug interactions. Risk benefit ratio favors no change other than as noted in my dictated progress note. Diagnosis: Problems: (1) Vascular dementia with delusions (2) Alzheimer's dementia (3) Impulse control disorder (4) Major depressive disorder (5) Parkinson disease JESIKA HAYES MD Mar 30, 2018 20:18
[2018-03-30] MEDS: LATANOPROST 0.005% OPHTH SOLUTION 2.5ML BOTTLE. OU SCH (20:21)
[2018-03-31] MEDS: ALPRAZolam 0.25 MG TABLET PO PRN ×3 (04:25→21:10)
[2018-03-31 06:11] VITALS: BP 137/71
[2018-03-31] MEDS: ALBUTEROL SULFATE 2.5 MG/3 ML NEBU. NEB SCH ×4 (07:02→20:19)
[2018-03-31] MEDS: PANTOPRAZOLE 40 MG TABLET. PO SCH (07:53)
[2018-03-31] MEDS: PHENYTOIN SODIUM EXTENDED 100 MG CAPSULE PO SCH ×2 (07:54→19:48)
[2018-03-31] MEDS: FERROUS SULFATE 325 MG TABLET. PO SCH ×2 (07:54→16:30)
[2018-03-31] MEDS: FUROSEMIDE 40 MG TABLET PO SCH (07:54)
[2018-03-31] MEDS: OXYBUTYNIN CHLORIDE 5 MG TABLET PO SCH ×2 (07:54→19:47)
[2018-03-31] MEDS: METHADONE 5 MG TABLET. PO SCH ×3 (07:55→19:50)
[2018-03-31] MEDS: LISINOPRIL 10 MG TABLET PO SCH (07:55)
[2018-03-31] MEDS: rOPINIRole 1 MG TABLET. PO SCH ×2 (07:56→19:48)
[2018-03-31] MEDS: NICOTINE 7MG PATCH. TD SCH (07:56)
[2018-03-31] MEDS: SENNOSIDES 8.6 MG TABLET PO SCH ×2 (07:56→19:47)
[2018-03-31] MEDS: QUEtiapine 50 MG TABLET. PO SCH ×3 (07:56→16:30)
[2018-03-31] MEDS: CARVEDILOL 3.125 MG TABLET PO SCH ×2 (08:00→16:29)
[2018-03-31] MEDS: BUDESONIDE 0.5 MG/2 ML NEBU NEB SCH ×2 (10:28→20:19)
--- NOTE | 2018-03-31 13:04 | PN ---
DATE: 03/29/2018 PSYCHIATRIC PROGRESS NOTE This is a late entry 03/29/2018, covers elements not covered in my initial note 03/29/2018. SUBJECTIVE: I met with the patient in the evening. The patient remains very anxious, medication seeking back to the nursing station repeatedly for her Xanax p.r.n. She complains of difficulty breathing, chest pain consequent to anxiety. REVIEW OF SYSTEMS: Impaired ambulation with walker. No CV, , pulmonary, eye system symptoms on review other than as above. MENTAL STATUS EXAM: Oriented to herself and situation. Speech coherent, rapid at times. Abstraction fair, computation impaired, language function intact. Attention span short. Mood and affect, anxious, labile. No active suicidal or homicidal ideation. LABORATORY DATA: Reviewed. IMPRESSION: Unchanged from initial note. PLAN: Depakote has been increased since prior level was 42, subtherapeutic. Continue rest unchanged. JESIKA HAYES MD DR: BROOKE/fabio JOB#: [id number] / [id number]
[2018-03-31] MEDS: IPRATRPIUM/ALBUTEROL 0.5/2.5MG 3 ML NEBU. IH PRN (14:59)
[2018-03-31 16:03] VITALS: BP 124/67
[2018-03-31] MEDS: DIVALPROEX ER 250 MG TAB.ER.24H. PO SCH (19:47)
[2018-03-31] MEDS: MIRTAZAPINE 30 MG TABLET PO SCH (19:48)
[2018-03-31] MEDS: DIVALPROEX ER 500 MG TAB.ER.24H PO SCH (19:48)
[2018-03-31] MEDS: traZODone 50 MG TABLET. PO PRN (19:50)
[2018-03-31] MEDS: LATANOPROST 0.005% OPHTH SOLUTION 2.5ML BOTTLE. OU SCH (19:51)
--- NOTE | 2018-03-31 20:44 | PDOC ---
Exam Note: Brian Note: Please also refer to the separate dictated note~for this date of service dictated separately.~Patient seen individually. Discussed the patient with Nursing staff reviewed the chart.~Reviewed interim history and current functioning. Reviewed vital signs,~Labs/ Radiology~and current medications noted below. Continue current treatment with the changes noted in the dictated addendum note Assessment: Vital Signs: Vital Signs Date Time Temp Pulse Resp B/P (MAP) Pulse Ox O2 Delivery O2 Flow Rate FiO2 03/31/18 20:22 98 Room Air 03/31/18 19:50 20 03/31/18 16:29 91 124/67 03/31/18 16:03 98.6 I&O Intake and Output 03/31/18 07:00 Intake Total 460 ml Balance 460 ml Intake Oral 460 ml Current Medications: Meds: Current Medications Acetaminophen (Tylenol) 650 mg PRN Q6HRS PRN PO PAIN / TEMP; Start 03/09/18 at 00:00 Multi-Ingredient Ointment (Analgesic [place]) 1 cayla PRN QID PRN TP MUSCLE PAIN; Start 03/09/18 at 00:00 Al Hydroxide/Mg Hydroxide (Mylanta Plus Xs) 15 ml PRN AFTMEALHC PRN PO DYSPEPSIA Last administered on 03/28/18 03:54; Start 03/09/18 at 00:00 Magnesium Hydroxide (Milk Of Magnesia) 2,400 mg PRN QHS PRN PO CONSTIPATION; Start 03/09/18 at 00:00 Ferrous Sulfate (Feosol) 325 mg BIDAFTMEAL PO Last administered on 03/31/18 16 :30; Start 03/09/18 at 09:00 Albuterol/ Ipratropium (Duoneb) 3 ml PRN Q4HRS PRN IH WHILE AWAKE F/SOA Last administered on 03/31/18at 14:59; Start 03/09/18 at 00:15 Lisinopril (Prinivil) 10 mg DAILY PO Last administered on 03/31/18 07:55; Start 03/09/18 at 09:00 Methadone HCl (Dolophine) 10 mg TID PO Last administered on 03/31/18 19:50; Start 03/09/18 at 09:00 Mirtazapine (Remeron) 30 mg QHS PO Last administered on 03/31/18 19:48; Start 03/09/18 at 21:00 Sertraline HCl (Zoloft) 150 mg DAILY PO Last administered on 03/13/18 07:57; Start 03/09/18 at 09:00; Stop 03/13/18 at 12:14; Status DC Carvedilol (Coreg) 3.125 mg BIDWMEALS PO Last administered on 03/31/18 16:29; Start 03/09/18 at 08:00 Furosemide (Lasix) 40 mg DAILY PO Last administered on 03/31/18 07:54; Start 03/09/18 at 09:00 Guaifenesin (Mucinex Er) 1,200 mg Q12HR PO Last administered on 03/31/18 19:48 ; Start 03/09/18 at 09:00 Latanoprost (Xalatan) 1 drop QHS OU Last administered on 03/31/18 19:51; Start 03/09/18 at 21:00 Nicotine (Nicoderm Cq 7mg) 1 patch DAILY TD Last administered on 03/31/18 07: 56; Start 03/09/18 at 09:00 Pantoprazole Sodium (Protonix) 40 mg DAILYAC PO Last administered on 03/31/18 07:53; Start 03/09/18 at 07:30 Phenytoin Sodium (Dilantin) 200 mg BID PO Last administered on 03/31/18 19:48 ; Start 03/09/18 at 09:00 Ropinirole HCl (Requip) 1 mg BID PO Last administered on 03/31/18 19:48; Start 03/09/18 at 09:00 Sennosides (Senna) 8.6 mg BID PO Last administered on 03/31/18 19:47; Start at 09:00 Non-Formulary Medication (Tiotropium [place] (Spiriva)) 1 puff DAILY IH ; Start 03/09/18 at 09:00; Status UNV Oxybutynin Chloride (Ditropan) 5 mg BID PO Last administered on 03/31/18 19:47 ; Start 03/09/18 at 21:00 Trazodone HCl (Desyrel) 50 mg PRN QHS PRN PO INSOMNIA; Start 03/09/18 at 00:15 ; Stop 03/09/18 at 19:54; Status DC Alprazolam (Xanax) 0.25 mg PRN Q12HR PRN PO ANXIETY / AGITATION; Start at 00:30; Stop 03/09/18 at 19:54; Status DC Alprazolam (Xanax) 0.25 mg PRN Q6HRS PRN PO ANXIETY / AGITATION; Start at 00:30; Stop 03/09/18 at 19:54; Status DC Albuterol Sulfate (Ventolin) 2.5 mg RTQID NEB Last administered on 03/31/18at 20 :19; Start 03/09/18 at 08:00 Budesonide (Pulmicort) 0.5 mg RTBID NEB Last administered on 03/31/18at 20:19; Start 03/09/18 at 08:00 Albuterol Sulfate (Ventolin) 2.5 mg STK-MED ONCE .ROUTE ; Start 03/09/18 at 06: 08; Stop 03/09/18 at 06:09; Status DC Alprazolam (Xanax) 0.25 mg PRN Q4HRS PRN PO ANXIETY / AGITATION Last administered on 03/31/18at 11:48; Start 03/09/18 at 20:00 Trazodone HCl (Desyrel) 100 mg PRN QHS PRN PO INSOMNIA Last administered on 09/07at 19:50; Start 03/09/18 at 20:00 Quetiapine Fumarate (SEROquel) 12.5 mg BID@0900,1300 PO Last administered on at 13:43; Start 03/12/18 at 09:00; Stop 03/12/18 at 18:38; Status DC Quetiapine Fumarate (SEROquel) 25 mg TID@0900,1300,1700 PO Last administered on 03/18/18at 16:29; Start 03/13/18 at 09:00; Stop 03/18/18 at 18:21; Status DC Quetiapine Fumarate (SEROquel) 12.5 mg 1X ONCE PO Last administered on at 19:19; Start 03/12/18 at 19:00; Stop 03/12/18 at 19:01; Status DC Sertraline HCl (Zoloft) 75 mg DAILY PO Last administered on 03/27/18at 07:55; Start 03/14/18 at 09:00; Stop 03/27/18 at 10:51; Status DC Divalproex Sodium (Depakote Sprinkles) 125 mg [id number] PO ; Start 03/15/18 at 22: 00; Stop 03/15/18 at 22:30; Status DC Divalproex Sodium (Depakote Sprinkles) 125 mg TIDAFTMEAL PO Last administered on 03/19/18at 16:45; Start 03/16/18 at 09:00; Stop 03/19/18 at 18:50; Status DC Quetiapine Fumarate (SEROquel) 37.5 mg TID@0900,1300,1700 PO Last administered on 03/21/18at 16:58; Start 03/19/18 at 09:00; Stop 03/21/18 at 19:24; Status DC Divalproex Sodium (Depakote Sprinkles) 250 mg TIDAFTMEAL PO Last administered on 03/22/18at 17:26; Start 03/20/18 at 09:00; Stop 03/22/18 at 18:06; Status DC Quetiapine Fumarate (SEROquel) 50 mg TID@0900,1300,1700 PO Last administered on 03/31/18at 16:30; Start 03/22/18 at 09:00 Divalproex Sodium (Depakote Sprinkles) 375 mg TIDAFTMEAL PO Last administered on 03/26/18at 17:18; Start 03/23/18 at 09:00; Stop 03/26/18 at 18:32; Status DC Divalproex Sodium (Depakote Sprinkles) 500 mg TIDAFTMEAL PO Last administered on 03/30/18at 17:51; Start 03/27/18 at 09:00; Stop 03/30/18 at 20:05; Status DC Fluvoxamine Maleate (Luvox) 25 mg DAILY PO Last administered on 03/30/18at 08:13 ; Start 03/28/18 at 09:00; Stop 03/30/18 at 12:00; Status DC Fluvoxamine Maleate (Luvox) 50 mg DAILY PO Last administered on 03/31/18at 07:57 ; Start 03/31/18 at 09:00; Stop 04/02/18 at 11:00 Divalproex Sodium (Depakote Er) 1,500 mg QHS PO Last administered on 03/31/18at 19:48; Start 03/30/18 at 21:00 Divalproex Sodium (Depakote Er) 250 mg QHS PO Last administered on 03/31/18at 19 :47; Start 03/30/18 at 21:00 Fluvoxamine Maleate (Luvox) 75 mg DAILY PO ; Start 04/03/18 at 09:00 Active Scripts Active Reported Alprazolam 0.25 Mg Tablet 0.25 Mg PO PRN Q12HR PRN Alprazolam 0.25 Mg Tablet 0.25 Mg PO PRN Q6HRS PRN Detrol La (Tolterodine Tartrate) 2 Mg Cap.er.24h 2 Mg PO QHS Xalatan (Latanoprost) 2.5 Ml Drops 1 Drop EACHEYE QHS Pantoprazole Sodium 40 Mg Tablet.dr 40 Mg PO DAILY Requip (Ropinirole Hcl) 1 Mg Tablet 1 Mg PO BID NICODERM CQ 7mg (Nicotine) 1 Each Patch.td24 1 Patch TD DAILY Mucinex (Guaifenesin) 1,200 Mg Tbmp.12hr 1,200 Mg PO Q12HR Lasix (Furosemide) 40 Mg Tablet 40 Mg PO DAILY Ferrous Sulfate 325 Mg Tablet 325 Mg PO BID Mirtazapine 30 Mg Tablet 30 Mg PO QHS Trazodone Hcl 50 Mg Tablet 50 Mg PO PRN QHS PRN Sertraline Hcl 50 Mg Tablet 150 Mg PO DAILY Spiriva (Tiotropium Gray) 18 Mcg Cap.w.dev 1 Puff IH DAILY Senna (Sennosides) 8.6 Mg Tablet 8.6 Mg PO BID Phenytoin Sodium Extended 100 Mg Capsule 200 Mg PO BID Methadone Hcl 5 Mg Tablet 10 Mg PO TID Lisinopril 10 Mg Tablet 10 Mg PO DAILY Carvedilol 3.125 Mg Tablet 1 Tab PO BIDWMEALS Duoneb 0.5-3(2.5) Mg/3 Ml (Albuterol/Ipratropium) 3 Ml Ampul.neb 3 Ml IH Q4HRS W /A PRN I have reviewed the current psychotropics carefully including drug interactions. Risk benefit ratio favors no change other than as noted in my dictated progress note. Diagnosis: Problems: (1) Vascular dementia with delusions (2) Alzheimer's dementia (3) Impulse control disorder (4) Major depressive disorder (5) Parkinson disease JESIKA HAYES MD Mar 31, 2018 20:44
--- NOTE | 2018-04-01 02:06 | PN ---
DATE: 03/30/2018 This late entry 03/30/2018 covers elements not covered in my initial note. SUBJECTIVE: Met with the patient in the evening in her room at length. Overall, the patient remains anxious back to the nursing station frequently for her PRNs. More of her ritualistic behavior at times. REVIEW OF SYSTEMS: Ambulation impaired with walker. Complains of anxiety, chest pain, difficulty breathing or part of her anxiety. No CV, , GI system symptoms on review. MENTAL STATUS EXAM: Oriented to herself and situation. Speech is coherent, rapid at times. Abstraction fair, computation impaired, language function intact. Mood and affect remain somewhat anxious, labile. LABORATORY DATA: Reviewed. IMPRESSION: Bipolar 1 disorder, mixed with psychotic features; anxiety disorder, unspecified; obsessive-compulsive disorder. PLAN: Valproic acid level subtherapeutic at 42 on Depakote 500 mg t.i.d. We will change this to Depakote ER 1750 at bedtime. Check CBC, CMP, valproic acid level, ammonia level in 3 days. Continue rest unchanged. MAN Gabino HAYES MD DR: BROOKE/fabio JOB#: [id number] / [id number]
[2018-04-01] MEDS: ALBUTEROL SULFATE 2.5 MG/3 ML NEBU. NEB SCH ×4 (04:19→21:14)
[2018-04-01 05:47] VITALS: BP 108/58
[2018-04-01] MEDS: NICOTINE 7MG PATCH. TD SCH (07:37)
[2018-04-01] MEDS: rOPINIRole 1 MG TABLET. PO SCH ×2 (07:38→19:56)
[2018-04-01] MEDS: PHENYTOIN SODIUM EXTENDED 100 MG CAPSULE PO SCH ×2 (07:38→19:55)
[2018-04-01] MEDS: PANTOPRAZOLE 40 MG TABLET. PO SCH (07:40)
[2018-04-01] MEDS: QUEtiapine 50 MG TABLET. PO SCH ×3 (07:40→17:24)
[2018-04-01] MEDS: CARVEDILOL 3.125 MG TABLET PO SCH ×2 (07:40→17:24)
[2018-04-01] MEDS: LISINOPRIL 10 MG TABLET PO SCH (07:40)
[2018-04-01] MEDS: OXYBUTYNIN CHLORIDE 5 MG TABLET PO SCH ×2 (07:40→19:56)
[2018-04-01] MEDS: FUROSEMIDE 40 MG TABLET PO SCH (07:41)
[2018-04-01] MEDS: SENNOSIDES 8.6 MG TABLET PO SCH ×2 (07:41→19:54)
[2018-04-01] MEDS: FERROUS SULFATE 325 MG TABLET. PO SCH ×2 (07:41→17:24)
[2018-04-01] MEDS: METHADONE 5 MG TABLET. PO SCH ×3 (07:43→19:59)
[2018-04-01] MEDS: BUDESONIDE 0.5 MG/2 ML NEBU NEB SCH ×2 (11:17→21:14)
[2018-04-01] MEDS: ALPRAZolam 0.25 MG TABLET PO PRN ×2 (14:01→20:00)
[2018-04-01 16:43] VITALS: BP 103/69
[2018-04-01] MEDS: DIVALPROEX ER 500 MG TAB.ER.24H PO SCH (19:54)
[2018-04-01] MEDS: DIVALPROEX ER 250 MG TAB.ER.24H. PO SCH (19:55)
[2018-04-01] MEDS: MIRTAZAPINE 30 MG TABLET PO SCH (19:56)
--- NOTE | 2018-04-01 20:06 | PDOC ---
Exam Note: Brian Note: Please also refer to the separate dictated note~for this date of service dictated separately.~Patient seen individually. Discussed the patient with Nursing staff reviewed the chart.~Reviewed interim history and current functioning. Reviewed vital signs,~Labs/ Radiology~and current medications noted below. Continue current treatment with the changes noted in the dictated addendum note Assessment: Vital Signs: Vital Signs Date Time Temp Pulse Resp B/P (MAP) Pulse Ox O2 Delivery O2 Flow Rate FiO2 04/01/18 17:24 77 103/69 04/01/18 16:44 95 Room Air 04/01/18 16:43 98.5 22 I&O Intake and Output 04/01/18 07:00 Intake Total 300 ml Balance 300 ml Intake Oral 300 ml Current Medications: Meds: Current Medications Acetaminophen (Tylenol) 650 mg PRN Q6HRS PRN PO PAIN / TEMP; Start 03/09/18 at 00:00 Multi-Ingredient Ointment (Analgesic [place]) 1 cayla PRN QID PRN TP MUSCLE PAIN; Start 03/09/18 at 00:00 Al Hydroxide/Mg Hydroxide (Mylanta Plus Xs) 15 ml PRN AFTMEALHC PRN PO DYSPEPSIA Last administered on 03/28/18at 03:54; Start 03/09/18 at 00:00 Magnesium Hydroxide (Milk Of Magnesia) 2,400 mg PRN QHS PRN PO CONSTIPATION; Start 03/09/18 at 00:00 Ferrous Sulfate (Feosol) 325 mg BIDAFTMEAL PO Last administered on 04/01/18at 17 :24; Start 03/09/18 at 09:00 Albuterol/ Ipratropium (Duoneb) 3 ml PRN Q4HRS PRN IH WHILE AWAKE F/SOA Last administered on 03/31/18at 14:59; Start 03/09/18 at 00:15 Lisinopril (Prinivil) 10 mg DAILY PO Last administered on 04/01/18at 07:40; Start 03/09/18 at 09:00 Methadone HCl (Dolophine) 10 mg TID PO Last administered on 04/01/18 19:59; Start 03/09/18 at 09:00 Mirtazapine (Remeron) 30 mg QHS PO Last administered on 04/01/18 19:56; Start 03/09/18 at 21:00 Sertraline HCl (Zoloft) 150 mg DAILY PO Last administered on 03/13/18 07:57; Start 03/09/18 at 09:00; Stop 03/13/18 at 12:14; Status DC Carvedilol (Coreg) 3.125 mg BIDWMEALS PO Last administered on 04/01/18 17:24; Start 03/09/18 at 08:00 Furosemide (Lasix) 40 mg DAILY PO Last administered on 04/01/18 07:41; Start 03/09/18 at 09:00 Guaifenesin (Mucinex Er) 1,200 mg Q12HR PO Last administered on 04/01/18 19:56 ; Start 03/09/18 at 09:00 Latanoprost (Xalatan) 1 drop QHS OU Last administered on 03/31/18 19:51; Start 03/09/18 at 21:00 Nicotine (Nicoderm Cq 7mg) 1 patch DAILY TD Last administered on 04/01/18 07: 37; Start 03/09/18 at 09:00 Pantoprazole Sodium (Protonix) 40 mg DAILYAC PO Last administered on 04/01/18 07:40; Start 03/09/18 at 07:30 Phenytoin Sodium (Dilantin) 200 mg BID PO Last administered on 04/01/18 19:55 ; Start 03/09/18 at 09:00 Ropinirole HCl (Requip) 1 mg BID PO Last administered on 04/01/18 19:56; Start 03/09/18 at 09:00 Sennosides (Senna) 8.6 mg BID PO Last administered on 04/01/18 19:54; Start at 09:00 Non-Formulary Medication (Tiotropium [place] (Spiriva)) 1 puff DAILY IH ; Start 03/09/18 at 09:00; Status UNV Oxybutynin Chloride (Ditropan) 5 mg BID PO Last administered on 04/01/18 19:56 ; Start 03/09/18 at 21:00 Trazodone HCl (Desyrel) 50 mg PRN QHS PRN PO INSOMNIA; Start 03/09/18 at 00:15 ; Stop 03/09/18 at 19:54; Status DC Alprazolam (Xanax) 0.25 mg PRN Q12HR PRN PO ANXIETY / AGITATION; Start at 00:30; Stop 03/09/18 at 19:54; Status DC Alprazolam (Xanax) 0.25 mg PRN Q6HRS PRN PO ANXIETY / AGITATION; Start at 00:30; Stop 03/09/18 at 19:54; Status DC Albuterol Sulfate (Ventolin) 2.5 mg RTQID NEB Last administered on 04/01/18at 16 :44; Start 03/09/18 at 08:00 Budesonide (Pulmicort) 0.5 mg RTBID NEB Last administered on 04/01/18at 11:17; Start 03/09/18 at 08:00 Albuterol Sulfate (Ventolin) 2.5 mg STK-MED ONCE .ROUTE ; Start 03/09/18 at 06: 08; Stop 03/09/18 at 06:09; Status DC Alprazolam (Xanax) 0.25 mg PRN Q4HRS PRN PO ANXIETY / AGITATION Last administered on 04/01/18at 20:00; Start 03/09/18 at 20:00 Trazodone HCl (Desyrel) 100 mg PRN QHS PRN PO INSOMNIA Last administered on 09/07at 19:50; Start 03/09/18 at 20:00 Quetiapine Fumarate (SEROquel) 12.5 mg BID@0900,1300 PO Last administered on at 13:43; Start 03/12/18 at 09:00; Stop 03/12/18 at 18:38; Status DC Quetiapine Fumarate (SEROquel) 25 mg TID@0900,1300,1700 PO Last administered on 03/18/18at 16:29; Start 03/13/18 at 09:00; Stop 03/18/18 at 18:21; Status DC Quetiapine Fumarate (SEROquel) 12.5 mg 1X ONCE PO Last administered on at 19:19; Start 03/12/18 at 19:00; Stop 03/12/18 at 19:01; Status DC Sertraline HCl (Zoloft) 75 mg DAILY PO Last administered on 03/27/18at 07:55; Start 03/14/18 at 09:00; Stop 03/27/18 at 10:51; Status DC Divalproex Sodium (Depakote Sprinkles) 125 mg [id number] PO ; Start 03/15/18 at 22: 00; Stop 03/15/18 at 22:30; Status DC Divalproex Sodium (Depakote Sprinkles) 125 mg TIDAFTMEAL PO Last administered on 03/19/18at 16:45; Start 03/16/18 at 09:00; Stop 03/19/18 at 18:50; Status DC Quetiapine Fumarate (SEROquel) 37.5 mg TID@0900,1300,1700 PO Last administered on 03/21/18at 16:58; Start 03/19/18 at 09:00; Stop 03/21/18 at 19:24; Status DC Divalproex Sodium (Depakote Sprinkles) 250 mg TIDAFTMEAL PO Last administered on 03/22/18at 17:26; Start 03/20/18 at 09:00; Stop 03/22/18 at 18:06; Status DC Quetiapine Fumarate (SEROquel) 50 mg TID@0900,1300,1700 PO Last administered on 04/01/18at 17:24; Start 03/22/18 at 09:00 Divalproex Sodium (Depakote Sprinkles) 375 mg TIDAFTMEAL PO Last administered on 03/26/18at 17:18; Start 03/23/18 at 09:00; Stop 03/26/18 at 18:32; Status DC Divalproex Sodium (Depakote Sprinkles) 500 mg TIDAFTMEAL PO Last administered on 03/30/18at 17:51; Start 03/27/18 at 09:00; Stop 03/30/18 at 20:05; Status DC Fluvoxamine Maleate (Luvox) 25 mg DAILY PO Last administered on 03/30/18at 08:13 ; Start 03/28/18 at 09:00; Stop 03/30/18 at 12:00; Status DC Fluvoxamine Maleate (Luvox) 50 mg DAILY PO Last administered on 04/01/18at 07:39 ; Start 03/31/18 at 09:00; Stop 04/02/18 at 11:00 Divalproex Sodium (Depakote Er) 1,500 mg QHS PO Last administered on 04/01/18at 19:54; Start 03/30/18 at 21:00 Divalproex Sodium (Depakote Er) 250 mg QHS PO Last administered on 04/01/18at 19 :55; Start 03/30/18 at 21:00 Fluvoxamine Maleate (Luvox) 75 mg DAILY PO ; Start 04/03/18 at 09:00 Active Scripts Active Reported Alprazolam 0.25 Mg Tablet 0.25 Mg PO PRN Q12HR PRN Alprazolam 0.25 Mg Tablet 0.25 Mg PO PRN Q6HRS PRN Detrol La (Tolterodine Tartrate) 2 Mg Cap.er.24h 2 Mg PO QHS Xalatan (Latanoprost) 2.5 Ml Drops 1 Drop EACHEYE QHS Pantoprazole Sodium 40 Mg Tablet.dr 40 Mg PO DAILY Requip (Ropinirole Hcl) 1 Mg Tablet 1 Mg PO BID NICODERM CQ 7mg (Nicotine) 1 Each Patch.td24 1 Patch TD DAILY Mucinex (Guaifenesin) 1,200 Mg Tbmp.12hr 1,200 Mg PO Q12HR Lasix (Furosemide) 40 Mg Tablet 40 Mg PO DAILY Ferrous Sulfate 325 Mg Tablet 325 Mg PO BID Mirtazapine 30 Mg Tablet 30 Mg PO QHS Trazodone Hcl 50 Mg Tablet 50 Mg PO PRN QHS PRN Sertraline Hcl 50 Mg Tablet 150 Mg PO DAILY Spiriva (Tiotropium [place]) 18 Mcg Cap.w.dev 1 Puff IH DAILY Senna (Sennosides) 8.6 Mg Tablet 8.6 Mg PO BID Phenytoin Sodium Extended 100 Mg Capsule 200 Mg PO BID Methadone Hcl 5 Mg Tablet 10 Mg PO TID Lisinopril 10 Mg Tablet 10 Mg PO DAILY Carvedilol 3.125 Mg Tablet 1 Tab PO BIDWMEALS Duoneb 0.5-3(2.5) Mg/3 Ml (Albuterol/Ipratropium) 3 Ml Ampul.neb 3 Ml IH Q4HRS W /A PRN I have reviewed the current psychotropics carefully including drug interactions. Risk benefit ratio favors no change other than as noted in my dictated progress note. Diagnosis: Problems: (1) Vascular dementia with delusions (2) Alzheimer's dementia (3) Impulse control disorder (4) Major depressive disorder (5) Parkinson disease JESIKA HAYES MD Apr 01, 2018 20:06
[2018-04-01] MEDS: LATANOPROST 0.005% OPHTH SOLUTION 2.5ML BOTTLE. OU SCH (21:00)
--- NOTE | 2018-04-01 23:49 | PN ---
DATE: 03/31/2018 This late entry 03/31/2018 covers elements not covered in my initial note. SUBJECTIVE: I met with the patient in the evening in her room. She slept 7 hours. She has been anxious, constantly up at the nursing station wanting her Xanax. Continues to say she cannot breathe and was yelling at times. REVIEW OF SYSTEMS: No CV, , pulmonary system symptoms on review other than above. MENTAL STATUS EXAM: Oriented to herself and situation. Speech coherent, rapid at times. Abstraction fair, computation impaired, language function intact, attention span short. Mood and affect remains somewhat labile. LABORATORY DATA: Reviewed. IMPRESSION: Unchanged from initial note. She is quite obsessive. PLAN: Increase Luvox to 75 mg a day when she has been on 50 mg for 3 days. Maintain Depakote ER current dosage. Repeat labs level on the . Continue rest of psychotropics. MAN Gabino HAYES MD DR: BROOKE/fabio JOB#: [id number] / [id number]
[2018-04-02] MEDS: ALPRAZolam 0.25 MG TABLET PO PRN ×4 (05:12→19:39)
[2018-04-02 06:11] VITALS: BP 108/61
[2018-04-02] MEDS: ALBUTEROL SULFATE 2.5 MG/3 ML NEBU. NEB SCH ×4 (06:13→21:53)
[2018-04-02] MEDS: LISINOPRIL 10 MG TABLET PO SCH (07:52)
[2018-04-02] MEDS: NICOTINE 7MG PATCH. TD SCH (07:52)
[2018-04-02] MEDS: QUEtiapine 50 MG TABLET. PO SCH ×3 (07:52→18:19)
[2018-04-02] MEDS: PHENYTOIN SODIUM EXTENDED 100 MG CAPSULE PO SCH ×2 (07:52→19:36)
[2018-04-02] MEDS: FUROSEMIDE 40 MG TABLET PO SCH (07:53)
[2018-04-02] MEDS: OXYBUTYNIN CHLORIDE 5 MG TABLET PO SCH ×2 (07:53→19:37)
[2018-04-02] MEDS: SENNOSIDES 8.6 MG TABLET PO SCH ×2 (07:53→19:36)
[2018-04-02] MEDS: PANTOPRAZOLE 40 MG TABLET. PO SCH (07:53)
[2018-04-02] MEDS: rOPINIRole 1 MG TABLET. PO SCH ×2 (07:53→19:36)
[2018-04-02] MEDS: FERROUS SULFATE 325 MG TABLET. PO SCH ×2 (07:53→18:19)
[2018-04-02] MEDS: CARVEDILOL 3.125 MG TABLET PO SCH ×2 (07:53→18:20)
[2018-04-02] MEDS: METHADONE 5 MG TABLET. PO SCH ×3 (07:56→19:39)
[2018-04-02] MEDS: BUDESONIDE 0.5 MG/2 ML NEBU NEB SCH ×2 (11:20→21:52)
[2018-04-02 16:24] VITALS: BP 113/59
[2018-04-02] MEDS: DIVALPROEX ER 250 MG TAB.ER.24H. PO SCH (19:35)
[2018-04-02] MEDS: MIRTAZAPINE 30 MG TABLET PO SCH (19:36)
[2018-04-02] MEDS: DIVALPROEX ER 500 MG TAB.ER.24H PO SCH (19:36)
--- NOTE | 2018-04-02 20:53 | PDOC ---
Exam Note: Brian Note: Please also refer to the separate dictated note~for this date of service dictated separately.~Patient seen individually. Discussed the patient with Nursing staff reviewed the chart.~Reviewed interim history and current functioning. Reviewed vital signs,~Labs/ Radiology~and current medications noted below. Continue current treatment with the changes noted in the dictated addendum note Assessment: Vital Signs: Vital Signs Date Time Temp Pulse Resp B/P (MAP) Pulse Ox O2 Delivery O2 Flow Rate FiO2 04/02/18 18:20 65 113/59 04/02/18 16:41 96 Room Air 04/02/18 16:24 97.0 16 I&O Intake and Output 04/02/18 07:00 Intake Total 960 ml Balance 960 ml Intake Oral 960 ml # Bowel Movements 1 Current Medications: Meds: Current Medications Acetaminophen (Tylenol) 650 mg PRN Q6HRS PRN PO PAIN / TEMP; Start 03/09/18 at 00:00 Multi-Ingredient Ointment (Analgesic [place]) 1 cayla PRN QID PRN TP MUSCLE PAIN; Start 03/09/18 at 00:00 Al Hydroxide/Mg Hydroxide (Mylanta Plus Xs) 15 ml PRN AFTMEALHC PRN PO DYSPEPSIA Last administered on 03/28/18at 03:54; Start 03/09/18 at 00:00 Magnesium Hydroxide (Milk Of Magnesia) 2,400 mg PRN QHS PRN PO CONSTIPATION; Start 03/09/18 at 00:00 Ferrous Sulfate (Feosol) 325 mg BIDAFTMEAL PO Last administered on 04/02/18 18 :19; Start 03/09/18 at 09:00 Albuterol/ Ipratropium (Duoneb) 3 ml PRN Q4HRS PRN IH WHILE AWAKE F/SOA Last administered on 03/31/18at 14:59; Start 03/09/18 at 00:15 Lisinopril (Prinivil) 10 mg DAILY PO Last administered on 04/02/18at 07:52; Start 03/09/18 at 09:00 Methadone HCl (Dolophine) 10 mg TID PO Last administered on 04/02/18 19:39; Start 03/09/18 at 09:00 Mirtazapine (Remeron) 30 mg QHS PO Last administered on 04/02/18 19:36; Start 03/09/18 at 21:00 Sertraline HCl (Zoloft) 150 mg DAILY PO Last administered on 03/13/18 07:57; Start 03/09/18 at 09:00; Stop 03/13/18 at 12:14; Status DC Carvedilol (Coreg) 3.125 mg BIDWMEALS PO Last administered on 04/02/18 18:20; Start 03/09/18 at 08:00 Furosemide (Lasix) 40 mg DAILY PO Last administered on 04/02/18 07:53; Start 03/09/18 at 09:00 Guaifenesin (Mucinex Er) 1,200 mg Q12HR PO Last administered on 04/02/18 19:36 ; Start 03/09/18 at 09:00 Latanoprost (Xalatan) 1 drop QHS OU Last administered on 04/01/18 21:00; Start 03/09/18 at 21:00 Nicotine (Nicoderm Cq 7mg) 1 patch DAILY TD Last administered on 04/02/18 07: 52; Start 03/09/18 at 09:00 Pantoprazole Sodium (Protonix) 40 mg DAILYAC PO Last administered on 04/02/18 07:53; Start 03/09/18 at 07:30 Phenytoin Sodium (Dilantin) 200 mg BID PO Last administered on 04/02/18 19:36 ; Start 03/09/18 at 09:00 Ropinirole HCl (Requip) 1 mg BID PO Last administered on 04/02/18 19:36; Start 03/09/18 at 09:00 Sennosides (Senna) 8.6 mg BID PO Last administered on 04/02/18 19:36; Start at 09:00 Non-Formulary Medication (Tiotropium [place] (Spiriva)) 1 puff DAILY IH ; Start 03/09/18 at 09:00; Status UNV Oxybutynin Chloride (Ditropan) 5 mg BID PO Last administered on 04/02/18 19:37 ; Start 03/09/18 at 21:00 Trazodone HCl (Desyrel) 50 mg PRN QHS PRN PO INSOMNIA; Start 03/09/18 at 00:15 ; Stop 03/09/18 at 19:54; Status DC Alprazolam (Xanax) 0.25 mg PRN Q12HR PRN PO ANXIETY / AGITATION; Start at 00:30; Stop 03/09/18 at 19:54; Status DC Alprazolam (Xanax) 0.25 mg PRN Q6HRS PRN PO ANXIETY / AGITATION; Start at 00:30; Stop 03/09/18 at 19:54; Status DC Albuterol Sulfate (Ventolin) 2.5 mg RTQID NEB Last administered on 04/02/18at 16 :40; Start 03/09/18 at 08:00 Budesonide (Pulmicort) 0.5 mg RTBID NEB Last administered on 04/02/18at 11:20; Start 03/09/18 at 08:00 Albuterol Sulfate (Ventolin) 2.5 mg STK-MED ONCE .ROUTE ; Start 03/09/18 at 06: 08; Stop 03/09/18 at 06:09; Status DC Alprazolam (Xanax) 0.25 mg PRN Q4HRS PRN PO ANXIETY / AGITATION Last administered on 04/02/18at 19:39; Start 03/09/18 at 20:00 Trazodone HCl (Desyrel) 100 mg PRN QHS PRN PO INSOMNIA Last administered on 09/07at 19:50; Start 03/09/18 at 20:00 Quetiapine Fumarate (SEROquel) 12.5 mg BID@0900,1300 PO Last administered on at 13:43; Start 03/12/18 at 09:00; Stop 03/12/18 at 18:38; Status DC Quetiapine Fumarate (SEROquel) 25 mg TID@0900,1300,1700 PO Last administered on 03/18/18at 16:29; Start 03/13/18 at 09:00; Stop 03/18/18 at 18:21; Status DC Quetiapine Fumarate (SEROquel) 12.5 mg 1X ONCE PO Last administered on at 19:19; Start 03/12/18 at 19:00; Stop 03/12/18 at 19:01; Status DC Sertraline HCl (Zoloft) 75 mg DAILY PO Last administered on 03/27/18at 07:55; Start 03/14/18 at 09:00; Stop 03/27/18 at 10:51; Status DC Divalproex Sodium (Depakote Sprinkles) 125 mg [id number] PO ; Start 03/15/18 at 22: 00; Stop 03/15/18 at 22:30; Status DC Divalproex Sodium (Depakote Sprinkles) 125 mg TIDAFTMEAL PO Last administered on 03/19/18at 16:45; Start 03/16/18 at 09:00; Stop 03/19/18 at 18:50; Status DC Quetiapine Fumarate (SEROquel) 37.5 mg TID@0900,1300,1700 PO Last administered on 03/21/18at 16:58; Start 03/19/18 at 09:00; Stop 03/21/18 at 19:24; Status DC Divalproex Sodium (Depakote Sprinkles) 250 mg TIDAFTMEAL PO Last administered on 03/22/18at 17:26; Start 03/20/18 at 09:00; Stop 03/22/18 at 18:06; Status DC Quetiapine Fumarate (SEROquel) 50 mg TID@0900,1300,1700 PO Last administered on 04/02/18at 18:19; Start 03/22/18 at 09:00 Divalproex Sodium (Depakote Sprinkles) 375 mg TIDAFTMEAL PO Last administered on 03/26/18at 17:18; Start 03/23/18 at 09:00; Stop 03/26/18 at 18:32; Status DC Divalproex Sodium (Depakote Sprinkles) 500 mg TIDAFTMEAL PO Last administered on 03/30/18at 17:51; Start 03/27/18 at 09:00; Stop 03/30/18 at 20:05; Status DC Fluvoxamine Maleate (Luvox) 25 mg DAILY PO Last administered on 03/30/18at 08:13 ; Start 03/28/18 at 09:00; Stop 03/30/18 at 12:00; Status DC Fluvoxamine Maleate (Luvox) 50 mg DAILY PO Last administered on 04/02/18at 07:54 ; Start 03/31/18 at 09:00; Stop 04/02/18 at 11:00; Status DC Divalproex Sodium (Depakote Er) 1,500 mg QHS PO Last administered on 04/02/18at 19:36; Start 03/30/18 at 21:00 Divalproex Sodium (Depakote Er) 250 mg QHS PO Last administered on 04/02/18at 19 :35; Start 03/30/18 at 21:00 Fluvoxamine Maleate (Luvox) 75 mg DAILY PO ; Start 04/03/18 at 09:00 Active Scripts Active Reported Alprazolam 0.25 Mg Tablet 0.25 Mg PO PRN Q12HR PRN Alprazolam 0.25 Mg Tablet 0.25 Mg PO PRN Q6HRS PRN Detrol La (Tolterodine Tartrate) 2 Mg Cap.er.24h 2 Mg PO QHS Xalatan (Latanoprost) 2.5 Ml Drops 1 Drop EACHEYE QHS Pantoprazole Sodium 40 Mg Tablet.dr 40 Mg PO DAILY Requip (Ropinirole Hcl) 1 Mg Tablet 1 Mg PO BID NICODERM CQ 7mg (Nicotine) 1 Each Patch.td24 1 Patch TD DAILY Mucinex (Guaifenesin) 1,200 Mg Tbmp.12hr 1,200 Mg PO Q12HR Lasix (Furosemide) 40 Mg Tablet 40 Mg PO DAILY Ferrous Sulfate 325 Mg Tablet 325 Mg PO BID Mirtazapine 30 Mg Tablet 30 Mg PO QHS Trazodone Hcl 50 Mg Tablet 50 Mg PO PRN QHS PRN Sertraline Hcl 50 Mg Tablet 150 Mg PO DAILY Spiriva (Tiotropium [place]) 18 Mcg Cap.w.dev 1 Puff IH DAILY Senna (Sennosides) 8.6 Mg Tablet 8.6 Mg PO BID Phenytoin Sodium Extended 100 Mg Capsule 200 Mg PO BID Methadone Hcl 5 Mg Tablet 10 Mg PO TID Lisinopril 10 Mg Tablet 10 Mg PO DAILY Carvedilol 3.125 Mg Tablet 1 Tab PO BIDWMEALS Duoneb 0.5-3(2.5) Mg/3 Ml (Albuterol/Ipratropium) 3 Ml Ampul.neb 3 Ml IH Q4HRS W /A PRN I have reviewed the current psychotropics carefully including drug interactions. Risk benefit ratio favors no change other than as noted in my dictated progress note. Diagnosis: Problems: (1) Vascular dementia with delusions (2) Alzheimer's dementia (3) Impulse control disorder (4) Major depressive disorder (5) Parkinson disease JESIKA HAYES MD Apr 02, 2018 20:53
[2018-04-02] MEDS: LATANOPROST 0.005% OPHTH SOLUTION 2.5ML BOTTLE. OU SCH (21:00)
--- NOTE | 2018-04-02 21:30 | PN ---
DATE: 04/01/2018 This late entry for 04/01/2018 covers elements not covered in my initial note. I met with the patient at some length in her room. She continues to be medication seeking back at the nursing station, wanting Xanax repeatedly. Subjectively, as I met with her in her room, she said she felt a little better. REVIEW OF SYSTEMS: Ambulation impaired with walker. Complains of anxiety, wakes somatic chest and pulmonary symptoms. No CV, , eye system symptoms on review. MENTAL STATUS EXAM: Oriented to herself and situation. Speech is coherent, rapid at times. Abstraction fair, computation impaired, language function intact, attention span short. Mood and affect remains anxious, labile. LABORATORY DATA: Reviewed. IMPRESSION: Unchanged from initial note. PLAN: Continue current psychotropics. Depakote has been adjusted. Repeat valproic acid level. Labs on the . Adjust further to reach therapeutic level thereafter. MAN Gabino HAYES MD DR: BROOKE/fabio JOB#: [id number] / [id number]
[2018-04-03] MEDS: ALPRAZolam 0.25 MG TABLET PO PRN ×5 (00:21→20:35)
[2018-04-03] MEDS: MAG HYDROX/AL HYDROX/SIMETH 30 ML ORAL.SUSP PO PRN (05:39)
[2018-04-03 05:50] VITALS: BP 118/76
[2018-04-03] MEDS: ALBUTEROL SULFATE 2.5 MG/3 ML NEBU. NEB SCH ×4 (05:53→20:43)
[2018-04-03 08:21] LABS: BASO % 1 % (0-3); EOS # 0.2 x10^3/uL (0.0-0.7); EOS % 3 % (0-3); HEMATOCRIT 37.2 % (36.0-47.0); HEMOGLOBIN 12.8 g/dL (12.0-15.5); LYMPH # 1.3 x10^3/uL (1.0-4.8); LYMPH % 19 % (24-48); MEAN CORPUSCULAR HEMOGLOBIN 34 pg (25-35); MEAN CORPUSCULAR HGB CONC 34 g/dL (31-37); MEAN CORPUSCULAR VOLUME 98 fL (79-100); MONO # 0.8 x10^3/uL (0.0-1.1); MONO % 11 % (0-9); NEUT # 4.6 x10^3uL (1.8-7.7); NEUT % 67 % (31-73); PLATELET COUNT 397 x10^3/uL (140-400); RED BLOOD COUNT 3.81 x10^6/uL (3.50-5.40); RED CELL DISTRIBUTION WIDTH 13.4 % (11.5-14.5); WHITE BLOOD COUNT 6.9 x10^3/uL (4.0-11.0)
[2018-04-03 08:37] LABS: ALBUMIN 3.3 g/dL (3.4-5.0); ALBUMIN/GLOBULIN RATIO 0.8 (1.0-1.7); ALK PHOS 97 U/L (46-116); ALT (SGPT) 17 U/L (14-59); ANION GAP 9 (6-14); AST (SGOT) 15 U/L (15-37); BLOOD UREA NITROGEN 32 mg/dL (7-20); BUN/CREATININE RATIO 36 (6-20); CARBON DIOXIDE 34 mmol/L (21-32); CHLORIDE 92 mmol/L (98-107); CREATININE 0.9 mg/dL (0.6-1.0); GFR 60.9; GLUCOSE 92 mg/dL (70-99); POTASSIUM 3.7 mmol/L (3.5-5.1); SODIUM 135 mmol/L (136-145); TOTAL BILIRUBIN 0.3 mg/dL (0.2-1.0); TOTAL PROTEIN 7.2 g/dL (6.4-8.2)
[2018-04-03 08:40] LABS: VAL ACID 59 mcg/mL (50-100)
[2018-04-03] MEDS: OXYBUTYNIN CHLORIDE 5 MG TABLET PO SCH ×2 (09:03→19:22)
[2018-04-03] MEDS: PHENYTOIN SODIUM EXTENDED 100 MG CAPSULE PO SCH ×2 (09:03→19:24)
[2018-04-03] MEDS: QUEtiapine 50 MG TABLET. PO SCH ×3 (09:03→17:30)
[2018-04-03] MEDS: CARVEDILOL 3.125 MG TABLET PO SCH ×2 (09:04→17:29)
[2018-04-03] MEDS: PANTOPRAZOLE 40 MG TABLET. PO SCH (09:04)
[2018-04-03] MEDS: FUROSEMIDE 40 MG TABLET PO SCH (09:04)
[2018-04-03] MEDS: FERROUS SULFATE 325 MG TABLET. PO SCH ×2 (09:04→17:29)
[2018-04-03] MEDS: LISINOPRIL 10 MG TABLET PO SCH (09:04)
[2018-04-03] MEDS: rOPINIRole 1 MG TABLET. PO SCH ×2 (09:04→19:23)
[2018-04-03] MEDS: SENNOSIDES 8.6 MG TABLET PO SCH ×2 (09:04→19:24)
[2018-04-03] MEDS: NICOTINE 7MG PATCH. TD SCH (09:05)
[2018-04-03] MEDS: METHADONE 5 MG TABLET. PO SCH ×3 (09:06→19:24)
[2018-04-03] MEDS: BUDESONIDE 0.5 MG/2 ML NEBU NEB SCH ×2 (11:16→20:43)
[2018-04-03] MEDS: busPIRone 5 MG TABLET. PO SCH ×2 (13:32→17:29)
[2018-04-03 16:44] VITALS: BP 135/74
[2018-04-03] MEDS: MIRTAZAPINE 30 MG TABLET PO SCH (19:22)
[2018-04-03] MEDS: DIVALPROEX ER 500 MG TAB.ER.24H PO SCH (19:22)
[2018-04-03] MEDS: DIVALPROEX ER 250 MG TAB.ER.24H. PO SCH (19:23)
[2018-04-03] MEDS: LATANOPROST 0.005% OPHTH SOLUTION 2.5ML BOTTLE. OU SCH (19:26)
--- NOTE | 2018-04-03 22:25 | PDOC ---
Exam Note: Brian Note: Please also refer to the separate dictated note~for this date of service dictated separately.~Patient seen individually. Discussed the patient with Nursing staff reviewed the chart.~Reviewed interim history and current functioning. Reviewed vital signs,~Labs/ Radiology~and current medications noted below. Continue current treatment with the changes noted in the dictated addendum note Assessment: Vital Signs: Vital Signs Date Time Temp Pulse Resp B/P (MAP) Pulse Ox O2 Delivery O2 Flow Rate FiO2 04/03/18 21:31 20 Room Air 04/03/18 17:29 69 135/74 04/03/18 16:44 97.0 95 I&O Intake and Output 04/03/18 07:00 Intake Total 820 ml Balance 820 ml Intake Oral 820 ml Labs: Laboratory Tests Test 04/03/18 07:18 04/03/18 07:57 White Blood Count 6.9 x10^3/uL (4.0-11.0) Red Blood Count 3.81 x10^6/uL (3.50-5.40) Hemoglobin 12.8 g/dL (12.0-15.5) Hematocrit 37.2 % (36.0-47.0) Mean Corpuscular Volume 98 fL (79-100) Mean Corpuscular Hemoglobin 34 pg (25-35) Mean Corpuscular Hemoglobin Concent 34 g/dL (31-37) Red Cell Distribution Width 13.4 % (11.5-14.5) Platelet Count 397 x10^3/uL (140-400) Neutrophils (%) (Auto) 67 % (31-73) Lymphocytes (%) (Auto) 19 % (24-48) L Monocytes (%) (Auto) 11 % (0-9) H Eosinophils (%) (Auto) 3 % (0-3) Basophils (%) (Auto) 1 % (0-3) Neutrophils # (Auto) 4.6 x10^3uL (1.8-7.7) Lymphocytes # (Auto) 1.3 x10^3/uL (1.0-4.8) Monocytes # (Auto) 0.8 x10^3/uL (0.0-1.1) Eosinophils # (Auto) 0.2 x10^3/uL (0.0-0.7) Basophils # (Auto) 0.0 x10^3/uL (0.0-0.2) Sodium Level 135 mmol/L (136-145) L Potassium Level 3.7 mmol/L (3.5-5.1) Chloride Level 92 mmol/L (98-107) L Carbon Dioxide Level 34 mmol/L (21-32) H Anion Gap 9 (6-14) Blood Urea Nitrogen 32 mg/dL (7-20) H Creatinine 0.9 mg/dL (0.6-1.0) Estimated GFR (Cockcroft-Gault) 60.9 BUN/Creatinine Ratio 36 (6-20) H Glucose Level 92 mg/dL (70-99) Calcium Level 9.0 mg/dL (8.5-10.1) Total Bilirubin 0.3 mg/dL (0.2-1.0) Aspartate Amino Transferase (AST) 15 U/L (15-37) Alanine Aminotransferase (ALT) 17 U/L (14-59) Alkaline Phosphatase 97 U/L (46-116) Ammonia < 10 mcmol/L (11-34) L Total Protein 7.2 g/dL (6.4-8.2) Albumin 3.3 g/dL (3.4-5.0) L Albumin/Globulin Ratio 0.8 (1.0-1.7) L Valproic Acid Level 59 mcg/mL (50-100) Valproic Acid Last Dose Date 04/02/18 Valproic Acid Last Dose Time 2100 Current Medications: Meds: Current Medications Acetaminophen (Tylenol) 650 mg PRN Q6HRS PRN PO PAIN / TEMP; Start 03/09/18 at 00:00 Multi-Ingredient Ointment (Analgesic [place]) 1 cayla PRN QID PRN TP MUSCLE PAIN; Start 03/09/18 at 00:00 Al Hydroxide/Mg Hydroxide (Mylanta Plus Xs) 15 ml PRN AFTMEALHC PRN PO DYSPEPSIA Last administered on 04/03/18at 05:39; Start 03/09/18 at 00:00 Magnesium Hydroxide (Milk Of Magnesia) 2,400 mg PRN QHS PRN PO CONSTIPATION; Start 03/09/18 at 00:00 Ferrous Sulfate (Feosol) 325 mg BIDAFTMEAL PO Last administered on 04/03/18at 17 :29; Start 03/09/18 at 09:00 Albuterol/ Ipratropium (Duoneb) 3 ml PRN Q4HRS PRN IH WHILE AWAKE F/SOA Last administered on 03/31/18 14:59; Start 03/09/18 at 00:15 Lisinopril (Prinivil) 10 mg DAILY PO Last administered on 04/03/18 09:04; Start 03/09/18 at 09:00 Methadone HCl (Dolophine) 10 mg TID PO Last administered on 04/03/18 19:24; Start 03/09/18 at 09:00 Mirtazapine (Remeron) 30 mg QHS PO Last administered on 04/03/18 19:22; Start 03/09/18 at 21:00 Sertraline HCl (Zoloft) 150 mg DAILY PO Last administered on 03/13/18 07:57; Start 03/09/18 at 09:00; Stop 03/13/18 at 12:14; Status DC Carvedilol (Coreg) 3.125 mg BIDWMEALS PO Last administered on 04/03/18 17:29; Start 03/09/18 at 08:00 Furosemide (Lasix) 40 mg DAILY PO Last administered on 04/03/18 09:04; Start 03/09/18 at 09:00 Guaifenesin (Mucinex Er) 1,200 mg Q12HR PO Last administered on 04/03/18 19:23 ; Start 03/09/18 at 09:00 Latanoprost (Xalatan) 1 drop QHS OU Last administered on 04/03/18 19:26; Start 03/09/18 at 21:00 Nicotine (Nicoderm Cq 7mg) 1 patch DAILY TD Last administered on 04/03/18 09: 05; Start 03/09/18 at 09:00 Pantoprazole Sodium (Protonix) 40 mg DAILYAC PO Last administered on 04/03/18 09:04; Start 03/09/18 at 07:30 Phenytoin Sodium (Dilantin) 200 mg BID PO Last administered on 04/03/18 19:24 ; Start 03/09/18 at 09:00 Ropinirole HCl (Requip) 1 mg BID PO Last administered on 04/03/18 19:23; Start 03/09/18 at 09:00 Sennosides (Senna) 8.6 mg BID PO Last administered on 04/03/18at 19:24; Start at 09:00 Non-Formulary Medication (Tiotropium [place] (Spiriva)) 1 puff DAILY IH ; Start 03/09/18 at 09:00; Status UNV Oxybutynin Chloride (Ditropan) 5 mg BID PO Last administered on 04/03/18at 19:22 ; Start 03/09/18 at 21:00 Trazodone HCl (Desyrel) 50 mg PRN QHS PRN PO INSOMNIA; Start 03/09/18 at 00:15 ; Stop 03/09/18 at 19:54; Status DC Alprazolam (Xanax) 0.25 mg PRN Q12HR PRN PO ANXIETY / AGITATION; Start at 00:30; Stop 03/09/18 at 19:54; Status DC Alprazolam (Xanax) 0.25 mg PRN Q6HRS PRN PO ANXIETY / AGITATION; Start at 00:30; Stop 03/09/18 at 19:54; Status DC Albuterol Sulfate (Ventolin) 2.5 mg RTQID NEB Last administered on 04/03/18at 20 :43; Start 03/09/18 at 08:00 Budesonide (Pulmicort) 0.5 mg RTBID NEB Last administered on 04/03/18at 20:43; Start 03/09/18 at 08:00 Albuterol Sulfate (Ventolin) 2.5 mg STK-MED ONCE .ROUTE ; Start 03/09/18 at 06: 08; Stop 03/09/18 at 06:09; Status DC Alprazolam (Xanax) 0.25 mg PRN Q4HRS PRN PO ANXIETY / AGITATION Last administered on 04/03/18at 20:35; Start 03/09/18 at 20:00 Trazodone HCl (Desyrel) 100 mg PRN QHS PRN PO INSOMNIA Last administered on 09/07at 19:50; Start 03/09/18 at 20:00 Quetiapine Fumarate (SEROquel) 12.5 mg BID@0900,1300 PO Last administered on at 13:43; Start 03/12/18 at 09:00; Stop 03/12/18 at 18:38; Status DC Quetiapine Fumarate (SEROquel) 25 mg TID@0900,1300,1700 PO Last administered on 03/18/18at 16:29; Start 03/13/18 at 09:00; Stop 03/18/18 at 18:21; Status DC Quetiapine Fumarate (SEROquel) 12.5 mg 1X ONCE PO Last administered on at 19:19; Start 03/12/18 at 19:00; Stop 03/12/18 at 19:01; Status DC Sertraline HCl (Zoloft) 75 mg DAILY PO Last administered on 03/27/18at 07:55; Start 03/14/18 at 09:00; Stop 03/27/18 at 10:51; Status DC Divalproex Sodium (Depakote Spr[place]) 125 mg [id number] PO ; Start 03/15/18 at 22: 00; Stop 03/15/18 at 22:30; Status DC Divalproex Sodium (Depakote Sprinkles) 125 mg TIDAFTMEAL PO Last administered on 03/19/18at 16:45; Start 03/16/18 at 09:00; Stop 03/19/18 at 18:50; Status DC Quetiapine Fumarate (SEROquel) 37.5 mg TID@0900,1300,1700 PO Last administered on 03/21/18at 16:58; Start 03/19/18 at 09:00; Stop 03/21/18 at 19:24; Status DC Divalproex Sodium (Depakote Sprinkles) 250 mg TIDAFTMEAL PO Last administered on 03/22/18at 17:26; Start 03/20/18 at 09:00; Stop 03/22/18 at 18:06; Status DC Quetiapine Fumarate (SEROquel) 50 mg TID@0900,1300,1700 PO Last administered on 04/03/18at 17:30; Start 03/22/18 at 09:00 Divalproex Sodium (Depakote Sprinkles) 375 mg TIDAFTMEAL PO Last administered on 03/26/18at 17:18; Start 03/23/18 at 09:00; Stop 03/26/18 at 18:32; Status DC Divalproex Sodium (Depakote Sprinkles) 500 mg TIDAFTMEAL PO Last administered on 03/30/18at 17:51; Start 03/27/18 at 09:00; Stop 03/30/18 at 20:05; Status DC Fluvoxamine Maleate (Luvox) 25 mg DAILY PO Last administered on 03/30/18at 08:13 ; Start 03/28/18 at 09:00; Stop 03/30/18 at 12:00; Status DC Fluvoxamine Maleate (Luvox) 50 mg DAILY PO Last administered on 04/02/18at 07:54 ; Start 03/31/18 at 09:00; Stop 04/02/18 at 11:00; Status DC Divalproex Sodium (Depakote Er) 1,500 mg QHS PO Last administered on 04/03/18at 19:22; Start 03/30/18 at 21:00 Divalproex Sodium (Depakote Er) 250 mg QHS PO Last administered on 04/03/18at 19 :23; Start 03/30/18 at 21:00 Fluvoxamine Maleate (Luvox) 75 mg DAILY PO Last administered on 04/03/18at 09:06 ; Start 04/03/18 at 09:00 Buspirone HCl (Buspar) 5 mg TID@0900,1300,1700 PO Last administered on at 17:29; Start 04/03/18 at 13:00 Active Scripts Active Reported Alprazolam 0.25 Mg Tablet 0.25 Mg PO PRN Q12HR PRN Alprazolam 0.25 Mg Tablet 0.25 Mg PO PRN Q6HRS PRN Detrol La (Tolterodine Tartrate) 2 Mg Cap.er.24h 2 Mg PO QHS Xalatan (Latanoprost) 2.5 Ml Drops 1 Drop EACHEYE QHS Pantoprazole Sodium 40 Mg Tablet.dr 40 Mg PO DAILY Requip (Ropinirole Hcl) 1 Mg Tablet 1 Mg PO BID NICODERM CQ 7mg (Nicotine) 1 Each Patch.td24 1 Patch TD DAILY Mucinex (Guaifenesin) 1,200 Mg Tbmp.12hr 1,200 Mg PO Q12HR Lasix (Furosemide) 40 Mg Tablet 40 Mg PO DAILY Ferrous Sulfate 325 Mg Tablet 325 Mg PO BID Mirtazapine 30 Mg Tablet 30 Mg PO QHS Trazodone Hcl 50 Mg Tablet 50 Mg PO PRN QHS PRN Sertraline Hcl 50 Mg Tablet 150 Mg PO DAILY Spiriva (Tiotropium [place]) 18 Mcg Cap.w.dev 1 Puff IH DAILY Senna (Sennosides) 8.6 Mg Tablet 8.6 Mg PO BID Phenytoin Sodium Extended 100 Mg Capsule 200 Mg PO BID Methadone Hcl 5 Mg Tablet 10 Mg PO TID Lisinopril 10 Mg Tablet 10 Mg PO DAILY Carvedilol 3.125 Mg Tablet 1 Tab PO BIDWMEALS Duoneb 0.5-3(2.5) Mg/3 Ml (Albuterol/Ipratropium) 3 Ml Ampul.neb 3 Ml IH Q4HRS W /A PRN I have reviewed the current psychotropics carefully including drug interactions. Risk benefit ratio favors no change other than as noted in my dictated progress note. Diagnosis: Problems: (1) Vascular dementia with delusions (2) Alzheimer's dementia (3) Impulse control disorder (4) Major depressive disorder (5) Parkinson disease JESIKA HAYES MD Apr 03, 2018 22:25
[2018-04-04] MEDS: ALPRAZolam 0.25 MG TABLET PO PRN ×3 (02:47→16:33)
[2018-04-04] MEDS: BUDESONIDE 0.5 MG/2 ML NEBU NEB SCH ×3 (05:38→20:09)
[2018-04-04] MEDS: ALBUTEROL SULFATE 2.5 MG/3 ML NEBU. NEB SCH ×4 (05:38→20:09)
[2018-04-04 06:38] VITALS: BP 123/77
[2018-04-04] MEDS: OXYBUTYNIN CHLORIDE 5 MG TABLET PO SCH ×2 (07:37→20:17)
[2018-04-04] MEDS: busPIRone 5 MG TABLET. PO SCH ×3 (07:37→16:33)
[2018-04-04] MEDS: LISINOPRIL 10 MG TABLET PO SCH (07:38)
[2018-04-04] MEDS: FERROUS SULFATE 325 MG TABLET. PO SCH ×2 (07:38→17:54)
[2018-04-04] MEDS: SENNOSIDES 8.6 MG TABLET PO SCH ×2 (07:38→20:17)
[2018-04-04] MEDS: QUEtiapine 50 MG TABLET. PO SCH ×3 (07:39→16:33)
[2018-04-04] MEDS: PHENYTOIN SODIUM EXTENDED 100 MG CAPSULE PO SCH ×2 (07:39→20:18)
[2018-04-04] MEDS: rOPINIRole 1 MG TABLET. PO SCH ×2 (07:39→20:17)
[2018-04-04] MEDS: FUROSEMIDE 40 MG TABLET PO SCH (07:39)
[2018-04-04] MEDS: CARVEDILOL 3.125 MG TABLET PO SCH ×2 (07:40→16:34)
[2018-04-04] MEDS: PANTOPRAZOLE 40 MG TABLET. PO SCH (07:40)
[2018-04-04] MEDS: NICOTINE 7MG PATCH. TD SCH (07:40)
[2018-04-04] MEDS: METHADONE 5 MG TABLET. PO SCH ×3 (07:47→20:20)
[2018-04-04 16:33] VITALS: BP 139/72
[2018-04-04] MEDS: DIVALPROEX ER 250 MG TAB.ER.24H. PO SCH (20:16)
[2018-04-04] MEDS: DIVALPROEX ER 500 MG TAB.ER.24H PO SCH (20:17)
[2018-04-04] MEDS: MIRTAZAPINE 30 MG TABLET PO SCH (20:17)
[2018-04-04] MEDS: LATANOPROST 0.005% OPHTH SOLUTION 2.5ML BOTTLE. OU SCH (20:17)
--- NOTE | 2018-04-04 22:26 | PDOC ---
Exam Note: Brian Note: Please also refer to the separate dictated note~for this date of service dictated separately.~Patient seen individually. Discussed the patient with Nursing staff reviewed the chart.~Reviewed interim history and current functioning. Reviewed vital signs,~Labs/ Radiology~and current medications noted below. Continue current treatment with the changes noted in the dictated addendum note Assessment: Vital Signs: Vital Signs Date Time Temp Pulse Resp B/P (MAP) Pulse Ox O2 Delivery O2 Flow Rate FiO2 04/04/18 20:20 22 Room Air 04/04/18 20:10 95 04/04/18 16:34 69 139/72 04/04/18 16:33 98.4 I&O Intake and Output 04/04/18 07:00 Intake Total 1260 ml Balance 1260 ml Intake Oral 1260 ml Current Medications: Meds: Current Medications Acetaminophen (Tylenol) 650 mg PRN Q6HRS PRN PO PAIN / TEMP; Start 03/09/18 at 00:00 Multi-Ingredient Ointment (Analgesic [place]) 1 cayla PRN QID PRN TP MUSCLE PAIN; Start 03/09/18 at 00:00 Al Hydroxide/Mg Hydroxide (Mylanta Plus Xs) 15 ml PRN AFTMEALHC PRN PO DYSPEPSIA Last administered on 04/03/18at 05:39; Start 03/09/18 at 00:00 Magnesium Hydroxide (Milk Of Magnesia) 2,400 mg PRN QHS PRN PO CONSTIPATION; Start 03/09/18 at 00:00 Ferrous Sulfate (Feosol) 325 mg BIDAFTMEAL PO Last administered on 04/04/18at 17 :54; Start 03/09/18 at 09:00 Albuterol/ Ipratropium (Duoneb) 3 ml PRN Q4HRS PRN IH WHILE AWAKE F/SOA Last administered on 03/31/18at 14:59; Start 03/09/18 at 00:15 Lisinopril (Prinivil) 10 mg DAILY PO Last administered on 04/04/18at 07:38; Start 03/09/18 at 09:00 Methadone HCl (Dolophine) 10 mg TID PO Last administered on 04/04/18at 20:20; Start 03/09/18 at 09:00 Mirtazapine (Remeron) 30 mg QHS PO Last administered on 04/04/18 20:17; Start 03/09/18 at 21:00 Sertraline HCl (Zoloft) 150 mg DAILY PO Last administered on 03/13/18 07:57; Start 03/09/18 at 09:00; Stop 03/13/18 at 12:14; Status DC Carvedilol (Coreg) 3.125 mg BIDWMEALS PO Last administered on 04/04/18 16:34; Start 03/09/18 at 08:00 Furosemide (Lasix) 40 mg DAILY PO Last administered on 04/04/18 07:39; Start 03/09/18 at 09:00 Guaifenesin (Mucinex Er) 1,200 mg Q12HR PO Last administered on 04/04/18 20:18 ; Start 03/09/18 at 09:00 Latanoprost (Xalatan) 1 drop QHS OU Last administered on 04/04/18 20:17; Start 03/09/18 at 21:00 Nicotine (Nicoderm Cq 7mg) 1 patch DAILY TD Last administered on 04/04/18 07: 40; Start 03/09/18 at 09:00 Pantoprazole Sodium (Protonix) 40 mg DAILYAC PO Last administered on 04/04/18 07:40; Start 03/09/18 at 07:30 Phenytoin Sodium (Dilantin) 200 mg BID PO Last administered on 04/04/18 20:18 ; Start 03/09/18 at 09:00 Ropinirole HCl (Requip) 1 mg BID PO Last administered on 04/04/18 20:17; Start 03/09/18 at 09:00 Sennosides (Senna) 8.6 mg BID PO Last administered on 04/04/18 20:17; Start at 09:00 Non-Formulary Medication (Tiotropium [place] (Spiriva)) 1 puff DAILY IH ; Start 03/09/18 at 09:00; Status UNV Oxybutynin Chloride (Ditropan) 5 mg BID PO Last administered on 04/04/18at 20:17 ; Start 03/09/18 at 21:00 Trazodone HCl (Desyrel) 50 mg PRN QHS PRN PO INSOMNIA; Start 5/20/18 at 00:15 ; Stop 03/09/18 at 19:54; Status DC Alprazolam (Xanax) 0.25 mg PRN Q12HR PRN PO ANXIETY / AGITATION; Start at 00:30; Stop 03/09/18 at 19:54; Status DC Alprazolam (Xanax) 0.25 mg PRN Q6HRS PRN PO ANXIETY / AGITATION; Start at 00:30; Stop 03/09/18 at 19:54; Status DC Albuterol Sulfate (Ventolin) 2.5 mg RTQID NEB Last administered on 04/04/18at 20 :09; Start 03/09/18 at 08:00 Budesonide (Pulmicort) 0.5 mg RTBID NEB Last administered on 04/04/18at 20:09; Start 03/09/18 at 08:00 Albuterol Sulfate (Ventolin) 2.5 mg STK-MED ONCE .ROUTE ; Start 03/09/18 at 06: 08; Stop 03/09/18 at 06:09; Status DC Alprazolam (Xanax) 0.25 mg PRN Q4HRS PRN PO ANXIETY / AGITATION Last administered on 04/04/18at 16:33; Start 03/09/18 at 20:00 Trazodone HCl (Desyrel) 100 mg PRN QHS PRN PO INSOMNIA Last administered on 09/07at 19:50; Start 03/09/18 at 20:00 Quetiapine Fumarate (SEROquel) 12.5 mg BID@0900,1300 PO Last administered on at 13:43; Start 03/12/18 at 09:00; Stop 03/12/18 at 18:38; Status DC Quetiapine Fumarate (SEROquel) 25 mg TID@0900,1300,1700 PO Last administered on 03/18/18at 16:29; Start 03/13/18 at 09:00; Stop 03/18/18 at 18:21; Status DC Quetiapine Fumarate (SEROquel) 12.5 mg 1X ONCE PO Last administered on at 19:19; Start 03/12/18 at 19:00; Stop 03/12/18 at 19:01; Status DC Sertraline HCl (Zoloft) 75 mg DAILY PO Last administered on 03/27/18at 07:55; Start 03/14/18 at 09:00; Stop 03/27/18 at 10:51; Status DC Divalproex Sodium (Depakote Sprinkles) 125 mg [id number] PO ; Start 03/15/18 at 22: 00; Stop 03/15/18 at 22:30; Status DC Divalproex Sodium (Depakote Sprinkles) 125 mg TIDAFTMEAL PO Last administered on 03/19/18at 16:45; Start 03/16/18 at 09:00; Stop 03/19/18 at 18:50; Status DC Quetiapine Fumarate (SEROquel) 37.5 mg TID@0900,1300,1700 PO Last administered on 03/21/18at 16:58; Start 03/19/18 at 09:00; Stop 03/21/18 at 19:24; Status DC Divalproex Sodium (Depakote Sprinkles) 250 mg TIDAFTMEAL PO Last administered on 03/22/18at 17:26; Start 03/20/18 at 09:00; Stop 03/22/18 at 18:06; Status DC Quetiapine Fumarate (SEROquel) 50 mg TID@0900,1300,1700 PO Last administered on 04/04/18at 16:33; Start 03/22/18 at 09:00 Divalproex Sodium (Depakote Sprinkles) 375 mg TIDAFTMEAL PO Last administered on 03/26/18at 17:18; Start 03/23/18 at 09:00; Stop 03/26/18 at 18:32; Status DC Divalproex Sodium (Depakote Sprinkles) 500 mg TIDAFTMEAL PO Last administered on 03/30/18at 17:51; Start 03/27/18 at 09:00; Stop 03/30/18 at 20:05; Status DC Fluvoxamine Maleate (Luvox) 25 mg DAILY PO Last administered on 03/30/18at 08:13 ; Start 03/28/18 at 09:00; Stop 03/30/18 at 12:00; Status DC Fluvoxamine Maleate (Luvox) 50 mg DAILY PO Last administered on 04/02/18at 07:54 ; Start 03/31/18 at 09:00; Stop 04/02/18 at 11:00; Status DC Divalproex Sodium (Depakote Er) 1,500 mg QHS PO Last administered on 04/04/18at 20:17; Start 03/30/18 at 21:00 Divalproex Sodium (Depakote Er) 250 mg QHS PO Last administered on 04/04/18at 20 :16; Start 03/30/18 at 21:00 Fluvoxamine Maleate (Luvox) 75 mg DAILY PO Last administered on 04/04/18at 07:40 ; Start 04/03/18 at 09:00 Buspirone HCl (Buspar) 5 mg TID@0900,1300,1700 PO Last administered on at 16:33; Start 04/03/18 at 13:00 Active Scripts Active Reported Alprazolam 0.25 Mg Tablet 0.25 Mg PO PRN Q12HR PRN Alprazolam 0.25 Mg Tablet 0.25 Mg PO PRN Q6HRS PRN Detrol La (Tolterodine Tartrate) 2 Mg Cap.er.24h 2 Mg PO QHS Xalatan (Latanoprost) 2.5 Ml Drops 1 Drop EACHEYE QHS Pantoprazole Sodium 40 Mg Tablet.dr 40 Mg PO DAILY Requip (Ropinirole Hcl) 1 Mg Tablet 1 Mg PO BID NICODERM CQ 7mg (Nicotine) 1 Each Patch.td24 1 Patch TD DAILY Mucinex (Guaifenesin) 1,200 Mg Tbmp.12hr 1,200 Mg PO Q12HR Lasix (Furosemide) 40 Mg Tablet 40 Mg PO DAILY Ferrous Sulfate 325 Mg Tablet 325 Mg PO BID Mirtazapine 30 Mg Tablet 30 Mg PO QHS Trazodone Hcl 50 Mg Tablet 50 Mg PO PRN QHS PRN Sertraline Hcl 50 Mg Tablet 150 Mg PO DAILY Spiriva (Tiotropium [place]) 18 Mcg Cap.w.dev 1 Puff IH DAILY Senna (Sennosides) 8.6 Mg Tablet 8.6 Mg PO BID Phenytoin Sodium Extended 100 Mg Capsule 200 Mg PO BID Methadone Hcl 5 Mg Tablet 10 Mg PO TID Lisinopril 10 Mg Tablet 10 Mg PO DAILY Carvedilol 3.125 Mg Tablet 1 Tab PO BIDWMEALS Duoneb 0.5-3(2.5) Mg/3 Ml (Albuterol/Ipratropium) 3 Ml Ampul.neb 3 Ml IH Q4HRS W /A PRN I have reviewed the current psychotropics carefully including drug interactions. Risk benefit ratio favors no change other than as noted in my dictated progress note. Diagnosis: Problems: (1) Vascular dementia with delusions (2) Alzheimer's dementia (3) Impulse control disorder (4) Major depressive disorder (5) Parkinson disease JESIKA HAYES MD Apr 04, 2018 22:26
[2018-04-05] MEDS: ALPRAZolam 0.25 MG TABLET PO PRN ×2 (02:36→12:53)
[2018-04-05] MEDS: ALBUTEROL SULFATE 2.5 MG/3 ML NEBU. NEB SCH ×4 (04:49→20:03)
[2018-04-05 06:30] VITALS: BP 109/64
--- NOTE | 2018-04-05 07:02 | PN ---
DATE: 04/03/2018 PSYCHIATRIC PROGRESS NOTE This is a late entry for 04/03/2018, covers elements not covered in my initial note 04/03/2018. SUBJECTIVE: I met with the patient in the evening and staffed at the treatment team meeting in the morning. Also discussed with staff from [facility] regarding the patient's suicidal ideation. She has no suicidal ideation at this time, but remained somewhat anxious, obsessive, though showing some improvement. REVIEW OF SYSTEMS: Positive for impaired ambulation with walker. Pulmonary symptoms, shortness of breath, chest pain consequent to her anxiety. No CV, , GI, eye system symptoms on review. MENTAL STATUS EXAM: Reasonably oriented. Speech coherent, rapid, less pressured. Abstraction fair, computation impaired, language function intact. Mood and affect remain somewhat labile, but improved. LABORATORY DATA: Reviewed. IMPRESSION: Bipolar 1 disorder, mixed; obsessive-compulsive disorder; anxiety disorder, unspecified. PLAN: Start BuSpar 5 mg 3 times a day. Continue rest unchanged. Valproic acid level is being awaited. Result will determine to increase the dosage or not. MAN Gabino HAYES MD DR: BROOKE/fabio JOB#: [id number] / [id number]
--- NOTE | 2018-04-05 07:18 | PN ---
DATE: 04/02/2018 PSYCHIATRIC PROGRESS NOTE This is a late entry of 04/02/2018, covers elements not covered in my initial note of 04/02/2018. SUBJECTIVE: I met with the patient in the evening. The patient is frequently up at the nursing station, wanting Xanax every 15 minutes. Subjectively, she states she feels a little better, slept 7-3/4 hours. REVIEW OF SYSTEMS: Positive for difficulty with breathing, anxiety, some vague chest pain, all of which is part of her anxiety. Ambulation impaired with walker. No CV, , eye system symptoms on review. MENTAL STATUS EXAM: Oriented to herself and situation. Speech coherent, rapid at times. Abstraction fair, computation impaired, language function intact. Attention span short. She is quite obsessive, anxious. LABORATORY DATA: Reviewed. IMPRESSION: Bipolar 1 disorder, mixed; OCD; and anxiety disorder, unspecified. PLAN: Increase Luvox to 75 mg a day after she has been on 50 mg for 3 days. Continue rest unchanged. Check labs level on the Depakote, adjust to reach therapeutic level. MAN Gabino HAYES MD DR: BROOKE/fabio JOB#: [id number] / [id number]
[2018-04-05] MEDS: NICOTINE 7MG PATCH. TD SCH (07:44)
[2018-04-05] MEDS: PHENYTOIN SODIUM EXTENDED 100 MG CAPSULE PO SCH ×2 (07:49→20:19)
[2018-04-05] MEDS: PANTOPRAZOLE 40 MG TABLET. PO SCH (07:50)
[2018-04-05] MEDS: LISINOPRIL 10 MG TABLET PO SCH (07:51)
[2018-04-05] MEDS: busPIRone 5 MG TABLET. PO SCH ×3 (07:51→16:53)
[2018-04-05] MEDS: QUEtiapine 50 MG TABLET. PO SCH ×3 (07:52→16:53)
[2018-04-05] MEDS: rOPINIRole 1 MG TABLET. PO SCH ×2 (07:52→20:20)
[2018-04-05] MEDS: SENNOSIDES 8.6 MG TABLET PO SCH ×2 (07:52→20:19)
[2018-04-05] MEDS: CARVEDILOL 3.125 MG TABLET PO SCH ×2 (07:52→16:53)
[2018-04-05] MEDS: OXYBUTYNIN CHLORIDE 5 MG TABLET PO SCH ×2 (07:52→20:20)
[2018-04-05] MEDS: FERROUS SULFATE 325 MG TABLET. PO SCH ×2 (07:53→16:54)
[2018-04-05] MEDS: FUROSEMIDE 40 MG TABLET PO SCH (07:53)
[2018-04-05] MEDS: METHADONE 5 MG TABLET. PO SCH ×3 (07:55→20:21)
[2018-04-05] MEDS: BUDESONIDE 0.5 MG/2 ML NEBU NEB SCH ×2 (08:00→20:03)
[2018-04-05 16:11] VITALS: BP 129/71
[2018-04-05] MEDS: DIVALPROEX ER 250 MG TAB.ER.24H. PO SCH (20:20)
[2018-04-05] MEDS: DIVALPROEX ER 500 MG TAB.ER.24H PO SCH (20:20)
[2018-04-05] MEDS: MIRTAZAPINE 30 MG TABLET PO SCH (20:20)
[2018-04-05] MEDS: LATANOPROST 0.005% OPHTH SOLUTION 2.5ML BOTTLE. OU SCH (20:21)
--- NOTE | 2018-04-05 22:30 | PDOC ---
Exam Note: Brian Note: Please also refer to the separate dictated note~for this date of service dictated separately.~Patient seen individually. Discussed the patient with Nursing staff reviewed the chart.~Reviewed interim history and current functioning. Reviewed vital signs,~Labs/ Radiology~and current medications noted below. Continue current treatment with the changes noted in the dictated addendum note Assessment: Vital Signs: Vital Signs Date Time Temp Pulse Resp B/P (MAP) Pulse Ox O2 Delivery O2 Flow Rate FiO2 04/05/18 21:39 Room Air 04/05/18 20:05 96 04/05/18 16:53 64 129/71 04/05/18 16:11 98.8 20 I&O Intake and Output 04/05/18 07:01 Intake Total 1680 ml Balance 1680 ml Intake Oral 1680 ml Current Medications: Meds: Current Medications Acetaminophen (Tylenol) 650 mg PRN Q6HRS PRN PO PAIN / TEMP; Start 03/09/18 at 00:00 Multi-Ingredient Ointment (Analgesic [place]) 1 cayla PRN QID PRN TP MUSCLE PAIN; Start 03/09/18 at 00:00 Al Hydroxide/Mg Hydroxide (Mylanta Plus Xs) 15 ml PRN AFTMEALHC PRN PO DYSPEPSIA Last administered on 04/03/18at 05:39; Start 03/09/18 at 00:00 Magnesium Hydroxide (Milk Of Magnesia) 2,400 mg PRN QHS PRN PO CONSTIPATION; Start 03/09/18 at 00:00 Ferrous Sulfate (Feosol) 325 mg BIDAFTMEAL PO Last administered on 04/05/18at 16 :54; Start 03/09/18 at 09:00 Albuterol/ Ipratropium (Duoneb) 3 ml PRN Q4HRS PRN IH WHILE AWAKE F/SOA Last administered on 03/31/18at 14:59; Start 03/09/18 at 00:15 Lisinopril (Prinivil) 10 mg DAILY PO Last administered on 04/05/18at 07:51; Start 03/09/18 at 09:00 Methadone HCl (Dolophine) 10 mg TID PO Last administered on 04/05/18at 20:21; Start 03/09/18 at 09:00 Mirtazapine (Remeron) 30 mg QHS PO Last administered on 04/05/18 20:20; Start 03/09/18 at 21:00 Sertraline HCl (Zoloft) 150 mg DAILY PO Last administered on 03/13/18 07:57; Start 03/09/18 at 09:00; Stop 03/13/18 at 12:14; Status DC Carvedilol (Coreg) 3.125 mg BIDWMEALS PO Last administered on 04/05/18 16:53; Start 03/09/18 at 08:00 Furosemide (Lasix) 40 mg DAILY PO Last administered on 04/05/18 07:53; Start 03/09/18 at 09:00 Guaifenesin (Mucinex Er) 1,200 mg Q12HR PO Last administered on 04/05/18 20:20 ; Start 03/09/18 at 09:00 Latanoprost (Xalatan) 1 drop QHS OU Last administered on 04/05/18 20:21; Start 03/09/18 at 21:00 Nicotine (Nicoderm Cq 7mg) 1 patch DAILY TD Last administered on 04/05/18 07: 44; Start 03/09/18 at 09:00 Pantoprazole Sodium (Protonix) 40 mg DAILYAC PO Last administered on 04/05/18at 07:50; Start 03/09/18 at 07:30 Phenytoin Sodium (Dilantin) 200 mg BID PO Last administered on 04/05/18 20:19 ; Start 03/09/18 at 09:00 Ropinirole HCl (Requip) 1 mg BID PO Last administered on 04/05/18 20:20; Start 03/09/18 at 09:00 Sennosides (Senna) 8.6 mg BID PO Last administered on 04/05/18 20:19; Start at 09:00 Non-Formulary Medication (Tiotropium [place] (Spiriva)) 1 puff DAILY IH ; Start 03/09/18 at 09:00; Status UNV Oxybutynin Chloride (Ditropan) 5 mg BID PO Last administered on 04/05/18at 20:20 ; Start 03/09/18 at 21:00 Trazodone HCl (Desyrel) 50 mg PRN QHS PRN PO INSOMNIA; Start 5/20/18 at 00:15 ; Stop 03/09/18 at 19:54; Status DC Alprazolam (Xanax) 0.25 mg PRN Q12HR PRN PO ANXIETY / AGITATION; Start at 00:30; Stop 03/09/18 at 19:54; Status DC Alprazolam (Xanax) 0.25 mg PRN Q6HRS PRN PO ANXIETY / AGITATION; Start at 00:30; Stop 03/09/18 at 19:54; Status DC Albuterol Sulfate (Ventolin) 2.5 mg RTQID NEB Last administered on 04/05/18at 20 :03; Start 03/09/18 at 08:00 Budesonide (Pulmicort) 0.5 mg RTBID NEB Last administered on 04/05/18at 20:03; Start 03/09/18 at 08:00 Albuterol Sulfate (Ventolin) 2.5 mg STK-MED ONCE .ROUTE ; Start 03/09/18 at 06: 08; Stop 03/09/18 at 06:09; Status DC Alprazolam (Xanax) 0.25 mg PRN Q4HRS PRN PO ANXIETY / AGITATION Last administered on 04/05/18at 12:53; Start 03/09/18 at 20:00 Trazodone HCl (Desyrel) 100 mg PRN QHS PRN PO INSOMNIA Last administered on 09/07at 19:50; Start 03/09/18 at 20:00 Quetiapine Fumarate (SEROquel) 12.5 mg BID@0900,1300 PO Last administered on at 13:43; Start 03/12/18 at 09:00; Stop 03/12/18 at 18:38; Status DC Quetiapine Fumarate (SEROquel) 25 mg TID@0900,1300,1700 PO Last administered on 03/18/18at 16:29; Start 03/13/18 at 09:00; Stop 03/18/18 at 18:21; Status DC Quetiapine Fumarate (SEROquel) 12.5 mg 1X ONCE PO Last administered on at 19:19; Start 03/12/18 at 19:00; Stop 03/12/18 at 19:01; Status DC Sertraline HCl (Zoloft) 75 mg DAILY PO Last administered on 03/27/18at 07:55; Start 03/14/18 at 09:00; Stop 03/27/18 at 10:51; Status DC Divalproex Sodium (Depakote Sprinkles) 125 mg [id number] PO ; Start 03/15/18 at 22: 00; Stop 03/15/18 at 22:30; Status DC Divalproex Sodium (Depakote Sprinkles) 125 mg TIDAFTMEAL PO Last administered on 03/19/18at 16:45; Start 03/16/18 at 09:00; Stop 03/19/18 at 18:50; Status DC Quetiapine Fumarate (SEROquel) 37.5 mg TID@0900,1300,1700 PO Last administered on 03/21/18at 16:58; Start 03/19/18 at 09:00; Stop 03/21/18 at 19:24; Status DC Divalproex Sodium (Depakote Sprinkles) 250 mg TIDAFTMEAL PO Last administered on 03/22/18at 17:26; Start 03/20/18 at 09:00; Stop 03/22/18 at 18:06; Status DC Quetiapine Fumarate (SEROquel) 50 mg TID@0900,1300,1700 PO Last administered on 04/05/18at 16:53; Start 03/22/18 at 09:00 Divalproex Sodium (Depakote Sprinkles) 375 mg TIDAFTMEAL PO Last administered on 03/26/18at 17:18; Start 03/23/18 at 09:00; Stop 03/26/18 at 18:32; Status DC Divalproex Sodium (Depakote Sprinkles) 500 mg TIDAFTMEAL PO Last administered on 03/30/18at 17:51; Start 03/27/18 at 09:00; Stop 03/30/18 at 20:05; Status DC Fluvoxamine Maleate (Luvox) 25 mg DAILY PO Last administered on 03/30/18at 08:13 ; Start 03/28/18 at 09:00; Stop 03/30/18 at 12:00; Status DC Fluvoxamine Maleate (Luvox) 50 mg DAILY PO Last administered on 04/02/18at 07:54 ; Start 03/31/18 at 09:00; Stop 04/02/18 at 11:00; Status DC Divalproex Sodium (Depakote Er) 1,500 mg QHS PO Last administered on 04/05/18at 20:20; Start 03/30/18 at 21:00 Divalproex Sodium (Depakote Er) 250 mg QHS PO Last administered on 04/05/18at 20 :20; Start 03/30/18 at 21:00 Fluvoxamine Maleate (Luvox) 75 mg DAILY PO Last administered on 04/05/18at 07:50 ; Start 04/03/18 at 09:00 Buspirone HCl (Buspar) 5 mg TID@0900,1300,1700 PO Last administered on at 16:53; Start 04/03/18 at 13:00 Active Scripts Active Reported Alprazolam 0.25 Mg Tablet 0.25 Mg PO PRN Q12HR PRN Alprazolam 0.25 Mg Tablet 0.25 Mg PO PRN Q6HRS PRN Detrol La (Tolterodine Tartrate) 2 Mg Cap.er.24h 2 Mg PO QHS Xalatan (Latanoprost) 2.5 Ml Drops 1 Drop EACHEYE QHS Pantoprazole Sodium 40 Mg Tablet.dr 40 Mg PO DAILY Requip (Ropinirole Hcl) 1 Mg Tablet 1 Mg PO BID NICODERM CQ 7mg (Nicotine) 1 Each Patch.td24 1 Patch TD DAILY Mucinex (Guaifenesin) 1,200 Mg Tbmp.12hr 1,200 Mg PO Q12HR Lasix (Furosemide) 40 Mg Tablet 40 Mg PO DAILY Ferrous Sulfate 325 Mg Tablet 325 Mg PO BID Mirtazapine 30 Mg Tablet 30 Mg PO QHS Trazodone Hcl 50 Mg Tablet 50 Mg PO PRN QHS PRN Sertraline Hcl 50 Mg Tablet 150 Mg PO DAILY Spiriva (Tiotropium [place]) 18 Mcg Cap.w.dev 1 Puff IH DAILY Senna (Sennosides) 8.6 Mg Tablet 8.6 Mg PO BID Phenytoin Sodium Extended 100 Mg Capsule 200 Mg PO BID Methadone Hcl 5 Mg Tablet 10 Mg PO TID Lisinopril 10 Mg Tablet 10 Mg PO DAILY Carvedilol 3.125 Mg Tablet 1 Tab PO BIDWMEALS Duoneb 0.5-3(2.5) Mg/3 Ml (Albuterol/Ipratropium) 3 Ml Ampul.neb 3 Ml IH Q4HRS W /A PRN I have reviewed the current psychotropics carefully including drug interactions. Risk benefit ratio favors no change other than as noted in my dictated progress note. Diagnosis: Problems: (1) Vascular dementia with delusions (2) Alzheimer's dementia (3) Impulse control disorder (4) Major depressive disorder (5) Parkinson disease JESIKA HAYES MD Apr 05, 2018 22:30
[2018-04-06] MEDS: ALPRAZolam 0.25 MG TABLET PO PRN (04:54)
[2018-04-06] MEDS: ALBUTEROL SULFATE 2.5 MG/3 ML NEBU. NEB SCH ×4 (05:16→20:00)
[2018-04-06 06:10] VITALS: BP 136/66
[2018-04-06] MEDS: busPIRone 5 MG TABLET. PO SCH ×3 (07:39→16:24)
[2018-04-06] MEDS: FERROUS SULFATE 325 MG TABLET. PO SCH ×2 (07:40→16:50)
[2018-04-06] MEDS: QUEtiapine 50 MG TABLET. PO SCH ×3 (07:40→16:24)
[2018-04-06] MEDS: LISINOPRIL 10 MG TABLET PO SCH (07:41)
[2018-04-06] MEDS: OXYBUTYNIN CHLORIDE 5 MG TABLET PO SCH ×2 (07:41→20:33)
[2018-04-06] MEDS: PHENYTOIN SODIUM EXTENDED 100 MG CAPSULE PO SCH ×2 (07:41→20:32)
[2018-04-06] MEDS: FUROSEMIDE 40 MG TABLET PO SCH (07:42)
[2018-04-06] MEDS: rOPINIRole 1 MG TABLET. PO SCH ×2 (07:43→20:33)
[2018-04-06] MEDS: PANTOPRAZOLE 40 MG TABLET. PO SCH (07:43)
[2018-04-06] MEDS: CARVEDILOL 3.125 MG TABLET PO SCH ×2 (07:43→16:28)
[2018-04-06] MEDS: METHADONE 5 MG TABLET. PO SCH ×3 (07:44→20:33)
[2018-04-06] MEDS: NICOTINE 7MG PATCH. TD SCH (07:44)
[2018-04-06] MEDS: SENNOSIDES 8.6 MG TABLET PO SCH ×2 (07:44→20:33)
[2018-04-06] MEDS: BUDESONIDE 0.5 MG/2 ML NEBU NEB SCH ×2 (10:11→20:00)
[2018-04-06 15:47] VITALS: BP 94/55
[2018-04-06] MEDS: LATANOPROST 0.005% OPHTH SOLUTION 2.5ML BOTTLE. OU SCH (20:33)
[2018-04-06] MEDS: DIVALPROEX ER 250 MG TAB.ER.24H. PO SCH (20:33)
[2018-04-06] MEDS: DIVALPROEX ER 500 MG TAB.ER.24H PO SCH (20:33)
[2018-04-06] MEDS: MIRTAZAPINE 30 MG TABLET PO SCH (20:33)
--- NOTE | 2018-04-06 21:00 | PDOC ---
Exam Note: Brian Note: Please also refer to the separate dictated note~for this date of service dictated separately.~Patient seen individually. Discussed the patient with Nursing staff reviewed the chart.~Reviewed interim history and current functioning. Reviewed vital signs,~Labs/ Radiology~and current medications noted below. Continue current treatment with the changes noted in the dictated addendum note Assessment: Vital Signs: Vital Signs Date Time Temp Pulse Resp B/P (MAP) Pulse Ox O2 Delivery O2 Flow Rate FiO2 04/06/18 20:33 97 04/06/18 16:28 69 94/55 04/06/18 15:56 Room Air 04/06/18 15:47 98.5 20 I&O Intake and Output 04/06/18 07:01 Intake Total 1520 ml Balance 1520 ml Intake Oral 1520 ml Current Medications: Meds: Current Medications Acetaminophen (Tylenol) 650 mg PRN Q6HRS PRN PO PAIN / TEMP; Start 03/09/18 at 00:00 Multi-Ingredient Ointment (Analgesic [place]) 1 cayla PRN QID PRN TP MUSCLE PAIN; Start 03/09/18 at 00:00 Al Hydroxide/Mg Hydroxide (Mylanta Plus Xs) 15 ml PRN AFTMEALHC PRN PO DYSPEPSIA Last administered on 04/03/18at 05:39; Start 03/09/18 at 00:00 Magnesium Hydroxide (Milk Of Magnesia) 2,400 mg PRN QHS PRN PO CONSTIPATION; Start 03/09/18 at 00:00 Ferrous Sulfate (Feosol) 325 mg BIDAFTMEAL PO Last administered on 04/06/18at 07 :40; Start 03/09/18 at 09:00 Albuterol/ Ipratropium (Duoneb) 3 ml PRN Q4HRS PRN IH WHILE AWAKE F/SOA Last administered on 03/31/18at 14:59; Start 03/09/18 at 00:15 Lisinopril (Prinivil) 10 mg DAILY PO Last administered on 04/06/18at 07:41; Start 03/09/18 at 09:00 Methadone HCl (Dolophine) 10 mg TID PO Last administered on 04/06/18at 20:33; Start 03/09/18 at 09:00 Mirtazapine (Remeron) 30 mg QHS PO Last administered on 04/06/18 20:33; Start 03/09/18 at 21:00 Sertraline HCl (Zoloft) 150 mg DAILY PO Last administered on 03/13/18 07:57; Start 03/09/18 at 09:00; Stop 03/13/18 at 12:14; Status DC Carvedilol (Coreg) 3.125 mg BIDWMEALS PO Last administered on 04/06/18 07:43; Start 03/09/18 at 08:00 Furosemide (Lasix) 40 mg DAILY PO Last administered on 04/06/18 07:42; Start 03/09/18 at 09:00 Guaifenesin (Mucinex Er) 1,200 mg Q12HR PO Last administered on 04/06/18 20:33 ; Start 03/09/18 at 09:00 Latanoprost (Xalatan) 1 drop QHS OU Last administered on 04/06/18 20:33; Start 03/09/18 at 21:00 Nicotine (Nicoderm Cq 7mg) 1 patch DAILY TD Last administered on 04/06/18at 07: 44; Start 03/09/18 at 09:00 Pantoprazole Sodium (Protonix) 40 mg DAILYAC PO Last administered on 04/06/18at 07:43; Start 03/09/18 at 07:30 Phenytoin Sodium (Dilantin) 200 mg BID PO Last administered on 04/06/18at 20:32 ; Start 03/09/18 at 09:00 Ropinirole HCl (Requip) 1 mg BID PO Last administered on 04/06/18 20:33; Start 03/09/18 at 09:00 Sennosides (Senna) 8.6 mg BID PO Last administered on 04/06/18 20:33; Start at 09:00 Non-Formulary Medication (Tiotropium [place] (Spiriva)) 1 puff DAILY IH ; Start 03/09/18 at 09:00; Status UNV Oxybutynin Chloride (Ditropan) 5 mg BID PO Last administered on 04/06/18at 20:33 ; Start 03/09/18 at 21:00 Trazodone HCl (Desyrel) 50 mg PRN QHS PRN PO INSOMNIA; Start 03/09/18 at 00:15 ; Stop 03/09/18 at 19:54; Status DC Alprazolam (Xanax) 0.25 mg PRN Q12HR PRN PO ANXIETY / AGITATION; Start at 00:30; Stop 03/09/18 at 19:54; Status DC Alprazolam (Xanax) 0.25 mg PRN Q6HRS PRN PO ANXIETY / AGITATION; Start at 00:30; Stop 03/09/18 at 19:54; Status DC Albuterol Sulfate (Ventolin) 2.5 mg RTQID NEB Last administered on 04/06/18at 15 :55; Start 03/09/18 at 08:00 Budesonide (Pulmicort) 0.5 mg RTBID NEB Last administered on 04/06/18at 10:11; Start 03/09/18 at 08:00 Albuterol Sulfate (Ventolin) 2.5 mg STK-MED ONCE .ROUTE ; Start 03/09/18 at 06: 08; Stop 03/09/18 at 06:09; Status DC Alprazolam (Xanax) 0.25 mg PRN Q4HRS PRN PO ANXIETY / AGITATION Last administered on 04/06/18at 04:54; Start 03/09/18 at 20:00 Trazodone HCl (Desyrel) 100 mg PRN QHS PRN PO INSOMNIA Last administered on 09/07at 19:50; Start 03/09/18 at 20:00 Quetiapine Fumarate (SEROquel) 12.5 mg BID@0900,1300 PO Last administered on at 13:43; Start 03/12/18 at 09:00; Stop 03/12/18 at 18:38; Status DC Quetiapine Fumarate (SEROquel) 25 mg TID@0900,1300,1700 PO Last administered on 03/18/18at 16:29; Start 03/13/18 at 09:00; Stop 03/18/18 at 18:21; Status DC Quetiapine Fumarate (SEROquel) 12.5 mg 1X ONCE PO Last administered on at 19:19; Start 03/12/18 at 19:00; Stop 03/12/18 at 19:01; Status DC Sertraline HCl (Zoloft) 75 mg DAILY PO Last administered on 03/27/18at 07:55; Start 03/14/18 at 09:00; Stop 03/27/18 at 10:51; Status DC Divalproex Sodium (Depakote Sprinkles) 125 mg [id number] PO ; Start 03/15/18 at 22: 00; Stop 03/15/18 at 22:30; Status DC Divalproex Sodium (Depakote Sprinkles) 125 mg TIDAFTMEAL PO Last administered on 03/19/18at 16:45; Start 03/16/18 at 09:00; Stop 03/19/18 at 18:50; Status DC Quetiapine Fumarate (SEROquel) 37.5 mg TID@0900,1300,1700 PO Last administered on 03/21/18at 16:58; Start 03/19/18 at 09:00; Stop 03/21/18 at 19:24; Status DC Divalproex Sodium (Depakote Sprinkles) 250 mg TIDAFTMEAL PO Last administered on 03/22/18at 17:26; Start 03/20/18 at 09:00; Stop 03/22/18 at 18:06; Status DC Quetiapine Fumarate (SEROquel) 50 mg TID@0900,1300,1700 PO Last administered on 04/06/18at 16:24; Start 03/22/18 at 09:00 Divalproex Sodium (Depakote Sprinkles) 375 mg TIDAFTMEAL PO Last administered on 03/26/18at 17:18; Start 03/23/18 at 09:00; Stop 03/26/18 at 18:32; Status DC Divalproex Sodium (Depakote Sprinkles) 500 mg TIDAFTMEAL PO Last administered on 03/30/18at 17:51; Start 03/27/18 at 09:00; Stop 03/30/18 at 20:05; Status DC Fluvoxamine Maleate (Luvox) 25 mg DAILY PO Last administered on 03/30/18at 08:13 ; Start 03/28/18 at 09:00; Stop 03/30/18 at 12:00; Status DC Fluvoxamine Maleate (Luvox) 50 mg DAILY PO Last administered on 04/02/18at 07:54 ; Start 03/31/18 at 09:00; Stop 04/02/18 at 11:00; Status DC Divalproex Sodium (Depakote Er) 1,500 mg QHS PO Last administered on 04/06/18at 20:33; Start 03/30/18 at 21:00 Divalproex Sodium (Depakote Er) 250 mg QHS PO Last administered on 04/06/18at 20 :33; Start 03/30/18 at 21:00 Fluvoxamine Maleate (Luvox) 75 mg DAILY PO Last administered on 04/06/18at 07:41 ; Start 04/03/18 at 09:00 Buspirone HCl (Buspar) 5 mg TID@0900,1300,1700 PO Last administered on at 16:24; Start 04/03/18 at 13:00 Active Scripts Active Reported Alprazolam 0.25 Mg Tablet 0.25 Mg PO PRN Q12HR PRN Alprazolam 0.25 Mg Tablet 0.25 Mg PO PRN Q6HRS PRN Detrol La (Tolterodine Tartrate) 2 Mg Cap.er.24h 2 Mg PO QHS Xalatan (Latanoprost) 2.5 Ml Drops 1 Drop EACHEYE QHS Pantoprazole Sodium 40 Mg Tablet.dr 40 Mg PO DAILY Requip (Ropinirole Hcl) 1 Mg Tablet 1 Mg PO BID NICODERM CQ 7mg (Nicotine) 1 Each Patch.td24 1 Patch TD DAILY Mucinex (Guaifenesin) 1,200 Mg Tbmp.12hr 1,200 Mg PO Q12HR Lasix (Furosemide) 40 Mg Tablet 40 Mg PO DAILY Ferrous Sulfate 325 Mg Tablet 325 Mg PO BID Mirtazapine 30 Mg Tablet 30 Mg PO QHS Trazodone Hcl 50 Mg Tablet 50 Mg PO PRN QHS PRN Sertraline Hcl 50 Mg Tablet 150 Mg PO DAILY Spiriva (Tiotropium [place]) 18 Mcg Cap.w.dev 1 Puff IH DAILY Senna (Sennosides) 8.6 Mg Tablet 8.6 Mg PO BID Phenytoin Sodium Extended 100 Mg Capsule 200 Mg PO BID Methadone Hcl 5 Mg Tablet 10 Mg PO TID Lisinopril 10 Mg Tablet 10 Mg PO DAILY Carvedilol 3.125 Mg Tablet 1 Tab PO BIDWMEALS Duoneb 0.5-3(2.5) Mg/3 Ml (Albuterol/Ipratropium) 3 Ml Ampul.neb 3 Ml IH Q4HRS W /A PRN I have reviewed the current psychotropics carefully including drug interactions. Risk benefit ratio favors no change other than as noted in my dictated progress note. Diagnosis: Problems: (1) Vascular dementia with delusions (2) Alzheimer's dementia (3) Impulse control disorder (4) Major depressive disorder (5) Parkinson disease JESIKA HAYES MD Apr 06, 2018 21:00
[2018-04-07] MEDS ORDERED: ACET325T9 PO (00:32)
[2018-04-07] MEDS ORDERED: ALBU1.25 NEB (00:33)
[2018-04-07] MEDS ORDERED: DIVA500T4 PO (00:35)
[2018-04-07] MEDS ORDERED: DIVA250T PO (00:37)
[2018-04-07] MEDS ORDERED: MAG355OR17 PO (00:38)
[2018-04-07] MEDS ORDERED: MAGN2400 PO (00:39)
[2018-04-07] MEDS ORDERED: METH29OI TP (00:40)
[2018-04-07] MEDS ORDERED: QUET50TA5 PO (00:42)
[2018-04-07] MEDS ORDERED: BUSP5TAB PO (00:43)
[2018-04-07] MEDS ORDERED: FLUV100T2 PO (00:44)
--- NOTE | 2018-04-07 02:35 | PN ---
DATE: 04/04/2018 This late entry, 04/04/2018, covers elements not covered in my initial note. SUBJECTIVE: I met with the patient in the evening. She is well oriented, was aware of the place and the year as I questioned. Anxious, withdrawn. Received Xanax p.r.n. twice during the day at the nursing station perhaps little less frequently for the Xanax than before. REVIEW OF SYSTEMS: Ambulation impaired with walker. No CV, , pulmonary, eye system symptoms on review. She has vague somatic symptoms consequent to anxiety. MENTAL STATUS EXAM: Oriented to herself and situation. Speech coherent, rapid at times. Abstraction fair, computation impaired, language function intact, attention span short. Mood and affect still anxious, labile, but improved. No suicidal ideation. LABORATORY DATA: Reviewed. IMPRESSION: Major depressive disorder with psychotic features in partial remission, probable bipolar 1 disorder, mixed versus depressed with anxiety. Rest unchanged. PLAN: Continue psychotropics mentioned in my initial note. JESIKA HAYES MD DR: BROOKE/fabio JOB#: [id number] / [id number]
[2018-04-07] MEDS: ALPRAZolam 0.25 MG TABLET PO PRN ×2 (02:49→11:51)
[2018-04-07] MEDS: ALBUTEROL SULFATE 2.5 MG/3 ML NEBU. NEB SCH ×2 (05:33→11:40)
[2018-04-07 06:22] VITALS: BP 160/79
[2018-04-07] MEDS: PANTOPRAZOLE 40 MG TABLET. PO SCH (07:40)
[2018-04-07] MEDS: busPIRone 5 MG TABLET. PO SCH ×2 (08:21→12:17)
[2018-04-07] MEDS: rOPINIRole 1 MG TABLET. PO SCH (08:22)
[2018-04-07] MEDS: PHENYTOIN SODIUM EXTENDED 100 MG CAPSULE PO SCH (08:22)
[2018-04-07] MEDS: FERROUS SULFATE 325 MG TABLET. PO SCH (08:22)
[2018-04-07 08:23] VITALS: BP 160/79
[2018-04-07] MEDS: FUROSEMIDE 40 MG TABLET PO SCH (08:23)
[2018-04-07] MEDS: SENNOSIDES 8.6 MG TABLET PO SCH (08:23)
[2018-04-07] MEDS: OXYBUTYNIN CHLORIDE 5 MG TABLET PO SCH (08:23)
[2018-04-07] MEDS: CARVEDILOL 3.125 MG TABLET PO SCH (08:23)
[2018-04-07] MEDS: LISINOPRIL 10 MG TABLET PO SCH (08:23)
[2018-04-07] MEDS: NICOTINE 7MG PATCH. TD SCH (08:24)
[2018-04-07] MEDS: QUEtiapine 50 MG TABLET. PO SCH ×2 (08:24→12:17)
[2018-04-07] MEDS: METHADONE 5 MG TABLET. PO SCH ×2 (08:29→12:16)
[2018-04-07] MEDS: BUDESONIDE 0.5 MG/2 ML NEBU NEB SCH (11:40)
--- NOTE | 2018-04-07 13:48 | PN ---
DATE: 04/05/2018 This is a late entry 04/05/2018 covers elements not covered in my initial note of 04/05/2018. SUBJECTIVE: I met with the patient in the evening. The patient remains somewhat anxious, restless. She is up at the nursing station, but perhaps less so than before. She denies suicidal ideation as a question that is specifically and directly on this. REVIEW OF SYSTEMS: Ambulation impaired with walker. No CV, , pulmonary, eye system symptoms on review. She has vague somatic symptoms with anxiety. Vague chest pain and rapid breathing, but seemed much calmer as I met with her in her room. MENTAL STATUS EXAM: Oriented to herself and situation. Speech is coherent, less pressured. Abstraction fair, computation impaired, language function intact, attention span short. Mood and affect remain somewhat anxious, labile but much improved. No suicidal or homicidal ideation. LABORATORY DATA: Reviewed. IMPRESSION: Probable bipolar 1 disorder; mixed anxiety disorder, unspecified; cognitive disorder, unspecified. PLAN: Continue current psychotropics including Luvox for her OCD symptoms. Depakote for her bipolar disorder. Level is therapeutic at 59. Seroquel along with Xanax p.r.n., trazodone, Remeron. Transition to shelter on 04/07/2018. JESIKA HAYES MD DR: BROOKE/fabio JOB#: [id number] / [id number]
--- NOTE | 2018-04-07 13:51 | PN ---
DATE: 04/06/2018 PSYCHIATRIC PROGRESS NOTE This late entry 04/06/2018 covers elements not covered in my initial note. SUBJECTIVE: Met with the patient in the evening in her room. She refused to breathing treatment, which is for the first time and may be indicative of the fact that she does not feel she is having breathing problems, which for the most parts were consequent to her anxiety or at least worsened by it. She denies suicidal ideation. REVIEW OF SYSTEMS: Still complains of vague somatic symptoms, anxiety. No CV, , pulmonary, eye system symptoms on review. Reluctantly admits anxiety is better. She has been still getting anxious, receiving Xanax p.r.n., but less so than before, less obsessive. MENTAL STATUS EXAM: Oriented to herself, situation. Speech is coherent, less pressured. Abstraction fair, computation is impaired, language function intact, attention span short. Mood and affect improved lability. No suicidal ideation. LABORATORY DATA: Reviewed. IMPRESSION: Bipolar 1 disorder, mixed, in partial remission; anxiety disorder, unspecified; cognitive disorder, unspecified. PLAN: Continue current psychotropics including Luvox. Transition to retirement on 04/07/2018. MAN Gabino HAYES MD DR: BROOKE/fabio JOB#: [id number] / [id number]
--- NOTE | 2018-04-07 20:54 | PDOC ---
Exam Note: Brian Note: Please also refer to the separate dictated note~for this date of service dictated separately.~Patient seen individually. Discussed the patient with Nursing staff reviewed the chart.~Reviewed interim history and current functioning. Reviewed vital signs,~Labs/ Radiology~and current medications noted below. Continue current treatment with the changes noted in the dictated addendum note Assessment: Vital Signs: Vital Signs Date Time Temp Pulse Resp B/P (MAP) Pulse Ox O2 Delivery O2 Flow Rate FiO2 04/07/18 12:16 97 Room Air 04/07/18 08:23 69 160/79 04/07/18 06:22 98.6 22 I&O Intake and Output 04/07/18 07:01 Intake Total 720 ml Balance 720 ml Intake Oral 720 ml # Bowel Movements 1 Current Medications: Meds: Current Medications Acetaminophen (Tylenol) 650 mg PRN Q6HRS PRN PO PAIN / TEMP; Start 03/09/18 at 00:00; Stop 04/07/18 at 13:19; Status DC Multi-Ingredient Ointment (Analgesic [place]) 1 martín PRN QID PRN TP MUSCLE PAIN; Start 03/09/18 at 00:00; Stop 04/07/18 at 13:19; Status DC Al Hydroxide/Mg Hydroxide (Mylanta Plus Xs) 15 ml PRN AFTMEALHC PRN PO DYSPEPSIA Last administered on 04/03/18at 05:39; Start 03/09/18 at 00:00; Stop at 13:19; Status DC Magnesium Hydroxide (Milk Of Magnesia) 2,400 mg PRN QHS PRN PO CONSTIPATION; Start 03/09/18 at 00:00; Stop 04/07/18 at 13:19; Status DC Ferrous Sulfate (Feosol) 325 mg BIDAFTMEAL PO Last administered on 04/07/18at 08 :22; Start 03/09/18 at 09:00; Stop 04/07/18 at 13:19; Status DC Albuterol/ Ipratropium (Duoneb) 3 ml PRN Q4HRS PRN IH WHILE AWAKE F/SOA Last administered on 03/31/18at 14:59; Start 03/09/18 at 00:15; Stop 04/07/18 at 13:19 ; Status DC Lisinopril (Prinivil) 10 mg DAILY PO Last administered on 04/07/18 08:23; Start 03/09/18 at 09:00; Stop 04/07/18 at 13:19; Status DC Methadone HCl (Dolophine) 10 mg TID PO Last administered on 04/07/18at 12:16; Start 03/09/18 at 09:00; Stop 04/07/18 at 13:19; Status DC Mirtazapine (Remeron) 30 mg QHS PO Last administered on 04/06/18at 20:33; Start 03/09/18 at 21:00; Stop 04/07/18 at 13:19; Status DC Sertraline HCl (Zoloft) 150 mg DAILY PO Last administered on 03/13/18at 07:57; Start 03/09/18 at 09:00; Stop 03/13/18 at 12:14; Status DC Carvedilol (Coreg) 3.125 mg BIDWMEALS PO Last administered on 04/07/18 08:23; Start 03/09/18 at 08:00; Stop 04/07/18 at 13:19; Status DC Furosemide (Lasix) 40 mg DAILY PO Last administered on 04/07/18 08:23; Start 03/09/18 at 09:00; Stop 04/07/18 at 13:19; Status DC Guaifenesin (Mucinex Er) 1,200 mg Q12HR PO Last administered on 04/07/18 08:22 ; Start 03/09/18 at 09:00; Stop 04/07/18 at 13:19; Status DC Latanoprost (Xalatan) 1 drop QHS OU Last administered on 04/06/18at 20:33; Start 03/09/18 at 21:00; Stop 04/07/18 at 13:19; Status DC Nicotine (Nicoderm Cq 7mg) 1 patch DAILY TD Last administered on 04/07/18 08: 24; Start 03/09/18 at 09:00; Stop 04/07/18 at 13:19; Status DC Pantoprazole Sodium (Protonix) 40 mg DAILYAC PO Last administered on 04/07/18at 07:40; Start 03/09/18 at 07:30; Stop 04/07/18 at 13:19; Status DC Phenytoin Sodium (Dilantin) 200 mg BID PO Last administered on 04/07/18 08:22 ; Start 03/09/18 at 09:00; Stop 04/07/18 at 13:19; Status DC Ropinirole HCl (Requip) 1 mg BID PO Last administered on 04/07/18at 08:22; Start 03/09/18 at 09:00; Stop 04/07/18 at 13:19; Status DC Sennosides (Senna) 8.6 mg BID PO Last administered on 04/07/18 08:23; Start at 09:00; Stop 04/07/18 at 13:19; Status DC Non-Formulary Medication (Tiotropium [place] (Spiriva)) 1 puff DAILY IH ; Start 03/09/18 at 09:00; Status UNV Oxybutynin Chloride (Ditropan) 5 mg BID PO Last administered on 04/07/18 08:23 ; Start 03/09/18 at 21:00; Stop 04/07/18 at 13:19; Status DC Trazodone HCl (Desyrel) 50 mg PRN QHS PRN PO INSOMNIA; Start 03/09/18 at 00:15 ; Stop 03/09/18 at 19:54; Status DC Alprazolam (Xanax) 0.25 mg PRN Q12HR PRN PO ANXIETY / AGITATION; Start at 00:30; Stop 03/09/18 at 19:54; Status DC Alprazolam (Xanax) 0.25 mg PRN Q6HRS PRN PO ANXIETY / AGITATION; Start at 00:30; Stop 03/09/18 at 19:54; Status DC Albuterol Sulfate (Ventolin) 2.5 mg RTQID NEB Last administered on 04/07/18at 11 :40; Start 03/09/18 at 08:00; Stop 04/07/18 at 13:19; Status DC Budesonide (Pulmicort) 0.5 mg RTBID NEB Last administered on 04/07/18at 11:40; Start 03/09/18 at 08:00; Stop 04/07/18 at 13:19; Status DC Albuterol Sulfate (Ventolin) 2.5 mg STK-MED ONCE .ROUTE ; Start 03/09/18 at 06: 08; Stop 03/09/18 at 06:09; Status DC Alprazolam (Xanax) 0.25 mg PRN Q4HRS PRN PO ANXIETY / AGITATION Last administered on 04/07/18at 11:51; Start 03/09/18 at 20:00; Stop 04/07/18 at 13:19 ; Status DC Trazodone HCl (Desyrel) 100 mg PRN QHS PRN PO INSOMNIA Last administered on 09/07at 19:50; Start 03/09/18 at 20:00; Stop 04/07/18 at 13:19; Status DC Quetiapine Fumarate (SEROquel) 12.5 mg BID@0900,1300 PO Last administered on at 13:43; Start 03/12/18 at 09:00; Stop 03/12/18 at 18:38; Status DC Quetiapine Fumarate (SEROquel) 25 mg TID@0900,1300,1700 PO Last administered on 03/18/18at 16:29; Start 03/13/18 at 09:00; Stop 03/18/18 at 18:21; Status DC Quetiapine Fumarate (SEROquel) 12.5 mg 1X ONCE PO Last administered on at 19:19; Start 03/12/18 at 19:00; Stop 03/12/18 at 19:01; Status DC Sertraline HCl (Zoloft) 75 mg DAILY PO Last administered on 03/27/18at 07:55; Start 03/14/18 at 09:00; Stop 03/27/18 at 10:51; Status DC Divalproex Sodium (Depakote Sprinkles) 125 mg [id number] PO ; Start 03/15/18 at 22: 00; Stop 03/15/18 at 22:30; Status DC Divalproex Sodium (Depakote Sprinkles) 125 mg TIDAFTMEAL PO Last administered on 03/19/18at 16:45; Start 03/16/18 at 09:00; Stop 03/19/18 at 18:50; Status DC Quetiapine Fumarate (SEROquel) 37.5 mg TID@0900,1300,1700 PO Last administered on 03/21/18at 16:58; Start 03/19/18 at 09:00; Stop 03/21/18 at 19:24; Status DC Divalproex Sodium (Depakote Sprinkles) 250 mg TIDAFTMEAL PO Last administered on 03/22/18at 17:26; Start 03/20/18 at 09:00; Stop 03/22/18 at 18:06; Status DC Quetiapine Fumarate (SEROquel) 50 mg TID@0900,1300,1700 PO Last administered on 04/07/18at 12:17; Start 03/22/18 at 09:00; Stop 04/07/18 at 13:19; Status DC Divalproex Sodium (Depakote Sprinkles) 375 mg TIDAFTMEAL PO Last administered on 03/26/18 17:18; Start 03/23/18 at 09:00; Stop 03/26/18 at 18:32; Status DC Divalproex Sodium (Depakote Sprinkles) 500 mg TIDAFTMEAL PO Last administered on 03/30/18at 17:51; Start 03/27/18 at 09:00; Stop 03/30/18 at 20:05; Status DC Fluvoxamine Maleate (Luvox) 25 mg DAILY PO Last administered on 03/30/18at 08:13 ; Start 03/28/18 at 09:00; Stop 03/30/18 at 12:00; Status DC Fluvoxamine Maleate (Luvox) 50 mg DAILY PO Last administered on 04/02/18at 07:54 ; Start 03/31/18 at 09:00; Stop 04/02/18 at 11:00; Status DC Divalproex Sodium (Depakote Er) 1,500 mg QHS PO Last administered on 04/06/18at 20:33; Start 03/30/18 at 21:00; Stop 04/07/18 at 13:19; Status DC Divalproex Sodium (Depakote Er) 250 mg QHS PO Last administered on 04/06/18at 20 :33; Start 03/30/18 at 21:00; Stop 04/07/18 at 13:19; Status DC Fluvoxamine Maleate (Luvox) 75 mg DAILY PO Last administered on 04/07/18at 08:21 ; Start 04/03/18 at 09:00; Stop 04/07/18 at 13:19; Status DC Buspirone HCl (Buspar) 5 mg TID@0900,1300,1700 PO Last administered on at 12:17; Start 04/03/18 at 13:00; Stop 04/07/18 at 13:19; Status DC Active Scripts Active Reported Fluvoxamine Maleate 100 Mg Tablet 75 Mg PO DAILY Buspirone Hcl 5 Mg Tablet 5 Mg PO TID@0900,1300,1700 Seroquel (Quetiapine Fumarate) 50 Mg Tablet 50 Mg PO TID@0900,1300,1700 Analgesic [place] (Methyl Salicylate/Menthol) 28 Gm Oint...g. 1 Martín TP PRN QID PRN Milk Of Magnesia (Magnesium Hydroxide) 2,400 Mg/10 Ml Oral.susp 2,400 Mg PO PRN QHS PRN Advanced Antacid Liquid (Mag Hydrox/Al Hydrox/Simeth) 355 Ml Oral.susp 15 Ml PO PRN AFTMEALHC PRN Depakote Er (Divalproex Sodium) 250 Mg Tab.er.24h 250 Mg PO QHS administer with 1500mg for total dose of 1750mg HS Depakote Er (Divalproex Sodium) 500 Mg Tab.er.24h 1,500 Mg PO QHS administer with 250mg for total dose of 1750mg at HS Albuterol Sulfate Neb Soln (Albuterol Sulfate) 1.25 Mg/3 Ml Vial.neb 2.5 Mg NEB RTQID Tylenol (Acetaminophen) 325 Mg Tablet 650 Mg PO PRN Q6HRS PRN Alprazolam 0.25 Mg Tablet 0.25 Mg PO PRN Q4HRS PRN Detrol La (Tolterodine Tartrate) 2 Mg Cap.er.24h 2 Mg PO QHS Xalatan (Latanoprost) 2.5 Ml Drops 1 Drop EACHEYE QHS Pantoprazole Sodium 40 Mg Tablet.dr 40 Mg PO DAILY Requip (Ropinirole Hcl) 1 Mg Tablet 1 Mg PO BID NICODERM CQ 7mg (Nicotine) 1 Each Patch.td24 1 Patch TD DAILY Mucinex (Guaifenesin) 1,200 Mg Tbmp.12hr 1,200 Mg PO Q12HR Lasix (Furosemide) 40 Mg Tablet 40 Mg PO DAILY Ferrous Sulfate 325 Mg Tablet 325 Mg PO BID Mirtazapine 30 Mg Tablet 30 Mg PO QHS Trazodone Hcl 50 Mg Tablet 50 Mg PO PRN QHS PRN Spiriva (Tiotropium Arc[place]) 18 Mcg Cap.w.dev 1 Puff IH DAILY Senna (Sennosides) 8.6 Mg Tablet 8.6 Mg PO BID Phenytoin Sodium Extended 100 Mg Capsule 200 Mg PO BID Methadone Hcl 5 Mg Tablet 10 Mg PO TID Lisinopril 10 Mg Tablet 10 Mg PO DAILY Carvedilol 3.125 Mg Tablet 3.125 Mg PO BIDWMEALS Duoneb 0.5-3(2.5) Mg/3 Ml (Albuterol/Ipratropium) 3 Ml Ampul.neb 3 Ml IH Q4HRS W /A PRN I have reviewed the current psychotropics carefully including drug interactions. Risk benefit ratio favors no change other than as noted in my dictated progress note. Diagnosis: Problems: (1) Vascular dementia with delusions (2) Alzheimer's dementia (3) Impulse control disorder (4) Major depressive disorder (5) Parkinson disease JESIKA HAYES MD Apr 07, 2018 20:54
--- NOTE | 2018-04-08 17:52 | DS ---
DATE OF DISCHARGE: 04/07/2018 This is a late entry 04/07/2018 covers the elements not covered in my initial note 04/07/2018. REASON FOR ADMISSION: Please refer to the admission history for details. Briefly, the patient is a 77-year-old female referred to us from [facility] by Dr. Cui, her primary care physician, on account of increased anxiety, mood swings, feeling like she cannot breathe with stated suicidal ideation. The patient attempted to cut her wrist with an envelope plant technician. Behaviors were deemed dangerous, unmanageable at the facility resulting in this referral. SIGNIFICANT FINDINGS AND CLINICAL COURSE: Following admission, the patient was seen daily individually by myself from a psychiatric standpoint, medical followup per Dr. Kelly/Dr Salguero. Review of her past history was rather remarkable history of alcohol abuse. Her daughter indicated that the patient also had a long history of anxiety and mood swings and a history of PTSD, insomnia, worsened by chronic pain. The patient voiced suicidal ideation intermittently with no plans, intent or attempt. Adjustments were made in her psychotropics and she is ultimately seemed to respond to a combination of Remeron 30 mg at bedtime, trazodone 100 mg at bedtime p.r.n. and may repeat x 1 for insomnia, Xanax 0.25 mg p.r.n., Seroquel 50 mg 3 times a day and hold if sedated, Depakote ER 1750 mg at bedtime, Luvox 75 mg a day on account of her obsessive compulsive disorder, which worsened anxiety episodes along with BuSpar 5 mg 3 times a day. Prior to discharge on 04/07/2018, the patient denied any suicidal ideation whatsoever and I questioned her closely on this. REVIEW OF SYSTEMS: Ambulation impaired with walker. No CV, , pulmonary, eye system symptoms on review. MENTAL STATUS EXAM: The patient is reasonably oriented. Speech coherent, less pressured. Abstraction fair, computation impaired, language function intact. Mood and affect, lability was improved. LABS: Reviewed. 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 Rest unchanged from admission. DISCHARGE MEDICATIONS: Please refer to the EMRAD. Outpatient psychiatric and medical followup at the [facility]. Prior to the patient is discharged, I discussed the patient with the nursing staff at [facility] in preparation for her discharge back to the facility. Time for discharge day management greater than 30 minutes. JESIKA HAYES MD DR: BROOKE/fabio JOB#: [id number] / [id number]
== END 2018-04-07 12:45 | disposition home or self-care (01) | DRG 885 ==
LOC: GEROPSY 23:00
PROVIDERS: ADMIT Psychiatry & Neurology Psychiatry; ATTEND Psychiatry & Neurology Psychiatry
DX: F31.64 Bipolar disorder, current episode mixed, severe, with psychotic features (principal); R45.851 Suicidal ideations; F01.51 Vascular dementia, unspecified severity, with behavioral disturbance; F02.81 Dementia in other diseases classified elsewhere, unspecified severity, with behavioral disturbance; G30.9 Alzheimer's disease, unspecified; E78.00 Pure hypercholesterolemia, unspecified; F09 Unspecified mental disorder due to known physiological condition; F17.200 Nicotine dependence, unspecified, uncomplicated; F31.77 Bipolar disorder, in partial remission, most recent episode mixed; F41.0 Panic disorder [episodic paroxysmal anxiety]; F42.9 Obsessive-compulsive disorder, unspecified; F43.10 Post-traumatic stress disorder, unspecified; F63.9 Impulse disorder, unspecified; G20 Parkinson's disease; G40.909 Epilepsy, unspecified, not intractable, without status epilepticus; G47.00 Insomnia, unspecified; I10 Essential (primary) hypertension; J44.9 Chronic obstructive pulmonary disease, unspecified; S61.512A Laceration without foreign body of left wrist, initial encounter; G89.29 Other chronic pain; Z79.891 Long term (current) use of opiate analgesic; Z79.899 Other long term (current) drug therapy; Z90.49 Acquired absence of other specified parts of digestive tract
CPT/HCPCS: 36415; 80053; 80061; 80164; 80185; 82140; 82306; 82607; 83036; 83540; 83550; 84436; 84443; 84480; 85025; 85027; 86593; 93005; 94640; J7613; J7620; J7626; 97110; 97116; 97530